=== PATIENT | male | born 1960 | race Caucasian/White ===

== ENCOUNTER 2017-01-11 12:05 | Inpatient (IN) | payer MEDICARE, OTHER ==
[2017-01-11] MEDS ORDERED: SODIUM CHLORIDE 0.9% 1,000 ML IV STA ×2 (12:10)
--- NOTE | 2017-01-11 12:16 | ED ---
Weakness HPI - General Chief complaint: Weakness Stated complaint: waekness Time Seen by Provider: 01/11/17 12:05 Source: patient, EMS, RN notes reviewed Mode of arrival: EMS - History of Present Illness Initial comments: This is a 56-year-old male with a history of peripheral vascular disease and a [id number] amputation from peripheral vascular disease also admits to drinking alcohol smoking cigarettes who called EMS was brought in for evaluation of inability to use his right arm very well also dizziness. He doesn 't was to drinking last night he states he woke up about an hour ago complaining of not being able to use his right arm wall and was shaking. This is since resolved he still somewhat dizzy however. Denies no focal weakness denies any fevers chills nausea, sweats he denies any trauma. MD Complaint: focal weakness - Related Data Home Medications Medication Instructions Recorded Confirmed Metoprolol Tartrate [Lopressor] 25 mg PO DAILY 01/11/17 01/11/17 Sertraline [Zoloft] 100 mg PO DAILY 01/11/17 01/11/17 Previous Rx's Medication Instructions Recorded Aspirin 325 mg PO DAILY #30 tab 09/27/14 Atorvastatin [Lipitor] 80 mg PO HS #30 tab 09/27/14 Allergies Allergy/AdvReac Type Severity Reaction Status Date / Time No Known Allergies Allergy Verified 01/11/17 13:30 Review of Systems ROS Statement: Those systems with pertinent positive or pertinent negative responses have been documented in the HPI. ROS Other: All systems not noted in ROS Statement are negative. Past Medical History Past Medical History: Coronary Artery Disease (CAD), Hypertension, Myocardial Infarction ([place]), Seizure Disorder, Vascular Disorder Additional Past Medical History / Comment(s): 09/25/14 Transfer from [facility] with STEMI. Other HX: Seizures x 5 with last one 10 weeks ago, Depression, patient's recently - December 2013, stomach pain that caused him to be off work 7 months- hewas told it had something to do with his spleen and that it might have ruptured- his hgb went down to 3. Hx of L ankle fx. Last Myocardial Infarction Date:: 09/25/14 History of Any Multi-Drug Resistant Organisms: None Reported Past Surgical History: Appendectomy, Heart Catheterization With Stent Additional Past Surgical History / Comment(s): 09/25/14 PTCA with stenting, BYPASS ON BOTH LEGS, RIGHT BELOW KNEE AMPUTATION, 2 EGD's, colonoscopy x 2, hemorrhoidectomy, . Past Anesthesia/Blood Transfusion Reactions: No Reported Reaction Additional Past Anesthesia/Blood Transfusion Reaction / Comment(s): Pt had blood transfusions with no reaction. Date of Last Stent Placement:: 09/25/14 Past Psychological History: Anxiety, Depression Smoking Status: Current every day smoker Past Alcohol Use History: Abuse, Daily Past Drug Use History: None Reported - Past Family History Father Family Medical History: Cancer Additional Family Medical History / Comment(s): Father of lung cancer. Mother Family Medical History: Hypertension General Exam - General Exam Comments Initial Comments: This is a well-developed well-nourished awake alert oriented 3 male General appearance: alert, in no apparent distress Head exam: Present: atraumatic, normocephalic, normal inspection Eye exam: Present: normal appearance, PERRL, EOMI. Absent: scleral icterus, conjunctival injection, periorbital swelling ENT exam: Present: normal exam, mucous membranes moist Neck exam: Present: normal inspection. Absent: tenderness, meningismus, lymphadenopathy Respiratory exam: Present: normal lung sounds bilaterally. Absent: respiratory distress, wheezes, rales, rhonchi, stridor Cardiovascular Exam: Present: regular rate, normal rhythm, normal heart sounds. Absent: systolic murmur, diastolic murmur, rubs, gallop, clicks GI/Abdominal exam: Present: soft, normal bowel sounds. Absent: distended, tenderness, guarding, rebound, rigid Extremities exam: Present: full ROM, normal capillary refill, other (Prosthesis on the right lower extremity). Absent: tenderness, pedal edema, joint swelling , calf tenderness Back exam: Present: normal inspection Neurological exam: Present: alert, oriented X3, CN II-XII intact Psychiatric exam: Present: normal affect, normal mood Skin exam: Present: warm, dry, intact, normal color. Absent: rash Course Vital Signs 01/11/17 01/11/17 01/11/17 12:07 13:05 13:23 Temperature 97.7 F Pulse Rate 80 69 73 Respiratory 20 18 18 Rate Blood Pressure 113/63 131/59 118/64 O2 Sat by Pulse 98 98 99 Oximetry 01/11/17 14:00 Temperature Pulse Rate 70 Respiratory 18 Rate Blood Pressure 103/59 O2 Sat by Pulse 98 Oximetry EKG Findings - EKG Results: EKG: interpreted by ERMJens, sinus rhythm (Sinus rhythm rate of 68 CT interval 132 QRS of 80 daily since QTC of 414/440) Medical Decision Making - Medical Decision Making I did reevaluate patient several occasions no further symptoms at this time the presentation is suspicious for TIA though radiculopathy is not excluded. Patient will be admitted with neurological consultation patient was initially demonstrate alcohol intoxication. - Lab Data Result diagrams: 01/11/17 12:14 01/11/17 12:14 Lab Results 01/11/17 01/11/17 01/11/17 Range/Units 12:14 12:14 12:14 WBC 10.6 (3.8-10.6) k/uL RBC 4.50 (4.30-5.90) m/uL Hgb 15.3 (13.0-17.5) gm/dL Hct 43.0 (39.0-53.0) % MCV 95.5 (80.0-100.0) fL MCH 34.0 (25.0-35.0) pg MCHC 35.6 (31.0-37.0) g/dL RDW 12.5 (11.5-15.5) % Plt Count 287 (150-450) k/uL Neutrophils % 64 % Lymphocytes % 27 % Monocytes % 4 % Eosinophils % 2 % Basophils % 1 % Neutrophils # 6.8 (1.3-7.7) k/uL Lymphocytes # 2.9 (1.0-4.8) k/uL Monocytes # 0.4 (0-1.0) k/uL Eosinophils # 0.2 (0-0.7) k/uL Basophils # 0.1 (0-0.2) k/uL PT (9.0-12.0) sec INR (<1.1) APTT (22.0-30.0) sec Sodium 145 (137-145) mmol/L Potassium 5.1 (3.5-5.1) mmol/L Chloride 109 H (98-107) mmol/L Carbon Dioxide 24 (22-30) mmol/L Anion Gap 12 mmol/L BUN 20 (9-20) mg/dL Creatinine 0.83 (0.66-1.25) mg/dL Est GFR (MDRD) Af Amer >60 (>60 ml/min/1.73 sqM) Est GFR (MDRD) Non-Af >60 (>60 ml/min/1.73 sqM) Glucose 88 (74-99) mg/dL POC Glucose (mg/dL) (75-99) mg/dL POC Glu [employer] ID Calcium 8.9 (8.4-10.2) mg/dL Magnesium 2.0 (1.6-2.3) mg/dL Total Bilirubin 0.7 (0.2-1.3) mg/dL AST 19 (17-59) U/L ALT 31 (21-72) U/L Alkaline Phosphatase 91 (38-126) U/L Total Creatine Kinase 78 (55-170) U/L CK-MB (CK-2) 0.9 (0.0-2.4) ng/mL CK-MB (CK-2) Rel Index 1.2 Troponin I <0.012 (0.000-0.034) ng/mL Total Protein 7.4 (6.3-8.2) g/dL Albumin 4.4 (3.5-5.0) g/dL Urine Color Urine Appearance (Clear) Urine pH (5.0-8.0) Ur Specific [place] (1.001-1.035) Urine Protein (Negative) Urine Glucose (UA) (Negative) Urine Ketones (Negative) Urine Blood (Negative) Urine Nitrite (Negative) Urine Bilirubin (Negative) Urine Urobilinogen (<2.0) mg/dL Ur Leukocyte Esterase (Negative) Urine RBC (0-5) /hpf Urine WBC (0-5) /hpf Ur Squamous Epith Cells (0-4) /hpf Urine Bacteria (None) /hpf Hyaline Casts (0-2) /lpf Urine Mucus (None) /hpf Urine Opiates Screen (NotDetected) Ur Oxycodone Screen (NotDetected) Urine Methadone Screen (NotDetected) Ur Propoxyphene Screen (NotDetected) Ur Barbiturates Screen (NotDetected) U Tricyclic Antidepress (NotDetected) Ur Phencyclidine Scrn (NotDetected) Ur Amphetamines Screen (NotDetected) U Methamphetamines Scrn (NotDetected) U Benzodiazepines Scrn (NotDetected) Urine Cocaine Screen (NotDetected) U Marijuana (THC) Screen (NotDetected) Serum Alcohol 236 mg/dL 01/11/17 01/11/17 01/11/17 Range/Units 12:14 12:14 12:20 WBC (3.8-10.6) k/uL RBC (4.30-5.90) m/uL Hgb (13.0-17.5) gm/dL Hct (39.0-53.0) % MCV (80.0-100.0) fL MCH (25.0-35.0) pg MCHC (31.0-37.0) g/dL RDW (11.5-15.5) % Plt Count (150-450) k/uL Neutrophils % % Lymphocytes % % Monocytes % % Eosinophils % % Basophils % % Neutrophils # (1.3-7.7) k/uL Lymphocytes # (1.0-4.8) k/uL Monocytes # (0-1.0) k/uL Eosinophils # (0-0.7) k/uL Basophils # (0-0.2) k/uL PT 10.0 (9.0-12.0) sec INR 1.0 (<1.1) APTT 22.7 (22.0-30.0) sec Sodium (137-145) mmol/L Potassium (3.5-5.1) mmol/L Chloride (98-107) mmol/L Carbon Dioxide (22-30) mmol/L Anion Gap mmol/L BUN (9-20) mg/dL Creatinine (0.66-1.25) mg/dL Est GFR (MDRD) Af Amer (>60 ml/min/1.73 sqM) Est GFR (MDRD) Non-Af (>60 ml/min/1.73 sqM) Glucose (74-99) mg/dL POC Glucose (mg/dL) 85 (75-99) mg/dL POC Glu [employer]ic ID McDaid, Ginny Calcium (8.4-10.2) mg/dL Magnesium (1.6-2.3) mg/dL Total Bilirubin (0.2-1.3) mg/dL AST (17-59) U/L ALT (21-72) U/L Alkaline Phosphatase (38-126) U/L Total Creatine Kinase (55-170) U/L CK-MB (CK-2) (0.0-2.4) ng/mL CK-MB (CK-2) Rel Index Troponin I (0.000-0.034) ng/mL Total Protein (6.3-8.2) g/dL Albumin (3.5-5.0) g/dL Urine Color Yellow Urine Appearance Clear (Clear) Urine pH 5.5 (5.0-8.0) Ur Specific [place] 1.014 (1.001-1.035) Urine Protein Trace H (Negative) Urine Glucose (UA) Negative (Negative) Urine Ketones Negative (Negative) Urine Blood Small H (Negative) Urine Nitrite Negative (Negative) Urine Bilirubin Negative (Negative) Urine Urobilinogen <2.0 (<2.0) mg/dL Ur Leukocyte Esterase Negative (Negative) Urine RBC 1 (0-5) /hpf Urine WBC 2 (0-5) /hpf Ur Squamous Epith Cells 1 (0-4) /hpf Urine Bacteria Rare H (None) /hpf Hyaline Casts 4 H (0-2) /lpf Urine Mucus Rare H (None) /hpf Urine Opiates Screen Detected H (NotDetected) Ur Oxycodone Screen Not Detected (NotDetected) Urine Methadone Screen Not Detected (NotDetected) Ur Propoxyphene Screen Not Detected (NotDetected) Ur Barbiturates Screen Not Detected (NotDetected) U Tricyclic Antidepress Not Detected (NotDetected) Ur Phencyclidine Scrn Not Detected (NotDetected) Ur Amphetamines Screen Not Detected (NotDetected) U Methamphetamines Scrn Not Detected (NotDetected) U Benzodiazepines Scrn Not Detected (NotDetected) Urine Cocaine Screen Not Detected (NotDetected) U Marijuana (THC) Screen Not Detected (NotDetected) Serum Alcohol mg/dL - Radiology Data Radiology results: report reviewed (I did review the imaging and reports no acute findings.), image reviewed Disposition Clinical Impression: TIA (transient ischemic attack), Alcohol intoxication Disposition: ADMITTED IP TO THIS [facility] Condition: Stable Referrals: Ozzy Pereira MD [Primary Care Provider] - 1-2 days
[2017-01-11 12:22] LABS: Glucose,Whole Blood 85 mg/dL (75-99)
--- NOTE | 2017-01-11 12:39 | CT ---
EXAMINATION TYPE: CT brain wo con for TPA DATE OF EXAM: 01/11/2017 COMPARISON: Previous study dated 09/27/2014. HISTORY: Patient complains of headache and difficulty breathing. CT DLP: 798.9 mGycm Automated exposure control for dose reduction was used. FINDINGS: There are mild, generalized changes of sulcal prominence and ventriculomegaly, compatible with atroph ic change. There is a catheter or malacia in the right frontal lobe consistent with a previous vascul ar insult. This is unchanged from previous. There is mild, diffuse periventricular white matter lucen cy, compatible with chronic white matter ischemic change. There is no acute focal lesion, mass effect or midline shift identified. I do not see evidence of intracranial blood. There is mild mucoperiosteal thickening involving the ethmoid sinuses. Note depressed skull fracture is seen. IMPRESSION: 1. NO ACUTE INTRACRANIAL ABNORMALITY. 2. EVIDENCE OF A PREVIOUS RIGHT FRONTAL INFARCT. 3. MILD ATROPHIC CHANGE. 4. CHRONIC WHITE MATTER ISCHEMIC CHANGE. 5. MILD MUCOPERIOSTEAL THICKENING, ETHMOID SINUSES.
--- NOTE | 2017-01-11 12:40 | XR ---
EXAMINATION TYPE: XR chest 2V DATE OF EXAM: 01/11/2017 HISTORY: altered mental status. REFERENCE: Previous study dated 04/15/2015. FINDINGS: The lungs are overinflated. The lungs are clear. Pleural spaces are clear. Heart size is no rmal. IMPRESSION: COPD.
[2017-01-11 13:05] LABS: Basophils # (A) 0.1 k/uL (0-0.2); Basophils % (A) 1 %; CH 31.7; CHCM 33.4; Eosinophils # (A) 0.2 k/uL (0-0.7); Eosinophils % (A) 2 %; HDW 2.13; HGB 15.3 gm/dL (13.0-17.5); Luc # (Auto) 0.24; Luc % (Auto) 2; Lymphocytes # (A) 2.9 k/uL (1.0-4.8); Lymphocytes % (A) 27 %; MCHC 35.6 g/dL (31.0-37.0); MCV 95.5 fL (80.0-100.0); Mean Platelet Volume 7.4; Monocytes # (A) 0.4 k/uL (0-1.0); Monocytes % (A) 4 %; Neutrophils # (A) 6.8 k/uL (1.3-7.7); Neutrophils % (A) 64 %; RDW 12.5 % (11.5-15.5); WBC 10.6 k/uL (3.8-10.6); WBC (Perox) 10.56
[2017-01-11 13:16] LABS: Anion Gap 12 mmol/L; Calcium 8.9 mg/dL (8.4-10.2); Carbon Dioxide 24 mmol/L (22-30); Chloride 109 mmol/L (98-107); Glucose 88 mg/dL (74-99); Non-African American GFR(MDRD) >60 (>60 ml/min/1.73 sqM); Sodium 145 mmol/L (137-145); Total Bilirubin 0.7 mg/dL (0.2-1.3)
[2017-01-11 13:18] LABS: Appearance,Urine Clear (Clear); Bacteria,Urine Rare /hpf; Bilirubin,Urine Negative (Negative); Glucose,Urine (UA) Negative (Negative); Ketones,Urine Negative (Negative); Leukocyte Esterase,Urine Negative (Negative); Mucus,Urine Rare /hpf; Nitrite,Urine Negative (Negative); PH, Urine 5.5 (5.0-8.0); Particle Count 3276; Protein,Urine Trace (Negative); RBC,Urine 1 /hpf (0-5); Specific Gravity,Urine 1.014 (1.001-1.035); Squamous Epithelial Cell,Urine 1 /hpf (0-4); UA Billing (MACRO vs. MICRO) MICRO; Urobilinogen,Urine <2.0 mg/dL (<2.0); WBC,Urine 2 /hpf (0-5)
[2017-01-11 13:21] LABS: Partial Thromboplastin Time 22.7 sec (22.0-30.0)
[2017-01-11 13:24] LABS: Alcohol 236 mg/dL
[2017-01-11 13:25] LABS: Potassium 5.1 mmol/L (3.5-5.1); Total Protein 7.4 g/dL (6.3-8.2)
[2017-01-11 13:26] LABS: ALT 31 U/L (21-72); AST 19 U/L (17-59); Alkaline Phosphatase 91 U/L (38-126); Blood Urea Nitrogen 20 mg/dL (9-20); Creatine Kinase 78 U/L (55-170)
[2017-01-11 13:40] LABS: Creatine Kinase MB 0.9 ng/mL (0.0-2.4); Troponin I <0.012 ng/mL (0.000-0.034)
[2017-01-11] MEDS ORDERED: LORazepam 2 MG/ML SYRINGE IV PRN ×2 (15:07)
[2017-01-11] MEDS ORDERED: THIAMINE 100 MG/ML 2 ML VIAL IM STA (15:07)
[2017-01-11] MEDS: SODIUM CHLORIDE 0.9% 1,000 ML IV SCH (15:26)
--- NOTE | 2017-01-11 15:49 | US ---
EXAMINATION TYPE: US carotid duplex BILAT DATE OF EXAM: 01/11/2017 COMPARISON: NONE CLINICAL HISTORY: Stenosis. Right facial numbness, dizziness EXAM MEASUREMENTS: RIGHT: Peak Systolic Velocity (PSV) cm/sec ----- Right CCA: 84.5 ----- Right ICA: 94.3 ----- Right ECA: 115.1 ICA/CCA ratio: 1.1 RIGHT: End Diastole cm/sec ----- Right CCA: 21.9 ----- Right ICA: 21.9 ----- Right ECA: 20.6 LEFT: Peak Systolic Velocity (PSV) cm/sec ----- Left CCA: 63.6 ----- Left ICA: 103.4 ----- Left ECA: 124.2 ICA/CCA ratio: 1.6 LEFT: End Diastole cm/sec ----- Left CCA: 20.0 ----- Left ICA: 37.4 ----- Left ECA: 20.8 VERTEBRALS (direction of flow): Right Vertebral: Antegrade Left Vertebral: Antegrade Mild plaque bilateral bifurcations. No evidence of increased velocities. No significant stenosis IMPRESSION: I DO NOT SEE EVIDENCE OF A HEMODYNAMICALLY SIGNIFICANT STENOSIS IN EITHER CAROTID SYSTEM. Criteria for Assigning % of Stenosis / Diameter reduction (Estimation based on the indirect measurements of the internal carotid artery velocities (ICA PSV). 1. Normal (no stenosis)=ICA PSV < 125 cm/s: ratio < 2.0: ICA EDV<40 cm/s. 2. Less than 50% stenosis=ICA PSV < 125 cm/s: ratio < 2.0: ICA EDV<40 cm/s. 3. 50 to 69% stenosis=ICA PSV of 125 to 230 cm/s: ration 2.0 ? 4.0: ICA EDV 40-100 cm/s. 4. Greater than 70% stenosis to near occlusion= ICA PSV > 230 cm/s: ratio > 4.0: ICA EDV > 100 cm/s. 5. Near occlusion= ICA PSV velocities may be low or undetectable: variable ratio and ICA EDV. 6. Total occlusion=unable to detect flow.
[2017-01-11 16:44] VITALS: RESP 16
[2017-01-11] MEDS: HEPARIN SODIUM,PORCINE 5,000 UNIT/ML 1 ML VIAL SQ SCH ×2 (17:18→23:52)
[2017-01-11] MEDS: THIAMINE 100 MG TAB PO SCH (17:18)
[2017-01-11] MEDS: HYDROcodone/APAP 5-325MG 1 EACH TAB PO PRN (18:13)
[2017-01-11] MEDS: LORazepam 2 MG/ML SYRINGE IV PRN (21:05)
[2017-01-11] MEDS: ATORVASTATIN 80 MG TAB PO SCH (21:05)
--- NOTE | 2017-01-11 21:12 | P.CNNES ---
History of Present Illness Consult date: 01/11/17 History of Present Illness: The patient is a 56-year-old right-handed white male who woke up this morning with dizziness and chest pain. He also had shortness of breath. He states the shortness of breath continues even now. EMS was called and he noticed of right facial numbness. That lasted for 3-4 minutes. Also he notices right hand was jerking sporadically for about 15 minutes. He has chronic numbness in the legs from prior severe peripheral arterial disease. He states that the chest pain has eased down but his shortness of breath continues. Also the facial numbness left. He has a history of previous stroke which affected his left side. He had a CT of the brain which showed right frontal infarct. He reports that he drinks about 1 pint of liquor every 10 days. Yesterday he took 2 pints. He has shaky today he admits due to the alcohol consumption yesterday. He has a history of alcohol withdrawal seizures the last one being several years of back. Review of Systems Constitutional: Denies chills, Denies fever Eyes: denies blurred vision, denies pain Cardiovascular: Denies chest pain, Denies shortness of breath Respiratory: Denies cough Gastrointestinal: Denies abdominal pain, Denies diarrhea, Denies nausea, Denies vomiting Musculoskeletal: Denies myalgias Neurological: Reports as per HPI, Denies numbness, Denies weakness Psychiatric: Denies anxiety, Denies depression Past Medical History Past Medical History: Coronary Artery Disease (CAD), Hypertension, Myocardial Infarction ([place]), Seizure Disorder, Vascular Disorder Additional Past Medical History / Comment(s): 09/25/14 STEMI with stent placement , Seizures, ETOH Abuse, Depression, patient's recently - December 2013, stomach pain that caused him to be off work 7 months- hewas told it had something to do with his spleen and that it might have ruptured- his hgb went down to 3. Hx of L ankle fx. Last Myocardial Infarction Date:: 09/25/14 History of Any Multi-Drug Resistant Organisms: None Reported Past Surgical History: Appendectomy, Heart Catheterization With Stent Additional Past Surgical History / Comment(s): 09/25/14 PTCA with stenting, BYPASS ON BOTH LEGS, RIGHT BELOW KNEE AMPUTATION, 2 EGD's, colonoscopy x 2, hemorrhoidectomy, . Past Anesthesia/Blood Transfusion Reactions: No Reported Reaction Additional Past Anesthesia/Blood Transfusion Reaction / Comment(s): Pt had blood transfusions with no reaction. Date of Last Stent Placement:: 09/25/14 Past Psychological History: Anxiety, Depression Additional Psychological History / Comment(s): Pt's last year December 2013. R leg prosthesis. He admits to drinking a pint every 7-10 days. pack a day smoker since 1976. Smoking Status: Current every day smoker Past Alcohol Use History: Abuse, Daily Past Drug Use History: None Reported - Past Family History Father Family Medical History: Cancer Additional Family Medical History / Comment(s): Father of lung cancer. Mother Family Medical History: Cancer, Hypertension, Liver Disease Additional Family Medical History / Comment(s): Psychological history, Medications and Allergies Home Medications Medication Instructions Recorded Confirmed Type Metoprolol Tartrate [Lopressor] 25 mg PO DAILY 01/11/17 01/11/17 History Sertraline [Zoloft] 100 mg PO DAILY 01/11/17 01/11/17 History Allergies Allergy/AdvReac Type Severity Reaction Status Date / Time No Known Allergies Allergy Verified 01/11/17 13:30 Physical Examination - Vital Signs Vital Signs: Vital Signs Temp Pulse Pulse Resp BP BP Pulse Ox 01/11/17 16:07 97.0 F L 73 16 124/70 99 01/11/17 16:00 97.0 F L 73 16 124/70 99 01/11/17 15:26 97.9 F 91 18 123/72 97 01/11/17 15:00 67 18 116/59 98 01/11/17 14:00 70 18 103/59 98 01/11/17 13:23 73 18 118/64 99 01/11/17 13:05 69 18 131/59 98 01/11/17 12:07 97.7 F 80 20 113/63 98 Intake and Output 01/11/17 01/11/17 01/11/17 06:59 14:59 22:59 Intake Total 200 Balance 200 Intake: Oral 200 Other: Weight 61.235 kg 61.5 kg Patient Weight 01/12/17 06:59 Weight 61.5 kg - Constitutional General appearance: cooperative - EENT EENT: PERRL, vision intact - Respiratory Respiratory: lungs clear - Cardiovascular Cardiovascular: regular rate - Neurologic Mental status he was awake alert and oriented there is no aphasia or dysarthria Cranial nerve examination: PERRL, EOMI, VFF, V1/V2/V3 grossly intact, face symmetric, tongue midline Speech examination: intact Sensorimotor examination: intact Detailed motor examination: grossly full strength in all extremities, other ( The patient has a right below-knee amputation) Detailed sensory examination: intact Results - Laboratory Findings CBC and BMP: 01/11/17 12:14 01/11/17 12:14 Abnormal Lab Findings: Abnormal Labs 01/11/17 01/11/17 12:14 12:14 Chloride 109 H Urine Protein Trace H Urine Blood Small H Urine Bacteria Rare H Hyaline Casts 4 H Urine Mucus Rare H Urine Opiates Screen Detected H Assessment and Plan (1) Alcohol intoxication Status: Acute Code(s): F10.929 - ALCOHOL USE, UNSPECIFIED WITH INTOXICATION, UNSPECIFIED (2) TIA (transient ischemic attack) Status: Acute Code(s): G45.9 - TRANSIENT CEREBRAL ISCHEMIC ATTACK, UNSPECIFIED (3) Acute chest wall pain Status: Acute Code(s): R07.89 - OTHER CHEST PAIN (4) Shortness of breath Status: Acute Code(s): R06.02 - SHORTNESS OF BREATH Plan: The patient is a 56-year-old man with severe peripheral vascular disease and history of previous stroke who presents with transient episode of right facial numbness chest pain shortness of breath. He was admitted with alcohol intoxication. The patient's facial numbness may be related to a TIA. He did have some testing done for possible TIA including carotid ultrasound which did not show any significant stenosis. At a CT of the brain which showed mild atrophy and previous right frontal infarct. Recommend patient be started on Plavix 75 mg a day along with a baby aspirin. He states he does not drive. He has not had any reported's alcohol withdrawal seizures for several years. Will check EEG..
[2017-01-12 04:56] LABS: Cholesterol 161 mg/dL (<200); HDL Cholesterol 62 mg/dL (40-60); Triglycerides 158 mg/dL (<150)
[2017-01-12] MEDS: LORazepam 2 MG/ML SYRINGE IV PRN ×2 (07:49→16:19)
[2017-01-12] MEDS: HEPARIN SODIUM,PORCINE 5,000 UNIT/ML 1 ML VIAL SQ SCH ×2 (07:53→16:18)
[2017-01-12] MEDS: HYDROcodone/APAP 5-325MG 1 EACH TAB PO PRN ×3 (07:53→16:18)
[2017-01-12] MEDS: SERTRALINE 100 MG TAB PO SCH (07:55)
[2017-01-12] MEDS: METOPROLOL TARTRATE 25 MG TAB PO SCH (07:55)
[2017-01-12] MEDS: CLOPIDOGREL 75 MG TAB PO SCH (07:55)
[2017-01-12] MEDS: LISINOPRIL 20 MG TAB PO SCH (07:56)
[2017-01-12] MEDS ORDERED: ASPIRIN 325 MG TAB PO SCH (09:00)
[2017-01-12] MEDS: SODIUM CHLORIDE 0.9% 1,000 ML IV SCH ×3 (10:02→20:21)
[2017-01-12 10:22] VITALS: BMI 18.8
[2017-01-12] MEDS: THIAMINE 100 MG TAB PO SCH ×2 (11:16→16:18)
--- NOTE | 2017-01-12 11:33 | P.HPIM ---
History of Present Illness 56-year-old male was admitted through the emergency room with complaints of right sided facial numbness. Was found to be alcohol intoxicated. Patient is have history of TIA with left-sided problems Review of Systems Respiratory: Reports dyspnea Neurological: Reports paresthesias Past Medical History Past Medical History: Coronary Artery Disease (CAD), Hypertension, Myocardial Infarction (VT), Seizure Disorder, Vascular Disorder Additional Past Medical History / Comment(s): 09/25/14 STEMI with stent placement , Seizures, ETOH Abuse, Depression, patient's recently - December 2013, stomach pain that caused him to be off work 7 months- hewas told it had something to do with his spleen and that it might have ruptured- his hgb went down to 3. Hx of L ankle fx. Last Myocardial Infarction Date:: 09/25/14 History of Any Multi-Drug Resistant Organisms: None Reported Past Surgical History: Appendectomy, Heart Catheterization With Stent Additional Past Surgical History / Comment(s): 09/25/14 PTCA with stenting, BYPASS ON BOTH LEGS, RIGHT BELOW KNEE AMPUTATION, 2 EGD's, colonoscopy x 2, hemorrhoidectomy, . Past Anesthesia/Blood Transfusion Reactions: No Reported Reaction Additional Past Anesthesia/Blood Transfusion Reaction / Comment(s): Pt had blood transfusions with no reaction. Date of Last Stent Placement:: 09/25/14 Past Psychological History: Anxiety, Depression Additional Psychological History / Comment(s): Pt's last year December 2013. R leg prosthesis. He admits to drinking a pint every 7-10 days. pack a day smoker since 1976. Smoking Status: Current every day smoker Past Alcohol Use History: Abuse, Daily Past Drug Use History: None Reported - Past Family History Father Family Medical History: Cancer Additional Family Medical History / Comment(s): Father of lung cancer. Mother Family Medical History: Cancer, Hypertension, Liver Disease Additional Family Medical History / Comment(s): Psychological history, Medications and Allergies Home Medications Medication Instructions Recorded Confirmed Type Metoprolol Tartrate [Lopressor] 25 mg PO DAILY 01/11/17 01/11/17 History Sertraline [Zoloft] 100 mg PO DAILY 01/11/17 01/11/17 History Allergies Allergy/AdvReac Type Severity Reaction Status Date / Time No Known Allergies Allergy Verified 01/11/17 13:30 Physical Exam Vitals: Vital Signs Temp Pulse Pulse Resp BP BP Pulse Ox 01/12/17 11:20 97.7 F 72 16 124/70 98 01/12/17 08:00 97.5 F L 86 16 151/83 97 01/12/17 04:00 97.1 F L 81 16 148/65 98 01/12/17 00:00 76 16 118/66 98 01/11/17 20:00 97.5 F L 90 16 124/70 98 01/11/17 16:07 97.0 F L 73 16 124/70 99 01/11/17 16:00 97.0 F L 73 16 124/70 99 01/11/17 15:26 97.9 F 91 18 123/72 97 01/11/17 15:00 67 18 116/59 98 01/11/17 14:00 70 18 103/59 98 01/11/17 13:23 73 18 118/64 99 01/11/17 13:05 69 18 131/59 98 01/11/17 12:07 97.7 F 80 20 113/63 98 Intake and Output 01/11/17 01/12/17 01/12/17 22:59 06:59 14:59 Intake Total 200 500 945 Output Total 400 650 Balance 200 100 295 Intake: Intake, IV Titration 500 825 Amount Sodium Chloride 0.9% 1, 500 825 000 ml @ 100 mls/hr IV . Q10H [facility] Rx#:[id number] Oral 200 120 Output: Urine 400 650 Other: Voiding Method Urinal # Voids 1 # Bowel Movements 0 Weight 61.5 kg 59.5 kg 59.5 kg Patient Weight 01/13/17 06:59 Weight 59.5 kg - Constitutional General appearance: thin - EENT Eyes: PERRLA Ears: bilateral: normal - Neck Neck: normal ROM - Cardiovascular Rhythm: regular - Gastrointestinal General gastrointestinal: soft - Integumentary Integumentary: normal - Neurologic Neurologic: CNII-XII intact - Musculoskeletal Musculoskeletal: gait normal - Psychiatric Psychiatric: A&O x's 3, appropriate affect, intact judgment & insight Results CBC & Chem 7: 01/11/17 12:14 01/11/17 12:14 Labs: Abnormal Lab Results - Last 24 Hours (Table) 01/11/17 01/11/17 01/11/17 Range/Units 12:14 12:14 12:14 Chloride 109 H (98-107) mmol/L Triglycerides 158 H (<150) mg/dL HDL Cholesterol 62 H (40-60) mg/dL Urine Protein Trace H (Negative) Urine Blood Small H (Negative) Urine Bacteria Rare H (None) /hpf Hyaline Casts 4 H (0-2) /lpf Urine Mucus Rare H (None) /hpf Urine Opiates Screen Detected H (NotDetected) Chest x-ray: report reviewed CT Scan - head: report reviewed Thrombosis Risk Factor Assmnt - Choose All That Apply Any of the Below Risk Factors Present?: Yes Each Factor Represents 1 point: Age 41-60 years Other Risk Factors: No Other congenital or acquired thrombophilia - If yes, enter type in comment: No Thrombosis Risk Factor Assessment Total Risk Factor Score: 1 Thrombosis Risk Factor Assessment Level: Low Risk Assessment and Plan Plan: Assessment Alcohol intoxication history of alcoholism TIA history of CVA and left-sided problems Chest wall pain Shortness of breath History of peripheral vascular disease with below the knee right leg amputation has prosthesis History of coronary disease VT with stents Hypertension Seizure disorder Plan Continue consultation with neurology Dr. Ledezma
--- NOTE | 2017-01-12 12:29 | CDI ---
In responding to this query, please exercise your independent professional judgment. The [facility] Coding Staff and Clinical Documentation Specialists appreciate your assistance in clarifying documentation, maintaining compliance with coding guidelines, accurately documenting patients condition and capturing severity of illness. The fact that a question is asked does not imply that any particular answer is desired or expected. Communication forms are a method of clarifying documentation and are not made part of the Legal Health Record. Thank you in advance for your clarification. Last Revision, May 2015 [address] [place] [address] Documentation Clarification Form Date: 01/12/2017 12:15:00 PM From: Sienna Mckay RN, CDS Admit Date: 01/11/2017 3:15:00 PM Patient Name: Taiwo Rojas Visit Number: [id number] Dr. Ozzy Pereira, 56 year old patient admitted for alcohol intoxication and TIA. Patient has a history of alcoholism, depression and anxiety, peripheral vascular disease with right below the knee amputation. Patient has had a 10KG unintended weight loss unspecified time reporting poor intake over past 2 months. He is at 79% of ideal body weight per Dietitian consult. History/Risk Factors: CVA, Alcoholism, Alcohol withdraw seizures, HTN, PVD, Right below knee amputation Clinical Indicators: " Appearance underweight, 10KG unintended weight loss unspecified time reporting poor intake over past 2 months. He is at 79% of ideal body weight" per Dietitian consult Current BMI: 18.8 Insufficient energy intake: meeting 75% of estimated nutritional needs Weight Loss: 10KG, unintended Treatment: Dietitian consult, Ensure Enlive supplement, Heart healthy diet, In your professional opinion, can you please clarify if these findings signify one of the following conditions? Mild Protein-Calorie Malnutrition Moderate Protein-Calorie Malnutrition Severe Protein-Calorie Malnutrition Other condition, please specify Unable to determine Please document in your progress notes and discharge summary in order to capture severity of illness and risk of mortality. Include clinical findings that support your diagnosis. FYI: Press F11 to launch patient chart. Place X here if this finding has no clinical significance, is not applicable or if you are not able to provide any additional documentation. MTDD
[2017-01-12] MEDS: ATORVASTATIN 80 MG TAB PO SCH (20:21)
[2017-01-13] MEDS: HEPARIN SODIUM,PORCINE 5,000 UNIT/ML 1 ML VIAL SQ SCH ×2 (00:48→07:53)
[2017-01-13] MEDS: HYDROcodone/APAP 5-325MG 1 EACH TAB PO PRN (07:53)
[2017-01-13] MEDS: METOPROLOL TARTRATE 25 MG TAB PO SCH (07:53)
[2017-01-13] MEDS: SERTRALINE 100 MG TAB PO SCH (07:53)
[2017-01-13] MEDS: LISINOPRIL 20 MG TAB PO SCH (07:54)
[2017-01-13] MEDS: CLOPIDOGREL 75 MG TAB PO SCH (07:54)
[2017-01-13] MEDS: SODIUM CHLORIDE 0.9% 1,000 ML IV SCH (07:55)
[2017-01-13 08:16] VITALS: BP 137/70; PULSE 84; TEMP 98.6
[2017-01-13] MEDS ORDERED: ASPIRIN 81 MG CHEW PO SCH (09:00)
[2017-01-13] MEDS ORDERED: NICOTINE 21MG/24HR PATCH TRANSDERM SCH (09:00)
--- NOTE | 2017-01-13 11:08 | P.DS ---
Providers Date of admission: 01/11/17 15:15 Expected date of discharge: 01/13/17 Attending physician: Ozzy Pereira Consults: 01/11/17 15:05 Consult Physician Routine Consulting Provider: Judy Duncan Consult Reason/Comments: Possible TIA Do you want consulting provider notified?: Yes Primary care physician: Ozzy Pereira Hospital Course: 56-year-old male was admitted through the emergency room with complaints of shortness of breath facial numbness had positive EtOH. Patient states he's been under a lot of stress and was taking alcohol for that reason. States he has had trouble with alcoholism in the past but does not use alcohol every day now patient was evaluated by neurology. Diagnosed with TIA per neurologist Assessment Alcohol intoxication history of alcoholism TIA history of CVA with left-sided problems resolved Acute chest wall pain resolved Chronic shortness of breath History of peripheral vascular disease with below the knee amputation right side has prosthesis History of coronary disease with [place] plus stents Hypertension Seizure disorder Moderate protein/calorie malnutrition Plan Follow-up with cardiology Dr. Ledezma Family physician Dr. Ozzy Pereira Prescription given for hydrocodone from family physician Patient Condition at Discharge: Stable Plan - Discharge Summary New Discharge Prescriptions: No Action Atorvastatin [Lipitor] 80 mg PO HS #30 tab Aspirin 325 mg PO DAILY #30 tab Metoprolol Tartrate [Lopressor] 25 mg PO DAILY Sertraline [Zoloft] 100 mg PO DAILY Discharge Medication List Aspirin 325 mg PO DAILY #30 tab 09/27/14 [Rx] Atorvastatin [Lipitor] 80 mg PO HS #30 tab 09/27/14 [Rx] Metoprolol Tartrate [Lopressor] 25 mg PO DAILY 01/11/17 [History] Sertraline [Zoloft] 100 mg PO DAILY 01/11/17 [History] Follow up Appointment(s)/Referral(s): Ozzy Pereira MD [Primary Care Provider] - 1-2 days Judy Duncan MD [STAFF PHYSICIAN] - 1 Week Patient Instructions/Handouts: Transient Ischemic Attack (DC), Abuse of Alcohol (DC) Discharge Disposition: HOME SELF-CARE
--- NOTE | 2017-01-15 13:12 | EEG ---
DATE OF EE01/12/2017 INDICATION FOR EXAMINATION: This patient is a 56-year-old male being evaluated for possible TIA. Patient presents with right-sided facial numbness and hand jerking. AGE: 56 EEG FINDINGS: A routine 21-channel awake digital EEG recording was accomplished utilizing the 10-20 international system with bipolar and referential montages. The background activity in the most alert resting state consists of a low to medium amplitude poorly developed and poorly sustained 6 Hz activity over the posterior head regions. This posterior rhythm attenuates minimally to eye opening. There is a small amount of low amplitude 18-20 Hz beta activity seen maximally over the anterior head regions. Muscle and movement artifact was observed on a few occasions during the tracing. Hyperventilation was not performed. Photic stimulation at flash frequencies of 2 -30 Hz produced a minimal occipital driving response. No epileptiform discharges were seen. IMPRESSION: This EEG is moderately abnormal in a diffuse fashion due to slowing of the EEG background. The EEG failed to reveal any focal, lateralized or epileptiform abnormalities. Clinical correlation is recommended. MTDD
== END 2017-01-13 12:10 | disposition home or self-care (01) | DRG 69 ==
LOC: EC 12:05 → 6SEL 15:15
PROVIDERS: ADMIT Family Medicine; ATTEND Family Medicine
DX: G45.9 Transient cerebral ischemic attack, unspecified (principal); E44.0 Moderate protein-calorie malnutrition; I10 Essential (primary) hypertension; F10.229 Alcohol dependence with intoxication, unspecified; R06.02 Shortness of breath; I73.9 Peripheral vascular disease, unspecified; I25.10 Atherosclerotic heart disease of native coronary artery without angina pectoris; I25.2 Old myocardial infarction; G40.909 Epilepsy, unspecified, not intractable, without status epilepticus; F17.210 Nicotine dependence, cigarettes, uncomplicated; F32.9 Major depressive disorder, single episode, unspecified; F41.9 Anxiety disorder, unspecified; Y90.7 Blood alcohol level of 200-239 mg/100 ml; Z95.5 Presence of coronary angioplasty implant and graft; Z89.511 Acquired absence of right leg below knee; Z86.73 Personal history of transient ischemic attack (TIA), and cerebral infarction without residual deficits; Z79.82 Long term (current) use of aspirin; Z79.899 Other long term (current) drug therapy; Z82.49 Family history of ischemic heart disease and other diseases of the circulatory system
CPT/HCPCS: 36415; 70450; 71020; 80053; 80061; 80306; 80320; 81001; 82550; 82553; 83735; 84484; 85025; 85610; 85730; 93005; 93880; 95819; 96360; 96361; 96372; 99285

== ENCOUNTER 2017-02-19 20:23 | Emergency (ER) | payer MEDICARE, OTHER ==
[2017-02-19 20:40] VITALS: RESP 20
[2017-02-19 21:36] LABS: Basophils # (A) 0.1 k/uL (0-0.2); Basophils % (A) 1 %; CH 33.6; CHCM 32.9; Eosinophils # (A) 0.1 k/uL (0-0.7); Eosinophils % (A) 1 %; HCT 42.4 % (39.0-53.0); HDW 2.07; HGB 13.9 gm/dL (13.0-17.5); Luc # (Auto) 0.23; Luc % (Auto) 3; Lymphocytes # (A) 3.1 k/uL (1.0-4.8); Lymphocytes % (A) 34 %; MCH 33.7 pg (25.0-35.0); MCHC 32.8 g/dL (31.0-37.0); Macrocytosis Slight; Monocytes # (A) 0.5 k/uL (0-1.0); Monocytes % (A) 5 %; Neutrophils # (A) 5.1 k/uL (1.3-7.7); Neutrophils % (A) 56 %; RBC 4.13 m/uL (4.30-5.90); RDW 14.6 % (11.5-15.5); WBC 9.1 k/uL (3.8-10.6); WBC (Perox) 8.79
[2017-02-19 21:46] LABS: ALT 31 U/L (21-72); AST 15 U/L (17-59); Alkaline Phosphatase 130 U/L (38-126); Amylase 73 U/L (30-110); Anion Gap 14 mmol/L; Blood Urea Nitrogen 24 mg/dL (9-20); Carbon Dioxide 25 mmol/L (22-30); Chloride 112 mmol/L (98-107); Glucose 80 mg/dL (74-99); MCV 102.7 fL (80.0-100.0); Magnesium 1.7 mg/dL (1.6-2.3); Non-African American GFR(MDRD) >60 (>60 ml/min/1.73 sqM); Sodium 151 mmol/L (137-145); Total Bilirubin 0.2 mg/dL (0.2-1.3); Total Protein 6.8 g/dL (6.3-8.2)
--- NOTE | 2017-02-19 21:54 | XR ---
EXAMINATION TYPE: XR chest 2V DATE OF EXAM: 02/19/2017 COMPARISON: Chest x-ray January 11, 2017. HISTORY: Left-sided chest pain today. TECHNIQUE: Frontal and lateral views of the chest are obtained. FINDINGS: There is some chronic parenchymal change bilaterally without suspicious focal air space op acity, pleural effusion, or pneumothorax seen. The cardiac silhouette size is within normal limits. Old right posterior lateral rib fractures are redemonstrated. IMPRESSION: Chronic changes without acute pulmonary process. No significant change from prior.
[2017-02-19 21:58] LABS: Creatine Kinase 128 U/L (55-170)
[2017-02-19 22:02] VITALS: BP 111/66; PULSE 93; TEMP 98.6
--- NOTE | 2017-02-19 22:02 | ED ---
General Adult HPI - General Chief complaint: Chest Pain Stated complaint: CHEST PAIN Time Seen by Provider: 02/19/17 20:54 Source: patient, RN notes reviewed, old records reviewed Mode of arrival: EMS Limitations: physical limitation - History of Present Illness Initial comments: Chief complaint and history of present illness is a 56-year-old male here with a complaint chest pain. Patient reports every day and he drinks he has chest pain left side lasted 45 minutes. Has happened every day this week. He states it only happens when he drinks alcohol. Denies any radiation anywhere. Denies any associated sweats with the pain. - Related Data Home Medications Medication Instructions Recorded Confirmed Metoprolol Tartrate [Lopressor] 25 mg PO DAILY 01/11/17 01/11/17 Sertraline [Zoloft] 100 mg PO DAILY 01/11/17 01/11/17 Previous Rx's Medication Instructions Recorded Aspirin 325 mg PO DAILY #30 tab 09/27/14 Atorvastatin [Lipitor] 80 mg PO HS #30 tab 09/27/14 Allergies Allergy/AdvReac Type Severity Reaction Status Date / Time No Known Allergies Allergy Verified 02/19/17 20:40 Review of Systems ROS Statement: Those systems with pertinent positive or pertinent negative responses have been documented in the HPI. Review of systems patient denies any headache visual acuity changes no chest pain, no upset stomach no neuro deficits. All systems are reviewed. Past medical problems significant for coronary artery disease having had an CA years ago with one stent. Patient has a history of seizure associated with his alcohol use. Also vascular disorder application of the right below-knee surgery. Patient reports been alcoholic for many years. Surgeries also include appendectomy. Family history noncontributory. ALLERGIES none. ROS Other: All systems not noted in ROS Statement are negative. Past Medical History Past Medical History: Coronary Artery Disease (CAD), Hypertension, Myocardial Infarction (CA), Seizure Disorder, Vascular Disorder Additional Past Medical History / Comment(s): 09/25/14 STEMI with stent placement , Seizures, ETOH Abuse, Depression, patient's recently - December 2013, stomach pain that caused him to be off work 7 months- hewas told it had something to do with his spleen and that it might have ruptured- his hgb went down to 3. Hx of L ankle fx. Last Myocardial Infarction Date:: 09/25/14 History of Any Multi-Drug Resistant Organisms: None Reported Past Surgical History: Appendectomy, Heart Catheterization With Stent Additional Past Surgical History / Comment(s): 09/25/14 PTCA with stenting, BYPASS ON BOTH LEGS, RIGHT BELOW KNEE AMPUTATION, 2 EGD's, colonoscopy x 2, hemorrhoidectomy, . Past Anesthesia/Blood Transfusion Reactions: No Reported Reaction Additional Past Anesthesia/Blood Transfusion Reaction / Comment(s): Pt had blood transfusions with no reaction. Date of Last Stent Placement:: 09/25/14 Past Psychological History: Anxiety, Depression Smoking Status: Current every day smoker Past Alcohol Use History: Abuse, Daily, Heavy Past Drug Use History: None Reported - Past Family History Father Family Medical History: Cancer Additional Family Medical History / Comment(s): Father of lung cancer. Mother Family Medical History: Cancer, Hypertension, Liver Disease Additional Family Medical History / Comment(s): Psychological history, General Exam - General Exam Comments Initial Comments: General: The patient is awake and alert, in no distress, and does not appear acutely ill. Since he had 45 minutes the chest pain proximal one hour ago. It is gone now. He states there was no radiation of pain, no sweats no nausea no vomiting. He states it occurs every time he drinks. Vital signs shows temperature 98.3 pulse 108 respiratory rate 20 pulse ox 99% room air and blood pressure 141/78 Eye: Pupils are equal, round and reactive to light, extra-ocular movements are intact ; there is normal conjunctiva bilaterally. No signs of icterus. Ears, nose, mouth and throat: There are moist mucous membranes and no oral lesions. Neck: The neck is supple, there is no tenderness.. Cardiovascular: There is a regular rate and rhythm. No murmur, rub or gallop is appreciated. No chest pain. Respiratory: Lungs are clear to auscultation, respirations are non-labored, breath sounds are equal. No wheezes, stridor, rales, or rhonchi. Gastrointestinal: Soft, non-distended, non-tender abdomen without masses or organomegaly noted. There is no rebound or guarding present. No CVA tenderness. Bowel sounds are unremarkable. Back: There is no tenderness to palpation in the midline. There is no obvious deformity. No rashes noted. Musculoskeletal: Right below-knee amputation. Neurological: CN II-XII intact, There are no obvious motor or sensory deficits. Coordination appears grossly intact. Speech is normal. No focal or lateralizing findings Skin: Skin is warm and dry and no rashes or lesions are noted. Psychiatric: Chronic alcohol use. Denies depression or suicidal thoughts. Limitations: physical limitation Course Vital Signs 02/19/17 02/19/17 20:30 22:01 Temperature 98.3 F 98.6 F Pulse Rate 108 H 93 Respiratory 20 20 Rate Blood Pressure 141/78 111/66 O2 Sat by Pulse 99 95 Oximetry EKG Findings - EKG Comments: EKG Findings:: EKG was done and reviewed at 2024 showing sinus tachycardia age undetermined septal infarct. Rate 103 AR interval is 150 QRS [address] Del Cid. This EKG was compared to one done on January 11 of last month and they're similar. Second EKG was done at 2307 showing normal sinus rhythm again septal infarct age undetermined. Rate 90 AR interval is 152 QRS 84 QT 348 QTc 425[address] No acute ST elevation no ectopy and this EKG was similar to the one done at [address] Del Cid Medical Decision Making - Medical Decision Making Medical decision making the patient's d-dimer significantly elevated at 4.3. Patient white count is 9 hemoglobin 13 hematocrit 42. Potassium is 4.0, BUN 24 creatinine 0.8 with a GFR greater than 60. Glucose 80. Amylase and lipase within normal limits. Troponin less than 0.012. The patient is having left- sided chest pain. Chest x-ray was done and reviewed by radiologist his impression is her some chronic parenchymal changes bilaterally without suspicious focal airspace opacity, pleural effusion or pneumothorax seen. Cardiac silhouette size is within normal limits. Old right posterior lateral rib fractures are redemonstrated. Impression; chronic changes without acute pulmonary process. No significant change from prior. As read by Dr. matos There also appears to be a more recent rib fracture to the sixth rib on the right side and the patient reports he may have done that week or so ago. The other fractures are older. He also reports that he has pain to the left lower lateral rib cage and there is one rib that does show some irregularity., Rib # 9. The patient will have a CT of the chest with IV contrast to rule out PE. At 2299 the patient started complaining of left-sided chest pain which was reproducible by pushing on the upper lateral chest wall. This pain also got worse with a deep breath. Repeat EKG is being done at this time. Repeat EKG done at 2308 similar to the one done approximately 2 1/2 hours earlier. The patient absconded from the emergency room. Police were called and brought him back. CT of the chest was done to rule out PE. Was reviewed by radiologist's his final impression is no evidence of pulmonary embolus. Mild basilar atelectasis and a central lobar emphysema. No focal consolidation. Other nonacute findings as above in the body of the report. Patient signing out AGAINST MEDICAL ADVICE. Told to follow-up with his family physician. Told to follow-up with Alcoholics Anonymous and outpatient rehab. - Lab Data Result diagrams: 02/19/17 20:30 02/19/17 20:30 Lab Results 02/19/17 02/19/17 02/19/17 Range/Units 20:30 20:30 20:30 WBC 9.1 (3.8-10.6) k/uL RBC 4.13 L (4.30-5.90) m/uL Hgb 13.9 (13.0-17.5) gm/dL Hct 42.4 (39.0-53.0) % MCV 102.7 H D (80.0-100.0) fL MCH 33.7 (25.0-35.0) pg MCHC 32.8 (31.0-37.0) g/dL RDW 14.6 (11.5-15.5) % Plt Count 279 (150-450) k/uL Neutrophils % 56 % Lymphocytes % 34 % Monocytes % 5 % Eosinophils % 1 % Basophils % 1 % Neutrophils # 5.1 (1.3-7.7) k/uL Lymphocytes # 3.1 (1.0-4.8) k/uL Monocytes # 0.5 (0-1.0) k/uL Eosinophils # 0.1 (0-0.7) k/uL Basophils # 0.1 (0-0.2) k/uL Macrocytosis Slight PT (9.0-12.0) sec INR (<1.2) APTT (22.0-30.0) sec D-Dimer (<0.60) mg/L FEU Sodium 151 H (137-145) mmol/L Potassium 4.0 (3.5-5.1) mmol/L Chloride 112 H (98-107) mmol/L Carbon Dioxide 25 (22-30) mmol/L Anion Gap 14 mmol/L BUN 24 H (9-20) mg/dL Creatinine 0.80 (0.66-1.25) mg/dL Est GFR (MDRD) Af Amer >60 (>60 ml/min/1.73 sqM) Est GFR (MDRD) Non-Af >60 (>60 ml/min/1.73 sqM) Glucose 80 (74-99) mg/dL Calcium 9.0 (8.4-10.2) mg/dL Magnesium 1.7 (1.6-2.3) mg/dL Total Bilirubin 0.2 (0.2-1.3) mg/dL AST 15 L (17-59) U/L ALT 31 (21-72) U/L Alkaline Phosphatase 130 H (38-126) U/L Total Creatine Kinase 128 (55-170) U/L CK-MB (CK-2) 0.9 (0.0-2.4) ng/mL CK-MB (CK-2) Rel Index 0.7 Troponin I <0.012 (0.000-0.034) ng/mL Total Protein 6.8 (6.3-8.2) g/dL Albumin 4.1 (3.5-5.0) g/dL Amylase 73 (30-110) U/L Lipase 180 (23-300) U/L // Range/Units 20:30 WBC (3.8-10.6) k/uL RBC (4.30-5.90) m/uL Hgb (13.0-17.5) gm/dL Hct (39.0-53.0) % MCV (80.0-100.0) fL MCH (25.0-35.0) pg MCHC (31.0-37.0) g/dL RDW (11.5-15.5) % Plt Count (150-450) k/uL Neutrophils % % Lymphocytes % % Monocytes % % Eosinophils % % Basophils % % Neutrophils # (1.3-7.7) k/uL Lymphocytes # (1.0-4.8) k/uL Monocytes # (0-1.0) k/uL Eosinophils # (0-0.7) k/uL Basophils # (0-0.2) k/uL Macrocytosis PT 9.7 (9.0-12.0) sec INR 0.9 (<1.2) APTT 22.7 (22.0-30.0) sec D-Dimer 4.33 H (<0.60) mg/L FEU Sodium (137-145) mmol/L Potassium (3.5-5.1) mmol/L Chloride (98-107) mmol/L Carbon Dioxide (22-30) mmol/L Anion Gap mmol/L BUN (9-20) mg/dL Creatinine (0.66-1.25) mg/dL Est GFR (MDRD) Af Amer (>60 ml/min/1.73 sqM) Est GFR (MDRD) Non-Af (>60 ml/min/1.73 sqM) Glucose (74-99) mg/dL Calcium (8.4-10.2) mg/dL Magnesium (1.6-2.3) mg/dL Total Bilirubin (0.2-1.3) mg/dL AST (17-59) U/L ALT (21-72) U/L Alkaline Phosphatase (38-126) U/L Total Creatine Kinase (55-170) U/L CK-MB (CK-2) (0.0-2.4) ng/mL CK-MB (CK-2) Rel Index Troponin I (0.000-0.034) ng/mL Total Protein (6.3-8.2) g/dL Albumin (3.5-5.0) g/dL Amylase (30-110) U/L Lipase (23-300) U/L Disposition Clinical Impression: Costochondritis, acute, Alcohol abuse Disposition: Left Against Medical Advice Condition: Undetermined Instructions: Costochondritis (ED), Abuse of Alcohol (ED) Additional Instructions: Follow-up family physician, return emergency room as needed, follow-up with Alcoholics Anonymous and alcohol rehab programs. Referrals: Ozzy Pereira MD [Primary Care Provider] - 1-2 days Time of Disposition: 00:07
[2017-02-19 22:06] LABS: INR 0.9 (<1.2)
[2017-02-19 22:07] LABS: Partial Thromboplastin Time 22.7 sec (22.0-30.0); Prothrombin Time 9.7 sec (9.0-12.0)
[2017-02-19 22:11] LABS: Creatine Kinase MB 0.9 ng/mL (0.0-2.4); Troponin I <0.012 ng/mL (0.000-0.034)
[2017-02-19] MEDS ORDERED: RX INFO: IV CONTRAST WAS GIVEN 1 EACH MISC MISCELLANE PRN (22:31)
--- NOTE | 2017-02-19 23:56 | CT ---
EXAM: CT Angiography Chest With Intravenous Contrast CLINICAL HISTORY: Reason: Elevated d-dimer, left-sided chest pain left sided chest pain today, history of HTN, COPD, NC with stents, CAD, PTCA with stenting bypass to both legs, elevated d-dimer, ETOH, R/O PE TECHNIQUE: Axial computed tomographic angiography images of the chest with intravenous contrast using pulmonary embolism protocol. CTDI is 65.30 mGy and DLP is 182.70 mGy-cm. This CT exam was performed using one or more of the following dose reduction techniques: automated exposure control, adjustment of the mA and/or kV according to patient size, and/or use of iterative reconstruction technique. MIP reconstructed images were created and reviewed. COMPARISON: 10/17/14 FINDINGS: Pulmonary arteries: Unremarkable. No pulmonary embolism. Aorta: No acute findings. No thoracic aortic aneurysm. 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 Lungs: Mild centrilobular emphysema as on prior. Mild linear bibasilar atelectasis. Small left lower lobe calcified granuloma . No mass. Pleural space: Unremarkable. No significant effusion. No pneumothorax. Heart: Atherosclerotic calcifications including the coronary arteries. No significant pericardial effusion. No evidence of RV dysfunction. Bones/joints: Multiple healing right lower lateral rib fractures with some callus formation. New since the prior although likely subacute or chronic. Degenerative changes of the spine. No dislocation. Soft tissues: Unremarkable. Lymph nodes: Unremarkable. No enlarged lymph nodes. Spleen: Lobular spleen in the left upper quadrant. Kidneys and ureters: Stable bilateral renal upper pole, somewhat ill- defined low-density lesions IMPRESSION: 1. No evidence of pulmonary embolism. 2. Mild basilar atelectasis and centrilobular emphysema. No focal consolidation. 3. Other nonacute findings as above.
== END 2017-02-20 00:11 | disposition left against medical advice (07) ==
LOC: EC 20:23
DX: M94.0 Chondrocostal junction syndrome [Tietze] (principal); F10.10 Alcohol abuse, uncomplicated; I10 Essential (primary) hypertension; F41.9 Anxiety disorder, unspecified; F32.9 Major depressive disorder, single episode, unspecified; F17.200 Nicotine dependence, unspecified, uncomplicated; Z95.5 Presence of coronary angioplasty implant and graft; Z53.29 Procedure and treatment not carried out because of patient's decision for other reasons; Z79.899 Other long term (current) drug therapy
CPT/HCPCS: 82075; 36415; 93005; 85379; 80053; 82150; 82550; 82553; 83690; 83735; 84484; 85025; 85610; 85730; 71020; 71275; 99285; Q9967

== ENCOUNTER 2017-02-20 14:45 | Observation (INO) | payer MEDICARE, OTHER ==
--- NOTE | 2017-02-20 15:33 | ED ---
General Adult HPI - General Chief complaint: Psychiatric Symptoms Stated complaint: suicidal Time Seen by Provider: 02/20/17 15:15 Source: patient, RN notes reviewed Mode of arrival: wheelchair Limitations: no limitations - History of Present Illness Initial comments: Patient is a 56-year-old male presenting to the emergency Department with depression and suicidal thoughts. Patient is depressed regarding the loss of his . Patient has thoughts of harming himself with overdose on medication or drinking himself to . Patient has been sober in the past however has been drinking heavily for several months. Patient does have daily chest pain for years that he attributes to his alcohol use. No hallucinations. No other physical complaints. No homicidal thoughts. No street drug use. - Related Data Home Medications Medication Instructions Recorded Confirmed Metoprolol Tartrate [Lopressor] 25 mg PO DAILY 01/11/17 02/20/17 Sertraline [Zoloft] 100 mg PO DAILY 01/11/17 02/20/17 Atorvastatin [Lipitor] 80 mg PO DAILY 02/20/17 02/20/17 Clopidogrel [Plavix] 75 mg PO DAILY 02/20/17 02/20/17 Gabapentin [Neurontin] 300 mg PO BID 02/20/17 02/20/17 HYDROcodone/APAP 10-325MG [[place] 1 tab PO QID PRN 02/20/17 02/20/17 10-325] Lisinopril 40 mg PO DAILY 02/20/17 02/20/17 Previous Rx's Medication Instructions Recorded Aspirin 325 mg PO DAILY #30 tab 09/27/14 Allergies Allergy/AdvReac Type Severity Reaction Status Date / Time No Known Allergies Allergy Verified 02/20/17 15:13 Review of Systems ROS Statement: Those systems with pertinent positive or pertinent negative responses have been documented in the HPI. ROS Other: All systems not noted in ROS Statement are negative. Constitutional: Denies: fever Eyes: Denies: eye pain ENT: Denies: ear pain Respiratory: Denies: cough Cardiovascular: Reports: chest pain Endocrine: Denies: fatigue Gastrointestinal: Denies: abdominal pain Genitourinary: Denies: dysuria Musculoskeletal: Denies: back pain Skin: Denies: rash Neurological: Denies: weakness Psychiatric: Reports: depression, suicidal thoughts Past Medical History Past Medical History: Coronary Artery Disease (CAD), Hypertension, Myocardial Infarction ([place]), Seizure Disorder, Vascular Disorder Additional Past Medical History / Comment(s): 09/25/14 STEMI with stent placement , Seizures, ETOH Abuse, Depression, patient's recently - December 2013, stomach pain that caused him to be off work 7 months- hewas told it had something to do with his spleen and that it might have ruptured- his hgb went down to 3. Hx of L ankle fx. Last Myocardial Infarction Date:: 09/25/14 History of Any Multi-Drug Resistant Organisms: None Reported Past Surgical History: Appendectomy, Heart Catheterization With Stent Additional Past Surgical History / Comment(s): 09/25/14 PTCA with stenting, BYPASS ON BOTH LEGS, RIGHT BELOW KNEE AMPUTATION, 2 EGD's, colonoscopy x 2, hemorrhoidectomy, . Past Anesthesia/Blood Transfusion Reactions: No Reported Reaction Additional Past Anesthesia/Blood Transfusion Reaction / Comment(s): Pt had blood transfusions with no reaction. Date of Last Stent Placement:: 09/25/14 Past Psychological History: Anxiety, Depression Smoking Status: Current every day smoker Past Alcohol Use History: Abuse, Daily, Heavy Past Drug Use History: None Reported - Past Family History Father Family Medical History: Cancer Additional Family Medical History / Comment(s): Father of lung cancer. Mother Family Medical History: Cancer, Hypertension, Liver Disease Additional Family Medical History / Comment(s): Psychological history, General Exam Limitations: no limitations General appearance: alert, in no apparent distress Head exam: Present: atraumatic Eye exam: Present: normal appearance, PERRL ENT exam: Present: normal oropharynx Respiratory exam: Present: normal lung sounds bilaterally, chest wall tenderness Cardiovascular Exam: Present: regular rate, normal rhythm Expanded Peripheral pulses: 2+: Radial (R), Radial (L), Posterior Tibialis (L) GI/Abdominal exam: Present: soft. Absent: tenderness Extremities exam: Present: other (Right BKA) Neurological exam: Present: alert Psychiatric exam: Present: depressed Skin exam: Present: normal color. Absent: rash Course Vital Signs 02/20/17 15:10 Temperature 98.7 F Pulse Rate 64 Respiratory 18 Rate Blood Pressure 104/59 O2 Sat by Pulse 96 Oximetry EKG Findings - EKG Comments: EKG Findings:: Normal sinus rhythm 75. [place] 152. QRS 90. QT 408. QTC 455. Normal axis. Septal Q waves. Nonspecific T waves. Medical Decision Making - Medical Decision Making Patient reexamined in updated. Dr. Salgado has been paged for admission for Dr. Pereira. Psychiatry will be consulted. - Lab Data Result diagrams: 02/20/17 15:55 02/20/17 15:55 Lab Results 02/20/17 02/20/17 02/20/17 Range/Units 15:55 15:55 15:55 WBC 9.6 (3.8-10.6) k/uL RBC 4.29 L (4.30-5.90) m/uL Hgb 14.4 (13.0-17.5) gm/dL Hct 44.0 (39.0-53.0) % MCV 102.6 H (80.0-100.0) fL MCH 33.5 (25.0-35.0) pg MCHC 32.6 (31.0-37.0) g/dL RDW 14.8 (11.5-15.5) % Plt Count 271 (150-450) k/uL Neutrophils % 61 % Lymphocytes % 29 % Monocytes % 6 % Eosinophils % 2 % Basophils % 1 % Neutrophils # 5.9 (1.3-7.7) k/uL Lymphocytes # 2.8 (1.0-4.8) k/uL Monocytes # 0.5 (0-1.0) k/uL Eosinophils # 0.2 (0-0.7) k/uL Basophils # 0.1 (0-0.2) k/uL Macrocytosis Slight PT (9.0-12.0) sec INR (<1.2) APTT (22.0-30.0) sec Sodium 150 H (137-145) mmol/L Potassium 4.1 (3.5-5.1) mmol/L Chloride 110 H (98-107) mmol/L Carbon Dioxide 25 (22-30) mmol/L Anion Gap 15 mmol/L BUN 24 H (9-20) mg/dL Creatinine 0.90 (0.66-1.25) mg/dL Est GFR (MDRD) Af Amer >60 (>60 ml/min/1.73 sqM) Est GFR (MDRD) Non-Af >60 (>60 ml/min/1.73 sqM) Glucose 86 (74-99) mg/dL Calcium 8.8 (8.4-10.2) mg/dL Magnesium 1.6 (1.6-2.3) mg/dL Total Bilirubin 0.4 (0.2-1.3) mg/dL AST 25 (17-59) U/L ALT 44 (21-72) U/L Alkaline Phosphatase 93 (38-126) U/L Total Creatine Kinase 126 (55-170) U/L CK-MB (CK-2) 1.0 (0.0-2.4) ng/mL CK-MB (CK-2) Rel Index 0.8 Troponin I <0.012 (0.000-0.034) ng/mL Total Protein 6.8 (6.3-8.2) g/dL Albumin 4.1 (3.5-5.0) g/dL Serum Alcohol 358 mg/dL 02/20/17 Range/Units 15:55 WBC (3.8-10.6) k/uL RBC (4.30-5.90) m/uL Hgb (13.0-17.5) gm/dL Hct (39.0-53.0) % MCV (80.0-100.0) fL MCH (25.0-35.0) pg MCHC (31.0-37.0) g/dL RDW (11.5-15.5) % Plt Count (150-450) k/uL Neutrophils % % Lymphocytes % % Monocytes % % Eosinophils % % Basophils % % Neutrophils # (1.3-7.7) k/uL Lymphocytes # (1.0-4.8) k/uL Monocytes # (0-1.0) k/uL Eosinophils # (0-0.7) k/uL Basophils # (0-0.2) k/uL Macrocytosis PT 10.1 (9.0-12.0) sec INR 1.0 (<1.2) APTT 23.2 (22.0-30.0) sec Sodium (137-145) mmol/L Potassium (3.5-5.1) mmol/L Chloride (98-107) mmol/L Carbon Dioxide (22-30) mmol/L Anion Gap mmol/L BUN (9-20) mg/dL Creatinine (0.66-1.25) mg/dL Est GFR (MDRD) Af Amer (>60 ml/min/1.73 sqM) Est GFR (MDRD) Non-Af (>60 ml/min/1.73 sqM) Glucose (74-99) mg/dL Calcium (8.4-10.2) mg/dL Magnesium (1.6-2.3) mg/dL Total Bilirubin (0.2-1.3) mg/dL AST (17-59) U/L ALT (21-72) U/L Alkaline Phosphatase (38-126) U/L Total Creatine Kinase (55-170) U/L CK-MB (CK-2) (0.0-2.4) ng/mL CK-MB (CK-2) Rel Index Troponin I (0.000-0.034) ng/mL Total Protein (6.3-8.2) g/dL Albumin (3.5-5.0) g/dL Serum Alcohol mg/dL - Radiology Data Radiology results: image reviewed (Chest x-ray shows no acute process) Disposition Clinical Impression: Chest pain, Alcohol intoxication, Suicidal ideation, Depression Disposition: ADMITTED IP TO THIS HOSP Referrals: Ozzy Pereira MD [Primary Care Provider] - 1-2 days Decision Time: 16:51
[2017-02-20 16:07] LABS: Basophils # (A) 0.1 k/uL (0-0.2); Basophils % (A) 1 %; CH 33.7; Eosinophils # (A) 0.2 k/uL (0-0.7); Eosinophils % (A) 2 %; HDW 2.11; HGB 14.4 gm/dL (13.0-17.5); Luc # (Auto) 0.15; Luc % (Auto) 2; Lymphocytes # (A) 2.8 k/uL (1.0-4.8); Lymphocytes % (A) 29 %; MCH 33.5 pg (25.0-35.0); MCHC 32.6 g/dL (31.0-37.0); MCV 102.6 fL (80.0-100.0); Macrocytosis Slight; Mean Platelet Volume 7.9; Monocytes # (A) 0.5 k/uL (0-1.0); Monocytes % (A) 6 %; Neutrophils # (A) 5.9 k/uL (1.3-7.7); Neutrophils % (A) 61 %; RBC 4.29 m/uL (4.30-5.90); RDW 14.8 % (11.5-15.5); WBC 9.6 k/uL (3.8-10.6); WBC (Perox) 9.51
[2017-02-20 16:16] LABS: Partial Thromboplastin Time 23.2 sec (22.0-30.0); Prothrombin Time 10.1 sec (9.0-12.0)
[2017-02-20 16:19] LABS: ALT 44 U/L (21-72); AST 25 U/L (17-59); Alkaline Phosphatase 93 U/L (38-126); Anion Gap 15 mmol/L; Blood Urea Nitrogen 24 mg/dL (9-20); Calcium 8.8 mg/dL (8.4-10.2); Carbon Dioxide 25 mmol/L (22-30); Chloride 110 mmol/L (98-107); Glucose 86 mg/dL (74-99); Magnesium 1.6 mg/dL (1.6-2.3); Non-African American GFR(MDRD) >60 (>60 ml/min/1.73 sqM); Potassium 4.1 mmol/L (3.5-5.1); Sodium 150 mmol/L (137-145); Total Bilirubin 0.4 mg/dL (0.2-1.3); Total Protein 6.8 g/dL (6.3-8.2)
--- NOTE | 2017-02-20 16:24 | XR ---
EXAMINATION TYPE: XR chest 2V DATE OF EXAM: 02/20/2017 COMPARISON: 02/19/2017 HISTORY: Chest pain TECHNIQUE: Frontal and lateral views of the chest are obtained. FINDINGS: Heart is normal. Lungs are clear of consolidation. There are no hilar masses. There are ch est leads. Diaphragm is normal. Bony thorax is intact. Old right rib fractures are noted. IMPRESSION: No active cardiopulmonary disease. No change.
[2017-02-20 16:28] LABS: Creatine Kinase 126 U/L (55-170)
[2017-02-20 16:32] LABS: Alcohol 358 mg/dL
[2017-02-20 16:40] LABS: Troponin I <0.012 ng/mL (0.000-0.034)
[2017-02-20] MEDS ORDERED: ASPIRIN 81 MG CHEW PO STA (16:51)
[2017-02-20] MEDS ORDERED: NITROGLYCERIN SL TABS 0.4 MG TAB SUBLINGUAL PRN (16:51)
[2017-02-20] MEDS ORDERED: THIAMINE 100 MG/ML 2 ML VIAL IM STA (16:54)
[2017-02-20] MEDS ORDERED: LORazepam 2 MG/ML SYRINGE IV PRN ×3 (16:54)
[2017-02-20 18:30] VITALS: BMI 21.4
[2017-02-20] MEDS: GABAPENTIN 300 MG CAP PO SCH (21:21)
[2017-02-20] MEDS: LORazepam 2 MG/ML SYRINGE IV PRN (21:25)
[2017-02-20] MEDS: NITROGLYCERIN OINT 1 INCH/GM PACKET TOPICAL SCH ×2 (21:25→23:47)
[2017-02-20] MEDS: HYDROcodone/APAP 10-325MG 1 EACH TAB PO PRN (21:31)
[2017-02-20 22:23] LABS: Creatine Kinase 166 U/L (55-170)
[2017-02-20 22:35] LABS: Creatine Kinase MB 0.9 ng/mL (0.0-2.4); Troponin I <0.012 ng/mL (0.000-0.034)
[2017-02-20] MEDS: NICOTINE 21MG/24HR PATCH TRANSDERM SCH (23:49)
[2017-02-21] MEDS: HYDROcodone/APAP 10-325MG 1 EACH TAB PO PRN ×2 (04:08→13:34)
[2017-02-21 04:24] LABS: Basophils # (A) 0.1 k/uL (0-0.2); Basophils % (A) 1 %; CH 33.6; Eosinophils # (A) 0.1 k/uL (0-0.7); Eosinophils % (A) 2 %; HDW 2.06; HGB 13.1 gm/dL (13.0-17.5); Luc # (Auto) 0.13; Luc % (Auto) 2; Lymphocytes # (A) 2.3 k/uL (1.0-4.8); Lymphocytes % (A) 30 %; MCH 32.7 pg (25.0-35.0); MCHC 31.9 g/dL (31.0-37.0); MCV 102.4 fL (80.0-100.0); Macrocytosis Slight; Mean Platelet Volume 8.2; Monocytes # (A) 0.4 k/uL (0-1.0); Monocytes % (A) 6 %; Neutrophils # (A) 4.8 k/uL (1.3-7.7); Neutrophils % (A) 61 %; RDW 14.5 % (11.5-15.5); WBC 7.9 k/uL (3.8-10.6); WBC (Perox) 7.88
[2017-02-21 04:32] LABS: Anion Gap 13 mmol/L; Blood Urea Nitrogen 31 mg/dL (9-20); Calcium 8.5 mg/dL (8.4-10.2); Carbon Dioxide 23 mmol/L (22-30); Chloride 107 mmol/L (98-107); Cholesterol 140 mg/dL (<200); Glucose 79 mg/dL (74-99); HDL Cholesterol 91 mg/dL (40-60); Magnesium 1.5 mg/dL (1.6-2.3); Non-African American GFR(MDRD) >60 (>60 ml/min/1.73 sqM); Sodium 143 mmol/L (137-145)
[2017-02-21 04:44] LABS: Creatine Kinase 132 U/L (55-170)
[2017-02-21 04:57] LABS: Creatine Kinase MB 0.7 ng/mL (0.0-2.4); Troponin I <0.012 ng/mL (0.000-0.034)
[2017-02-21] MEDS: NITROGLYCERIN OINT 1 INCH/GM PACKET TOPICAL SCH (06:02)
[2017-02-21] MEDS ORDERED: Magnesium Replacement Protocol 1 EACH MISC MISCELLANE PRN (07:02)
[2017-02-21] MEDS: LORazepam 2 MG/ML SYRINGE IV PRN ×4 (08:47→23:47)
[2017-02-21] MEDS: MAGNESIUM SULFATE-D5W PMX 1 GM in DEXTROSE/WATER 1 100ML.BAG IVPB SCH ×2 (08:53→13:27)
[2017-02-21] MEDS ORDERED: METOPROLOL TARTRATE 25 MG TAB PO SCH (09:00)
[2017-02-21] MEDS ORDERED: ASPIRIN 325 MG TAB PO SCH (09:00)
[2017-02-21] MEDS ORDERED: SERTRALINE 100 MG TAB PO SCH (09:00)
[2017-02-21] MEDS ORDERED: CLOPIDOGREL 75 MG TAB PO SCH (09:00)
[2017-02-21] MEDS ORDERED: ATORVASTATIN 80 MG TAB PO SCH (09:00)
[2017-02-21] MEDS ORDERED: LISINOPRIL 20 MG TAB PO SCH (09:00)
--- NOTE | 2017-02-21 10:21 | P.CRDCN ---
History of Present Illness Consult date: 02/21/17 Requesting physician: Nisa Salgado Consult reason: chest pain Chief complaint: Chest pressure History of present illness: This is a 56-year-old gentleman with known history of coronary artery disease, patient underwent stenting of the right coronary artery in September 2014, history of PAD with a right below the knee amputation, hyperlipidemia, nicotine dependence, EtOH abuse. Patient states that he had stopped drinking for approximately 2 years, his approximately 3 years ago. He states that he started drinking again heavily. He presents to the hospital with symptoms of midsternal chest heaviness, he does state that he had some associated diaphoresis. Pain reminded him of what he had with his prior stent placement. He does also state however that with an extremely deep breath the pain worsened. EKG on admission showed a normal sinus rhythm with no acute changes. Repeat EKG showed a normal sinus rhythm with nonspecific ST-T wave changes. CTA of the chest was performed which did not reveal any evidence of a pulmonary embolism. Mild bibasilar atelectasis as well as emphysema with no focal consolidation. Chest x-ray does not reveal any active cardiopulmonary disease. Lab data, hemoglobin 13.1, platelet count 224, potassium 4.0, BUN 31, creatinine 0.9. Troponins negative 3. Magnesium 1.5. Drug screen positive for opiates and methadone. Blood pressure 138/60 with a heart rate in the 70s. 94% on room air. At the time of my examination this morning patient is currently chest pain-free. EtOH level 358. Past Medical History Past Medical History: Coronary Artery Disease (CAD), Hypertension, Myocardial Infarction ([place]), Seizure Disorder, Vascular Disorder Additional Past Medical History / Comment(s): 09/25/14 STEMI with stent placement , Seizures, ETOH Abuse, Depression, patient's recently - December 2013, stomach pain that caused him to be off work 7 months- hewas told it had something to do with his spleen and that it might have ruptured- his hgb went down to 3. Hx of L ankle fx. Last Myocardial Infarction Date:: 09/25/14 History of Any Multi-Drug Resistant Organisms: None Reported Past Surgical History: Appendectomy, Heart Catheterization With Stent Additional Past Surgical History / Comment(s): 09/25/14 PTCA with stenting, BYPASS ON BOTH LEGS, RIGHT BELOW KNEE AMPUTATION, 2 EGD's, colonoscopy x 2, hemorrhoidectomy, . Past Anesthesia/Blood Transfusion Reactions: No Reported Reaction Additional Past Anesthesia/Blood Transfusion Reaction / Comment(s): Pt had blood transfusions with no reaction. Date of Last Stent Placement:: 09/25/14 Past Psychological History: Anxiety, Depression Additional Psychological History / Comment(s): Pt's last year December 2013. R leg prosthesis. He admits to drinking a pint every 7-10 days. pack a day smoker since 1976. Smoking Status: Current every day smoker Past Alcohol Use History: Abuse, Daily, Heavy Additional Past Alcohol Use History / Comment(s): pt recently reduced his alcohol intack to approx one pint daily. Before this he had sometimes drank a fifth a day. He likes [employer]. Past Drug Use History: None Reported - Past Family History Father Family Medical History: Cancer Additional Family Medical History / Comment(s): Father of lung cancer. Mother Family Medical History: Cancer, Hypertension, Liver Disease Additional Family Medical History / Comment(s): Psychological history, Medications and Allergies Home Medications Medication Instructions Recorded Confirmed Type Metoprolol Tartrate [Lopressor] 25 mg PO DAILY 01/11/17 02/20/17 History Sertraline [Zoloft] 100 mg PO DAILY 01/11/17 02/20/17 History Atorvastatin [Lipitor] 80 mg PO DAILY 02/20/17 02/20/17 History Clopidogrel [Plavix] 75 mg PO DAILY 02/20/17 02/20/17 History Gabapentin [Neurontin] 300 mg PO BID 02/20/17 02/20/17 History HYDROcodone/APAP 10-325MG [[place] 1 tab PO QID PRN 02/20/17 02/20/17 History 10-325] Lisinopril 40 mg PO DAILY 02/20/17 02/20/17 History Allergies Allergy/AdvReac Type Severity Reaction Status Date / Time No Known Allergies Allergy Verified 02/20/17 15:13 Physical Exam Vitals: Vital Signs Temp Pulse Pulse Resp BP BP BP 02/21/17 09:41 97.9 F 79 18 139/68 02/21/17 09:00 97.4 F L 80 18 133/69 02/21/17 04:00 97.3 F L 85 18 108/64 02/21/17 00:00 97.2 F L 71 18 116/64 02/20/17 20:00 97.1 F L 80 18 118/71 02/20/17 18:47 97 F L 79 18 136/68 02/20/17 17:47 98.3 F 88 20 123/73 02/20/17 17:30 98.2 F 73 18 110/65 02/20/17 16:12 98 20 113/62 02/20/17 15:10 98.7 F 64 18 104/59 Pulse Ox 02/21/17 09:41 94 L 02/21/17 09:00 92 L 02/21/17 04:00 93 L 02/21/17 00:00 94 L 02/20/17 20:00 95 02/20/17 18:47 95 02/20/17 17:47 99 02/20/17 17:30 98 02/20/17 16:12 98 02/20/17 15:10 96 Intake and Output 02/20/17 02/21/17 02/21/17 22:59 06:59 14:59 Intake Total 50 120 Output Total 100 Balance -100 50 120 Intake: Oral 50 120 Output: Urine 100 Other: # Voids 0 1 Weight 65.7 kg 62.5 kg PHYSICAL EXAMINATION: HEENT: [Head is atraumatic, normocephalic. Pupils equal, round. Neck is supple. There is no elevated jugular venous pressure.] HEART EXAMINATION: [Heart S1, S2 normal. No murmur or gallop heard.] CHEST EXAMINATION:[ Lungs are clear to auscultation and precussion. No chest wall tenderness is noted on palpation or with deep breathing.] ABDOMEN: [ Soft, nontender. Bowel sounds are heard. No organomegaly noted]. EXTREMITIES:[ 1+ pulse to the left lower extremity, patient has a right below the knee amputation. NEUROLOGIC [patient is awake, alert and oriented -3.] . Results 02/21/17 03:42 02/21/17 03:42 Cardiac Enzymes 02/20/17 02/20/17 02/20/17 Range/Units 15:55 15:55 21:53 AST 25 (17-59) U/L CK-MB (CK-2) 1.0 0.9 (0.0-2.4) ng/mL Troponin I <0.012 <0.012 (0.000-0.034) ng/mL 02/21/17 Range/Units 03:42 AST (17-59) U/L CK-MB (CK-2) 0.7 (0.0-2.4) ng/mL Troponin I <0.012 (0.000-0.034) ng/mL Coagulation 02/20/17 Range/Units 15:55 PT 10.1 (9.0-12.0) sec APTT 23.2 (22.0-30.0) sec Lipids 02/21/17 Range/Units 03:42 Triglycerides 71 (<150) mg/dL Cholesterol 140 (<200) mg/dL HDL Cholesterol 91 H (40-60) mg/dL CBC 02/20/17 02/21/17 Range/Units 15:55 03:42 WBC 9.6 7.9 (3.8-10.6) k/uL RBC 4.29 L 4.00 L (4.30-5.90) m/uL Hgb 14.4 13.1 (13.0-17.5) gm/dL Hct 44.0 41.0 (39.0-53.0) % Plt Count 271 224 (150-450) k/uL Comprehensive Metabolic Panel 02/20/17 02/21/17 Range/Units 15:55 03:42 Sodium 150 H 143 (137-145) mmol/L Potassium 4.1 4.0 (3.5-5.1) mmol/L Chloride 110 H 107 (98-107) mmol/L Carbon Dioxide 25 23 (22-30) mmol/L BUN 24 H 31 H (9-20) mg/dL Creatinine 0.90 0.90 (0.66-1.25) mg/dL Glucose 86 79 (74-99) mg/dL Calcium 8.8 8.5 (8.4-10.2) mg/dL AST 25 (17-59) U/L ALT 44 (21-72) U/L Alkaline Phosphatase 93 (38-126) U/L Total Protein 6.8 (6.3-8.2) g/dL Albumin 4.1 (3.5-5.0) g/dL Current Medications Generic Name Dose Route Start Last Admin Trade Name Freq PRN Reason Stop Dose Admin Hydrocodone Bitart/Acetaminophen 1 each 02/20/17 18:09 02/21/17 04:08 [place] 10 PO 1 each QID PRN Administration Pain Aspirin 325 mg 02/21/17 09:00 Aspirin PO DAILY [facility] Atorvastatin Calcium 80 mg 02/21/17 09:00 Lipitor PO DAILY [facility] Clopidogrel Bisulfate 75 mg 02/21/17 09:00 Plavix PO DAILY [facility] Gabapentin 300 mg 02/20/17 21:00 02/20/17 21:21 Neurontin PO 300 mg BID [facility] Administration Lisinopril 40 mg 02/21/17 09:00 Zestril PO DAILY [facility] Lorazepam 1 mg 02/20/17 16:54 02/21/17 08:47 Ativan IV 1 mg Q2HR PRN Administration CIWA 8 or 9 Lorazepam 1 mg 02/20/17 16:54 02/20/17 21:30 Ativan IV 1 mg Q1HR PRN Administration CIWA 10 to 15 Lorazepam 2 mg 02/20/17 16:54 Ativan IV 02/22/17 16:55 Q10M PRN CIWA 16 or higher Lorazepam 2 mg 02/20/17 16:54 Ativan IV Q6HR PRN Seizures Metoprolol Tartrate 25 mg 02/21/17 09:00 Lopressor PO DAILY [facility] Miscellaneous Information 1 each 02/21/17 07:02 Magnesium Per Protocol MISCELLANE DAILY PRN Per Protocol Protocol Multivitamins 1 each 02/21/17 12:00 Theragran PO DAILY@1200 [facility] Nicotine 1 patch 02/20/17 21:45 02/20/17 23:49 Habitrol 21mg/24hr Patch TRANSDERM 1 patch DAILY [facility] Administration Nitroglycerin 1 inch 02/20/17 18:00 02/21/17 06:02 Nitro-Bid Oint TOPICAL 1 inch Q6HR [facility] Administration Nitroglycerin 0.4 mg 02/20/17 16:51 Nitrostat SUBLINGUAL Q5M PRN Chest Pain Sertraline HCl 100 mg 02/21/17 09:00 Zoloft PO DAILY [facility] Thiamine HCl 100 mg 02/21/17 12:00 Vitamin B-1 PO BID@1200,1700 [facility] Intake and Output 02/20/17 02/21/17 02/21/17 22:59 06:59 14:59 Intake Total 50 120 Output Total 100 Balance -100 50 120 Intake: Oral 50 120 Output: Urine 100 Other: # Voids 0 1 Weight 65.7 kg 62.5 kg 02/21/17 03:42 02/21/17 03:42 EKG Interpretations (text) EKG shows normal sinus rhythm with nonspecific ST-T wave changes Assessment and Plan Plan: Assessment and plan #1 chest pain with atypical features for acute coronary syndrome. Troponins 3 negative. EKG shows normal sinus rhythm with nonspecific ST-T wave changes #2 known history of coronary artery disease with prior RCA stent in 2014 #3 PAD with chronic right SFA occlusion, status post right below the knee amputation #4 nicotine dependence # 5 EtOH abuse #6 depression #7 hypertension #8 hyperlipidemia Plan We will discontinue the patient's IV heparin, echocardiogram with Doppler study will be requested. Patient has also been recommended undergo a Lexiscan stress test today. Further recommendations to be based on the findings of testing. DNP note has been reviewed, I agree with a documented findings and plan of care. Patient was seen and examined.
[2017-02-21] MEDS ORDERED: AMINOPHYLLINE 500 MG/20 ML VIAL IV PRN (10:22)
[2017-02-21] MEDS ORDERED: REGADENOSON 0.4 MG/5 ML SYRINGE IV ONE (10:22)
[2017-02-21] MEDS ORDERED: MULTIVITAMINS, THERA 1 EACH TAB PO SCH (12:00)
--- NOTE | 2017-02-21 13:27 | NM ---
EXAMINATION TYPE: NM stress lexiscan cardiolite DATE OF EXAM: 02/21/2017 COMPARISON: NONE HISTORY: Chest pain TECHNIQUE: After the intravenous administration of 10.91 mCi Tc 99m Sestamibi - Cardiolite resting S PECT images acquired 50 minutes post injection. The patient received 0.4mg Lexiscan, 26.7 mCi Tc 99m Sestamibi - Stress images obtained [address] injection FINDINGS: Review of stress and rest SPECT images demonstrates some decreased radiopharmaceutical uptake on stre ss and rest images along the inferior wall however gut activity is noted. Uptake at stress images roopa ears somewhat better than on rest images. Gated analysis shows normal wall motion with an estimated left ventricular ejection fraction of 60 %. IMPRESSION: Findings along the inferior wall may be technical, there is gut activity. Difficult to exclude infarc t in this distribution. No evident pharmacologically induced left ventricular myocardial ischemia.
[2017-02-21] MEDS: NICOTINE 21MG/24HR PATCH TRANSDERM SCH (13:28)
[2017-02-21] MEDS: THIAMINE 100 MG TAB PO SCH ×2 (13:28→17:43)
[2017-02-21] MEDS: GABAPENTIN 300 MG CAP PO SCH ×2 (15:38→20:20)
--- NOTE | 2017-02-21 15:51 | P.HPIM ---
History of Present Illness This is a 56-year-old gentleman with known history of coronary artery disease, patient underwent stenting of the right coronary artery in September 2014, history of PAD with a right below the knee amputation, hyperlipidemia, nicotine dependence, EtOH abuse. Patient states that he had stopped drinking for approximately 2 years, his approximately 3 years ago. He states that he started drinking again heavily. He presents to the hospital with symptoms of midsternal chest heaviness, he does state that he had some associated diaphoresis. Pain reminded him of what he had with his prior stent placement. He does also state however that with an extremely deep breath the pain worsened. EKG on admission showed a normal sinus rhythm with no acute changes. Repeat EKG showed a normal sinus rhythm with nonspecific ST-T wave changes. CTA of the chest was performed which did not reveal any evidence of a pulmonary embolism. Mild bibasilar atelectasis as well as emphysema with no focal consolidation. Chest x-ray does not reveal any active cardiopulmonary disease. She is found to have elevated alcohol level and patient had suicidal ideations and was severely depressed. Patient has one-on-one sitter psychiatric was consulted. Patient quit drinking 3 years ago and started drinking again for 6 weeks ago patient is expected to have severe withdrawals because of which I cannot transfer him to psychiatric floor yet. Patient underwent stress test which was actually negative but there is some uptake on the nuclear stress test probably gastric uptake. Review of Systems REVIEW OF SYSTEMS: CONSTITUTIONAL: No fever, no malaise, no fatigue. HEENT: No recent visual problems or hearing problems. Denied any sore throat. CARDIOVASCULAR: No orthopnea, PND, no palpitations, no syncope. PULMONARY: No shortness of breath, no cough, no hemoptysis. GASTROINTESTINAL: No diarrhea, no nausea, no vomiting, no abdominal pain. Normoactive bowel sounds. NEUROLOGICAL: No headaches, no weakness, no numbness. HEMATOLOGICAL: Denies any bleeding or petechiae. GENITOURINARY: Denies any burning micturition, frequency, or urgency. MUSCULOSKELETAL/RHEUMATOLOGICAL: Denies any joint pain, swelling, or any muscle pain. ENDOCRINE: Denies any polyuria or polydipsia. The rest of the 14-point review of systems is negative. Past Medical History Past Medical History: Coronary Artery Disease (CAD), Hypertension, Myocardial Infarction (MA), Seizure Disorder, Vascular Disorder Additional Past Medical History / Comment(s): 09/25/14 STEMI with stent placement , Seizures, ETOH Abuse, Depression, patient's recently - December 2013, stomach pain that caused him to be off work 7 months- hewas told it had something to do with his spleen and that it might have ruptured- his hgb went down to 3. Hx of L ankle fx. Last Myocardial Infarction Date:: 09/25/14 History of Any Multi-Drug Resistant Organisms: None Reported Past Surgical History: Appendectomy, Heart Catheterization With Stent Additional Past Surgical History / Comment(s): 09/25/14 PTCA with stenting, BYPASS ON BOTH LEGS, RIGHT BELOW KNEE AMPUTATION, 2 EGD's, colonoscopy x 2, hemorrhoidectomy, . Past Anesthesia/Blood Transfusion Reactions: No Reported Reaction Additional Past Anesthesia/Blood Transfusion Reaction / Comment(s): Pt had blood transfusions with no reaction. Date of Last Stent Placement:: 09/25/14 Past Psychological History: Anxiety, Depression Additional Psychological History / Comment(s): Pt's last year December 2013. R leg prosthesis. He admits to drinking a pint every 7-10 days. pack a day smoker since 1976. Smoking Status: Current every day smoker Past Alcohol Use History: Abuse, Daily, Heavy Additional Past Alcohol Use History / Comment(s): pt recently reduced his alcohol intack to approx one pint daily. Before this he had sometimes drank a fifth a day. He likes [employer]. Past Drug Use History: None Reported - Past Family History Father Family Medical History: Cancer Additional Family Medical History / Comment(s): Father of lung cancer. Mother Family Medical History: Cancer, Hypertension, Liver Disease Additional Family Medical History / Comment(s): Psychological history, Medications and Allergies Home Medications Medication Instructions Recorded Confirmed Type Metoprolol Tartrate [Lopressor] 25 mg PO DAILY 01/11/17 02/20/17 History Sertraline [Zoloft] 100 mg PO DAILY 01/11/17 02/20/17 History Atorvastatin [Lipitor] 80 mg PO DAILY 02/20/17 02/20/17 History Clopidogrel [Plavix] 75 mg PO DAILY 02/20/17 02/20/17 History Gabapentin [Neurontin] 300 mg PO BID 02/20/17 02/20/17 History HYDROcodone/APAP 10-325MG [[place] 1 tab PO QID PRN 02/20/17 02/20/17 History 10-325] Lisinopril 40 mg PO DAILY 02/20/17 02/20/17 History Allergies Allergy/AdvReac Type Severity Reaction Status Date / Time No Known Allergies Allergy Verified 02/20/17 15:13 Physical Exam Vitals: Vital Signs Temp Pulse Pulse Resp BP BP BP 02/21/17 12:00 18 02/21/17 09:41 97.9 F 79 18 139/68 02/21/17 09:30 18 02/21/17 09:00 97.4 F L 80 18 133/69 02/21/17 04:00 97.3 F L 85 18 108/64 02/21/17 01:00 98.0 F 86 18 167/87 02/21/17 00:00 97.2 F L 71 18 116/64 02/20/17 20:00 97.1 F L 80 18 118/71 02/20/17 18:47 97 F L 79 18 136/68 02/20/17 17:47 98.3 F 88 20 123/73 02/20/17 17:30 98.2 F 73 18 110/65 02/20/17 16:12 98 20 113/62 Pulse Ox 02/21/17 12:00 02/21/17 09:41 94 L 02/21/17 09:30 02/21/17 09:00 92 L 02/21/17 04:00 93 L 02/21/17 01:00 98 02/21/17 00:00 94 L 02/20/17 20:00 95 02/20/17 18:47 95 02/20/17 17:47 99 02/20/17 17:30 98 02/20/17 16:12 98 Intake and Output 02/21/17 02/21/17 02/21/17 06:59 14:59 22:59 Intake Total 50 360 Balance 50 360 Intake: Oral 50 360 Other: # Voids 0 1 Weight 62.5 kg PHYSICAL EXAMINATION: GENERAL: The patient is alert and oriented x3, not in any acute distress. Well developed, well nourished. tremors on exam. HEENT: Pupils are round and equally reacting to light. EOMI. No scleral icterus. No conjunctival pallor. Normocephalic, atraumatic. No pharyngeal erythema. No thyromegaly. CARDIOVASCULAR: S1 and S2 present. No murmurs, rubs, or gallops. PULMONARY: Chest is clear to auscultation, no wheezing or crackles. ABDOMEN: Soft, nontender, nondistended, normoactive bowel sounds. No palpable organomegaly. MUSCULOSKELETAL: No joint swelling or deformity. EXTREMITIES: No cyanosis, clubbing, or pedal edema. NEUROLOGICAL: Gross neurological examination did not reveal any focal deficits. SKIN: No rashes. Results CBC & Chem 7: 02/21/17 03:42 02/21/17 03:42 Labs: Abnormal Lab Results - Last 24 Hours (Table) 02/20/17 02/20/17 02/20/17 Range/Units 15:55 15:55 16:49 RBC 4.29 L (4.30-5.90) m/uL MCV 102.6 H (80.0-100.0) fL Sodium 150 H (137-145) mmol/L Chloride 110 H (98-107) mmol/L BUN 24 H (9-20) mg/dL Magnesium (1.6-2.3) mg/dL HDL Cholesterol (40-60) mg/dL Urine Opiates Screen Detected H (NotDetected) Urine Methadone Screen Detected H (NotDetected) 02/21/17 02/21/17 Range/Units 03:42 03:42 RBC 4.00 L (4.30-5.90) m/uL MCV 102.4 H (80.0-100.0) fL Sodium (137-145) mmol/L Chloride (98-107) mmol/L BUN 31 H (9-20) mg/dL Magnesium 1.5 L (1.6-2.3) mg/dL HDL Cholesterol 91 H (40-60) mg/dL Urine Opiates Screen (NotDetected) Urine Methadone Screen (NotDetected) Assessment and Plan Plan: #1 chest pain rule out acute coronary syndromes and unstable angina, stress test as mentioned above. Most probably patient has alcohol a gastritis. #2 known history of coronary artery disease with prior RCA stent in 2014 #3 PAD with chronic right SFA occlusion, status post right below the knee amputation #4 nicotine dependence # 5 EtOH abuse and alcohol withdrawal: Patient will need to be watched for withdrawal #6 depression with suicidal ideation: Has one-on-one sitter and psychiatry will evaluate the patient. #7 hypertension #8 hyperlipidemia
--- NOTE | 2017-02-21 16:23 | ECHOF ---
Referral Reason:chest pain MEASUREMENTS -------- HEIGHT: 175.3 cm WEIGHT: 62.1 kg BP: 139/68 IVSd: 0.9 cm (0.6 - 1.1) LVIDd: 3.1 cm (3.9 - 5.3) LVPWd: 1.2 cm (0.6 - 1.1) IVSs: 1.6 cm LVIDs: 1.5 cm LVPWs: 1.3 cm Ao Diam: 3.5 cm (2.0 - 3.7) AV Cusp: 1.6 cm (1.5 - 2.6) LA Diam: 1.7 cm (2.7 - 3.8) MV EXCURSION: 14.924 mm (> 18.000) MV EF SLOPE: 63 mm/s (70 - 150) EPSS: 0.9 cm MV E Brett: 0.64 m/s MV DecT: 109 ms MV A Brett: 0.73 m/s MV E/A Ratio: 0.88 RAP: 5.00 mmHg RVSP: 13.09 mmHg FINDINGS -------- Sinus rhythm. This was a technically difficult study with suboptimal views. There is borderline concentric left ventricular hypertrophy. Overall left ventricular systolic function is normal with, an EF between 55 - 60 %. The right ventricle is normal in size and function. The left atrium is normal in size. The right atrium is normal in size. 1.5mg of Definity was utilized for enhancement of images The aortic valve is trileaflet, and appears structurally normal. No aortic stenosis or regurgitation. The mitral valve leaflets are mildly thickened. Mild mitral regurgitation is present. Mild tricuspid regurgitation present. The right ventricular systolic pressure, as measured by Doppler, is 13.09mmHg. Pulmonic valve appears structurally normal. The aortic root size is normal. The pericardium is normal. CONCLUSIONS -------- 1. Sinus rhythm. 2. The mitral valve leaflets are mildly thickened. 3. Mild mitral regurgitation is present. 4. Mild tricuspid regurgitation present. 5. The right ventricular systolic pressure, as measured by Doppler, is 13.09mmHg. 6. Pulmonic valve appears structurally normal. 7. The aortic root size is normal. 8. The pericardium is normal. 9. This was a technically difficult study with suboptimal views. 10. There is borderline concentric left ventricular hypertrophy. 11. Overall left ventricular systolic function is normal with, an EF between 55 - 60 %. 12. The right ventricle is normal in size and function. 13. The left atrium is normal in size. 14. The right atrium is normal in size. 15. 1.5mg of Definity was utilized for enhancement of images 16. The aortic valve is trileaflet, and appears structurally normal. No aortic stenosis or regurgitation. PREPARATION DEPARTMENT SUPERVISOR: Angelita Torres RDCS
--- NOTE | 2017-02-21 17:10 | P.STRESS ---
- Stress Test Note Stress Test Results/Findings: Exam Performed: NM stress lexiscan cardiolite Exam Date: 02/21/17 Reason for Exam: Chest pain Height: 5 ft 9 in Weight: 62.5 kg Protocol: [place] Stage: N/A Duration of Exercise: N/A Resting Heart Rate: 71 Resting Blood Pressure: 144/58 Maximum Achieved Heart Rate: 112 Maximum Achieved Blood Pressure: 155/58 85% PMHR: 140 100% PMHR: 165 METS: N/A Technologist Comment: Stress Test Results/Findings: Patient was given Lexiscan injection over a period of 15 seconds resting EKG shows normal sinus rhythm with normal [place] interval and QRS duration and nonspecific T-wave changes no ST segment depression suggestive ischemia was noted. The results of the nuclear study will follow.
[2017-02-21] MEDS ORDERED: PANTOPRAZOLE 40 MG TABLET PO STA (18:46)
[2017-02-22 00:27] VITALS: RESP 16
[2017-02-22] MEDS: LORazepam 2 MG/ML SYRINGE IV PRN (02:13)
[2017-02-22] MEDS: HYDROcodone/APAP 10-325MG 1 EACH TAB PO PRN (03:23)
[2017-02-22 05:57] VITALS: BP 129/78; PULSE 86; TEMP 98.5
[2017-02-22] MEDS ORDERED: PANTOPRAZOLE 40 MG TABLET PO SCH (07:30)
--- NOTE | 2017-02-22 07:50 | EST ---
Stress Test Results/Findings: Exam Performed: NM stress lexiscan cardiolite Exam Date: 02/21/17 Reason for Exam: Chest pain Height: 5 ft 9 in Weight: 62.5 kg Protocol: [place] Stage: N/A Duration of Exercise: N/A Resting Heart Rate: 71 Resting Blood Pressure: 144/58 Maximum Achieved Heart Rate: 112 Maximum Achieved Blood Pressure: 155/58 85% PMHR: 140 100% PMHR: 165 METS: N/A Technologist Comment: Stress Test Results/Findings: Patient was given Lexiscan injection over a period of 15 seconds resting EKG shows normal sinus rhythm with normal [place] interval and QRS duration and nonspecific T-wave changes no ST segment depression suggestive ischemia was noted. The results of the nuclear study will follow. DONALD
[2017-02-22 07:54] LABS: Anion Gap 9 mmol/L; Blood Urea Nitrogen 33 mg/dL (9-20); Calcium 8.9 mg/dL (8.4-10.2); Carbon Dioxide 27 mmol/L (22-30); Chloride 106 mmol/L (98-107); Glucose 96 mg/dL (74-99); Non-African American GFR(MDRD) >60 (>60 ml/min/1.73 sqM); Potassium 4.1 mmol/L (3.5-5.1); Sodium 142 mmol/L (137-145)
--- NOTE | 2017-02-22 14:50 | P.DS ---
Providers Date of admission: 02/20/17 16:54 Attending physician: Nisa Salgado Consults: 02/20/17 16:51 Consult Physician Urgent Consulting Provider: Sue Ocampo Consult Reason/Comments: depression, suicidal ideation Do you want consulting provider notified?: Yes 02/20/17 21:37 Consult Physician Urgent Consulting Provider: Lorenzo Diaz Consult Reason/Comments: chest pain Do you want consulting provider notified?: Yes, Notify in am Primary care physician: Ozzy Pereira [facility] Course: Patient had one-on-one sitter yesterday which was discontinued as per psychiatric yesterday evening. Patient left AMA today morning. Patient Condition at Discharge: Stable Plan - Discharge Summary New Discharge Prescriptions: No Action Aspirin 325 mg PO DAILY #30 tab Metoprolol Tartrate [Lopressor] 25 mg PO DAILY Sertraline [Zoloft] 100 mg PO DAILY HYDROcodone/APAP 10-325MG [[place] 10-325] 1 tab PO QID PRN PRN Reason: Pain Lisinopril 40 mg PO DAILY Clopidogrel [Plavix] 75 mg PO DAILY Atorvastatin [Lipitor] 80 mg PO DAILY Gabapentin [Neurontin] 300 mg PO BID Discharge Medication List Aspirin 325 mg PO DAILY #30 tab 09/27/14 [Rx] Metoprolol Tartrate [Lopressor] 25 mg PO DAILY 01/11/17 [History] Sertraline [Zoloft] 100 mg PO DAILY 01/11/17 [History] Atorvastatin [Lipitor] 80 mg PO DAILY 02/20/17 [History] Clopidogrel [Plavix] 75 mg PO DAILY 02/20/17 [History] Gabapentin [Neurontin] 300 mg PO BID 02/20/17 [History] HYDROcodone/APAP 10-325MG [[place] 10-325] 1 tab PO QID PRN 02/20/17 [History] Lisinopril 40 mg PO DAILY 02/20/17 [History] Follow up Appointment(s)/Referral(s): Ozzy Pereira MD [Primary Care Provider] - 1-2 days Discharge Disposition: Left Against Medical Advice
== END 2017-02-22 06:45 | disposition left against medical advice (07) ==
LOC: EC 14:45 → 6SEL 16:54 → 3OBS 02-21 09:29
PROVIDERS: ADMIT Internal Medicine; ATTEND Internal Medicine
DX: R07.89 Other chest pain (principal); R45.851 Suicidal ideations; F32.9 Major depressive disorder, single episode, unspecified; F41.9 Anxiety disorder, unspecified; F10.239 Alcohol dependence with withdrawal, unspecified; Y90.8 Blood alcohol level of 240 mg/100 ml or more; I25.10 Atherosclerotic heart disease of native coronary artery without angina pectoris; I73.9 Peripheral vascular disease, unspecified; G40.909 Epilepsy, unspecified, not intractable, without status epilepticus; E78.5 Hyperlipidemia, unspecified; Z95.5 Presence of coronary angioplasty implant and graft; I10 Essential (primary) hypertension; I25.2 Old myocardial infarction; Z79.899 Other long term (current) drug therapy; Z79.02 Long term (current) use of antithrombotics/antiplatelets; Z89.511 Acquired absence of right leg below knee
CPT/HCPCS: 96372 ×2; 99285 ×2; 93005 ×2; 96365; 96366; 96375; 96376 ×2; 82075; 99284; 36415; 93017; 80061; 80053; 80048 ×2; 82550 ×2; 82553 ×2; 83735 ×2; 84484 ×2; 85025 ×2; 85610; 85730; 81001; 80306 ×2; 80320; 71020; 78452; G0378 ×4; C8929; A9500; S4990 ×2; J2060 ×3; J3411; J3475; J2785; 93306

== ENCOUNTER 2017-02-22 17:20 | Emergency (ER) | payer MEDICARE, OTHER ==
--- NOTE | 2017-02-22 18:13 | ED ---
Alcohol HPI - General Chief Complaint: Alcohol Stated Complaint: Alcohol Time Seen by Provider: 02/22/17 17:40 Source: patient, RN notes reviewed, old records reviewed Mode of arrival: wheelchair Limitations: no limitations - History of Present Illness Initial Comments: This is a 56-year-old male presenting to the emergency Department chief complaint of alcohol intoxication and he reports that he was recently discharged today from evaluation for chest pain. Patient ports that he drank a pint of alcohol today. Patient reports that he did not receive a prescription of his [place] on discharge. He reports that he was given a prescription for 120 on 02/15/2017.. Patient states that he has right leg amputation. He reports that he cannot sleep or tolerate the pain without having his [place]. He states that he has been to the emergency department and admitted multiple times over the past few days due to alcohol intoxication. He reports that prior to the past 2 weeks he is not certain and drinking. He states that he wants to stop drinking and plans to go to a rehab facility but does not state exactly when or where. Patient reports that he is unable to see his primary care physician. He reports that he looked everywhere in his house for his prescription. - Related Data Home Medications Medication Instructions Recorded Confirmed Metoprolol Tartrate [Lopressor] 25 mg PO DAILY 01/11/17 02/22/17 Sertraline [Zoloft] 100 mg PO DAILY 01/11/17 02/22/17 Atorvastatin [Lipitor] 80 mg PO DAILY 02/20/17 02/22/17 Clopidogrel [Plavix] 75 mg PO DAILY 02/20/17 02/22/17 Gabapentin [Neurontin] 300 mg PO BID 02/20/17 02/22/17 HYDROcodone/APAP 10-325MG [[place] 1 tab PO QID PRN 02/20/17 02/22/17 10-325] Lisinopril 40 mg PO DAILY 02/20/17 02/22/17 Previous Rx's Medication Instructions Recorded Aspirin 325 mg PO DAILY #30 tab 09/27/14 chlordiazePOXIDE HCl [Librium] 25 mg PO QID #16 capsule 02/22/17 Allergies Allergy/AdvReac Type Severity Reaction Status Date / Time No Known Allergies Allergy Verified 02/22/17 18:27 Review of Systems ROS Statement: Those systems with pertinent positive or pertinent negative responses have been documented in the HPI. ROS Other: All systems not noted in ROS Statement are negative. Past Medical History Past Medical History: Coronary Artery Disease (CAD), Hypertension, Myocardial Infarction (CT), Seizure Disorder, Vascular Disorder Additional Past Medical History / Comment(s): 09/25/14 STEMI with stent placement , Seizures, ETOH Abuse, Depression, patient's recently - December 2013, stomach pain that caused him to be off work 7 months- hewas told it had something to do with his spleen and that it might have ruptured- his hgb went down to 3. Hx of L ankle fx. Last Myocardial Infarction Date:: 09/25/14 History of Any Multi-Drug Resistant Organisms: None Reported Past Surgical History: Appendectomy, Heart Catheterization With Stent Additional Past Surgical History / Comment(s): 09/25/14 PTCA with stenting, BYPASS ON BOTH LEGS, RIGHT BELOW KNEE AMPUTATION, 2 EGD's, colonoscopy x 2, hemorrhoidectomy, . Past Anesthesia/Blood Transfusion Reactions: No Reported Reaction Additional Past Anesthesia/Blood Transfusion Reaction / Comment(s): Pt had blood transfusions with no reaction. Date of Last Stent Placement:: 09/25/14 Past Psychological History: Anxiety, Depression Smoking Status: Current every day smoker Past Alcohol Use History: Abuse, Daily, Heavy Past Drug Use History: None Reported - Past Family History Father Family Medical History: Cancer Additional Family Medical History / Comment(s): Father of lung cancer. Mother Family Medical History: Cancer, Hypertension, Liver Disease Additional Family Medical History / Comment(s): Psychological history, General Exam - General Exam Comments Initial Comments: 56-year-old male. Patient is on appear to be in any acute distress. He does appear intoxicated. Limitations: no limitations General appearance: alert, in no apparent distress Head exam: Present: atraumatic, normocephalic, normal inspection Eye exam: Present: normal appearance, PERRL, EOMI. Absent: scleral icterus, conjunctival injection, periorbital swelling ENT exam: Present: normal exam, mucous membranes moist Neck exam: Present: normal inspection. Absent: tenderness, meningismus, lymphadenopathy Respiratory exam: Present: normal lung sounds bilaterally. Absent: respiratory distress, wheezes, rales, rhonchi, stridor Cardiovascular Exam: Present: regular rate, normal rhythm, normal heart sounds. Absent: systolic murmur, diastolic murmur, rubs, gallop, clicks GI/Abdominal exam: Present: soft, normal bowel sounds. Absent: distended, tenderness, guarding, rebound, rigid Extremities exam: Present: normal inspection, full ROM, normal capillary refill , other (Patient has a right leg amputee.). Absent: tenderness, pedal edema, joint swelling, calf tenderness Back exam: Present: normal inspection Neurological exam: Present: alert, oriented X3, CN II-XII intact Psychiatric exam: Present: normal affect, normal mood Skin exam: Present: warm, dry, intact, normal color. Absent: rash Course Vital Signs 02/22/17 02/22/17 17:31 18:29 Temperature 98.1 F 97.8 F Pulse Rate 117 H 97 Respiratory 22 16 Rate Blood Pressure 134/82 130/80 O2 Sat by Pulse 96 97 Oximetry Medical Decision Making - Medical Decision Making This is a 56-year-old male presenting to the emergency Department chief complaint of alcohol intoxication and he reports that he was recently discharged today from evaluation for chest pain. Patient ports that he drank a pint of alcohol today. Patient reports that he did not receive a prescription of his [place] on discharge. He reports that he was given a prescription for 120 on 02/15/2017.. Patient states that he has right leg amputation. He reports that he cannot sleep or tolerate the pain without having his [place]. He states that he has been to the emergency department and admitted multiple times over the past few days due to alcohol intoxication. Discussed this case with Dr. Del Cid. I did call the security office and inpatient pharmacy searching for his prescription. They are unable to locate anything. Discussed with the patient that I will not violate his pain contract and that he needs to follow-up with his primary care physician. Discussed that I can fill prescription for librium with alcohol withdrawals. Disposition Clinical Impression: Alcohol intoxication Disposition: HOME SELF-CARE Condition: Good Instructions: Alcohol Intoxication (ED) Additional Instructions: Patient has a follow-up with primary care physician. Take the medication prescribed. Recommend following up with AA and NA. Prescriptions: chlordiazePOXIDE HCl [Librium] 25 mg PO QID #16 capsule Referrals: Ozzy Pereira MD [Primary Care Provider] - 1-2 days Time of Disposition: 18:45
[2017-02-22 18:36] VITALS: BP 130/80; PULSE 97; RESP 16; TEMP 97.8
[2017-02-22] MEDS ORDERED: chlordiazePOXIDE 25 MG CAP PO STA (18:54)
[2017-02-22 19:10] LABS: Appearance,Urine Clear (Clear); Bilirubin,Urine Negative (Negative); Glucose,Urine (UA) Negative (Negative); Ketones,Urine Negative (Negative); Leukocyte Esterase,Urine Negative (Negative); Nitrite,Urine Negative (Negative); PH, Urine 6.5 (5.0-8.0); Particle Count 395; Protein,Urine Negative (Negative); RBC,Urine 2 /hpf (0-5); Specific Gravity,Urine 1.004 (1.001-1.035); UA Billing (MACRO vs. MICRO) MICRO; Urobilinogen,Urine <2.0 mg/dL (<2.0); WBC,Urine <1 /hpf (0-5)
== END 2017-02-22 19:13 | disposition home or self-care (01) ==
LOC: EC 17:20
DX: F10.129 Alcohol abuse with intoxication, unspecified (principal); I10 Essential (primary) hypertension; I25.10 Atherosclerotic heart disease of native coronary artery without angina pectoris; G40.909 Epilepsy, unspecified, not intractable, without status epilepticus; I99.9 Unspecified disorder of circulatory system; F32.9 Major depressive disorder, single episode, unspecified; F41.9 Anxiety disorder, unspecified; I25.2 Old myocardial infarction; F17.200 Nicotine dependence, unspecified, uncomplicated; Z79.02 Long term (current) use of antithrombotics/antiplatelets; Z89.511 Acquired absence of right leg below knee; Z79.899 Other long term (current) drug therapy
CPT/HCPCS: 80306; 81001; 82075; 99284

== ENCOUNTER 2017-03-01 12:32 | Emergency (ER) | payer MEDICARE, OTHER ==
[2017-03-01 12:37] VITALS: RESP 18; TEMP 97.7
--- NOTE | 2017-03-01 12:46 | ED ---
General Adult HPI - General Chief complaint: Alcohol Stated complaint: ETOH withdrawls Time Seen by Provider: 03/01/17 12:35 Source: patient, EMS, RN notes reviewed Mode of arrival: EMS Limitations: no limitations - History of Present Illness Initial comments: 56-year-old male presents to the emergency department seeking alcohol abuse treatment. Patient states that like to go to rehab. Patient states he has been to rehab twice the day he left he started to drink again. Patient denies any suicidal or homicidal thoughts. Patient states she just wants to be sent to [place]. He called take her heart and there is a 2-week-old less than these were negative maybe we can get him in sooner. Patient states he did not have any pain at this time he is other complaints he is simply seeking alcohol treatment.Patient denies any recent fever, chills, shortness of breath, chest pain, back pain, abdominal pain, nausea vomiting, numbness or tingling, dysuria or hematuria, constipation or diarrhea, headaches or visual changes, or any other current symptoms. - Related Data Home Medications Medication Instructions Recorded Confirmed Metoprolol Tartrate [Lopressor] 25 mg PO DAILY 01/11/17 02/22/17 Sertraline [Zoloft] 100 mg PO DAILY 01/11/17 02/22/17 Atorvastatin [Lipitor] 80 mg PO DAILY 02/20/17 02/22/17 Clopidogrel [Plavix] 75 mg PO DAILY 02/20/17 02/22/17 Gabapentin [Neurontin] 300 mg PO BID 02/20/17 02/22/17 HYDROcodone/APAP 10-325MG [[place] 1 tab PO QID PRN 02/20/17 02/22/17 10-325] Lisinopril 40 mg PO DAILY 02/20/17 02/22/17 Previous Rx's Medication Instructions Recorded Aspirin 325 mg PO DAILY #30 tab 09/27/14 chlordiazePOXIDE HCl [Librium] 25 mg PO QID #16 capsule 02/22/17 chlordiazePOXIDE HCl [Librium] 25 mg PO DIRECTED 6 Days 03/01/17 Allergies Allergy/AdvReac Type Severity Reaction Status Date / Time No Known Allergies Allergy Verified 02/22/17 18:27 Review of Systems ROS Statement: Those systems with pertinent positive or pertinent negative responses have been documented in the HPI. ROS Other: All systems not noted in ROS Statement are negative. Past Medical History Past Medical History: Coronary Artery Disease (CAD), Hypertension, Myocardial Infarction ([place]), Seizure Disorder, Vascular Disorder Additional Past Medical History / Comment(s): 09/25/14 STEMI with stent placement , Seizures, ETOH Abuse, Depression, patient's recently - December 2013, stomach pain that caused him to be off work 7 months- hewas told it had something to do with his spleen and that it might have ruptured- his hgb went down to 3. Hx of L ankle fx. Last Myocardial Infarction Date:: 09/25/14 History of Any Multi-Drug Resistant Organisms: None Reported Past Surgical History: Appendectomy, Heart Catheterization With Stent Additional Past Surgical History / Comment(s): 09/25/14 PTCA with stenting, BYPASS ON BOTH LEGS, RIGHT BELOW KNEE AMPUTATION, 2 EGD's, colonoscopy x 2, hemorrhoidectomy, . Past Anesthesia/Blood Transfusion Reactions: No Reported Reaction Additional Past Anesthesia/Blood Transfusion Reaction / Comment(s): Pt had blood transfusions with no reaction. Date of Last Stent Placement:: 09/25/14 Past Psychological History: Anxiety, Depression Smoking Status: Current every day smoker Past Alcohol Use History: Abuse, Daily, Heavy Past Drug Use History: None Reported - Past Family History Father Family Medical History: Cancer Additional Family Medical History / Comment(s): Father of lung cancer. Mother Family Medical History: Cancer, Hypertension, Liver Disease Additional Family Medical History / Comment(s): Psychological history, General Exam Limitations: no limitations General appearance: alert, in no apparent distress Head exam: Present: atraumatic, normocephalic, normal inspection Eye exam: Present: normal appearance, PERRL, EOMI. Absent: scleral icterus, conjunctival injection, periorbital swelling ENT exam: Present: normal exam, mucous membranes moist Neck exam: Present: normal inspection. Absent: tenderness, meningismus, lymphadenopathy Respiratory exam: Present: normal lung sounds bilaterally. Absent: respiratory distress, wheezes, rales, rhonchi, stridor Cardiovascular Exam: Present: regular rate, normal rhythm, normal heart sounds. Absent: systolic murmur, diastolic murmur, rubs, gallop, clicks Neurological exam: Present: alert, oriented X3 Psychiatric exam: Present: normal affect, normal mood Skin exam: Present: warm, dry, intact, normal color. Absent: rash Course Vital Signs 03/01/17 12:33 Temperature 97.7 F Pulse Rate 88 Respiratory 18 Rate Blood Pressure 113/60 O2 Sat by Pulse 98 Oximetry Medical Decision Making - Medical Decision Making 56-year-old male presents to the emergency department seeking substance abuse treatment. This time he was given information regarding substance abuse centers within the area. We discussed contacting them and trying to get in. This time he denies any suicidal or homicidal ideation. At this time the patient is acting clinically sober in the room he is able to get up and walk around he is at me appropriately and all questions were answered. At this time the patient will be discharged home. All his questions are answered. Disposition Clinical Impression: Alcohol abuse Disposition: HOME SELF-CARE Condition: Stable Instructions: Alcohol Withdrawal (ED) Additional Instructions: Please use medication as discussed. Please follow up with family doctor if symptoms have not improved over the next two days. Please return to the emergency room if your symptoms increase or worsen or for any other concerns. Prescriptions: chlordiazePOXIDE HCl [Librium] 25 mg PO DIRECTED 6 Days Referrals: Ozzy Pereira MD [Primary Care Provider] - 1-2 days Time of Disposition: 12:46
[2017-03-01 13:22] VITALS: BP 96/71; PULSE 80
== END 2017-03-01 13:22 | disposition home or self-care (01) ==
LOC: EC 12:32
DX: F10.10 Alcohol abuse, uncomplicated (principal); I25.10 Atherosclerotic heart disease of native coronary artery without angina pectoris; I10 Essential (primary) hypertension; I25.2 Old myocardial infarction; F32.9 Major depressive disorder, single episode, unspecified; F41.9 Anxiety disorder, unspecified; F17.200 Nicotine dependence, unspecified, uncomplicated; Z79.02 Long term (current) use of antithrombotics/antiplatelets; Z79.899 Other long term (current) drug therapy
CPT/HCPCS: 99285

== ENCOUNTER 2017-03-09 18:00 | Observation (INO) | payer MEDICARE, OTHER ==
[2017-03-09] MEDS ORDERED: ASPIRIN 81 MG PO STA (18:09)
[2017-03-09] MEDS ORDERED: NITROGLYCERIN OINT 1 INCH/GM PACKET TOPICAL STA (18:09)
--- NOTE | 2017-03-09 18:14 | ED ---
General Adult HPI - General Chief complaint: Chest Pain Stated complaint: Chest Pain Time Seen by Provider: 03/09/17 18:02 Source: patient, EMS, RN notes reviewed Mode of arrival: EMS Limitations: no limitations - History of Present Illness Initial comments: Patient is a pleasantly intoxicated 57-year-old male presenting to the emergency department complaining of chest discomfort. Onset was prior to arrival while drinking alcohol. Patient has pressure in his left upper chest. Symptoms are somewhat similar to his previous heart attack however not as severe. Discomfort is mild at this time. Patient does have some associated dyspnea. No vomiting or diaphoresis. - Related Data Home Medications Medication Instructions Recorded Confirmed Metoprolol Tartrate [Lopressor] 25 mg PO DAILY 01/11/17 03/09/17 Sertraline [Zoloft] 100 mg PO DAILY 01/11/17 03/09/17 Atorvastatin [Lipitor] 80 mg PO DAILY 02/20/17 03/09/17 Clopidogrel [Plavix] 75 mg PO DAILY 02/20/17 03/09/17 Gabapentin [Neurontin] 300 mg PO BID 02/20/17 03/09/17 HYDROcodone/APAP 10-325MG [[place] 1 tab PO QID PRN 02/20/17 03/09/17 10-325] Lisinopril 40 mg PO DAILY 02/20/17 03/09/17 Previous Rx's Medication Instructions Recorded Aspirin 325 mg PO DAILY #30 tab 09/27/14 chlordiazePOXIDE HCl [Librium] 25 mg PO QID #16 capsule 02/22/17 chlordiazePOXIDE HCl [Librium] 25 mg PO DIRECTED 6 Days 03/01/17 Allergies Allergy/AdvReac Type Severity Reaction Status Date / Time No Known Allergies Allergy Verified 03/09/17 18:11 Review of Systems ROS Statement: Those systems with pertinent positive or pertinent negative responses have been documented in the HPI. ROS Other: All systems not noted in ROS Statement are negative. Constitutional: Denies: fever Eyes: Denies: eye pain ENT: Denies: ear pain Respiratory: Reports: dyspnea. Denies: cough Cardiovascular: Reports: chest pain Endocrine: Denies: fatigue Gastrointestinal: Denies: abdominal pain Genitourinary: Denies: dysuria Musculoskeletal: Denies: back pain Skin: Denies: rash Neurological: Denies: weakness Past Medical History Past Medical History: Coronary Artery Disease (CAD), Hypertension, Myocardial Infarction ([place]), Seizure Disorder, Vascular Disorder Additional Past Medical History / Comment(s): 09/25/14 STEMI with stent placement , Seizures, ETOH Abuse, Depression, patient's recently - December 2013, stomach pain that caused him to be off work 7 months- hewas told it had something to do with his spleen and that it might have ruptured- his hgb went down to 3. Hx of L ankle fx. Last Myocardial Infarction Date:: 09/25/14 History of Any Multi-Drug Resistant Organisms: None Reported Past Surgical History: Appendectomy, Heart Catheterization With Stent Additional Past Surgical History / Comment(s): 09/25/14 PTCA with stenting, BYPASS ON BOTH LEGS, RIGHT BELOW KNEE AMPUTATION, 2 EGD's, colonoscopy x 2, hemorrhoidectomy, . Past Anesthesia/Blood Transfusion Reactions: No Reported Reaction Additional Past Anesthesia/Blood Transfusion Reaction / Comment(s): Pt had blood transfusions with no reaction. Date of Last Stent Placement:: 09/25/14 Past Psychological History: Anxiety, Depression Smoking Status: Current every day smoker Past Alcohol Use History: Abuse, Daily, Heavy Past Drug Use History: None Reported - Past Family History Father Family Medical History: Cancer Additional Family Medical History / Comment(s): Father of lung cancer. Mother Family Medical History: Cancer, Hypertension, Liver Disease Additional Family Medical History / Comment(s): Psychological history, General Exam Limitations: no limitations General appearance: alert, in no apparent distress Head exam: Present: atraumatic, normocephalic Eye exam: Present: normal appearance, PERRL ENT exam: Present: normal oropharynx Neck exam: Present: normal inspection Respiratory exam: Present: normal lung sounds bilaterally. Absent: chest wall tenderness Cardiovascular Exam: Present: regular rate, normal rhythm Expanded Peripheral pulses: 2+: Radial (R), Radial (L), Dorsalis Pedis (L) GI/Abdominal exam: Present: soft. Absent: tenderness Extremities exam: Present: other (Right leg prosthesis) Neurological exam: Present: alert Psychiatric exam: Present: normal affect, normal mood Skin exam: Present: normal color Course Vital Signs 03/09/17 03/09/17 03/09/17 18:05 18:09 18:45 Temperature 98.1 F Pulse Rate 103 H 96 92 Respiratory 18 18 18 Rate Blood Pressure 149/75 149/75 120/77 O2 Sat by Pulse 96 99 98 Oximetry 03/09/17 03/09/17 19:15 20:00 Temperature Pulse Rate 88 84 Respiratory 20 18 Rate Blood Pressure 104/60 122/69 O2 Sat by Pulse 98 96 Oximetry EKG Findings - EKG Comments: EKG Findings:: Normal sinus rhythm 98. RI 150. QRS 82. QT 360. QTC 469. Left axis. Septal Q waves. No acute ST change. Medical Decision Making - Medical Decision Making Patient reevaluated and resting comfortably in bed. Patient updated on results and plan. Case was discussed with Dr. Pereira, who will admit his patient. - Lab Data Result diagrams: 03/09/17 18:05 03/09/17 18:05 Lab Results 03/09/17 03/09/17 03/09/17 Range/Units 18:05 18:05 18:05 WBC 7.4 (3.8-10.6) k/uL RBC 4.22 L (4.30-5.90) m/uL Hgb 14.4 (13.0-17.5) gm/dL Hct 43.0 (39.0-53.0) % MCV 101.9 H (80.0-100.0) fL MCH 34.0 (25.0-35.0) pg MCHC 33.4 (31.0-37.0) g/dL RDW 13.9 (11.5-15.5) % Plt Count 203 (150-450) k/uL Neutrophils % 55 % Lymphocytes % 30 % Monocytes % 8 % Eosinophils % 2 % Basophils % 1 % Neutrophils # 4.0 (1.3-7.7) k/uL Lymphocytes # 2.2 (1.0-4.8) k/uL Monocytes # 0.6 (0-1.0) k/uL Eosinophils # 0.2 (0-0.7) k/uL Basophils # 0.1 (0-0.2) k/uL Macrocytosis Slight PT (9.0-12.0) sec INR (<1.2) APTT (22.0-30.0) sec D-Dimer (<0.60) mg/L FEU Sodium 144 (137-145) mmol/L Potassium 3.7 (3.5-5.1) mmol/L Chloride 108 H (98-107) mmol/L Carbon Dioxide 23 (22-30) mmol/L Anion Gap 13 mmol/L BUN 16 (9-20) mg/dL Creatinine 0.80 (0.66-1.25) mg/dL Est GFR (MDRD) Af Amer >60 (>60 ml/min/1.73 sqM) Est GFR (MDRD) Non-Af >60 (>60 ml/min/1.73 sqM) Glucose 94 (74-99) mg/dL Calcium 8.9 (8.4-10.2) mg/dL Magnesium 1.6 (1.6-2.3) mg/dL Total Bilirubin 0.6 (0.2-1.3) mg/dL AST 43 (17-59) U/L ALT 67 (21-72) U/L Alkaline Phosphatase 102 (38-126) U/L Total Creatine Kinase 523 H (55-170) U/L CK-MB (CK-2) 2.5 H* (0.0-2.4) ng/mL CK-MB (CK-2) Rel Index 0.5 Troponin I 0.015 (0.000-0.034) ng/mL Total Protein 6.8 (6.3-8.2) g/dL Albumin 4.3 (3.5-5.0) g/dL Amylase 64 (30-110) U/L Lipase 113 (23-300) U/L 03/09/17 Range/Units 18:05 WBC (3.8-10.6) k/uL RBC (4.30-5.90) m/uL Hgb (13.0-17.5) gm/dL Hct (39.0-53.0) % MCV (80.0-100.0) fL MCH (25.0-35.0) pg MCHC (31.0-37.0) g/dL RDW (11.5-15.5) % Plt Count (150-450) k/uL Neutrophils % % Lymphocytes % % Monocytes % % Eosinophils % % Basophils % % Neutrophils # (1.3-7.7) k/uL Lymphocytes # (1.0-4.8) k/uL Monocytes # (0-1.0) k/uL Eosinophils # (0-0.7) k/uL Basophils # (0-0.2) k/uL Macrocytosis PT 9.9 (9.0-12.0) sec INR 1.0 (<1.2) APTT 24.6 (22.0-30.0) sec D-Dimer 5.07 H (<0.60) mg/L FEU Sodium (137-145) mmol/L Potassium (3.5-5.1) mmol/L Chloride (98-107) mmol/L Carbon Dioxide (22-30) mmol/L Anion Gap mmol/L BUN (9-20) mg/dL Creatinine (0.66-1.25) mg/dL Est GFR (MDRD) Af Amer (>60 ml/min/1.73 sqM) Est GFR (MDRD) Non-Af (>60 ml/min/1.73 sqM) Glucose (74-99) mg/dL Calcium (8.4-10.2) mg/dL Magnesium (1.6-2.3) mg/dL Total Bilirubin (0.2-1.3) mg/dL AST (17-59) U/L ALT (21-72) U/L Alkaline Phosphatase (38-126) U/L Total Creatine Kinase (55-170) U/L CK-MB (CK-2) (0.0-2.4) ng/mL CK-MB (CK-2) Rel Index Troponin I (0.000-0.034) ng/mL Total Protein (6.3-8.2) g/dL Albumin (3.5-5.0) g/dL Amylase (30-110) U/L Lipase (23-300) U/L - Radiology Data Radiology results: report reviewed (Computed tomography scan the chest shows near complete occlusion of the celiac axis and SMA. No pulmonary embolism.), image reviewed (Chest x-ray shows no acute process. Old rib fractures.) Disposition Clinical Impression: Chest pain Disposition: ADMITTED IP TO THIS [facility] Referrals: Ozzy Pereira MD [Primary Care Provider] - 1-2 days Decision Time: 20:41
[2017-03-09 18:24] LABS: Basophils # (A) 0.1 k/uL (0-0.2); Basophils % (A) 1 %; CH 33.6; CHCM 33.1; Eosinophils # (A) 0.2 k/uL (0-0.7); Eosinophils % (A) 2 %; HDW 2.11; HGB 14.4 gm/dL (13.0-17.5); Luc # (Auto) 0.31; Luc % (Auto) 4; Lymphocytes # (A) 2.2 k/uL (1.0-4.8); Lymphocytes % (A) 30 %; MCHC 33.4 g/dL (31.0-37.0); MCV 101.9 fL (80.0-100.0); Macrocytosis Slight; Mean Platelet Volume 7.5; Monocytes # (A) 0.6 k/uL (0-1.0); Monocytes % (A) 8 %; Neutrophils % (A) 55 %; RBC 4.22 m/uL (4.30-5.90); RDW 13.9 % (11.5-15.5); WBC 7.4 k/uL (3.8-10.6); WBC (Perox) 7.48
[2017-03-09 18:41] LABS: Partial Thromboplastin Time 24.6 sec (22.0-30.0); Prothrombin Time 9.9 sec (9.0-12.0)
--- NOTE | 2017-03-09 18:42 | XR ---
EXAMINATION TYPE: XR chest 2V DATE OF EXAM: 03/09/2017 COMPARISON: 02/20/2017 HISTORY: Shortness of breath and chest pain beginning this morning it became progressively worse TECHNIQUE: Frontal and lateral views of the chest are obtained. FINDINGS: There is no focal air space opacity, pleural effusion, or pneumothorax seen. The cardiac silhouette size is within normal limits. The osseous structures are intact. Multiple old right-side d rib fractures are seen. There is pulmonary hyperinflation and flattening of the diaphragms on the l ateral image compatible with pulmonary emphysema. IMPRESSION: 1. No acute cardiopulmonary process. 2. Sequela of pulmonary emphysema.
[2017-03-09 18:53] LABS: ALT 67 U/L (21-72); AST 43 U/L (17-59); Alkaline Phosphatase 102 U/L (38-126); Amylase 64 U/L (30-110); Anion Gap 13 mmol/L; Blood Urea Nitrogen 16 mg/dL (9-20); Calcium 8.9 mg/dL (8.4-10.2); Carbon Dioxide 23 mmol/L (22-30); Chloride 108 mmol/L (98-107); Glucose 94 mg/dL (74-99); Magnesium 1.6 mg/dL (1.6-2.3); Non-African American GFR(MDRD) >60 (>60 ml/min/1.73 sqM); Potassium 3.7 mmol/L (3.5-5.1); Sodium 144 mmol/L (137-145); Total Bilirubin 0.6 mg/dL (0.2-1.3); Total Protein 6.8 g/dL (6.3-8.2)
[2017-03-09 19:05] LABS: Troponin I 0.015 ng/mL (0.000-0.034)
[2017-03-09 19:11] LABS: Creatine Kinase MB 2.5 ng/mL (0.0-2.4)
[2017-03-09] MEDS ORDERED: RX INFO: IV CONTRAST WAS GIVEN 1 EACH MISC MISCELLANE PRN (19:22)
[2017-03-09] MEDS ORDERED: MAG HYDROX/AL HYDROX/SIMETH 30 ML, HYOSCYAMINE ELIXIR 10 ML, CIMETIDINE HCL 300 MG, LID... PO STA ×4 (20:10)
--- NOTE | 2017-03-09 20:17 | CT ---
EXAMINATION TYPE: CT angio chest DATE OF EXAM: 03/09/2017 COMPARISON: 02/19/2017 HISTORY: Difficulty breathing and left sided chest pain. Elevated d-dimer. CT DLP: 163.90 mGycm. Automated Exposure Control for Dose Reduction was Utilized. CONTRAST: CTA scan of the thorax is performed with IV Contrast, patient injected with 84 mL of Omnipaque 350, p ulmonary embolism protocol. MIP Images are created on CT scanner and reviewed. FINDINGS: LUNGS: Mild centrilobular and emphysematous changes are seen, most pronounced in the lung apices. Per ipheral right lower lobe calcified granuloma is noted. Similar calcified granulomas are seen on the l eft. The lungs are clear without evidence of focal consolidation. There is no pleural effusion or pne umothorax seen. The tracheobronchial tree is patent. MEDIASTINUM: There is satisfactory enhancement of the pulmonary artery and its branches, there is no CT evidence for pulmonary embolism. There are no greater than 1 cm hilar or mediastinal lymph nodes. No cardiomegaly or pericardial effusion is seen. No enlargement of the main pulmonary artery or as cending aorta is seen. Two-vessel coronary artery calcifications are noted. OTHER: Multilobulated splenic contour is likely related to prior trauma and splenic injury. 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 Few gallbladder ahmet liths are incidentally noted. IMPRESSION: 1. 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 Patency of the renal vasculature. 2. No evidence of pulmonary embolus. 3. Mild paraseptal and centrilobular emphysematous changes. 4. Cholelithiasis.
[2017-03-09] MEDS ORDERED: HEPARIN SODIUM,PORCINE 5,000 UNIT/ML 1 ML VIAL IV ONE (20:42)
[2017-03-09] MEDS ORDERED: NITROGLYCERIN SL TABS 0.4 MG TAB SUBLINGUAL PRN (20:42)
[2017-03-09] MEDS ORDERED: HEPARIN SODIUM,PORCINE 5,000 UNIT/ML 1 ML VIAL IV PRN (20:42)
[2017-03-09] MEDS ORDERED: HEPARIN SODIUM,PORCINE/D5W PMX 25,000 UNIT in DEXTROSE/WATER 1 500ML.BAG IV SCH (20:45)
[2017-03-09] MEDS ORDERED: SODIUM CHLORIDE 0.9% 1,000 ML IV SCH (21:15)
[2017-03-09 21:54] VITALS: BMI 21.4
[2017-03-09] MEDS: HYDROcodone/APAP 10-325MG 1 EACH TAB PO PRN (22:49)
[2017-03-10] MEDS: GABAPENTIN 300 MG CAP PO SCH ×3 (00:10→20:36)
[2017-03-10] MEDS: PANTOPRAZOLE 40 MG/10 ML VIAL IVP SCH ×2 (00:13→10:47)
[2017-03-10] MEDS: chlordiazePOXIDE 25 MG CAP PO SCH ×5 (00:13→22:27)
[2017-03-10] MEDS: LISINOPRIL 20 MG TAB PO SCH ×2 (00:13→10:48)
[2017-03-10 00:56] LABS: Creatine Kinase MB 1.9 ng/mL (0.0-2.4); Troponin I 0.012 ng/mL (0.000-0.034)
[2017-03-10] MEDS: NITROGLYCERIN OINT 1 INCH/GM PACKET TOPICAL SCH ×2 (03:04→06:50)
[2017-03-10] MEDS ORDERED: LORazepam 1 MG TAB PO PRN ×3 (05:41)
[2017-03-10 06:54] LABS: Mean Platelet Volume 8.2
[2017-03-10 07:10] LABS: Cholesterol 152 mg/dL (<200); HDL Cholesterol 88 mg/dL (40-60)
[2017-03-10 07:11] LABS: Creatine Kinase 263 U/L (55-170)
[2017-03-10 07:23] LABS: Creatine Kinase MB 1.3 ng/mL (0.0-2.4); Troponin I <0.012 ng/mL (0.000-0.034)
[2017-03-10] MEDS: ASPIRIN 325 MG TAB PO SCH (10:48)
[2017-03-10] MEDS: ATORVASTATIN 80 MG TAB PO SCH (10:48)
[2017-03-10] MEDS: SERTRALINE 100 MG TAB PO SCH (10:48)
[2017-03-10] MEDS: CLOPIDOGREL 75 MG TAB PO SCH (10:48)
[2017-03-10] MEDS: METOPROLOL TARTRATE 25 MG TAB PO SCH (10:49)
--- NOTE | 2017-03-10 11:17 | P.CRDCN ---
History of Present Illness Consult date: 03/10/17 History of present illness: This is a 57-year-old male. Past medical history significant for CAD with stenting in [address] Diaz, hypertension, hyperlipidemia and peripheral vascular disease. Patient presents with complaints of chest pain. He states he was sitting down drinking beer playing hockey game when he got heaviness to the left side of his chest. It was not associated with any shortness of breath, nausea, vomiting, dizziness, palpitations or diaphoresis. He states he has had this pain intermittently and was recently in the hospital with similar complaints. At that time he underwent an echocardiogram and a Lexiscan which were both deemed normal and he was discharged home to follow-up. He states he drinks daily as well as smokes up to one pack per day. He feels he is in impending DTs. EKG done shows a normal sinus mechanism, rate of 98 beats per minute with nonspecific T-wave abnormality insistent with old infarct. When compared with old EKG this appears consistent. CBC was within normal limits, coagulation profile at baseline. BMP is normal. First set of CPK and troponin are normal x []. Chest x-ray showed no acute cardiopulmonary process sequelae of pulmonary emphysema. Most recent echo dated 02/21/2017 indicates left ventricular function with an ejection fraction of 55-60%, mild mitral regurgitation, mild tricuspid regurgitation, no pulmonary hypertension with an RVSP of 13.09 mmHg Concentric left ventricular hypertrophy.. Review of Systems REVIEW OF SYSTEMS: Patient denies any chest discomfort. No shortness of breath. I'll diaphoresis. Denies headache, dizziness, blurred vision, double vision. No dyspnea on exertion. Patient denies any stomach discomfort. No nausea, vomiting. No hematochezia. No hematemesis. Denies any black stools or blood in his stools. No syncope. No palpitations. No cough. No recent fever or chills. No muscle weakness or numbness. Complains of feeling jittery. Past Medical History Past Medical History: Coronary Artery Disease (CAD), Hypertension, Myocardial Infarction ([place]), Seizure Disorder, Vascular Disorder Additional Past Medical History / Comment(s): 09/25/14 STEMI with stent placement , Seizures, ETOH Abuse, Depression, patient's recently - December 2013, stomach pain that caused him to be off work 7 months- hewas told it had something to do with his spleen and that it might have ruptured- his hgb went down to 3. Hx of L ankle fx. Last Myocardial Infarction Date:: 09/25/14 History of Any Multi-Drug Resistant Organisms: None Reported Past Surgical History: Appendectomy, Heart Catheterization With Stent Additional Past Surgical History / Comment(s): 09/25/14 PTCA with stenting, BYPASS ON BOTH LEGS, RIGHT BELOW KNEE AMPUTATION, 2 EGD's, colonoscopy x 2, hemorrhoidectomy, . Past Anesthesia/Blood Transfusion Reactions: No Reported Reaction Additional Past Anesthesia/Blood Transfusion Reaction / Comment(s): Pt had blood transfusions with no reaction. Date of Last Stent Placement:: 09/25/14 Past Psychological History: Anxiety, Depression Additional Psychological History / Comment(s): Pt's last year December 2013. R leg prosthesis. He admits to drinking a pint every 7-10 days. pack a day smoker since 1976. Smoking Status: Current every day smoker Past Alcohol Use History: Abuse, Daily, Heavy Additional Past Alcohol Use History / Comment(s): pt recently reduced his alcohol intack to approx one pint daily. Before this he had sometimes drank a fifth a day. He likes [employer]. Past Drug Use History: None Reported - Past Family History Father Family Medical History: Cancer Additional Family Medical History / Comment(s): Father of lung cancer. Mother Family Medical History: Cancer, Hypertension, Liver Disease Additional Family Medical History / Comment(s): Psychological history, Medications and Allergies Home Medications Medication Instructions Recorded Confirmed Type Metoprolol Tartrate [Lopressor] 25 mg PO DAILY 01/11/17 03/09/17 History Sertraline [Zoloft] 100 mg PO DAILY 01/11/17 03/09/17 History Atorvastatin [Lipitor] 80 mg PO DAILY 02/20/17 03/09/17 History Clopidogrel [Plavix] 75 mg PO DAILY 02/20/17 03/09/17 History Gabapentin [Neurontin] 300 mg PO BID 02/20/17 03/09/17 History HYDROcodone/APAP 10-325MG [[place] 1 tab PO QID PRN 02/20/17 03/09/17 History 10-325] Lisinopril 40 mg PO DAILY 02/20/17 03/09/17 History Allergies Allergy/AdvReac Type Severity Reaction Status Date / Time No Known Allergies Allergy Verified 03/09/17 18:11 Physical Exam Vitals: Vital Signs Temp Pulse Pulse Resp BP BP Pulse Ox 03/10/17 07:53 98.8 F 60 18 122/67 100 03/10/17 04:00 98.1 F 84 18 115/62 97 03/10/17 00:00 93 18 03/09/17 22:41 98.2 F 82 18 149/85 99 03/09/17 21:12 98.0 F 88 20 133/78 98 03/09/17 20:00 84 18 122/69 96 03/09/17 19:15 88 20 104/60 98 03/09/17 18:45 92 18 120/77 98 03/09/17 18:09 96 18 149/75 99 03/09/17 18:05 98.1 F 103 H 18 149/75 96 Intake and Output 03/09/17 03/10/17 03/10/17 22:59 06:59 14:59 Intake Total 122.295 Balance 122.295 Intake: Intake, IV Titration 122.295 Amount Heparin Sodium,Porcine/ 122.295 D5w Pmx 25,000 unit In Dextrose/Water 1 500ml. bag @ 12 UNITS/KG/HR 15. 78 mls/hr IV .Q24H [facility] Rx #:[id number] Other: # Voids 1 1 Weight 59 kg 59 kg GENERAL: This is a 57-year-old male in no apparent distress at the time of my examination. HEENT: Head is atraumatic, normocephalic. Pupils are equal, round. Sclerae anicteric. Conjunctivae are clear. Mucous membranes of the mouth are moist. Neck is supple. There is no jugular venous distention. No carotid bruit is heard. LUNGS: Expiratory wheezes, rales or rhonchi. No chest wall tenderness is noted on palpation or with deep breathing. Diminished air entry. HEART: Regular rate and rhythm without murmurs, rubs or gallops. S1 and S2 heard. ABDOMEN: Soft, nontender. Bowel sounds are heard. No organomegaly noted. EXTREMITIES: 2+ peripheral pulses with no evidence of peripheral edema and no calf tenderness noted. NEUROLOGIC: Patient is awake, alert and oriented x3. Results 03/10/17 06:16 03/09/17 18:05 Cardiac Enzymes 03/09/17 03/09/17 03/10/17 Range/Units 18:05 18:05 00:03 AST 43 (17-59) U/L CK-MB (CK-2) 2.5 H* 1.9 (0.0-2.4) ng/mL Troponin I 0.015 0.012 (0.000-0.034) ng/mL 03/10/17 Range/Units 06:16 AST (17-59) U/L CK-MB (CK-2) 1.3 (0.0-2.4) ng/mL Troponin I <0.012 (0.000-0.034) ng/mL Coagulation 03/09/17 03/10/17 Range/Units 18:05 03:14 PT 9.9 (9.0-12.0) sec APTT 24.6 34.3 H (22.0-30.0) sec Lipids 03/10/17 Range/Units 06:16 Triglycerides 54 (<150) mg/dL Cholesterol 152 (<200) mg/dL HDL Cholesterol 88 H (40-60) mg/dL CBC 03/09/17 03/10/17 Range/Units 18:05 06:16 WBC 7.4 (3.8-10.6) k/uL RBC 4.22 L (4.30-5.90) m/uL Hgb 14.4 (13.0-17.5) gm/dL Hct 43.0 (39.0-53.0) % Plt Count 203 172 (150-450) k/uL Comprehensive Metabolic Panel 03/09/17 Range/Units 18:05 Sodium 144 (137-145) mmol/L Potassium 3.7 (3.5-5.1) mmol/L Chloride 108 H (98-107) mmol/L Carbon Dioxide 23 (22-30) mmol/L BUN 16 (9-20) mg/dL Creatinine 0.80 (0.66-1.25) mg/dL Glucose 94 (74-99) mg/dL Calcium 8.9 (8.4-10.2) mg/dL AST 43 (17-59) U/L ALT 67 (21-72) U/L Alkaline Phosphatase 102 (38-126) U/L Total Protein 6.8 (6.3-8.2) g/dL Albumin 4.3 (3.5-5.0) g/dL Current Medications Generic Name Dose Route Start Last Admin Trade Name Freq PRN Reason Stop Dose Admin Hydrocodone Bitart/Acetaminophen 1 each 03/09/17 22:15 03/09/17 22:49 [place] 10 PO 1 each QID PRN Administration Pain Aspirin 325 mg 03/10/17 09:00 Aspirin PO DAILY [facility] Atorvastatin Calcium 80 mg 03/10/17 09:00 Lipitor PO DAILY [facility] Chlordiazepoxide HCl 25 mg 03/09/17 22:15 03/10/17 00:13 Librium PO 25 mg QID SHONDA Administration Clopidogrel Bisulfate 75 mg 03/10/17 09:00 Plavix PO DAILY [facility] Gabapentin 300 mg 03/09/17 22:15 03/10/17 00:10 Neurontin PO 300 mg BID SHONDA Administration Heparin Sodium (Porcine) 0 unit 03/09/17 20:42 Heparin IV Q6HR PRN Low PTT Protocol Heparin Sodium/Dextrose 25,000 500 mls @ 15.78 mls/hr 03/09/17 20:45 04:53 unit/ IV Solution IV 17.94 units/kg/hr .Q24H [facility]ON[facility] 23.6 mls/hr Protocol Titration 12 UNITS/KG/HR Sodium Chloride 1,000 mls @ 20 mls/hr 03/09/17 21:15 03/10/17 03:05 Saline 0.9% IV Not Given .Q24H [facility] Lisinopril 40 mg 03/09/17 22:15 03/10/17 00:13 Zestril PO 40 mg DAILY SHONDA Administration Lorazepam 1 mg 03/10/17 05:41 Ativan PO Q1H PRN for CIWA scale 10-15 Lorazepam 1 mg 03/10/17 05:41 Ativan PO Q2H PRN for CIWA scale 8-9 Lorazepam 2 mg 03/10/17 05:41 Ativan PO Q10M PRN for CIWA scale 16 or greater Metoprolol Tartrate 25 mg 03/10/17 09:00 Lopressor PO DAILY [facility] Miscellaneous Information 1 each 03/09/17 19:22 03/09/17 20:28 Rx Info: Iv Contrast Was Given MISCELLANE 03/11/17 19:22 1 each DAILY PRN Administration Per Protocol Nitroglycerin 1 inch 03/10/17 00:00 03/10/17 06:50 Nitro-Bid Oint TOPICAL Not Given Q6HR [facility] Nitroglycerin 0.4 mg 03/09/17 20:42 Nitrostat SUBLINGUAL Q5M PRN Chest Pain Pantoprazole Sodium 40 mg 03/09/17 20:45 03/10/17 00:13 Protonix IVP 40 mg DAILY SHONDA Administration Sertraline HCl 100 mg 03/10/17 09:00 Zoloft PO DAILY [facility] Sodium Chloride 10 ml 03/09/17 21:00 03/10/17 03:04 Saline Flush IV Not Given BID SHONDA Intake and Output 03/09/17 03/10/17 03/10/17 22:59 06:59 14:59 Intake Total 122.295 Balance 122.295 Intake: Intake, IV Titration 122.295 Amount Heparin Sodium,Porcine/ 122.295 D5w Pmx 25,000 unit In Dextrose/Water 1 500ml. bag @ 12 UNITS/KG/HR 15. 78 mls/hr IV .Q24H [facility] Rx #:[id number] Other: # Voids 1 1 Weight 59 kg 59 kg 03/10/17 06:16 03/09/17 18:05 Assessment and Plan Plan: ASSESSMENT 1. Chest pain, atypical 2. History of coronary artery disease with stent to the RCA in 2014 3. Peripheral artery disease with chronic right SFA occlusion, status post right [id number] amputation 4. Chronic EtOH abuse 5. Chronic tobacco abuse 6. Hypertension 7. Hyperlipidemia PLAN The patient's atypical presentation we would do no further cardiac workup at this time. The patient had a full cardiac workup performed in February of this year. Which was all negative he had a Lexiscan and an echocardiogram. He can be discharged home to follow-up as an outpatient. Thank you kindly for this consultation. Nurse Practitioner note has been reviewed, I agree with a documented findings and plan of care. Patient was seen and examined.
[2017-03-10] MEDS: HYDROcodone/APAP 10-325MG 1 EACH TAB PO PRN ×2 (12:02→18:29)
--- NOTE | 2017-03-10 19:12 | P.HPIM ---
History of Present Illness Patient presented to the emergency room with complaints of chest pain. D-dimer was elevated CT of the chest was done negative for PE patient to be evaluated by cardiology Review of Systems Cardiovascular: Reports chest pain, Reports shortness of breath Past Medical History Past Medical History: Coronary Artery Disease (CAD), Hypertension, Myocardial Infarction ([place]), Seizure Disorder, Vascular Disorder Additional Past Medical History / Comment(s): 09/25/14 STEMI with stent placement , Seizures, ETOH Abuse, Depression, patient's recently - December 2013, stomach pain that caused him to be off work 7 months- hewas told it had something to do with his spleen and that it might have ruptured- his hgb went down to 3. Hx of L ankle fx. Last Myocardial Infarction Date:: 09/25/14 History of Any Multi-Drug Resistant Organisms: None Reported Past Surgical History: Appendectomy, Heart Catheterization With Stent Additional Past Surgical History / Comment(s): 09/25/14 PTCA with stenting, BYPASS ON BOTH LEGS, RIGHT BELOW KNEE AMPUTATION, 2 EGD's, colonoscopy x 2, hemorrhoidectomy, . Past Anesthesia/Blood Transfusion Reactions: No Reported Reaction Additional Past Anesthesia/Blood Transfusion Reaction / Comment(s): Pt had blood transfusions with no reaction. Date of Last Stent Placement:: 09/25/14 Past Psychological History: Anxiety, Depression Additional Psychological History / Comment(s): Pt's last year December 2013. R leg prosthesis. He admits to drinking a pint every 7-10 days. pack a day smoker since 1976. Smoking Status: Current every day smoker Past Alcohol Use History: Abuse, Daily, Heavy Additional Past Alcohol Use History / Comment(s): pt recently reduced his alcohol intack to approx one pint daily. Before this he had sometimes drank a fifth a day. He likes [employer]. Past Drug Use History: None Reported - Past Family History Father Family Medical History: Cancer Additional Family Medical History / Comment(s): Father of lung cancer. Mother Family Medical History: Cancer, Hypertension, Liver Disease Additional Family Medical History / Comment(s): Psychological history, Medications and Allergies Home Medications Medication Instructions Recorded Confirmed Type Metoprolol Tartrate [Lopressor] 25 mg PO DAILY 01/11/17 03/09/17 History Sertraline [Zoloft] 100 mg PO DAILY 01/11/17 03/09/17 History Atorvastatin [Lipitor] 80 mg PO DAILY 02/20/17 03/09/17 History Clopidogrel [Plavix] 75 mg PO DAILY 02/20/17 03/09/17 History Gabapentin [Neurontin] 300 mg PO BID 02/20/17 03/09/17 History HYDROcodone/APAP 10-325MG [[place] 1 tab PO QID PRN 02/20/17 03/09/17 History 10-325] Lisinopril 40 mg PO DAILY 02/20/17 03/09/17 History Allergies Allergy/AdvReac Type Severity Reaction Status Date / Time No Known Allergies Allergy Verified 03/09/17 18:11 Physical Exam Vitals: Vital Signs Temp Pulse Pulse Resp BP BP Pulse Ox 03/10/17 16:00 98.1 F 63 16 87/50 98 03/10/17 12:00 71 16 03/10/17 11:39 98.3 F 71 16 119/66 99 03/10/17 08:00 60 18 03/10/17 07:53 98.8 F 60 18 122/67 100 03/10/17 04:00 98.1 F 84 18 115/62 97 03/10/17 00:00 93 18 03/09/17 22:41 98.2 F 82 18 149/85 99 03/09/17 21:12 98.0 F 88 20 133/78 98 03/09/17 20:00 84 18 122/69 96 03/09/17 19:15 88 20 104/60 98 Intake and Output 03/10/17 03/10/17 03/10/17 06:59 14:59 22:59 Intake Total 122.295 476 350 Output Total 300 0 Balance 122.295 176 350 Intake: Intake, IV Titration 122.295 Amount Heparin Sodium,Porcine/ 122.295 D5w Pmx 25,000 unit In Dextrose/Water 1 500ml. bag @ 12 UNITS/KG/HR 15. 78 mls/hr IV .Q24H [facility] Rx #:[id number] Oral 476 350 Output: Urine 300 0 Other: Voiding Method Urinal Urinal # Voids 1 0 Weight 59 kg 59 kg Patient Weight 03/11/17 06:59 Weight 59 kg - Constitutional General appearance: mild distress - EENT Eyes: PERRLA Ears: bilateral: normal - Neck Neck: normal ROM - Respiratory Respiratory: bilateral: CTA - Cardiovascular Rhythm: regular - Gastrointestinal General gastrointestinal: soft - Integumentary Integumentary: normal - Neurologic Neurologic: CNII-XII intact - Musculoskeletal Amputation of right below the knee Musculoskeletal: generalized weakness - Psychiatric Psychiatric: A&O x's 3, appropriate affect, intact judgment & insight Results CBC & Chem 7: 03/10/17 06:16 03/09/17 18:05 Labs: Abnormal Lab Results - Last 24 Hours (Table) 03/09/17 03/10/17 03/10/17 Range/Units 18:05 00:03 03:14 APTT 34.3 H (22.0-30.0) sec Total Creatine Kinase 523 H 383 H (55-170) U/L CK-MB (CK-2) 2.5 H* (0.0-2.4) ng/mL HDL Cholesterol (40-60) mg/dL 03/10/17 03/10/17 Range/Units 06:16 06:16 APTT (22.0-30.0) sec Total Creatine Kinase 263 H (55-170) U/L CK-MB (CK-2) (0.0-2.4) ng/mL HDL Cholesterol 88 H (40-60) mg/dL Abdominal x-ray: report reviewed CT scan - chest: report reviewed Thrombosis Risk Factor Assmnt - Choose All That Apply Each Factor Represents 1 point: Age 41-60 years Thrombosis Risk Factor Assessment Total Risk Factor Score: 1 Thrombosis Risk Factor Assessment Level: Low Risk Assessment and Plan Plan: Assessment Chest pain History of coronary disease with stents Hypertension Seizure disorder Vascular disease Below the knee amputation right leg Cholelithiasis Plan Cardiology consultation Hopeful discharge home in the morning
[2017-03-10] MEDS ORDERED: LORazepam 2 MG/ML SYRINGE IV PRN ×3 (20:41)
[2017-03-11] MEDS: HYDROcodone/APAP 10-325MG 1 EACH TAB PO PRN ×2 (02:45→08:55)
[2017-03-11] MEDS ORDERED: PANTOPRAZOLE 40 MG TABLET PO SCH (07:30)
[2017-03-11 07:32] VITALS: RESP 16
[2017-03-11 07:45] LABS: Mean Platelet Volume 8.4
[2017-03-11] MEDS: LISINOPRIL 20 MG TAB PO SCH (08:53)
[2017-03-11] MEDS: SERTRALINE 100 MG TAB PO SCH (08:54)
[2017-03-11] MEDS: METOPROLOL TARTRATE 25 MG TAB PO SCH (08:54)
[2017-03-11] MEDS: ASPIRIN 325 MG TAB PO SCH (08:54)
[2017-03-11] MEDS: CLOPIDOGREL 75 MG TAB PO SCH (08:54)
[2017-03-11] MEDS: ATORVASTATIN 80 MG TAB PO SCH (08:55)
[2017-03-11] MEDS: chlordiazePOXIDE 25 MG CAP PO SCH ×2 (08:55→13:18)
[2017-03-11] MEDS: GABAPENTIN 300 MG CAP PO SCH (08:55)
[2017-03-11 12:01] VITALS: BP 114/62; PULSE 60; TEMP 98
== END 2017-03-11 13:10 | disposition home or self-care (01) ==
LOC: EC 18:00 → 3OBS 20:42
PROVIDERS: ADMIT Family Medicine; ATTEND Family Medicine
DX: R07.89 Other chest pain (principal); I25.2 Old myocardial infarction; F10.129 Alcohol abuse with intoxication, unspecified; I25.10 Atherosclerotic heart disease of native coronary artery without angina pectoris; I10 Essential (primary) hypertension; G40.909 Epilepsy, unspecified, not intractable, without status epilepticus; F32.9 Major depressive disorder, single episode, unspecified; F41.9 Anxiety disorder, unspecified; F17.200 Nicotine dependence, unspecified, uncomplicated; I73.9 Peripheral vascular disease, unspecified; E78.5 Hyperlipidemia, unspecified; K80.20 Calculus of gallbladder without cholecystitis without obstruction; Z79.899 Other long term (current) drug therapy; Z79.02 Long term (current) use of antithrombotics/antiplatelets; Z79.82 Long term (current) use of aspirin; Z95.5 Presence of coronary angioplasty implant and graft; Z89.511 Acquired absence of right leg below knee; Z82.49 Family history of ischemic heart disease and other diseases of the circulatory system; Z80.1 Family history of malignant neoplasm of trachea, bronchus and lung
CPT/HCPCS: 96365; 96366 ×2; 96375; 96376 ×2; 99285; 36415; 93005; 85379; 80061; 80053; 82150; 82550 ×2; 82553 ×2; 83690; 83735; 84484 ×2; 85025; 85049 ×2; 85610; 85730 ×2; 71020; 71275; G0378 ×3; J1644 ×2; Q9967; C9113

== ENCOUNTER 2017-10-05 16:16 | Emergency (ER) | payer MEDICARE ==
[2017-10-05 16:22] VITALS: BP 134/69; PULSE 88; TEMP 97.8
[2017-10-05 16:45] VITALS: RESP 21
--- NOTE | 2017-10-05 16:58 | XR ---
EXAMINATION TYPE: XR ribs LT w pa chest xray DATE OF EXAM: 10/05/2017 CLINICAL HISTORY: Fall injury with chest and left-sided rib pain. TECHNIQUE: Single frontal view of the chest is obtained. A frontal and oblique images the left-sided ribs are acquired. COMPARISON: Chest x-ray and CTA chest March 09, 2017. FINDINGS: There is underlying emphysematous change with patchy opacity right lung base noted. Left l yessica is clear without pleural effusion or pneumothorax. The cardiac silhouette size is stable and uppe r limits of normal. There are old right lateral sixth and seventh rib fractures redemonstrated. Dedicated images of the left-sided ribs demonstrate old fractures involving posterior lateral ninth a nd 10th ribs. No acute displaced left-sided rib fractures are clearly seen. Overlying soft tissue is unremarkable. IMPRESSION: 1. Chronic emphysematous change with perhaps developing right basilar atelectasis and/or infiltrate. 2. Old bilateral rib fractures. No acute displaced left-sided rib fracture clearly seen.
--- NOTE | 2017-10-05 17:02 | ED ---
General Adult HPI - General Chief complaint: Fall Stated complaint: Fall-Rib Pain Time Seen by Provider: 10/05/17 16:28 Source: patient, RN notes reviewed, old records reviewed Mode of arrival: ambulatory Limitations: no limitations - History of Present Illness Initial comments: This is a 57-year-old male the ER for evaluation of fall. Patient was visiting a visibly intoxicated [facility] emergency room today after falling down when he says a few stairs. He states that he was taking his laundry down the basement missed a step his left-sided body on the railing. Patient with continued left- sided rib pain this time. Patient states is much worse with a deep breath much worse when he presses on it. No other injuries - Related Data Home Medications Medication Instructions Recorded Confirmed Metoprolol Tartrate [Lopressor] 25 mg PO DAILY 01/11/17 03/09/17 Sertraline [Zoloft] 100 mg PO DAILY 01/11/17 03/09/17 Atorvastatin [Lipitor] 80 mg PO DAILY 02/20/17 03/09/17 Clopidogrel [Plavix] 75 mg PO DAILY 02/20/17 03/09/17 Gabapentin [Neurontin] 300 mg PO BID 02/20/17 03/09/17 HYDROcodone/APAP 10-325MG [[place] 1 tab PO QID PRN 02/20/17 03/09/17 10-325] Lisinopril 40 mg PO DAILY 02/20/17 03/09/17 Previous Rx's Medication Instructions Recorded Aspirin 325 mg PO DAILY #30 tab 09/27/14 LORazepam [Ativan] 1 mg PO TID PRN #20 tab 03/11/17 Allergies Allergy/AdvReac Type Severity Reaction Status Date / Time No Known Allergies Allergy Verified 10/05/17 16:20 Review of Systems ROS Statement: Those systems with pertinent positive or pertinent negative responses have been documented in the HPI. ROS Other: All systems not noted in ROS Statement are negative. Past Medical History Past Medical History: Coronary Artery Disease (CAD), Hypertension, Myocardial Infarction ([place]), Seizure Disorder, Vascular Disorder Additional Past Medical History / Comment(s): 09/25/14 STEMI with stent placement , Seizures, ETOH Abuse, Depression, patient's recently - December 2013, stomach pain that caused him to be off work 7 months- hewas told it had something to do with his spleen and that it might have ruptured- his hgb went down to 3. Hx of L ankle fx. Last Myocardial Infarction Date:: 09/25/14 History of Any Multi-Drug Resistant Organisms: None Reported Past Surgical History: Appendectomy, Heart Catheterization With Stent Additional Past Surgical History / Comment(s): 09/25/14 PTCA with stenting, BYPASS ON BOTH LEGS, RIGHT BELOW KNEE AMPUTATION, 2 EGD's, colonoscopy x 2, hemorrhoidectomy, . Past Anesthesia/Blood Transfusion Reactions: No Reported Reaction Additional Past Anesthesia/Blood Transfusion Reaction / Comment(s): Pt had blood transfusions with no reaction. Date of Last Stent Placement:: 09/25/14 Past Psychological History: Anxiety, Depression Smoking Status: Current every day smoker Past Alcohol Use History: Abuse, Daily, Heavy Past Drug Use History: None Reported - Past Family History Father Family Medical History: Cancer Additional Family Medical History / Comment(s): Father of lung cancer. Mother Family Medical History: Cancer, Hypertension, Liver Disease Additional Family Medical History / Comment(s): Psychological history, General Exam Limitations: no limitations General appearance: alert, in no apparent distress, appears intoxicated Head exam: Present: atraumatic, normocephalic, normal inspection Eye exam: Present: normal appearance, PERRL, EOMI. Absent: scleral icterus, conjunctival injection, periorbital swelling ENT exam: Present: normal exam, mucous membranes moist Neck exam: Present: normal inspection. Absent: tenderness, meningismus, lymphadenopathy Respiratory exam: Present: normal lung sounds bilaterally. Absent: respiratory distress, wheezes, rales, rhonchi, stridor Cardiovascular Exam: Present: regular rate, normal rhythm, normal heart sounds, other (Patient does have left-sided chest wall pain, mild bruising to the anterior chest around ribs 6). Absent: systolic murmur, diastolic murmur, rubs , gallop, clicks GI/Abdominal exam: Present: soft, normal bowel sounds. Absent: distended, tenderness, guarding, rebound, rigid Extremities exam: Present: normal inspection, full ROM, normal capillary refill. Absent: tenderness, pedal edema, joint swelling, calf tenderness Back exam: Present: normal inspection Neurological exam: Present: alert, oriented X3, CN II-XII intact Psychiatric exam: Present: normal affect, normal mood Skin exam: Present: warm, dry, intact, normal color. Absent: rash Course Vital Signs 10/05/17 10/05/17 16:17 16:40 Temperature 97.8 F Pulse Rate 88 Respiratory 18 21 Rate Blood Pressure 134/69 O2 Sat by Pulse 96 Oximetry - Reevaluation(s) Reevaluation #1: 10/05/17 17:00 Patient's in no acute distress EKG Findings - EKG Comments: EKG Findings:: EKG shows normal sinus rhythm rate of 91, W[place] 162, QRS 84, QTc 467 Medical Decision Making - Medical Decision Making 57 male the ER for evaluation of left-sided chest wall pain. Secondary to fall. Rib contusion. History of multiple old fractures. Patient can be discharged home - Radiology Data Radiology results: report reviewed (Chest x-ray without left-sided rib series negative for traumatic acute traumatic injury, no pneumothorax), image reviewed Disposition Clinical Impression: Fall, Alcohol intoxication, Contusion of rib on left side Disposition: HOME SELF-CARE Condition: Good Instructions: Rib Contusion (ED) Referrals: Ozzy Pereira MD [Primary Care Provider] - 1-2 days
== END 2017-10-05 17:10 | disposition home or self-care (01) ==
LOC: EC 16:16
DX: S20.212A Contusion of left front wall of thorax, initial encounter (principal); F10.120 Alcohol abuse with intoxication, uncomplicated; I25.10 Atherosclerotic heart disease of native coronary artery without angina pectoris; I10 Essential (primary) hypertension; I25.2 Old myocardial infarction; G40.909 Epilepsy, unspecified, not intractable, without status epilepticus; F41.9 Anxiety disorder, unspecified; F32.9 Major depressive disorder, single episode, unspecified; F17.200 Nicotine dependence, unspecified, uncomplicated; Z95.5 Presence of coronary angioplasty implant and graft; Z79.02 Long term (current) use of antithrombotics/antiplatelets; Z79.899 Other long term (current) drug therapy; Z87.81 Personal history of (healed) traumatic fracture; W10.9XXA Fall (on) (from) unspecified stairs and steps, initial encounter; Y92.009 Unspecified place in unspecified non-institutional (private) residence as the place of occurrence of the external cause; Y93.89 Activity, other specified
CPT/HCPCS: 99284

== ENCOUNTER 2017-10-27 18:28 | Inpatient (IN) | payer MEDICARE ==
--- NOTE | 2017-10-27 19:20 | ED ---
Chest Pain HPI - General Chief Complaint: Chest Pain Stated Complaint: Chest pain Time Seen by Provider: 10/27/17 18:55 Source: patient Mode of arrival: wheelchair Limitations: no limitations - History of Present Illness Initial Comments: Is a 57-year-old male with a history of a call dependence, CAD, PVD who presents emergency department for multiple complaints. The patient states that he mostly came in for worsening shortness of breath and chest discomfort. He states that the shortness of breath seems to be worse with exertion and also when laying down at night. He states that he wakes up multiple times at night feeling like he is drowning. He states that he also has been having a little bit of left-sided chest discomfort. He states that he does have some rib fractures on the left side however states that this pain feels different than that and feels similar to her previous SC. He states that he also would like to quit drinking however does not feel that he has the means of doing this on his own. He states he needs something to help him quit drinking that he can take at home. He denies any lower extremity swelling. Appears or chills. No cough. No abdominal pain. No other acute complaints. - Related Data Home Medications Medication Instructions Recorded Confirmed Metoprolol Tartrate [Lopressor] 25 mg PO DAILY 01/11/17 10/27/17 Sertraline [Zoloft] 100 mg PO DAILY 01/11/17 10/27/17 Atorvastatin [Lipitor] 80 mg PO DAILY 02/20/17 10/27/17 Clopidogrel [Plavix] 75 mg PO DAILY 02/20/17 10/27/17 Gabapentin [Neurontin] 300 mg PO BID 02/20/17 10/27/17 HYDROcodone/APAP 10-325MG [[place] 1 tab PO QID PRN 02/20/17 10/27/17 10-325] Lisinopril 40 mg PO DAILY 02/20/17 10/27/17 Allergies Allergy/AdvReac Type Severity Reaction Status Date / Time No Known Allergies Allergy Verified 10/27/17 18:56 Review of Systems ROS Statement: Those systems with pertinent positive or pertinent negative responses have been documented in the HPI. ROS Other: All systems not noted in ROS Statement are negative. EKG Findings - EKG Comments: EKG Findings:: EKG showing sinus tachycardia with a rate of 103. There is no abnormal ST segment changes. There is a T-wave inversion in lead 3. QTC is 476. Other intervals normal. No ectopy. Past Medical History Past Medical History: Coronary Artery Disease (CAD), CVA/TIA, Hypertension, Myocardial Infarction (SC), Seizure Disorder, Vascular Disorder Additional Past Medical History / Comment(s): 09/25/14 STEMI with stent placement , Seizures, ETOH Abuse, Depression, patient's recently - December 2013, stomach pain that caused him to be off work 7 months- hewas told it had something to do with his spleen and that it might have ruptured- his hgb went down to 3. Hx of L ankle fx. Last Myocardial Infarction Date:: 09/25/14 History of Any Multi-Drug Resistant Organisms: None Reported Past Surgical History: Appendectomy, Heart Catheterization With Stent Additional Past Surgical History / Comment(s): 09/25/14 PTCA with stenting, BYPASS ON BOTH LEGS, RIGHT BELOW KNEE AMPUTATION, 2 EGD's, colonoscopy x 2, hemorrhoidectomy, . Past Anesthesia/Blood Transfusion Reactions: No Reported Reaction Additional Past Anesthesia/Blood Transfusion Reaction / Comment(s): Pt had blood transfusions with no reaction. Date of Last Stent Placement:: 09/25/14 Past Psychological History: Anxiety, Depression Smoking Status: Current every day smoker Past Alcohol Use History: Abuse, Daily, Heavy Past Drug Use History: None Reported - Past Family History Father Family Medical History: Cancer Additional Family Medical History / Comment(s): Father of lung cancer. Mother Family Medical History: Cancer, Hypertension, Liver Disease Additional Family Medical History / Comment(s): Psychological history, General Exam - General Exam Comments Initial Comments: Constitutional: Awake alert Appears comfortable Head: Normocephalic atraumatic Eyes: no conjunctival injection No scleral icterus EOMI Neck: No JVD Supple Heart: Regular rate rhythm normal S1-S2 no murmurs Lungs: Clear to auscultation bilaterally No wheezing No rales, there is tenderness to palpation along the left lateral lower ribs Abdomen: Soft nondistended nontender Extremities: Non edematous DP pulses intact Radial pulses intact right BKA Neuro: A&Ox3 No focal neurologic deficits, appears intoxicated Psych: Appropriate mood and affect, tearful Limitations: no limitations Course Vital Signs 10/27/17 10/27/17 10/27/17 18:34 19:10 20:10 Temperature 98.0 F Pulse Rate 111 H 102 H 88 Respiratory 20 16 18 Rate Blood Pressure 126/72 145/88 124/90 O2 Sat by Pulse 96 99 95 Oximetry Chest Pain MDM - MDM This is a 57-year-old male presents emergency department for shortness of breath and chest pain. Patient was evaluated EKG that showed sinus tachycardia but no ischemic changes. Troponin was negative. X-ray was negative as well. Patient was given aspirin. He will be brought in for further evaluation of his chest pain evaluation by cardiology. Dr. Torres accepts the admission. Patient was updated and agrees with this plan. Disposition Clinical Impression: Chest pain Disposition: ADMITTED IP TO THIS HOSP Condition: Stable
[2017-10-27] MEDS ORDERED: SODIUM CHLORIDE 0.9% 1,000 ML IV ONE (19:21)
[2017-10-27] MEDS ORDERED: ASPIRIN 81 MG PO STA (19:29)
[2017-10-27] MEDS ORDERED: HYDROcodone/APAP 5-325MG 1 EACH TAB PO STA (19:29)
[2017-10-27 19:35] LABS: Basophils % (A) 1 %; Eosinophils # (A) 0.2 k/uL (0-0.7); Eosinophils % (A) 3 %; HCT 44.9 % (39.0-53.0); HGB 14.9 gm/dL (13.0-17.5); Lymphocytes # (A) 2.8 k/uL (1.0-4.8); Lymphocytes % (A) 43 %; MCHC 33.2 g/dL (31.0-37.0); MCV 96.4 fL (80.0-100.0); Mean Platelet Volume 8.5; Monocytes # (A) 0.5 k/uL (0-1.0); Monocytes % (A) 7 %; Neutrophils # (A) 2.9 k/uL (1.3-7.7); Neutrophils % (A) 45 %; Platelet Count 143 k/uL (150-450); RBC 4.66 m/uL (4.30-5.90); RDW 12.5 % (11.5-15.5); WBC 6.5 k/uL (3.8-10.6)
[2017-10-27 19:52] LABS: ALT 77 U/L (21-72); AST 50 U/L (17-59); Alkaline Phosphatase 152 U/L (38-126); Anion Gap 18 mmol/L; Blood Urea Nitrogen 18 mg/dL (9-20); Calcium 8.7 mg/dL (8.4-10.2); Carbon Dioxide 25 mmol/L (22-30); Chloride 103 mmol/L (98-107); Glucose 134 mg/dL (74-99); Magnesium 1.8 mg/dL (1.6-2.3); Potassium 3.4 mmol/L (3.5-5.1); Sodium 146 mmol/L (137-145); Total Bilirubin 0.5 mg/dL (0.2-1.3); Total Protein 6.7 g/dL (6.3-8.2)
[2017-10-27 20:03] LABS: Amorphous Sediment,Urine Rare /hpf; Appearance,Urine Clear (Clear); Bilirubin,Urine Negative (Negative); Blood,Urine Small (Negative); Color,Urine Yellow; Glucose,Urine (UA) Negative (Negative); Ketones,Urine Trace (Negative); Leukocyte Esterase,Urine Negative (Negative); Mucus,Urine Rare /hpf; Nitrite,Urine Negative (Negative); PH, Urine 6.5 (5.0-8.0); Protein,Urine 2+ (Negative); RBC,Urine 8 /hpf (0-5); Specific Gravity,Urine 1.026 (1.001-1.035); Squamous Epithelial Cell,Urine 2 /hpf (0-4); WBC,Urine 2 /hpf (0-5)
[2017-10-27 20:03] LABS: Partial Thromboplastin Time 23.7 sec (22.0-30.0); Prothrombin Time 9.7 sec (9.0-12.0)
[2017-10-27 20:07] LABS: Amphetamine Screen,Urine Not Detected (NotDetected); Barbiturate Screen,Urine Not Detected (NotDetected); Benzodiazepines Screen,Urine Not Detected (NotDetected); Cocaine Screen,Urine Not Detected (NotDetected); Methadone Screen, Urine Not Detected (NotDetected); Opiate Screen,Urine Detected (NotDetected); Oxycodone Screen, Urine Not Detected (NotDetected); Phencyclidine Screen,Urine Not Detected (NotDetected); Tricyclic Antidepressant,Urine Not Detected (NotDetected); Urn Cannabinoid Scrn Detected (NotDetected)
--- NOTE | 2017-10-27 20:15 | XR ---
EXAMINATION TYPE: XR chest 2V DATE OF EXAM: 10/27/2017 COMPARISON: 03/09/2017 left-sided rib pain HISTORY: Left-sided rib pain TECHNIQUE: Frontal and lateral views of the chest are obtained. FINDINGS: There is no heart failure nor confluent pneumonic infiltrate. There are old right-sided he aled rib fractures. Heart size is normal. There is possible fracture of the left posterior lateral le ft ninth rib. This could be acute fracture. IMPRESSION: Possible acute fracture left ninth rib. No pneumothorax. No pulmonary consolidation. No pneumothorax. No pneumothorax.
[2017-10-27 20:16] LABS: Creatine Kinase MB 0.8 ng/mL (0.0-2.4); Troponin I <0.012 ng/mL (0.000-0.034)
[2017-10-27] MEDS ORDERED: NITROGLYCERIN SL TABS 0.4 MG TAB SUBLINGUAL PRN (20:48)
[2017-10-27] MEDS ORDERED: LORazepam 2 MG/ML INJ IV PRN (20:54)
[2017-10-27] MEDS ORDERED: THIAMINE 100 MG/ML 2 ML VIAL IM STA (20:54)
[2017-10-27] MEDS ORDERED: POTASSIUM CHLORIDE ER 20 MEQ TAB.ER PO STA (21:00)
[2017-10-27] MEDS: HYDROcodone/APAP 10-325MG 1 EACH TAB PO PRN (21:37)
[2017-10-27] MEDS: GABAPENTIN 300 MG CAP PO SCH (21:37)
[2017-10-28 02:35] LABS: Creatine Kinase MB 1.1 ng/mL (0.0-2.4); Troponin I 0.012 ng/mL (0.000-0.034)
[2017-10-28] MEDS: HYDROcodone/APAP 10-325MG 1 EACH TAB PO PRN ×3 (02:50→20:03)
[2017-10-28 07:19] LABS: Cholesterol 152 mg/dL (<200); HDL Cholesterol 93 mg/dL (40-60); LDL Cholesterol,Calculated 51 mg/dL (0-99); Triglycerides 42 mg/dL (<150)
[2017-10-28 07:44] LABS: Creatine Kinase MB 0.9 ng/mL (0.0-2.4); Troponin I 0.014 ng/mL (0.000-0.034)
[2017-10-28] MEDS: LORazepam 2 MG/ML INJ IV PRN ×4 (07:57→23:32)
[2017-10-28] MEDS ORDERED: ASPIRIN 325 MG TAB PO SCH (09:00)
[2017-10-28] MEDS: ATORVASTATIN 80 MG TAB PO SCH (09:12)
[2017-10-28] MEDS: ASPIRIN 81 MG PO SCH (09:12)
[2017-10-28] MEDS: SERTRALINE 100 MG TAB PO SCH (09:12)
[2017-10-28] MEDS: CLOPIDOGREL 75 MG TAB PO SCH (09:12)
[2017-10-28] MEDS: GABAPENTIN 300 MG CAP PO SCH ×2 (09:12→20:01)
[2017-10-28] MEDS: LISINOPRIL 20 MG TAB PO SCH (09:13)
[2017-10-28] MEDS: METOPROLOL TARTRATE 25 MG TAB PO SCH (09:13)
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
--- NOTE | 2017-10-28 11:28 | ECHOF ---
Referral Reason:cp, sob, trauma MEASUREMENTS -------- HEIGHT: 0.0 cm WEIGHT: 0.0 kg BP: RVIDd: 2.7 cm (< 3.3) IVSd: 1.0 cm (0.6 - 1.1) LVIDd: 4.5 cm (3.9 - 5.3) LVPWd: 1.2 cm (0.6 - 1.1) IVSs: 1.5 cm LVIDs: 2.7 cm LVPWs: 1.6 cm LAESV Index (A-L): 22.51 ml/m Ao Diam: 3.7 cm (2.0 - 3.7) AV Cusp: 2.2 cm (1.5 - 2.6) LA Diam: 3.7 cm (2.7 - 3.8) MV EXCURSION: 18.395 mm (> 18.000) MV EF SLOPE: 145 mm/s (70 - 150) EPSS: 0.6 cm MV E Brett: 0.52 m/s MV DecT: 281 ms MV A Brett: 0.74 m/s MV E/A Ratio: 0.70 RAP: 5.00 mmHg RVSP: 10.49 mmHg FINDINGS -------- Sinus rhythm. This was a technically good study. The left ventricular size is normal. There is borderline concentric left ventricular hypertrophy. Overall left ventricular systolic function is normal with, an EF between 55 - 60 %. The right ventricle is normal in size and function. The left atrium is normal in size. The right atrium is normal in size. The aortic valve is trileaflet, and appears structurally normal. No aortic stenosis or regurgitation. The mitral valve leaflets are mildly thickened. There is trace mitral regurgitation. Trace tricuspid regurgitation present. The right ventricular systolic pressure, as measured by Dopp ler, is 10.49mmHg. Pulmonic valve appears structurally normal. The aortic root size is normal. Normal inferior vena cava with normal inspiratory collapse consistent with estimated right atrial pre ssure of 5 mmHg. The pericardium is normal. CONCLUSIONS -------- 1. Sinus rhythm. 2. This was a technically good study. 3. The left ventricular size is normal. 4. There is borderline concentric left ventricular hypertrophy. 5. Overall left ventricular systolic function is normal with, an EF between 55 - 60 %. 6. The right ventricle is normal in size and function. 7. The left atrium is normal in size. 8. The right atrium is normal in size. 9. The aortic valve is trileaflet, and appears structurally normal. No aortic stenosis or regurgitati on. 10. The mitral valve leaflets are mildly thickened. 11. There is trace mitral regurgitation. 12. Trace tricuspid regurgitation present. 13. The right ventricular systolic pressure, as measured by Doppler, is 10.49mmHg. 14. Pulmonic valve appears structurally normal. 15. The aortic root size is normal. 16. Normal inferior vena cava with normal inspiratory collapse consistent with estimated right atrial pressure of 5 mmHg. 17. The pericardium is normal. RELIGION INSTRUCTOR: Krissy Bueno RDCS
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
[2017-10-28] MEDS: SODIUM CHLORIDE 0.9% 1,000 ML IV SCH (15:36)
[2017-10-28] MEDS: THIAMINE 100 MG TAB PO SCH ×2 (15:37→18:52)
[2017-10-28] MEDS: PANTOPRAZOLE 40 MG/10 ML VIAL IVP SCH (15:37)
[2017-10-28] MEDS: NICOTINE 21MG/24HR PATCH TRANSDERM SCH (16:27)
[2017-10-28] MEDS: HEPARIN SODIUM,PORCINE 5,000 UNIT/ML 1 ML VIAL SQ SCH (20:01)
[2017-10-28] MEDS: BENZOCAINE/MENTHOL LOZENG 1 EACH LOZENGE MUCOUS MEM PRN ×2 (20:38→23:33)
[2017-10-29] MEDS: SODIUM CHLORIDE 0.9% 1,000 ML IV SCH ×2 (00:55→12:11)
[2017-10-29] MEDS: HYDROcodone/APAP 10-325MG 1 EACH TAB PO PRN ×4 (01:12→21:33)
[2017-10-29] MEDS: LORazepam 2 MG/ML INJ IV PRN ×7 (04:30→22:42)
[2017-10-29 07:57] LABS: Anion Gap 10 mmol/L; Blood Urea Nitrogen 21 mg/dL (9-20); Calcium 8.5 mg/dL (8.4-10.2); Carbon Dioxide 24 mmol/L (22-30); Chloride 105 mmol/L (98-107); Glucose 92 mg/dL (74-99); Potassium 3.8 mmol/L (3.5-5.1); Sodium 139 mmol/L (137-145)
[2017-10-29 08:03] LABS: Basophils % (A) 0 %; Eosinophils # (A) 0.2 k/uL (0-0.7); Eosinophils % (A) 3 %; HCT 41.9 % (39.0-53.0); HGB 14.3 gm/dL (13.0-17.5); Lymphocytes # (A) 1.4 k/uL (1.0-4.8); Lymphocytes % (A) 21 %; MCH 33.3 pg (25.0-35.0); MCV 97.8 fL (80.0-100.0); Mean Platelet Volume 9.2; Monocytes # (A) 0.4 k/uL (0-1.0); Monocytes % (A) 7 %; Neutrophils # (A) 4.5 k/uL (1.3-7.7); Neutrophils % (A) 68 %; RBC 4.29 m/uL (4.30-5.90); RDW 12.4 % (11.5-15.5); WBC 6.7 k/uL (3.8-10.6)
[2017-10-29 08:36] LABS: Platelet Count 94 k/uL (150-450)
[2017-10-29] MEDS: NICOTINE 21MG/24HR PATCH TRANSDERM SCH (08:42)
[2017-10-29] MEDS: ASPIRIN 81 MG PO SCH (08:43)
[2017-10-29] MEDS: GABAPENTIN 300 MG CAP PO SCH ×2 (08:43→20:44)
[2017-10-29] MEDS: METOPROLOL TARTRATE 25 MG TAB PO SCH (08:43)
[2017-10-29] MEDS: SERTRALINE 100 MG TAB PO SCH (08:43)
[2017-10-29] MEDS: HEPARIN SODIUM,PORCINE 5,000 UNIT/ML 1 ML VIAL SQ SCH ×2 (08:43→20:44)
[2017-10-29] MEDS: LISINOPRIL 20 MG TAB PO SCH (08:43)
[2017-10-29] MEDS: CLOPIDOGREL 75 MG TAB PO SCH (08:43)
[2017-10-29] MEDS: ATORVASTATIN 80 MG TAB PO SCH (08:43)
[2017-10-29] MEDS ORDERED: POTASSIUM CHLORIDE ER 20 MEQ TAB.ER PO STA (09:53)
[2017-10-29] MEDS: NICOTINE POLACRILEX 2 MG GUM BUCCAL PRN (10:00)
--- NOTE | 2017-10-29 10:01 | PN ---
PROGRESS NOTE Mr. Rojas 57-year-old male with a known history of coronary artery disease, history of peripheral vascular disease, who presented with left sided chest discomfort. His discomfort was more musculoskeletal. He continues to have rib discomfort. He has underwent an echocardiogram revealed preserved left ventricular size and systolic function. His breathing has been stable. He continues to be at this time on aspirin once a day, Lipitor 80 mg daily, Plavix 75 mg daily, gabapentin, lisinopril 40 mg daily, metoprolol tartrate 25 mg daily. Nicotine patch. PHYSICAL EXAMINATION: Blood pressure is running in the 140s to 160 with a heart rate in the 70s. HEAD: Normocephalic. Eyes sclerae anicteric. Neck good upstroke. No bruit. No jugular venous distention. LUNGS: With decreased air exchange. HEART: Regular rate and rhythm, S1, S2. No S3. No rub. ABDOMEN: Soft, nontender. Chest wall with chest wall tenderness reproducing the pain. EXTREMITIES: No edema. LAB DATA: Lab data revealed BUN and creatinine 21 and 0.6, potassium 3.8, troponin of less than 0.012, 0.012, 0.014. Cholesterol 152 with an LDL of 51. IMPRESSION: 1. Chest discomfort, atypical for ischemic heart disease, appears to be musculoskeletal in etiology. 2. History of coronary artery disease. 3. History of peripheral vascular disease. 4. Hypertension. 5. Chronic tobacco use. 6. History of alcohol intake. RECOMMENDATION: From the cardiac standpoint, no further cardiac workup is needed at this time. He will follow up as an outpatient with Dr. Diaz. MMSAMANTHA / BEENA: [id number] /
--- NOTE | 2017-10-29 10:03 | P.PN ---
Subjective Patient is seen and examined by me at bedside No new complaints Patient looks drowsy today is taking 85, he was still in the history of subclavian or smoking and possible drink into His shakiness is regular, History is looks better today at 710 in severity, I still have some epigastric discomfort Objective - Vital Signs Vital signs: Vital Signs Temp 97.9 F 10/29/17 04:00 Pulse 78 10/29/17 04:00 Resp 18 10/29/17 04:00 BP 165/85 10/29/17 04:00 Pulse Ox 94 L 10/29/17 07:51 Intake & Output 10/28/17 10/29/17 10/29/17 18:59 06:59 18:59 Intake Total 840 1900 Balance 840 1900 Intake: Intake, IV Titration 1200 Amount Sodium Chloride 0.9% 1, 1200 000 ml @ 100 mls/hr IV . Q10H SHONDA Rx#:[id number] Oral 840 700 Other: Voiding Method Toilet Toilet Toilet # Voids 3 - Exam Constitutional: No acute distress, conversant, pleasant Eyes: Anicteric sclerae, moist conjunctiva, no lid-lag PERRLA ENMT: NC/AT Oropharynx clear, no erythema, exudates Neck: Supple, FROM, no masses, or JVD No carotid bruits No thyromegaly Lungs: Clear to auscultation Clear to percussion Normal respiratory effort, no accessory muscle use Cardiovascular: Heart regular in rate and rhythm, No murmurs, gallops, or rubs No peripheral edema Abdominal: Soft - epigastric tenderness, no rebound tenderness, no guarding, rebound or rigidity Abdomen moving with respiration Normoactive bowel sounds No hepatomegaly, No splenomegaly No palpable mass No abdominal wall hernia noted Skin: Normal temperature, tone, texture, turgor No induration No subcutaneous nodules No rash, lesions No ulcers Extremities: No digital cyanosis No clubbing Pedal pulses intact and symmetrical Radial pulses intact and symmetrical Normal gait and station No calf tenderness , left BKA Psychiatric: Alert and oriented to person, place and time Appropriate affect Intact judgement Neuro: Muscles Strength 5/5 in all 4 extremities Sensation to light touch grossly present throughout Cranial nerves II-XII grossly intact No focal sensory deficits - Labs CBC & Chem 7: 10/29/17 06:53 10/29/17 06:53 Labs: Abnormal Lab Results - Last 24 Hours (Table) 10/29/17 10/29/17 Range/Units 06:53 06:53 RBC 4.29 L (4.30-5.90) m/uL Plt Count 94 L (150-450) k/uL BUN 21 H (9-20) mg/dL Creatinine 0.60 L (0.66-1.25) mg/dL Assessment and Plan Assessment: -left-sided chest pain, most likely related to his fracture ninth rib on the left side Cardiologic evaluation is appreciated they cleared him for discharge Continue with pain management, is something that looks controlled -Alcohol withdrawal Continue with see what protocol He has history of local withdrawal seizure, not on seizure medication, continue with Neurontin while in hospital Continue with thiamine folic acid and multivitamin He continued to need treatment as inpatient -Gastritis, mostly alcohol-related Continue with Protonix Symptomatic treatment Follow-up as an outpatient -Patient looks dehydrated continue with IV fluids -Patient is heavy smoker 1 PDD Consult he agrees to quit continue with nicotine patch and gum as needed DVT prophylaxis heparin
[2017-10-29] MEDS: MULTIVITAMINS, THERA 1 EACH TAB PO SCH (12:10)
[2017-10-29] MEDS: THIAMINE 100 MG TAB PO SCH ×2 (12:10→17:53)
[2017-10-29] MEDS: FOLIC ACID 1 MG TAB PO SCH (12:10)
[2017-10-29] MEDS: PANTOPRAZOLE 40 MG/10 ML VIAL IVP SCH (12:11)
[2017-10-30] MEDS: LORazepam 2 MG/ML INJ IV PRN ×9 (00:40→22:56)
[2017-10-30] MEDS: HYDROcodone/APAP 10-325MG 1 EACH TAB PO PRN (04:19)
[2017-10-30] MEDS: SODIUM CHLORIDE 0.9% 1,000 ML IV SCH ×3 (05:16→18:01)
[2017-10-30] MEDS: PANTOPRAZOLE 40 MG TABLET PO SCH (07:49)
[2017-10-30] MEDS: NICOTINE 21MG/24HR PATCH TRANSDERM SCH (07:49)
[2017-10-30] MEDS: CLOPIDOGREL 75 MG TAB PO SCH (07:50)
[2017-10-30] MEDS: GABAPENTIN 300 MG CAP PO SCH ×2 (07:50→23:04)
[2017-10-30] MEDS: ASPIRIN 81 MG PO SCH (07:50)
[2017-10-30] MEDS: HEPARIN SODIUM,PORCINE 5,000 UNIT/ML 1 ML VIAL SQ SCH ×2 (07:50→23:07)
[2017-10-30] MEDS: ATORVASTATIN 80 MG TAB PO SCH (07:50)
[2017-10-30] MEDS: SERTRALINE 100 MG TAB PO SCH (07:51)
[2017-10-30] MEDS: LISINOPRIL 20 MG TAB PO SCH (07:51)
[2017-10-30] MEDS: METOPROLOL TARTRATE 25 MG TAB PO SCH (07:51)
[2017-10-30 08:16] LABS: Basophils % (A) 0 %; Eosinophils # (A) 0.1 k/uL (0-0.7); Eosinophils % (A) 2 %; HCT 40.9 % (39.0-53.0); HGB 13.8 gm/dL (13.0-17.5); Lymphocytes # (A) 1.1 k/uL (1.0-4.8); Lymphocytes % (A) 21 %; MCH 32.8 pg (25.0-35.0); MCHC 33.8 g/dL (31.0-37.0); MCV 96.9 fL (80.0-100.0); Mean Platelet Volume 8.9; Monocytes # (A) 0.3 k/uL (0-1.0); Monocytes % (A) 5 %; Neutrophils # (A) 3.8 k/uL (1.3-7.7); Neutrophils % (A) 70 %; RBC 4.22 m/uL (4.30-5.90); RDW 12.4 % (11.5-15.5); WBC 5.4 k/uL (3.8-10.6)
[2017-10-30 08:25] LABS: Platelet Count 91 k/uL (150-450)
[2017-10-30 08:26] LABS: Anion Gap 14 mmol/L; Blood Urea Nitrogen 10 mg/dL (9-20); Calcium 9.1 mg/dL (8.4-10.2); Carbon Dioxide 22 mmol/L (22-30); Chloride 104 mmol/L (98-107); Glucose 89 mg/dL (74-99); Potassium 3.8 mmol/L (3.5-5.1); Sodium 140 mmol/L (137-145)
[2017-10-30] MEDS ORDERED: POTASSIUM CHLORIDE ER 20 MEQ TAB.ER PO STA (10:28)
--- NOTE | 2017-10-30 11:07 | P.PN ---
Subjective Patient is seen and examined by me at bedside Patient looks more confused today most likely is from his alcohol withdrawal No focal neurological asymmetry was found on exam, meningeal signs are options We will check chest x-ray Objective - Vital Signs Vital signs: Vital Signs Temp 98.0 F 10/30/17 06:22 Pulse 91 10/30/17 06:22 Resp 16 10/30/17 06:22 BP 154/89 10/30/17 06:22 Pulse Ox 97 10/30/17 06:22 Intake & Output 10/29/17 10/30/17 10/30/17 18:59 06:59 18:59 Other: Voiding Method Toilet Urinal # Voids 2 2 -Constitutional: No acute distress, conversant, pleasant, confused Eyes: Anicteric sclerae, moist conjunctiva, no lid-lag PERRLA ENMT: NC/AT Oropharynx clear, no erythema, exudates Neck: Supple, FROM, no masses, or JVD No carotid bruits No thyromegaly Lungs: Clear to auscultation Clear to percussion Normal respiratory effort, no accessory muscle use Cardiovascular: Heart regular in rate and rhythm, No murmurs, gallops, or rubs No peripheral edema Abdominal: Soft Nontender, no guarding, rebound or rigidity Abdomen moving with respiration Normoactive bowel sounds No hepatomegaly, No splenomegaly No palpable mass No abdominal wall hernia noted Skin: Normal temperature, tone, texture, turgor No induration No subcutaneous nodules No rash, lesions No ulcers Extremities: No digital cyanosis No clubbing Pedal pulses intact and symmetrical Radial pulses intact and symmetrical Normal gait and station No calf tenderness Psychiatric: Alert and oriented to person, place and time Appropriate affect Intact judgement -Neuro: Confused, Muscles Strength 5/5 in all 4 extremities Sensation to light touch grossly present throughout Cranial nerves II-XII grossly intact No focal sensory deficits Meningeal signs are absent - Labs CBC & Chem 7: 10/30/17 07:52 10/30/17 07:52 Labs: Abnormal Lab Results - Last 24 Hours (Table) 10/30/17 10/30/17 Range/Units 07:52 07:52 RBC 4.22 L (4.30-5.90) m/uL Plt Count 91 L (150-450) k/uL Creatinine 0.60 L (0.66-1.25) mg/dL Assessment and Plan Plan: -left-sided chest pain, most likely related to his fracture ninth rib on the left side Cardiologic evaluation is appreciated they cleared him for discharge Continue with pain management, it looks controlled -Alcohol withdrawal, mostly delerium tremens Continue with ciwa what protocol He has history of local withdrawal seizure, not on seizure medication, continue with Neurontin while in hospital Continue with thiamine folic acid and multivitamin He continued to need treatment as inpatient check CXR -Gastritis, mostly alcohol-related Continue with Protonix Symptomatic treatment Follow-up as an outpatient -Patient looks dehydrated continue with IV fluids -Patient is heavy smoker 1 PDD Consult he agrees to quit continue with nicotine patch and gum as needed DVT prophylaxis heparin
[2017-10-30] MEDS: FOLIC ACID 1 MG TAB PO SCH (11:14)
[2017-10-30] MEDS: MULTIVITAMINS, THERA 1 EACH TAB PO SCH (11:14)
[2017-10-30] MEDS: THIAMINE 100 MG TAB PO SCH ×2 (11:14→18:00)
[2017-10-30] MEDS: MAGNESIUM SULFATE-D5W PMX 1 GM in DEXTROSE/WATER 1 100ML.BAG IVPB SCH ×2 (11:14→13:20)
--- NOTE | 2017-10-30 13:15 | XR ---
EXAMINATION TYPE: XR chest 1V portable DATE OF EXAM: 10/30/2017 HISTORY: possible aspiration. REFERENCE: Previous study dated 10/27/2017. FINDINGS: The lungs are overinflated. Heart size is upper limits of normal. The lungs are clear. The patient's left ninth rib fracture is not clearly identified on this study. IMPRESSION: COPD.
[2017-10-31] MEDS: LORazepam 2 MG/ML INJ IV PRN ×3 (00:43→11:06)
[2017-10-31] MEDS: SODIUM CHLORIDE 0.9% 1,000 ML IV SCH ×2 (05:58→13:15)
[2017-10-31] MEDS: LISINOPRIL 20 MG TAB PO SCH (08:52)
[2017-10-31] MEDS: GABAPENTIN 300 MG CAP PO SCH ×2 (08:52→21:58)
[2017-10-31] MEDS: NICOTINE 21MG/24HR PATCH TRANSDERM SCH (08:52)
[2017-10-31] MEDS: ASPIRIN 81 MG PO SCH (08:52)
[2017-10-31] MEDS: SERTRALINE 100 MG TAB PO SCH (08:52)
[2017-10-31] MEDS: HEPARIN SODIUM,PORCINE 5,000 UNIT/ML 1 ML VIAL SQ SCH ×2 (08:52→21:58)
[2017-10-31] MEDS: ATORVASTATIN 80 MG TAB PO SCH (08:52)
[2017-10-31] MEDS: METOPROLOL TARTRATE 50 MG TAB PO SCH (08:52)
[2017-10-31] MEDS: PANTOPRAZOLE 40 MG TABLET PO SCH (08:53)
[2017-10-31] MEDS: CLOPIDOGREL 75 MG TAB PO SCH (08:53)
[2017-10-31 09:00] LABS: Basophils % (A) 0 %; Eosinophils # (A) 0.2 k/uL (0-0.7); Eosinophils % (A) 3 %; HCT 39.6 % (39.0-53.0); Lymphocytes # (A) 1.4 k/uL (1.0-4.8); Lymphocytes % (A) 26 %; MCH 34.1 pg (25.0-35.0); MCHC 35.3 g/dL (31.0-37.0); MCV 96.4 fL (80.0-100.0); Mean Platelet Volume 9.1; Monocytes # (A) 0.4 k/uL (0-1.0); Monocytes % (A) 8 %; Neutrophils # (A) 3.4 k/uL (1.3-7.7); Neutrophils % (A) 61 %; RDW 12.3 % (11.5-15.5); WBC 5.6 k/uL (3.8-10.6)
[2017-10-31 09:04] LABS: Anion Gap 13 mmol/L; Blood Urea Nitrogen 12 mg/dL (9-20); Calcium 8.6 mg/dL (8.4-10.2); Carbon Dioxide 20 mmol/L (22-30); Chloride 107 mmol/L (98-107); Glucose 74 mg/dL (74-99); Magnesium 1.9 mg/dL (1.6-2.3); Platelet Count 90 k/uL (150-450); Potassium 4.1 mmol/L (3.5-5.1); Sodium 140 mmol/L (137-145)
--- NOTE | 2017-10-31 09:42 | CT ---
EXAMINATION TYPE: CT brain wo con DATE OF EXAM: 10/31/2017 HISTORY: Confusion CT DLP: 1090.4 mGycm. Automated Exposure Control for Dose Reduction was Utilized. TECHNIQUE: CT scan of the head is performed without contrast. COMPARISON: CT brain January 11, 2017 FINDINGS: There is no acute intracranial hemorrhage or midline shift identified. There is diffuse v entricular and sulcal prominence consistent with diffuse age-related cerebral atrophy. There is low- attenuation in the periventricular white matter consistent with chronic small vessel ischemic change. The area of old infarct right frontal lobe is redemonstrated. Mild mucosal thickening involving infe rior aspect of both maxillary sinuses is redemonstrated. Mild mucosal thickening involving ethmoid si nuses bilaterally is seen. IMPRESSION: No acute intracranial hemorrhage or midline shift. There is mild to moderate diffuse ag e-related cerebral atrophy and chronic small vessel ischemic change with old right-sided infarct all redemonstrated. No significant change from prior CT.
[2017-10-31] MEDS ORDERED: MAGNESIUM SULFATE-D5W PMX 1 GM in DEXTROSE/WATER 1 100ML.BAG IVPB ONE (09:45)
--- NOTE | 2017-10-31 09:59 | P.PN ---
Subjective Patient is seen and examined by me at bedside Patient still confused today, but more calm No focal neurological asymmetry was found on exam, meningeal signs are options chest x-ray and CT head are negative Objective - Vital Signs Vital signs: Vital Signs Temp 97.3 F L 10/31/17 08:00 Pulse 93 10/31/17 08:00 Resp 18 10/31/17 08:00 BP 151/92 10/31/17 08:00 Pulse Ox 96 10/31/17 08:00 Intake & Output 10/30/17 10/31/17 10/31/17 18:59 06:59 18:59 Intake Total 400 Output Total 1 Balance 399 Intake: Oral 400 Output: Urine 1 Other: Voiding Method Diaper # Voids 6 2 # Bowel Movements 0 - Exam Constitutional: No acute distress, conversant, pleasant Eyes: Anicteric sclerae, moist conjunctiva, no lid-lag PERRLA ENMT: NC/AT Oropharynx clear, no erythema, exudates Neck: Supple, FROM, no masses, or JVD No carotid bruits No thyromegaly Lungs: Clear to auscultation Clear to percussion Normal respiratory effort, no accessory muscle use Cardiovascular: Heart regular in rate and rhythm, No murmurs, gallops, or rubs No peripheral edema Abdominal: Soft - epigastric tenderness, no rebound tenderness, no guarding, rebound or rigidity Abdomen moving with respiration Normoactive bowel sounds No hepatomegaly, No splenomegaly No palpable mass No abdominal wall hernia noted Skin: Normal temperature, tone, texture, turgor No induration No subcutaneous nodules No rash, lesions No ulcers Extremities: No digital cyanosis No clubbing Pedal pulses intact and symmetrical Radial pulses intact and symmetrical Normal gait and station No calf tenderness , left BKA Psychiatric: Alert and oriented to person, place and time Appropriate affect Intact judgement Neuro: Muscles Strength 5/5 in all 4 extremities Sensation to light touch grossly present throughout Cranial nerves II-XII grossly intact No focal sensory deficits - Labs CBC & Chem 7: 10/31/17 08:26 10/31/17 08:26 Labs: Abnormal Lab Results - Last 24 Hours (Table) 10/31/17 10/31/17 Range/Units 08:26 08:26 RBC 4.10 L (4.30-5.90) m/uL Plt Count 90 L (150-450) k/uL Carbon Dioxide 20 L (22-30) mmol/L Creatinine 0.60 L (0.66-1.25) mg/dL Assessment and Plan Plan: -left-sided chest pain, most likely related to his fracture ninth rib on the left side Cardiologic evaluation is appreciated they cleared him for discharge Continue with pain management, it looks controlled -Alcohol withdrawal, mostly delerium tremens Continue with ciwa what protocol He has history of local withdrawal seizure, not on seizure medication, continue with Neurontin while in hospital Continue with thiamine folic acid and multivitamin He continued to need treatment as inpatient CXR: no pna, CT head negative -Gastritis, mostly alcohol-related Continue with Protonix Symptomatic treatment Follow-up as an outpatient -Patient looks dehydrated continue with IV fluids -Patient is heavy smoker 1 PDD Consult he agrees to quit continue with nicotine patch and gum as needed DVT prophylaxis heparin
[2017-10-31] MEDS: THIAMINE 100 MG TAB PO SCH ×2 (13:14→17:20)
[2017-10-31] MEDS: MULTIVITAMINS, THERA 1 EACH TAB PO SCH (13:14)
[2017-10-31] MEDS: FOLIC ACID 1 MG TAB PO SCH (13:14)
--- NOTE | 2017-10-31 20:21 | P.PN ---
Subjective Patient resting in bed confused with slurred speech. Concerned with alcohol withdrawal patient has been evaluated and cleared for discharge by cardiology Objective - Vital Signs Vital signs: Vital Signs Temp 98.0 F 10/31/17 13:37 Pulse 79 10/31/17 13:37 Resp 18 10/31/17 13:37 BP 143/88 10/31/17 13:37 Pulse Ox 98 10/31/17 13:37 Intake & Output 10/31/17 10/31/17 11/01/17 06:59 18:59 06:59 Intake Total 400 480 Output Total 1 250 Balance 399 230 Intake: Oral 400 480 Output: Urine 1 250 Other: Voiding Method Diaper # Voids 2 1 # Bowel Movements 0 1 - Constitutional General appearance: Present: mild distress - EENT Eyes: Present: PERRLA Ears: bilateral: normal - Neck Neck: Present: normal ROM - Respiratory Respiratory: bilateral: CTA - Cardiovascular Rhythm: regular - Integumentary Integumentary: Present: normal - Psychiatric Psychiatric Comment(s): Slurred and mumbling speech is disorientation to time and place - Allied health notes Allied health notes reviewed: social work - Labs CBC & Chem 7: 10/31/17 08:26 10/31/17 08:26 Labs: Abnormal Lab Results - Last 24 Hours (Table) 10/31/17 10/31/17 Range/Units 08:26 08:26 RBC 4.10 L (4.30-5.90) m/uL Plt Count 90 L (150-450) k/uL Carbon Dioxide 20 L (22-30) mmol/L Creatinine 0.60 L (0.66-1.25) mg/dL - Imaging and Cardiology CT Scan - head: report reviewed Assessment and Plan Plan: Assessment Left-sided chest pain related to fracture of ninth rib cleared by cardiology Alcohol withdrawal with delirium tremors History of seizure disorder Gastritis alcohol related Alcohol and not tobacco abuse Plan Treat for him alcohol related withdrawal We'll continue monitor patient
[2017-11-01] MEDS: LORazepam 2 MG/ML INJ IV PRN (01:21)
[2017-11-01] MEDS: SODIUM CHLORIDE 0.9% 1,000 ML IV SCH ×3 (06:39→20:37)
[2017-11-01] MEDS: NICOTINE POLACRILEX 2 MG GUM BUCCAL PRN (07:53)
[2017-11-01] MEDS: ATORVASTATIN 80 MG TAB PO SCH (07:53)
[2017-11-01] MEDS: CLOPIDOGREL 75 MG TAB PO SCH (07:53)
[2017-11-01] MEDS: METOPROLOL TARTRATE 50 MG TAB PO SCH (07:53)
[2017-11-01] MEDS: LISINOPRIL 20 MG TAB PO SCH (07:53)
[2017-11-01] MEDS: GABAPENTIN 300 MG CAP PO SCH ×2 (07:53→20:37)
[2017-11-01] MEDS: SERTRALINE 100 MG TAB PO SCH (07:53)
[2017-11-01] MEDS: NICOTINE 21MG/24HR PATCH TRANSDERM SCH (07:54)
[2017-11-01] MEDS: HEPARIN SODIUM,PORCINE 5,000 UNIT/ML 1 ML VIAL SQ SCH ×2 (07:54→20:37)
[2017-11-01] MEDS: PANTOPRAZOLE 40 MG TABLET PO SCH (07:54)
[2017-11-01] MEDS: ASPIRIN 81 MG PO SCH (07:54)
[2017-11-01] MEDS: HYDROcodone/APAP 10-325MG 1 EACH TAB PO PRN ×3 (07:58→20:40)
--- NOTE | 2017-11-01 12:19 | P.PN ---
Subjective Patient awake and alert of this morning greatly improved from yesterday. Discussed that he had been in [facility]. We'll discuss with telephonic case manager options for treatment for alcohol abuse Objective - Vital Signs Vital signs: Vital Signs Temp 96.2 F L 11/01/17 05:50 Pulse 91 11/01/17 05:50 Resp 18 11/01/17 05:50 BP 163/89 11/01/17 05:50 Pulse Ox 96 11/01/17 05:50 Intake & Output 10/31/17 11/01/17 11/01/17 18:59 06:59 18:59 Intake Total 480 1000 240 Output Total 250 Balance 230 1000 240 Intake: Oral 480 1000 240 Output: Urine 250 Other: Voiding Method Diaper Urinal Incontinent # Voids 1 3 # Bowel Movements 1 1 - Constitutional General appearance: Present: average body habitus - EENT Eyes: Present: PERRLA Ears: bilateral: normal - Neck Neck: Present: normal ROM - Respiratory Respiratory: bilateral: CTA - Cardiovascular Rhythm: regular - Gastrointestinal General gastrointestinal: Present: soft - Integumentary Integumentary: Present: normal - Neurologic Neurologic: Present: CNII-XII intact - Musculoskeletal Musculoskeletal: Present: generalized weakness - Psychiatric Psychiatric: Present: A&O x's 3, appropriate affect, intact judgment & insight - Labs CBC & Chem 7: 10/31/17 08:26 10/31/17 08:26 Assessment and Plan Plan: Assessment Left-sided chest pain related to ninth rib fracture cleared by cardiology for discharge Alcohol withdrawal delirium tremors History of seizure disorder Gastritis alcohol related EtOH abuse and nicotine abuse Plan Confer with telephonic case manager regarding alcohol abuse treatment outpatient
[2017-11-01] MEDS: MULTIVITAMINS, THERA 1 EACH TAB PO SCH (12:51)
[2017-11-01] MEDS: FOLIC ACID 1 MG TAB PO SCH (12:51)
[2017-11-01] MEDS: THIAMINE 100 MG TAB PO SCH ×2 (12:51→17:32)
[2017-11-02] MEDS: SODIUM CHLORIDE 0.9% 1,000 ML IV SCH (05:52)
[2017-11-02 06:23] VITALS: BP 172/88; PULSE 74; RESP 20; TEMP 98.5
[2017-11-02] MEDS: THIAMINE 100 MG TAB PO SCH (09:37)
[2017-11-02] MEDS: METOPROLOL TARTRATE 50 MG TAB PO SCH (09:37)
[2017-11-02] MEDS: NICOTINE 21MG/24HR PATCH TRANSDERM SCH (09:37)
[2017-11-02] MEDS: HEPARIN SODIUM,PORCINE 5,000 UNIT/ML 1 ML VIAL SQ SCH (09:37)
[2017-11-02] MEDS: ATORVASTATIN 80 MG TAB PO SCH (09:37)
[2017-11-02] MEDS: CLOPIDOGREL 75 MG TAB PO SCH (09:38)
[2017-11-02] MEDS: GABAPENTIN 300 MG CAP PO SCH (09:38)
[2017-11-02] MEDS: MULTIVITAMINS, THERA 1 EACH TAB PO SCH (09:38)
[2017-11-02] MEDS: FOLIC ACID 1 MG TAB PO SCH (09:38)
[2017-11-02] MEDS: SERTRALINE 100 MG TAB PO SCH (09:38)
[2017-11-02] MEDS: ASPIRIN 81 MG PO SCH (09:38)
[2017-11-02] MEDS: LISINOPRIL 20 MG TAB PO SCH (09:38)
[2017-11-02] MEDS: PANTOPRAZOLE 40 MG TABLET PO SCH (09:38)
[2017-11-02] MEDS: HYDROcodone/APAP 10-325MG 1 EACH TAB PO PRN (09:41)
--- NOTE | 2017-11-02 11:51 | P.DS ---
Providers Date of admission: 10/29/17 10:17 Expected date of discharge: 11/02/17 Attending physician: Ozzy Pereira Consults: 10/27/17 20:48 Consult Physician Urgent Consulting Provider: [facility] Consult Reason/Comments: Chest Pain Do you want consulting provider notified?: Yes, Notify in am Primary care physician: Ozzy Pereira [facility] Course: 67-year-old male of presented emergency room with complaints of left-sided chest pain. Was evaluated by cardiology and cleared for discharge. Patient then developed of all withdrawal with autoimmune tremors. Patient is now stabilized. 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 Ozzy Pereira Patient Condition at Discharge: Stable Plan - Discharge Summary Discharge Rx Participant: No New Discharge Prescriptions: New Benzocaine/Menthol Lozeng [Cepacol lozenge] 1 each MUCOUS MEM Q4HR PRN lozenge PRN Reason: Sore Throat Folic Acid 1 mg PO DAILY@1200 #30 tab Multivitamins, Thera [Multivitamin (formulary)] 1 each PO DAILY@1200 #30 tab Nicotine Polacrilex [Nicorette] 2 mg BUCCAL Q2HR PRN #40 gum PRN Reason: Nicotine Cravings Thiamine [Vitamin B-1] 100 mg PO BID@1200,1700 #60 tab Continue Metoprolol Tartrate [Lopressor] 25 mg PO DAILY Sertraline [Zoloft] 100 mg PO DAILY HYDROcodone/APAP 10-325MG [[place] 10-325] 1 tab PO QID PRN PRN Reason: Pain Lisinopril 40 mg PO DAILY Clopidogrel [Plavix] 75 mg PO DAILY Atorvastatin [Lipitor] 80 mg PO DAILY Gabapentin [Neurontin] 300 mg PO BID Discharge Medication List Metoprolol Tartrate [Lopressor] 25 mg PO DAILY 01/11/17 [History] Sertraline [Zoloft] 100 mg PO DAILY 01/11/17 [History] Atorvastatin [Lipitor] 80 mg PO DAILY 02/20/17 [History] Clopidogrel [Plavix] 75 mg PO DAILY 02/20/17 [History] Gabapentin [Neurontin] 300 mg PO BID 02/20/17 [History] HYDROcodone/APAP 10-325MG [[place] 10-325] 1 tab PO QID PRN 02/20/17 [History] Lisinopril 40 mg PO DAILY 02/20/17 [History] Benzocaine/Menthol Lozeng [Cepacol lozenge] 1 each MUCOUS MEM Q4HR PRN lozenge 11/02/17 [Rx] Folic Acid 1 mg PO DAILY@1200 #30 tab 11/02/17 [Rx] Multivitamins, Thera [Multivitamin (formulary)] 1 each PO DAILY@1200 #30 tab [Rx] Nicotine Polacrilex [Nicorette] 2 mg BUCCAL Q2HR PRN #40 gum 11/02/17 [Rx] Thiamine [Vitamin B-1] 100 mg PO BID@1200,1700 #60 tab 11/02/17 [Rx] Follow up Appointment(s)/Referral(s): [facility], [NON-STAFF] -
== END 2017-11-02 12:29 | disposition home health service (06) | DRG 206 ==
LOC: EC 18:28 → 3OBS 20:48 → OBSVTOIN 10-29 10:17 → 4MS4W 10-29 12:50
PROVIDERS: ADMIT Family Medicine; ATTEND Family Medicine
DX: S22.32XA Fracture of one rib, left side, initial encounter for closed fracture (principal); F10.231 Alcohol dependence with withdrawal delirium; E78.5 Hyperlipidemia, unspecified; E86.0 Dehydration; F12.90 Cannabis use, unspecified, uncomplicated; F17.210 Nicotine dependence, cigarettes, uncomplicated; F32.9 Major depressive disorder, single episode, unspecified; F41.9 Anxiety disorder, unspecified; I10 Essential (primary) hypertension; I25.10 Atherosclerotic heart disease of native coronary artery without angina pectoris; I70.203 Unspecified atherosclerosis of native arteries of extremities, bilateral legs; K29.20 Alcoholic gastritis without bleeding; G40.909 Epilepsy, unspecified, not intractable, without status epilepticus; Z79.02 Long term (current) use of antithrombotics/antiplatelets; I25.2 Old myocardial infarction; Z79.899 Other long term (current) drug therapy; Z80.1 Family history of malignant neoplasm of trachea, bronchus and lung; Z82.49 Family history of ischemic heart disease and other diseases of the circulatory system; Z86.73 Personal history of transient ischemic attack (TIA), and cerebral infarction without residual deficits; Z89.511 Acquired absence of right leg below knee; Z95.5 Presence of coronary angioplasty implant and graft; Z97.13 Presence of artificial right leg (complete) (partial); Z79.891 Long term (current) use of opiate analgesic; Z71.41 Alcohol abuse counseling and surveillance of alcoholic
CPT/HCPCS: 36415; 70450; 71045; 71046; 80048; 80053; 80061; 80306; 81001; 82550; 82553; 83735; 83880; 84484; 85025; 85610; 85730; 93306; 94760; 96372; 96374; 96376; 99285

== ENCOUNTER 2018-01-06 14:39 | Inpatient (IN) | payer MEDICARE ==
[2018-01-06] MEDS ORDERED: NITROGLYCERIN OINT 1 INCH/GM PACKET TOPICAL STA (15:01)
[2018-01-06] MEDS ORDERED: ONDANSETRON 4 MG/2 ML VIAL IVP STA (15:01)
[2018-01-06] MEDS ORDERED: ASPIRIN 81 MG PO STA (15:01)
[2018-01-06] MEDS ORDERED: SODIUM CHLORIDE 0.9% 1,000 ML IV STA (15:01)
[2018-01-06] MEDS ORDERED: MORPHINE SULFATE 2 MG/ML SYRINGE IV STA (15:04)
[2018-01-06 15:27] LABS: Basophils % (A) 0 %; Eosinophils # (A) 0.1 k/uL (0-0.7); Eosinophils % (A) 2 %; HCT 39.6 % (39.0-53.0); HGB 12.9 gm/dL (13.0-17.5); Lymphocytes % (A) 28 %; MCHC 32.5 g/dL (31.0-37.0); MCV 101.5 fL (80.0-100.0); Macrocytosis Slight; Mean Platelet Volume 9.8; Monocytes # (A) 0.5 k/uL (0-1.0); Monocytes % (A) 7 %; Neutrophils # (A) 4.3 k/uL (1.3-7.7); Neutrophils % (A) 59 %; Platelet Count 102 k/uL (150-450); RDW 13.8 % (11.5-15.5); WBC 7.2 k/uL (3.8-10.6)
[2018-01-06 15:35] LABS: Albumin 3.6 g/dL (3.5-5.0); Calcium 8.6 mg/dL (8.4-10.2); Magnesium 1.3 mg/dL (1.6-2.3); Partial Thromboplastin Time 23.4 sec (22.0-30.0); Potassium 3.6 mmol/L (3.5-5.1); Prothrombin Time 9.8 sec (9.0-12.0); Total Bilirubin 0.8 mg/dL (0.2-1.3); Total Protein 5.9 g/dL (6.3-8.2)
[2018-01-06 15:46] LABS: Creatine Kinase 88 U/L (55-170)
--- NOTE | 2018-01-06 15:50 | XR ---
EXAMINATION TYPE: XR chest 2V DATE OF EXAM: 01/06/2018 COMPARISON: 10/30/2017 TECHNIQUE: PA and lateral views submitted. HISTORY: Syncope FINDINGS: The lungs are clear and there is no pneumothorax, pleural effusion, or focal pneumonia. Hyperinflat ion suggests COPD. Hypertrophic and degenerative change of the spine. Chronic rib deformities are not ed. No overt failure. No pneumothorax. Atherosclerotic change aorta. IMPRESSION: 1. No acute process.
[2018-01-06 15:59] LABS: Creatine Kinase MB 1.1 ng/mL (0.0-2.4); Troponin I <0.012 ng/mL (0.000-0.034)
--- NOTE | 2018-01-06 16:02 | CT ---
EXAMINATION TYPE: CT brain wo con DATE OF EXAM: 01/06/2018 HISTORY: Right posterior head injury. Syncope and fall. CT DLP: 1121 mGycm. Automated Exposure Control for Dose Reduction was Utilized. TECHNIQUE: CT scan of the head is performed without contrast. COMPARISON: CT brain October 31, 2017. FINDINGS: There is no acute intracranial hemorrhage or midline shift identified. There is diffuse v entricular and sulcal prominence consistent with diffuse age-related cerebral atrophy. There is low- attenuation in the periventricular white matter consistent with chronic small vessel ischemic change. Area of encephalomalacia right frontal lobe anterior watershed region there are axial image 33 is re demonstrated. The globes are intact and the visualized sinuses are clear. Vascular calcification of distal internal carotid arteries bilaterally is present. IMPRESSION: No acute intracranial hemorrhage or midline shift. There is mild to moderate diffuse ag e-related cerebral atrophy and chronic small vessel ischemic change as well as old right-sided fronta l lobe infarct all redemonstrated without significant interval change.
[2018-01-06 17:17] LABS: Appearance,Urine Cloudy (Clear); Bacteria,Urine Rare /hpf; Bilirubin,Urine Negative (Negative); Blood,Urine Negative (Negative); Color,Urine Yellow; Glucose,Urine (UA) Negative (Negative); Hyaline Casts,Urine 44 /lpf (0-2); Ketones,Urine Negative (Negative); Leukocyte Esterase,Urine Trace (Negative); Mucus,Urine Occasional /hpf; Nitrite,Urine Negative (Negative); PH, Urine 6.5 (5.0-8.0); Protein,Urine 1+ (Negative); RBC,Urine 3 /hpf (0-5); Specific Gravity,Urine 1.017 (1.001-1.035); Squamous Epithelial Cell,Urine 3 /hpf (0-4); WBC,Urine 2 /hpf (0-5)
--- NOTE | 2018-01-06 17:23 | ED ---
Syncope HPI - General Chief Complaint: Syncope Stated Complaint: Syncope Time Seen by Provider: 01/06/18 14:53 Source: patient Mode of arrival: EMS Limitations: no limitations - History of Present Illness Initial Comments: 57 years old gentleman with a history of for coronary artery disease andstates in place last stent T he has that was in 2014 he also has a history of alcohol use he was used to drink quite heavily now he said he has cut down significantly no alcohol for the last 4 days he had a 2 drinks today. Complaining about the chest pain started about towards ago and he said he passed out multiple times today every time he moved around he passed out he denies any head injury no neck injury from the falls. Review of system is unremarkable otherwise - Related Data Home Medications Medication Instructions Recorded Confirmed Metoprolol Tartrate [Lopressor] 25 mg PO DAILY 01/11/17 01/06/18 Sertraline [Zoloft] 100 mg PO DAILY 01/11/17 01/06/18 Atorvastatin [Lipitor] 80 mg PO HS 02/20/17 01/06/18 Clopidogrel [Plavix] 75 mg PO DAILY 02/20/17 01/06/18 Gabapentin [Neurontin] 300 mg PO BID 02/20/17 01/06/18 HYDROcodone/APAP 10-325MG [[place] 1 tab PO QID 02/20/17 01/06/18 10-325] Lisinopril 40 mg PO DAILY 02/20/17 01/06/18 Cyanocobalamin (Vitamin B-12) 1,000 mcg PO DAILY 01/06/18 01/06/18 [Vitamin B-12] Multivitamins, Thera [Multivitamin 1 tab PO DAILY 01/06/18 01/06/18 (formulary)] Thiamine [Vitamin B-1] 100 mg PO DAILY 01/06/18 01/06/18 Previous Rx's Medication Instructions Recorded Folic Acid 1 mg PO DAILY@1200 #30 tab 11/02/17 Allergies Allergy/AdvReac Type Severity Reaction Status Date / Time No Known Allergies Allergy Verified 01/06/18 15:14 Review of Systems ROS Statement: Those systems with pertinent positive or pertinent negative responses have been documented in the HPI. ROS Other: All systems not noted in ROS Statement are negative. Past Medical History Past Medical History: Coronary Artery Disease (CAD), CVA/TIA, Hypertension, Myocardial Infarction ([place]), Seizure Disorder, Vascular Disorder Additional Past Medical History / Comment(s): 09/25/14 STEMI with stent placement , Seizures, ETOH Abuse, Depression, Hx of L ankle fx. PVD with right prosthesis Last Myocardial Infarction Date:: 09/25/14 History of Any Multi-Drug Resistant Organisms: None Reported Past Surgical History: Appendectomy, Heart Catheterization With Stent Additional Past Surgical History / Comment(s): 09/25/14 PTCA with stenting, BYPASS ON BOTH LEGS, RIGHT BELOW KNEE AMPUTATION, 2 EGD's, colonoscopy x 2, hemorrhoidectomy, . Past Anesthesia/Blood Transfusion Reactions: No Reported Reaction Additional Past Anesthesia/Blood Transfusion Reaction / Comment(s): Pt had blood transfusions with no reaction Date of Last Stent Placement:: 09/25/14 Past Psychological History: Anxiety, Depression Smoking Status: Current every day smoker Past Alcohol Use History: Abuse, Daily, Heavy Past Drug Use History: Marijuana - Past Family History Father Family Medical History: Cancer Additional Family Medical History / Comment(s): Father of lung cancer. Mother Family Medical History: Cancer, Hypertension, Liver Disease Additional Family Medical History / Comment(s): Psychological history, General Exam - General Exam Comments Initial Comments: General: The patient is awake and alert, in no distress, and does not appear acutely ill. Looks tired and pale Skin: Skin is warm and dry and no rashes or lesions are noted. Eye: Pupils are equal, round and reactive to light, extra-ocular movements are intact; there is normal conjunctiva bilaterally. Ears, nose, mouth and throat: There are moist mucous membranes and no oral lesions. Neck: The neck is supple, there is no tenderness or JVD. Cardiovascular: There is a regular rate and rhythm. No murmur, rub or gallop is appreciated. Respiratory: To auscultation bilateral, decreased breath sounds bilateral exam is consistent with a COPD Gastrointestinal: Soft, non-distended, non-tender abdomen without masses or organomegaly noted. There is no rebound or guarding present. Bowel sounds are unremarkable. Back: There is no tenderness to palpation in the midline. There is no obvious deformity. Musculoskeletal: Normal ROM, no tenderness, There is no pedal edema. There is no calf tenderness or swelling. No cords were appreciated. Neurological: CN II-XII intact, Cranial nerves III through XII are intact. There are no obvious motor or sensory deficits. Coordination appears grossly intact. Speech is normal. Psychiatric: Cooperative, appropriate mood & affect, normal judgment. Limitations: no limitations Course Vital Signs 01/06/18 01/06/18 14:41 16:54 Pulse Rate 97 79 Respiratory 18 18 Rate Blood Pressure 90/58 113/63 O2 Sat by Pulse 98 98 Oximetry On reassessment noticed CBC, INR, troponin, comp his metabolic panel, chest x- ray, head CT are normal considering his a chest pain and his history of heart disease and stents in place he will be admitted to Dr. Torres service, spoke with Dr kwon EKG Findings - EKG Comments: EKG Findings:: EKG is normal sinus rhythm ventricular rate is 83 LA interval is 126 QRS duration is 94 QT/QTc is 428/50 to review of this EKG does not reveal any ST elevation or ST depression Medical Decision Making - Lab Data Result diagrams: 01/06/18 15:10 01/06/18 15:10 Lab Results 01/06/18 01/06/18 01/06/18 Range/Units 15:10 15:10 15:10 WBC 7.2 (3.8-10.6) k/uL RBC 3.90 L (4.30-5.90) m/uL Hgb 12.9 L (13.0-17.5) gm/dL Hct 39.6 (39.0-53.0) % MCV 101.5 H (80.0-100.0) fL MCH 33.0 (25.0-35.0) pg MCHC 32.5 (31.0-37.0) g/dL RDW 13.8 (11.5-15.5) % Plt Count 102 L (150-450) k/uL Neutrophils % 59 % Lymphocytes % 28 % Monocytes % 7 % Eosinophils % 2 % Basophils % 0 % Neutrophils # 4.3 (1.3-7.7) k/uL Lymphocytes # 2.0 (1.0-4.8) k/uL Monocytes # 0.5 (0-1.0) k/uL Eosinophils # 0.1 (0-0.7) k/uL Basophils # 0.0 (0-0.2) k/uL Macrocytosis Slight PT (9.0-12.0) sec INR (<1.2) APTT (22.0-30.0) sec Sodium 138 (137-145) mmol/L Potassium 3.6 (3.5-5.1) mmol/L Chloride 102 (98-107) mmol/L Carbon Dioxide 23 (22-30) mmol/L Anion Gap 13 mmol/L BUN 19 (9-20) mg/dL Creatinine 1.15 (0.66-1.25) mg/dL Est GFR (CKD-EPI)AfAm 82 (>60 ml/min/1.73 sqM) Est GFR (CKD-EPI)NonAf 71 (>60 ml/min/1.73 sqM) Glucose 85 (74-99) mg/dL Calcium 8.6 (8.4-10.2) mg/dL Magnesium 1.3 L (1.6-2.3) mg/dL Total Bilirubin 0.8 (0.2-1.3) mg/dL AST 40 (17-59) U/L ALT 82 H (21-72) U/L Alkaline Phosphatase 86 (38-126) U/L Total Creatine Kinase 88 (55-170) U/L CK-MB (CK-2) 1.1 (0.0-2.4) ng/mL CK-MB (CK-2) Rel Index 1.3 Troponin I <0.012 (0.000-0.034) ng/mL Total Protein 5.9 L (6.3-8.2) g/dL Albumin 3.6 (3.5-5.0) g/dL 01/06/18 Range/Units 15:10 WBC (3.8-10.6) k/uL RBC (4.30-5.90) m/uL Hgb (13.0-17.5) gm/dL Hct (39.0-53.0) % MCV (80.0-100.0) fL MCH (25.0-35.0) pg MCHC (31.0-37.0) g/dL RDW (11.5-15.5) % Plt Count (150-450) k/uL Neutrophils % % Lymphocytes % % Monocytes % % Eosinophils % % Basophils % % Neutrophils # (1.3-7.7) k/uL Lymphocytes # (1.0-4.8) k/uL Monocytes # (0-1.0) k/uL Eosinophils # (0-0.7) k/uL Basophils # (0-0.2) k/uL Macrocytosis PT 9.8 (9.0-12.0) sec INR 1.0 (<1.2) APTT 23.4 (22.0-30.0) sec Sodium (137-145) mmol/L Potassium (3.5-5.1) mmol/L Chloride (98-107) mmol/L Carbon Dioxide (22-30) mmol/L Anion Gap mmol/L BUN (9-20) mg/dL Creatinine (0.66-1.25) mg/dL Est GFR (CKD-EPI)AfAm (>60 ml/min/1.73 sqM) Est GFR (CKD-EPI)NonAf (>60 ml/min/1.73 sqM) Glucose (74-99) mg/dL Calcium (8.4-10.2) mg/dL Magnesium (1.6-2.3) mg/dL Total Bilirubin (0.2-1.3) mg/dL AST (17-59) U/L ALT (21-72) U/L Alkaline Phosphatase (38-126) U/L Total Creatine Kinase (55-170) U/L CK-MB (CK-2) (0.0-2.4) ng/mL CK-MB (CK-2) Rel Index Troponin I (0.000-0.034) ng/mL Total Protein (6.3-8.2) g/dL Albumin (3.5-5.0) g/dL Disposition Clinical Impression: Recurrent syncope, Chest pain Disposition[facility] Condition: Good Referrals: Ozzy Pereira MD [Primary Care Provider] - 1-2 days
[2018-01-06] MEDS ORDERED: NITROGLYCERIN SL TABS 0.4 MG TAB SUBLINGUAL PRN (17:25)
[2018-01-06] MEDS ORDERED: MORPHINE SULFATE 2 MG/ML SYRINGE IV PRN (17:25)
[2018-01-06] MEDS ORDERED: THIAMINE 100 MG/ML 2 ML VIAL IM STA (17:30)
[2018-01-06] MEDS ORDERED: LORazepam 2 MG/ML INJ IV PRN ×3 (17:30)
[2018-01-06] MEDS ORDERED: Magnesium Replacement Protocol 1 EACH MISC MISCELLANE PRN (18:22)
[2018-01-06] MEDS: MAGNESIUM SULFATE-D5W PMX 1 GM in DEXTROSE/WATER 1 100ML.BAG IVPB SCH ×3 (18:45→21:01)
[2018-01-06] MEDS: ATORVASTATIN 80 MG TAB PO SCH (19:36)
[2018-01-06] MEDS: GABAPENTIN 300 MG CAP PO SCH (19:37)
[2018-01-06] MEDS: HYDROcodone/APAP 10-325MG 1 EACH TAB PO SCH (19:40)
[2018-01-06] MEDS ORDERED: PNEUMOCOCCAL VACC-PNEUMOVAX 23 25 MCG/0.5 ML VIAL IM ONE (20:45)
[2018-01-06] MEDS ORDERED: SODIUM CHLORIDE 0.9% 1,000 ML with POTASSIUM CHLORIDE 20 MEQ, MVI, ADULT NO.4 WITH VIT ... IV SCH ×5 (21:15)
[2018-01-06 21:46] LABS: Creatine Kinase 152 U/L (55-170)
[2018-01-06 21:58] LABS: Creatine Kinase MB 1.6 ng/mL (0.0-2.4); Troponin I <0.012 ng/mL (0.000-0.034)
--- NOTE | 2018-01-06 22:11 | HP ---
HISTORY AND PHYSICAL CHIEF COMPLAINTS: Syncope and weakness. HISTORY OF PRESENT ILLNESS: This 57-year-old gentleman with a past medical history of multiple medical problems, including CAD, history of COPD, CVA, hypertension, hyperlipidemia, history of seizure disorder, history of vascular disorder, history of significant EtOH abuse and withdrawal, rib fracture, depression, being followed by Dr. Braswell in the outpatient setting, was complaining of significant weakness. Patient had multiple episodes of syncope and feeling dizzy and falling. The patient apparently was drinking heavily, but now has cut down to 2 drinks per day, according to him. There is no history of any fever, rigor or chill. No history of headache, loss of consciousness. The patient is also complaining of vague chest pain. PAST MEDICAL HISTORY: 1. History of CAD. 2. COPD. 3. CVA. 4. Hypertension. 5. Hyperlipidemia. 6. Myocardial infarction. 7. History of pneumonia. 8. Seizure disorder. HOME MEDICATIONS: 1. Thiamine 100 mg p.o. daily. 2. Zoloft 100 mg p.o. daily. 3. Multivitamins 1 p.o. daily. 4. Lopressor 25 mg p.o. daily. 5. Lisinopril 40 mg p.o. daily. 6. [place] 10 mg q.i.d. 7. Neurontin 300 mg b.i.d. 8. Folic acid 1 mg daily. 9. Vitamin B12 1000 mcg p.o. daily. 10.Plavix 75 mg p.o. daily. 11.Lipitor 80 mg daily and 80 mg at bedtime. ALLERGIES: NONE. FAMILY HISTORY: History of cancer, hypertension, liver disease. SOCIAL HISTORY: History of smoking half a pack a day. Alcohol significantly, as mentioned earlier. REVIEW OF SYSTEMS: ENT: No diminished hearing. No diminished vision. CARDIOVASCULAR SYSTEM: No angina, palpitations. RESPIRATORY SYSTEM: No cough, hemoptysis. GI: No nausea, vomiting. : No dysuria or retention. NERVOUS SYSTEM: As mentioned earlier. ALLERGY/IMMUNOLOGY: No asthma, hayfever. MUSCULOSKELETAL: As mentioned earlier. HEMATOLOGY/ONCOLOGY: No history of anemia. ENDOCRINE: No history of diabetes, hypothyroidism. CONSTITUTIONAL: As mentioned earlier. DERMATOLOGY: Negative. RHEUMATOLOGY: Negative. PSYCHIATRY: As mentioned earlier. PHYSICAL EXAMINATION: Patient alert and oriented x3. Pulse 78, blood pressure 114/50, respiration 16, temperature 98.8. Minimal orthostatic changes present. Pulse ox 94% on room air. HEENT: Conjunctivae normal. Oral mucosa dry. NECK: No jugular venous distention. No carotid bruit. No lymph node enlargement. CARDIOVASCULAR SYSTEM: S1, S2 muffled. No S3. No S4. RESPIRATORY SYSTEM: Breath sounds diminished at the bases. A few scattered rhonchi. No crackles. ABDOMEN: Soft, non-tender. No mass palpable. LEGS: Status post amputation of the right leg. NERVOUS SYSTEM: Moves all 4 limbs. Diffusely weak. Gross tremors also present. No signs of cerebellar incoordination. No focal weakness noted. SKIN: No ulcer, rash, bleeding. LYMPHATICS: No lymph node palpable in neck, axillae or groin. JOINTS: No active deforming arthropathy. LABS: WBC 7.2, hemoglobin 12.9. Otherwise, magnesium 1.3. UA noted. ASSESSMENT: 1. Multiple episodes of syncope; possibly orthostatic hypotension and dehydration. 2. History of ethanol and ethanol withdrawal and acute delirium tremens. 3. Chest pain for evaluation. 4. Hypomagnesemia. 5. Anemia, possibly secondary to alcohol. 6. Coronary artery disease. 7. Chronic obstructive pulmonary disease. 8. History of cerebrovascular accident, transient ischemic attack. 9. Hypertension. 10.Hyperlipidemia. 11.History of myocardial infarction. 12.History of pneumonia. 13.Seizure disorder. 14.History of peripheral vascular disease. 15.History of ethanol abuse. 16.History of coronary artery disease, stents. 17.History of anxiety, depression. 18.History of right leg prosthesis. 19.History of nicotine dependence. RECOMMENDATIONS AND DISCUSSION: In this 57-year-old gentleman who presented with multiple complex medical issues, we will monitor the patient closely, continue the current medications, continue symptomatic treatment. At this time I recommend IV fluids. Monitor orthostatic vitals. Resume the home medications. CIWA protocol. Ativan p.r.n. I would also recommend a neurology consultation, neurovascular workup, 2D echo, carotid Doppler if it was not done recently. Cardiology has also been consulted. Otherwise, we will continue to monitor. Prognosis is guarded. A copy of dictation is being forwarded to Dr. Braswell, who is the primary physician. Patient understands and agrees. MMODL / IJN: [id number] /
--- NOTE | 2018-01-06 23:08 | US ---
EXAMINATION TYPE: US carotid duplex BILAT DATE OF EXAM: 01/06/2018 COMPARISON: US CLINICAL HISTORY: dizziness. EXAM MEASUREMENTS: RIGHT: Peak Systolic Velocity (PSV) cm/sec ----- Right CCA: 99.5 ----- Right ICA: 85.3 ----- Right ECA: 175.2 ICA/CCA ratio: 0.9 RIGHT: End Diastole cm/sec ----- Right CCA: 16.7 ----- Right ICA: 20.6 ----- Right ECA: 17.5 LEFT: Peak Systolic Velocity (PSV) cm/sec ----- Left CCA: 75.8 ----- Left ICA: 57.5 ----- Left ECA: 146.1 ICA/CCA ratio: 0.8 LEFT: End Diastole cm/sec ----- Left CCA: 16.4 ----- Left ICA: 19.1 ----- Left ECA: 23.0 VERTEBRALS (direction of flow): Right Vertebral: Antegrade Left Vertebral: Antegrade Rhythm: Normal Extensive intimal thickening and soft plaque noted. No significant stenosis identified. Elevated ECA velocities bilaterally. IMPRESSION: There is antegrade flow in the vertebral arteries. There is diffuse plaque formation. Th e images and measurements suggest close to 50% stenosis in both internal carotid arteries. Criteria for Assigning % of Stenosis / Diameter reduction (Estimation based on the indirect measurements of the internal carotid artery velocities (ICA PSV). 1. Normal (no stenosis)=ICA PSV < 125 cm/s: ratio < 2.0: ICA EDV<40 cm/s. 2. Less than 50% stenosis=ICA PSV < 125 cm/s: ratio < 2.0: ICA EDV<40 cm/s. 3. 50 to 69% stenosis=ICA PSV of 125 to 230 cm/s: ration 2.0 ? 4.0: ICA EDV 40-100 cm/s. 4. Greater than 70% stenosis to near occlusion= ICA PSV > 230 cm/s: ratio > 4.0: ICA EDV > 100 cm/s. 5. Near occlusion= ICA PSV velocities may be low or undetectable: variable ratio and ICA EDV. 6. Total occlusion=unable to detect flow.
[2018-01-07] MEDS: HYDROcodone/APAP 10-325MG 1 EACH TAB PO SCH ×5 (01:35→20:26)
[2018-01-07 03:24] LABS: Basophils % (A) 1 %; Eosinophils # (A) 0.3 k/uL (0-0.7); Eosinophils % (A) 5 %; HCT 35.8 % (39.0-53.0); HGB 11.7 gm/dL (13.0-17.5); Lymphocytes # (A) 2.4 k/uL (1.0-4.8); Lymphocytes % (A) 43 %; MCH 33.4 pg (25.0-35.0); MCHC 32.8 g/dL (31.0-37.0); MCV 102.1 fL (80.0-100.0); Macrocytosis Slight; Mean Platelet Volume 8.6; Monocytes # (A) 0.3 k/uL (0-1.0); Monocytes % (A) 5 %; Neutrophils # (A) 2.5 k/uL (1.3-7.7); Neutrophils % (A) 44 %; RBC 3.51 m/uL (4.30-5.90); RDW 13.8 % (11.5-15.5); WBC 5.7 k/uL (3.8-10.6)
[2018-01-07 03:46] LABS: Creatine Kinase 127 U/L (55-170); Platelet Count 83 k/uL (150-450)
[2018-01-07 03:47] LABS: ALT 74 U/L (21-72); AST 36 U/L (17-59); Albumin 2.8 g/dL (3.5-5.0); Alkaline Phosphatase 121 U/L (38-126); Anion Gap 6 mmol/L; Blood Urea Nitrogen 22 mg/dL (9-20); Carbon Dioxide 25 mmol/L (22-30); Chloride 104 mmol/L (98-107); Cholesterol 92 mg/dL (<200); Glucose 95 mg/dL (74-99); HDL Cholesterol 59 mg/dL (40-60); LDL Cholesterol,Calculated 22 mg/dL (0-99); Magnesium 2.3 mg/dL (1.6-2.3); Potassium 3.5 mmol/L (3.5-5.1); Sodium 135 mmol/L (137-145); Total Bilirubin 0.5 mg/dL (0.2-1.3); Total Protein 4.8 g/dL (6.3-8.2); Triglycerides 57 mg/dL (<150)
[2018-01-07 03:58] LABS: Creatine Kinase MB 1.3 ng/mL (0.0-2.4); Troponin I <0.012 ng/mL (0.000-0.034)
[2018-01-07] MEDS: GABAPENTIN 300 MG CAP PO SCH ×2 (08:17→20:26)
[2018-01-07] MEDS: CLOPIDOGREL 75 MG TAB PO SCH (08:17)
[2018-01-07] MEDS: SERTRALINE 100 MG TAB PO SCH (08:17)
[2018-01-07] MEDS: CYANOCOBALAMIN 500 MCG TAB PO SCH (08:17)
[2018-01-07] MEDS ORDERED: METOPROLOL TARTRATE 25 MG TAB PO SCH (09:00)
[2018-01-07] MEDS ORDERED: ASPIRIN 325 MG TAB PO SCH (09:00)
[2018-01-07] MEDS ORDERED: THIAMINE 100 MG TAB PO SCH ×2 (09:00→12:00)
[2018-01-07] MEDS ORDERED: LISINOPRIL 20 MG TAB PO SCH (09:00)
[2018-01-07] MEDS: ASPIRIN 81 MG PO SCH (09:23)
--- NOTE | 2018-01-07 10:35 | P.CRDCN ---
History of Present Illness History of present illness: Mr. Rojas is a pleasant 57-year-old male past medical history significant for coronary artery disease, COPD, CVA, dyslipidemia, hypertension and peripheral vascular disease, status post right BKA with prosthesis, chronic nicotine dependence and a long history of alcohol abuse. We have been asked to see the patient in consultation for syncopal episode. He underwent angioplasty of the distal RCA in 2014. He also had a right from bypass in 2011. He follows with Dr. Diaz in the office. His last visit in the office was November 2015. He states yesterday he was doing routine errands at the grocery store when he felt mildly lightheaded. He denies associated chest pain, shortness of breath, nausea, vomiting or diaphoresis. He went home with his [employer] and starting to put things away when he again started to feel dizzy. He sat down and the symptoms subsided so he continued back to the kitchen to make himself a sandwich. At that time he again got acutely dizzy and this time he passed out. He dropped to the floor momentarily. He says this is very brief and he stood back up immediately walked himself over to the couch. He denies associated chest pain, shortness of breath, nausea, vomiting or palpitations with this episode. He states this happened a couple of more times before coming to the hospital. He also states over the previous couple of months since this happened approximately 8-10 times a similar fashion with no associated symptoms. EKG on arrival reveals sinus mechanism with prolonged QT. Chest x-ray is negative for an acute cardiopulmonary process. CT brain negative for acute intracranial process with mild to moderate diffuse age-related cerebral atrophy and chronic small vessel ischemic change as well as old right sided frontal lobe infarct. Bilateral carotid duplex were obtained and showed less than 50% stenosis bilaterally. Laboratory data reviewed, hemoglobin 11.7, platelets 83, sodium 135, potassium 3.5, creatinine 0.9, magnesium on admission 1. 3 repeat today 2.3, cardiac enzymes negative 3, LDL 22 and HDL 59. Current cardiac medications include Lopressor 25 mg daily, lisinopril 40 mg daily, Plavix 75 mg daily, atorvastatin 80 mg daily. Most recent echocardiogram performed October 2017 reveals preserved left ventricular systolic function with ejection fraction 55-60%, there are no wall motion abnormalities noted. Most recent Lexiscan stress test performed February 2017 reveals no evidence of pharmacologically induced left ventricular myocardial ischemia. At the time of my exam: CONSTITUTIONAL: Denies fever. Denies chills. EYES: Denies blurred vision. Denies vision changes. Denies eye pain. EARS, NOSE, MOUTH & THROAT: Denies headache. Denies sore throat. Denies ear pain. CARDIOVASCULAR: Denies chest pain. Denies shortness of breath. Denies orthopnea. Denies PND. Denies palpitations. RESPIRATORY: Denies cough. GASTROINTESTINAL: Denies abdominal pain. Denies diarrhea. Denies constipation. Denies nausea. Denies vomiting. MUSCULOSKELETAL: Denies myalgias. INTEGUMENTARY: Denies pruitis. Denies rash. NEUROLOGIC: Denies numbness. Denies tingling. Denies weakness. PSYCHIATRIC: Denies anxiety. Denies depression. ENDOCRINE: Denies fatigue. Denies weight change. Denies polydipsia. Denies polyurina. GENITOURINARY: Denies burning, hematuria or urgency with micturation. HEMATOLOGIC: Denies history of anemia. Denies bleeding. Blood pressure 124/75 heart rate 105 afebrile maintaining oxygen saturation on room air GENERAL: This is a 57-year-old male in no apparent distress at the time of my examination. HEENT: Head is atraumatic, normocephalic. Pupils are equal, round. Sclerae anicteric. Conjunctivae are clear. Mucous membranes of the mouth are moist. Neck is supple. There is no jugular venous distention. No carotid bruit is heard. LUNGS: Clear to auscultation no wheezes, rales or rhonchi. No chest wall tenderness is noted on palpation or with deep breathing. HEART: Regular rate and rhythm without murmurs, rubs or gallops. S1 and S2 heard. ABDOMEN: Soft, nontender. Bowel sounds are heard. No organomegaly noted. EXTREMITIES: No evidence of peripheral edema and no calf tenderness noted. VASCULAR: Radial and dorsalis pedis pulses palpated, no evidence of clubbing. NEUROLOGIC: Patient is awake, alert and oriented x3. ASSESSMENT 1. Syncope 2. History of coronary artery disease angioplasty of the RCA 2014 3. Significant peripheral vascular disease bilateral femoral artery bypass 4. Right BKA with prosthesis 5. History of CVA 6. Hypertension 7. Dyslipidemia 8. Chronic tobacco abuse 9. Regular alcohol use PLAN Obtain 2-D echocardiogram and Doppler study to assess cardiac structure and function. Check d-dimer if elevated we'll do a CT angios of chest rule out pulmonary embolism. Decrease metoprolol to 12.5 mg daily and lisinopril to 20 mg daily. Transfer to select care unit for ongoing monitoring of telemetry. Check random cortisol level. Check for orhostatic changes qshift. Further recommendations to follow based upon clinical course. Thank you kindly for this consultation. Nurse Practitioner note has been reviewed, I agree with a documented findings and plan of care. Patient was seen and examined. Past Medical History Past Medical History: Coronary Artery Disease (CAD), Chest Pain / Angina, COPD, CVA/TIA, Hyperlipidemia, Hypertension, Myocardial Infarction ([place]), Pneumonia, Seizure Disorder, Vascular Disorder Additional Past Medical History / Comment(s): 09/25/14 STEMI with stent placement , Seizures- last one 2013, ETOH Abuse/withdrawl. lt rib fx, Depression, Hx of L ankle fx. PVD -rt bka has prosthesis Last Myocardial Infarction Date:: 09/25/14 History of Any Multi-Drug Resistant Organisms: None Reported Past Surgical History: Appendectomy, Heart Catheterization With Stent Additional Past Surgical History / Comment(s): 09/25/14 PTCA with stenting, BYPASS ON BOTH LEGS, RIGHT BELOW KNEE AMPUTATION, 2 EGD's, colonoscopy x 2, hemorrhoidectomy, . Past Anesthesia/Blood Transfusion Reactions: No Reported Reaction Additional Past Anesthesia/Blood Transfusion Reaction / Comment(s): Pt had blood transfusions with no reaction Date of Last Stent Placement:: 09/25/14 Smoking Status: Current every day smoker - Past Family History Father Family Medical History: Cancer Additional Family Medical History / Comment(s): Father of lung cancer. Mother Family Medical History: Cancer, Hypertension, Liver Disease Additional Family Medical History / Comment(s): Psychological history, Medications and Allergies Home Medications Medication Instructions Recorded Confirmed Type Metoprolol Tartrate [Lopressor] 25 mg PO DAILY 01/11/17 01/06/18 History Sertraline [Zoloft] 100 mg PO DAILY 01/11/17 01/06/18 History Atorvastatin [Lipitor] 80 mg PO HS 02/20/17 01/06/18 History Clopidogrel [Plavix] 75 mg PO DAILY 02/20/17 01/06/18 History Gabapentin [Neurontin] 300 mg PO BID 02/20/17 01/06/18 History HYDROcodone/APAP 10-325MG [[place] 1 tab PO QID 02/20/17 01/06/18 History 10-325] Lisinopril 40 mg PO DAILY 02/20/17 01/06/18 History Folic Acid 1 mg PO DAILY@1200 #30 tab 11/02/17 01/06/18 Rx Atorvastatin [Lipitor] 80 mg PO DAILY 01/06/18 01/06/18 History Cyanocobalamin (Vitamin B-12) 1,000 mcg PO DAILY 01/06/18 01/06/18 History [Vitamin B-12] Multivitamins, Thera [Multivitamin 1 tab PO DAILY 01/06/18 01/06/18 History (formulary)] Thiamine [Vitamin B-1] 100 mg PO DAILY 01/06/18 01/06/18 History Allergies Allergy/AdvReac Type Severity Reaction Status Date / Time No Known Allergies Allergy Verified 01/06/18 20:54 Physical Exam Vitals: Vital Signs Temp Pulse Pulse Pulse Pulse Pulse Resp 01/07/18 08:00 98.6 F 105 H 16 01/07/18 04:00 98.1 F 74 16 01/07/18 00:00 98 F 78 18 01/06/18 21:00 98 F 94 112 H 78 18 01/06/18 20:54 98.3 F 78 16 01/06/18 20:00 94 112 H 78 18 01/06/18 18:22 98.8 F 01/06/18 18:10 97.8 F 74 18 01/06/18 17:40 97 109 H 89 01/06/18 16:54 79 18 01/06/18 14:41 97 18 BP BP BP BP BP Pulse Ox 01/07/18 08:00 124/75 95 01/07/18 04:00 103/55 95 01/07/18 00:00 124/64 97 01/06/18 21:00 124/60 124/68 124/54 97 01/06/18 20:54 114/58 95 01/06/18 20:00 01/06/18 18:22 01/06/18 18:10 107/59 95 01/06/18 17:40 124/66 113/62 110/68 01/06/18 16:54 113/63 98 01/06/18 14:41 90/58 98 Intake and Output 01/06/18 01/07/18 01/07/18 22:59 06:59 14:59 Intake Total 300 1600 Balance 300 1600 Intake: Intake, IV Titration 1200 Amount 0.9% NaCl with KCl 20 Meq 100 /l 1,000 ml @ 100 mls/hr IV .BY DURATION [facility] Rx#: [id number] Magnesium Sulfate-D5w Pmx 300 1 gm In Dextrose/Water 1 100ml.bag @ 100 mls/hr IVPB Q1H [facility] Rx#: [id number] Mvi, Adult No.4 with Vit 800 K 10 ml Thiamine 100 mg Folic Acid 1 mg In 0.9% NaCl with KCl 20 Meq/l 1, 000 ml @ 100 mls/hr IV . BY DURATION [facility] Rx#: [id number] Oral 300 400 Other: Voiding Method Urinal Urinal # Voids 0 Weight 62.5 kg Results 01/07/18 03:14 01/07/18 03:14 Cardiac Enzymes 01/06/18 01/06/18 01/06/18 Range/Units 15:10 15:10 21:08 AST 40 (17-59) U/L CK-MB (CK-2) 1.1 1.6 (0.0-2.4) ng/mL Troponin I <0.012 <0.012 (0.000-0.034) ng/mL 01/07/18 01/07/18 Range/Units 03:14 03:14 AST 36 (17-59) U/L CK-MB (CK-2) 1.3 (0.0-2.4) ng/mL Troponin I <0.012 (0.000-0.034) ng/mL Coagulation 01/06/18 Range/Units 15:10 PT 9.8 (9.0-12.0) sec APTT 23.4 (22.0-30.0) sec Lipids 01/07/18 Range/Units 03:14 Triglycerides 57 (<150) mg/dL Cholesterol 92 (<200) mg/dL HDL Cholesterol 59 (40-60) mg/dL CBC 01/06/18 01/07/18 Range/Units 15:10 03:14 WBC 7.2 5.7 (3.8-10.6) k/uL RBC 3.90 L 3.51 L (4.30-5.90) m/uL Hgb 12.9 L 11.7 L (13.0-17.5) gm/dL Hct 39.6 35.8 L (39.0-53.0) % Plt Count 102 L 83 L (150-450) k/uL Comprehensive Metabolic Panel 01/06/18 01/07/18 Range/Units 15:10 03:14 Sodium 138 135 L (137-145) mmol/L Potassium 3.6 3.5 (3.5-5.1) mmol/L Chloride 102 104 (98-107) mmol/L Carbon Dioxide 23 25 (22-30) mmol/L BUN 19 22 H (9-20) mg/dL Creatinine 1.15 0.90 (0.66-1.25) mg/dL Glucose 85 95 (74-99) mg/dL Calcium 8.6 8.0 L (8.4-10.2) mg/dL AST 40 36 (17-59) U/L ALT 82 H 74 H (21-72) U/L Alkaline Phosphatase 86 121 (38-126) U/L Total Protein 5.9 L 4.8 L (6.3-8.2) g/dL Albumin 3.6 2.8 L (3.5-5.0) g/dL Current Medications Generic Name Dose Route Start Last Admin Trade Name Freq PRN Reason Stop Dose Admin Hydrocodone Bitart/Acetaminophen 1 each 01/06/18 18:00 01/07/18 08:15 [place] 10 PO 1 each QID [facility] Administration Aspirin 81 mg 01/07/18 09:00 01/07/18 09:23 Aspirin PO Not Given DAILY [facility] Atorvastatin Calcium 80 mg 01/06/18 21:00 01/06/18 19:36 Lipitor PO Not Given HS [facility] Clopidogrel Bisulfate 75 mg 01/07/18 09:00 01/07/18 08:17 Plavix PO 75 mg DAILY [facility] Administration Cyanocobalamin 1,000 mcg 01/07/18 09:00 01/07/18 08:17 Vitamin B-12 PO 1,000 mcg DAILY [facility] Administration Gabapentin 300 mg 01/06/18 21:00 01/07/18 08:17 Neurontin PO 300 mg BID [facility] Administration Parenteral Vitamin Supplement 1,011.2 mls @ 100 mls/hr 01/06/18 22:00 23:09 10 ml/ Thiamine HCl 100 mg/ IV 100 mls/hr Folic Acid 1 mg/ Potassium .BY DURATION [facility] Administration Chloride/Sodium Chloride Potassium Chloride/Sodium Chloride 1,000 mls @ 100 mls/hr 01/06/18 22:00 Ns-Kcl 20 Meq/L Iv Solution IV .BY DURATION [facility] Lisinopril 40 mg 01/07/18 09:00 01/07/18 08:17 Zestril PO 40 mg DAILY [facility] Administration Lorazepam 1 mg 01/06/18 17:30 Ativan IV Q2HR PRN CIWA 8 or 9 Lorazepam 1 mg 01/06/18 17:30 01/06/18 20:50 Ativan IV 1 mg Q1HR PRN Administration CIWA 10 to 15 Lorazepam 2 mg 01/06/18 17:30 Ativan IV 01/08/18 17:30 Q10M PRN CIWA 16 or higher Metoprolol Tartrate 25 mg 01/07/18 09:00 01/07/18 08:17 Lopressor PO 25 mg DAILY [facility] Administration Miscellaneous Information 1 each 01/06/18 18:22 Magnesium Per Protocol MISCELLANE DAILY PRN Per Protocol Protocol Morphine Sulfate 4 mg 01/06/18 17:25 Morphine Sulfate (Inj) IV Q5M PRN Chest Pain Nitroglycerin 0.4 mg 01/06/18 17:25 Nitrostat SUBLINGUAL Q5M PRN Chest Pain Sertraline HCl 100 mg 01/07/18 09:00 01/07/18 08:17 Zoloft PO 100 mg DAILY [facility] Administration Intake and Output 01/06/18 01/07/18 01/07/18 22:59 06:59 14:59 Intake Total 300 1600 Balance 300 1600 Intake: Intake, IV Titration 1200 Amount 0.9% NaCl with KCl 20 Meq 100 /l 1,000 ml @ 100 mls/hr IV .BY D[facility]ATION [facility] Rx#: [id number] Magnesium Sulfate-D5w Pmx 300 1 gm In Dextrose/Water 1 100ml.bag @ 100 mls/hr IVPB Q1H [facility] Rx#: [id number] Mvi, Adult No.4 with Vit 800 K 10 ml Thiamine 100 mg Folic Acid 1 mg In 0.9% NaCl with KCl 20 Meq/l 1, 000 ml @ 100 mls/hr IV . BY DURATION [facility] Rx#: [id number] Oral 300 400 Other: Voiding Method Urinal Urinal # Voids 0 Weight 62.5 kg 01/07/18 03:14 01/07/18 03:14
--- NOTE | 2018-01-07 11:14 | P.CRDCN ---
History of Present Illness History of present illness: 57 from a patient with known coronary artery disease and peripheral vascular disease who presented with recurrent dizzy spells and presyncope he states he passed out 3 times. He is mildly orthostatic but it is unclear to me why this gentleman has a low blood pressure. We are not seeing any bradycardia arrhythmias. He states he has not been drinking enough fluids. Cardiac enzymes are normal Suggest reducing the dose of metoprolol and losartan, admitting as an inpatient , monitoring on telemetry for bradycardia arrhythmias increasing hydration and a cortisol level Past Medical History Past Medical History: Coronary Artery Disease (CAD), Chest Pain / Angina, COPD, CVA/TIA, Hyperlipidemia, Hypertension, Myocardial Infarction ([place]), Pneumonia, Seizure Disorder, Vascular Disorder Additional Past Medical History / Comment(s): 09/25/14 STEMI with stent placement , Seizures- last one 2013, ETOH Abuse/withdrawl. lt rib fx, Depression, Hx of L ankle fx. PVD -rt bka has prosthesis Last Myocardial Infarction Date:: 09/25/14 History of Any Multi-Drug Resistant Organisms: None Reported Past Surgical History: Appendectomy, Heart Catheterization With Stent Additional Past Surgical History / Comment(s): 09/25/14 PTCA with stenting, BYPASS ON BOTH LEGS, RIGHT BELOW KNEE AMPUTATION, 2 EGD's, colonoscopy x 2, hemorrhoidectomy, . Past Anesthesia/Blood Transfusion Reactions: No Reported Reaction Additional Past Anesthesia/Blood Transfusion Reaction / Comment(s): Pt had blood transfusions with no reaction Date of Last Stent Placement:: 09/25/14 Smoking Status: Current every day smoker - Past Family History Father Family Medical History: Cancer Additional Family Medical History / Comment(s): Father of lung cancer. Mother Family Medical History: Cancer, Hypertension, Liver Disease Additional Family Medical History / Comment(s): Psychological history, Medications and Allergies Home Medications Medication Instructions Recorded Confirmed Type Metoprolol Tartrate [Lopressor] 25 mg PO DAILY 01/11/17 01/06/18 History Sertraline [Zoloft] 100 mg PO DAILY 01/11/17 01/06/18 History Atorvastatin [Lipitor] 80 mg PO HS 02/20/17 01/06/18 History Clopidogrel [Plavix] 75 mg PO DAILY 02/20/17 01/06/18 History Gabapentin [Neurontin] 300 mg PO BID 02/20/17 01/06/18 History HYDROcodone/APAP 10-325MG [[place] 1 tab PO QID 02/20/17 01/06/18 History 10-325] Lisinopril 40 mg PO DAILY 02/20/17 01/06/18 History Folic Acid 1 mg PO DAILY@1200 #30 tab 11/02/17 01/06/18 Rx Atorvastatin [Lipitor] 80 mg PO DAILY 01/06/18 01/06/18 History Cyanocobalamin (Vitamin B-12) 1,000 mcg PO DAILY 01/06/18 01/06/18 History [Vitamin B-12] Multivitamins, Thera [Multivitamin 1 tab PO DAILY 01/06/18 01/06/18 History (formulary)] Thiamine [Vitamin B-1] 100 mg PO DAILY 01/06/18 01/06/18 History Allergies Allergy/AdvReac Type Severity Reaction Status Date / Time No Known Allergies Allergy Verified 01/06/18 20:54 Physical Exam Vitals: Vital Signs Temp Pulse Pulse Pulse Pulse Pulse Resp 01/07/18 08:00 98.6 F 105 H 16 01/07/18 04:00 98.1 F 74 16 01/07/18 00:00 98 F 78 18 01/06/18 21:00 98 F 94 112 H 78 18 01/06/18 20:54 98.3 F 78 16 01/06/18 20:00 94 112 H 78 18 01/06/18 18:22 98.8 F 01/06/18 18:10 97.8 F 74 18 01/06/18 17:40 97 109 H 89 01/06/18 16:54 79 18 01/06/18 14:41 97 18 BP BP BP BP BP Pulse Ox 01/07/18 08:00 124/75 95 01/07/18 04:00 103/55 95 01/07/18 00:00 124/64 97 01/06/18 21:00 124/60 124/68 124/54 97 01/06/18 20:54 114/58 95 01/06/18 20:00 01/06/18 18:22 01/06/18 18:10 107/59 95 01/06/18 17:40 124/66 113/62 110/68 01/06/18 16:54 113/63 98 01/06/18 14:41 90/58 98 Intake and Output 01/06/18 01/07/18 01/07/18 22:59 06:59 14:59 Intake Total 300 1600 Balance 300 1600 Intake: Intake, IV Titration 1200 Amount 0.9% NaCl with KCl 20 Meq 100 /l 1,000 ml @ 100 mls/hr IV .BY DURATION [facility] Rx#: [id number] Magnesium Sulfate-D5w Pmx 300 1 gm In Dextrose/Water 1 100ml.bag @ 100 mls/hr IVPB Q1H [facility] Rx#: [id number] Mvi, Adult No.4 with Vit 800 K 10 ml Thiamine 100 mg Folic Acid 1 mg In 0.9% NaCl with KCl 20 Meq/l 1, 000 ml @ 100 mls/hr IV . BY DURATION [facility] Rx#: [id number] Oral 300 400 Other: Voiding Method Urinal Urinal Urinal # Voids 0 Weight 62.5 kg Results 01/07/18 03:14 01/07/18 03:14 Cardiac Enzymes 01/06/18 01/06/18 01/06/18 Range/Units 15:10 15:10 21:08 AST 40 (17-59) U/L CK-MB (CK-2) 1.1 1.6 (0.0-2.4) ng/mL Troponin I <0.012 <0.012 (0.000-0.034) ng/mL 01/07/18 01/07/18 Range/Units 03:14 03:14 AST 36 (17-59) U/L CK-MB (CK-2) 1.3 (0.0-2.4) ng/mL Troponin I <0.012 (0.000-0.034) ng/mL Coagulation 01/06/18 Range/Units 15:10 PT 9.8 (9.0-12.0) sec APTT 23.4 (22.0-30.0) sec Lipids 01/07/18 Range/Units 03:14 Triglycerides 57 (<150) mg/dL Cholesterol 92 (<200) mg/dL HDL Cholesterol 59 (40-60) mg/dL CBC 01/06/18 01/07/18 Range/Units 15:10 03:14 WBC 7.2 5.7 (3.8-10.6) k/uL RBC 3.90 L 3.51 L (4.30-5.90) m/uL Hgb 12.9 L 11.7 L (13.0-17.5) gm/dL Hct 39.6 35.8 L (39.0-53.0) % Plt Count 102 L 83 L (150-450) k/uL Comprehensive Metabolic Panel 01/06/18 01/07/18 Range/Units 15:10 03:14 Sodium 138 135 L (137-145) mmol/L Potassium 3.6 3.5 (3.5-5.1) mmol/L Chloride 102 104 (98-107) mmol/L Carbon Dioxide 23 25 (22-30) mmol/L BUN 19 22 H (9-20) mg/dL Creatinine 1.15 0.90 (0.66-1.25) mg/dL Glucose 85 95 (74-99) mg/dL Calcium 8.6 8.0 L (8.4-10.2) mg/dL AST 40 36 (17-59) U/L ALT 82 H 74 H (21-72) U/L Alkaline Phosphatase 86 121 (38-126) U/L Total Protein 5.9 L 4.8 L (6.3-8.2) g/dL Albumin 3.6 2.8 L (3.5-5.0) g/dL Current Medications Generic Name Dose Route Start Last Admin Trade Name Freq PRN Reason Stop Dose Admin Hydrocodone Bitart/Acetaminophen 1 each 01/06/18 18:00 01/07/18 08:15 [place] 10 PO 1 each QID [facility] Administration Aspirin 81 mg 01/07/18 09:00 01/07/18 09:23 Aspirin PO Not Given DAILY [facility] Atorvastatin Calcium 80 mg 01/06/18 21:00 01/06/18 19:36 Lipitor PO Not Given HS [facility] Clopidogrel Bisulfate 75 mg 01/07/18 09:00 01/07/18 08:17 Plavix PO 75 mg DAILY [facility] Administration Cyanocobalamin 1,000 mcg 01/07/18 09:00 01/07/18 08:17 Vitamin B-12 PO 1,000 mcg DAILY [facility] Administration Gabapentin 300 mg 01/06/18 21:00 01/07/18 08:17 Neurontin PO 300 mg BID [facility] Administration Parenteral Vitamin Supplement 1,011.2 mls @ 100 mls/hr 01/06/18 22:00 23:09 10 ml/ Thiamine HCl 100 mg/ IV 100 mls/hr Folic Acid 1 mg/ Potassium .BY DURATION [facility] Administration Chloride/Sodium Chloride Potassium Chloride/Sodium Chloride 1,000 mls @ 100 mls/hr 01/06/18 22:00 Ns-Kcl 20 Meq/L Iv Solution IV .BY DURATION [facility] Lisinopril 20 mg 01/08/18 09:00 Zestril PO DAILY [facility] Lorazepam 1 mg 01/06/18 17:30 Ativan IV Q2HR PRN CIWA 8 or 9 Lorazepam 1 mg 01/06/18 17:30 01/06/18 20:50 Ativan IV 1 mg Q1HR PRN Administration CIWA 10 to 15 Lorazepam 2 mg 01/06/18 17:30 Ativan IV 01/08/18 17:30 Q10M PRN CIWA 16 or higher Metoprolol Tartrate 12.5 mg 01/08/18 09:00 Lopressor PO DAILY [facility] Miscellaneous Information 1 each 01/06/18 18:22 Magnesium Per Protocol MISCELLANE DAILY PRN Per Protocol Protocol Morphine Sulfate 4 mg 01/06/18 17:25 Morphine Sulfate (Inj) IV Q5M PRN Chest Pain Nitroglycerin 0.4 mg 01/06/18 17:25 Nitrostat SUBLINGUAL Q5M PRN Chest Pain Sertraline HCl 100 mg 01/07/18 09:00 01/07/18 08:17 Zoloft PO 100 mg DAILY [facility] Administration Intake and Output 01/06/18 01/07/18 01/07/18 22:59 06:59 14:59 Intake Total 300 1600 Balance 300 1600 Intake: Intake, IV Titration 1200 Amount 0.9% NaCl with KCl 20 Meq 100 /l 1,000 ml @ 100 mls/hr IV .BY DURATION [facility] Rx#: [id number] Magnesium Sulfate-D5w Pmx 300 1 gm In Dextrose/Water 1 100ml.bag @ 100 mls/hr IVPB Q1H [facility] Rx#: [id number] Mvi, Adult No.4 with Vit 800 K 10 ml Thiamine 100 mg Folic Acid 1 mg In 0.9% NaCl with KCl 20 Meq/l 1, 000 ml @ 100 mls/hr IV . BY DURATION [facility] Rx#: [id number] Oral 300 400 Other: Voiding Method Urinal Urinal Urinal # Voids 0 Weight 62.5 kg 01/07/18 03:14 01/07/18 03:14
[2018-01-07] MEDS ORDERED: MULTIVITAMINS, THERA 1 EACH TAB PO SCH (12:00)
[2018-01-07] MEDS ORDERED: FOLIC ACID 1 MG TAB PO SCH (12:00)
--- NOTE | 2018-01-07 12:51 | CT ---
EXAMINATION TYPE: CT angio chest DATE OF EXAM: 01/07/2018 COMPARISON: 03/09/2017 HISTORY: 57-year-old male complains of difficulty breathing and dizziness and near syncope when stand ing up. TECHNIQUE: Contiguous axial scanning of the chest performed with IV Contrast, patient injected with 1 00 mL of Isovue 370. Coronal/sagittal MIP reconstructions performed. CT DLP: 161.4 mGycm Automated exposure control for dose reduction was used. FINDINGS: Heart normal size without pericardial effusion. Coronary vessel calcifications are present. Marker fo r coronary artery disease. Borderline ectasia ascending aorta at 3.6 cm and borderline aneurysm of the descending thoracic aorta at 3.1 cm. Mild atherosclerotic calcifications and bovine configuration to the aortic arch. No thoracic lymphadenopathy. A 1.2 cm subcarinal lymph node remains not enlarged by CT size criteria. Satisfactory opacification of the pulmonary arterial system without evidence for pulmonary embolus. Mild scattered centrilobular and paraseptal emphysema is again demonstrated with mild diffuse bronchi al wall thickening slightly increased in the interval. Prominent dependent areas of atelectasis. No c onsolidation or pleural effusion. Low-attenuation hepatic parenchyma suggesting underlying fatty infiltration. Bones: Scattered endplate Schmorl's nodes in the thoracic spine. No osseous destructive process. IMPRESSION: 1. NO EVIDENCE FOR PULMONARY EMBOLUS. 2. COPD WITH MILD EMPHYSEMA. 3. THE DEGREE OF DIFFUSE BRONCHIAL WALL THICKENING SHOWS INTERVAL INCREASE AND COULD REFLECT SUPERIMP OSED ACUTE BRONCHITIS.
--- NOTE | 2018-01-07 16:30 | PN ---
PROGRESS NOTE DATE OF SERVICE: 01/07/2018 This 57-year-old gentleman who was admitted with multiple episodes of syncope had orthostatic hypotension and dehydration. Cardiology is following the patient closely. Hemoglobin 11.7. D-dimer is 1.38. A chest CT was done, showed no evidence of pulmonary embolism; COPD, possible acute bronchitis. PHYSICAL EXAM: Alert and oriented x3. Pulse is 75, blood pressure 123/76, respirations 16, temperature 98 degrees. Mild orthostatic changes present. HEENT: Conjunctivae normal. Oral mucosa moist. NECK: No jugular venous distention. No carotid bruits. No lymph node enlargement. CARDIOVASCULAR: S1, S2 muffled. RESPIRATORY: Breath sounds diminished in the bases. No rhonchi. No crackles. ABDOMEN: Soft, nontender. LEGS: No edema. NERVOUS SYSTEM: Nonfocal. LAB STUDIES: WBC 5.6, hemoglobin is 11.9. The D-dimer is 1.38. ASSESSMENT: 1. Multiple episodes of syncope, possibly orthostatic hypotension and dehydration. 2. History of EtOH, EtOH withdrawal and acute delirium tremens. 3. Chest pain for evaluation. 4. Hypomagnesemia. 5. 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 6. Coronary artery disease. 7. Chronic obstructive pulmonary disease. 8. History of cerebrovascular accident, transient ischemic attack. 9. Hypertension. 10.Hyperlipidemia. 11.History of myocardial infarction. 12.History of pneumonia. 13.History of seizure disorder. 14.History of peripheral vascular disease.. 15.History of EtOH. 16.History of coronary artery disease, stent. 17.History of anxiety, depression. 18.History of right leg prosthesis. 19.History of nicotine dependence. RECOMMENDATIONS AND DISCUSSION: Recommend to continue current medical management and symptomatic treatment. At this time, I recommend with closely follow the patient, adjust medications, CIWA protocol. Closely follow with Cardiology. Guarded prognosis. Further recommendations to follow. Will monitor the orthostatic vitals as well. MMODL / IJN: [id number] /
--- NOTE | 2018-01-07 18:27 | P.CNNES ---
History of Present Illness Consult date: 01/07/18 Reason for Consult: Patient with recurrent syncopal episodes. History of Present Illness: This patient is a 57-year-old right-handed white male who was admitted to [facility] yesterday for evaluation of syncopal episode. Patient was seen in the emergency room yesterday by Dr. Hurtado. He was complaining of symptoms of generalized weakness and multiple episodes of dizziness and falling. He was being evaluated for possibility of orthostatic hypotension. Patient does have a history of having undergone a right BKA with prosthesis in 2012. He has history also of chronic nicotine dependence and alcohol abuse. There was concern he may have had some degree of alcohol withdrawal symptoms causing his admission to hospital yesterday. Patient states he was running errands yesterday and was at the grocery store when he felt dizzy and lightheaded. He went home and started putting things away and still felt quite dizzy and apparently passed out. He dropped to the floor only momentarily and was able to get himself up and onto the couch. He had several more episodes before coming into the hospital due to these recurrent syncope spells. Apparently a few months ago he had similar episodes of syncope. He did not seek medical attention at the time. He does have history of coronary artery disease and underwent angioplasty of the right coronary artery in 2014. He is followed with cardiology as well. He also has significant peripheral vascular disease and has undergone bilateral femoral artery bypass. He denies any recent history of seizures. He does drink one or 2 beers in a month but denies any excessive alcohol use at this time. Apparently due to the recurrent syncopal episodes he was seen in the emergency room by Dr. Hurtado. He was sent for a computed tomography scan of the brain which revealed no acute intracranial hemorrhage or midline shift. There is mild to moderate diffuse age-related cerebral atrophy and chronic small vessel ischemic changes noted. Evidence of an old right-sided frontal lobe infarct was noted. No evidence of acute stroke. Patient also underwent carotid Doppler ultrasound yesterday which revealed only 50% stenosis in both internal carotid arteries. Patient is resting comfortably at this time. He denies any recent history of head trauma or head injury. He has remote history of seizures but has not had any anticonvulsant medication since 2014. Patient is now admitted and neurology has been consulted for further evaluation and recommendations. Review of Systems Constitutional: Denies chills, Denies fever Eyes: denies blurred vision, denies pain Ears, nose, mouth and throat: Denies headache, Denies sore throat Cardiovascular: Denies chest pain, Denies shortness of breath Respiratory: Denies cough Gastrointestinal: Denies abdominal pain, Denies diarrhea, Denies nausea, Denies vomiting Musculoskeletal: Denies myalgias Integumentary: Denies pruritus, Denies rash Neurological: Denies numbness, Denies weakness Psychiatric: Denies anxiety, Denies depression Endocrine: Denies fatigue, Denies weight change Past Medical History Past Medical History: Coronary Artery Disease (CAD), Chest Pain / Angina, COPD, CVA/TIA, Hyperlipidemia, Hypertension, Myocardial Infarction (PR), Pneumonia, Seizure Disorder, Vascular Disorder Additional Past Medical History / Comment(s): 09/25/14 STEMI with stent placement , Seizures- last one 2013, ETOH Abuse/withdrawl. lt rib fx, Depression, Hx of L ankle fx. PVD -rt bka has prosthesis Last Myocardial Infarction Date:: 09/25/14 History of Any Multi-Drug Resistant Organisms: None Reported Past Surgical History: Appendectomy, Heart Catheterization With Stent Additional Past Surgical History / Comment(s): 09/25/14 PTCA with stenting, BYPASS ON BOTH LEGS, RIGHT BELOW KNEE AMPUTATION, 2 EGD's, colonoscopy x 2, hemorrhoidectomy, . Past Anesthesia/Blood Transfusion Reactions: No Reported Reaction Additional Past Anesthesia/Blood Transfusion Reaction / Comment(s): Pt had blood transfusions with no reaction Date of Last Stent Placement:: 09/25/14 Smoking Status: Current every day smoker - Past Family History Father Family Medical History: Cancer Additional Family Medical History / Comment(s): Father of lung cancer. Mother Family Medical History: Cancer, Hypertension, Liver Disease Additional Family Medical History / Comment(s): Psychological history, Medications and Allergies Home Medications Medication Instructions Recorded Confirmed Type Metoprolol Tartrate [Lopressor] 25 mg PO DAILY 01/11/17 01/06/18 History Sertraline [Zoloft] 100 mg PO DAILY 01/11/17 01/06/18 History Atorvastatin [Lipitor] 80 mg PO HS 02/20/17 01/06/18 History Clopidogrel [Plavix] 75 mg PO DAILY 02/20/17 01/06/18 History Gabapentin [Neurontin] 300 mg PO BID 02/20/17 01/06/18 History HYDROcodone/APAP 10-325MG [[place] 1 tab PO QID 02/20/17 01/06/18 History 10-325] Lisinopril 40 mg PO DAILY 02/20/17 01/06/18 History Folic Acid 1 mg PO DAILY@1200 #30 tab 11/02/17 01/06/18 Rx Atorvastatin [Lipitor] 80 mg PO DAILY 01/06/18 01/06/18 History Cyanocobalamin (Vitamin B-12) 1,000 mcg PO DAILY 01/06/18 01/06/18 History [Vitamin B-12] Multivitamins, Thera [Multivitamin 1 tab PO DAILY 01/06/18 01/06/18 History (formulary)] Thiamine [Vitamin B-1] 100 mg PO DAILY 01/06/18 01/06/18 History Allergies Allergy/AdvReac Type Severity Reaction Status Date / Time No Known Allergies Allergy Verified 01/06/18 20:54 Physical Examination - Vital Signs Vital Signs: Vital Signs Temp Pulse Pulse Pulse Pulse Pulse Resp 01/07/18 08:00 98.6 F 105 H 16 01/07/18 04:00 98.1 F 74 16 01/07/18 00:00 98 F 78 18 01/06/18 21:00 98 F 94 112 H 78 18 01/06/18 20:54 98.3 F 78 16 01/06/18 20:00 94 112 H 78 18 01/06/18 18:22 98.8 F 01/06/18 18:10 97.8 F 74 18 01/06/18 17:40 97 109 H 89 01/06/18 16:54 79 18 01/06/18 14:41 97 18 BP BP BP BP BP Pulse Ox 01/07/18 08:00 124/75 95 01/07/18 04:00 103/55 95 01/07/18 00:00 124/64 97 01/06/18 21:00 124/60 124/68 124/54 97 01/06/18 20:54 114/58 95 01/06/18 20:00 01/06/18 18:22 01/06/18 18:10 107/59 95 01/06/18 17:40 124/66 113/62 110/68 01/06/18 16:54 113/63 98 06/22/18 14:41 90/58 98 Intake and Output 01/06/18 01/07/18 01/07/18 22:59 06:59 14:59 Intake Total 300 1600 Balance 300 1600 Intake: Intake, IV Titration 1200 Amount 0.9% NaCl with KCl 20 Meq 100 /l 1,000 ml @ 100 mls/hr IV .BY DURATION [facility] Rx#: [id number] Magnesium Sulfate-D5w Pmx 300 1 gm In Dextrose/Water 1 100ml.bag @ 100 mls/hr IVPB Q1H [facility] Rx#: [id number] Mvi, Adult No.4 with Vit 800 K 10 ml Thiamine 100 mg Folic Acid 1 mg In 0.9% NaCl with KCl 20 Meq/l 1, 000 ml @ 100 mls/hr IV . BY DURATION [facility] Rx#: [id number] Oral 300 400 Other: Voiding Method Urinal Urinal Urinal # Voids 0 Weight 62.5 kg - Constitutional General appearance: average body habitus, cooperative - EENT EENT: PERRL, mucous membranes moist - Respiratory Respiratory: lungs clear, normal breath sounds - Cardiovascular Cardiovascular: regular rate, normal S1, normal S2 Extremities: no peripheral edema bilaterally - Gastrointestinal Gastrointestinal: normoactive bowel sounds - Integumentary Integumentary: normal - Neurologic Cranial nerve examination: PERRL, EOMI, VFF, V1/V2/V3 grossly intact, face symmetric, tongue midline, intact gag reflex, intact corneal reflex, normal palatal elevation Speech examination: intact Sensorimotor examination: intact Motor examination - right side: 4/5: biceps, triceps, wrist flexion, wrist extension, amr physician, hip flexors Motor examination - left side: 4/5: biceps, triceps, wrist flexion, wrist extension, amr physician, hip flexors, knee extensors, dorsiflexion, toe extension (EHL) , plantarflexion Detailed sensory examination: intact Reflex and gait examination: intact Reflexes: 1+: ankle, bicep, knee, tricep - Musculoskeletal Musculoskeletal: no pain - Psychiatric Psychiatric: mood/affect appropriate, cooperative Results - Laboratory Findings CBC and BMP: 01/07/18 03:14 01/07/18 03:14 Abnormal Lab Findings: Abnormal Labs 01/06/18 01/06/18 01/06/18 15:10 15:10 16:50 RBC 3.90 L Hgb 12.9 L Hct MCV 101.5 H Plt Count 102 L D-Dimer Sodium BUN Calcium Magnesium 1.3 L ALT 82 H Total Protein 5.9 L Albumin Urine Protein 1+ H Ur Leukocyte Esterase Trace H Urine Bacteria Rare H Hyaline Casts 44 H Urine Mucus Occasional H 01/07/18 01/07/18 01/07/18 03:14 03:14 09:30 RBC 3.51 L Hgb 11.7 L Hct 35.8 L MCV 102.1 H Plt Count 83 L D-Dimer 1.38 H Sodium 135 L BUN 22 H Calcium 8.0 L Magnesium ALT 74 H Total Protein 4.8 L Albumin 2.8 L Urine Protein Ur Leukocyte Esterase Urine Bacteria Hyaline Casts Urine Mucus Assessment and Plan (1) Recurrent syncope Current Visit: Yes Status: Acute Code(s): R55 - SYNCOPE AND COLLAPSE SNOMED Code(s): 875704185 (2) TIA (transient ischemic attack) Current Visit: No Status: Acute Code(s): G45.9 - TRANSIENT CEREBRAL ISCHEMIC ATTACK, UNSPECIFIED SNOMED Code(s): 576016313 (3) Alcohol withdrawal syndrome Current Visit: No Status: Acute Code(s): F10.239 - ALCOHOL DEPENDENCE WITH WITHDRAWAL, UNSPECIFIED SNOMED Code(s): 475530854 (4) Peripheral vascular disease Current Visit: No Status: Acute Code(s): I73.9 - PERIPHERAL VASCULAR DISEASE , UNSPECIFIED SNOMED Code(s): 461542060 Plan: This patient is a 57-year-old male being evaluated for episodes of recurrent syncope. He was brought into the emergency room yesterday at [facility] for evaluation. He was seen in the ER by Dr. Hurtado. He was sent for a computed tomography scan of the brain the results of which are noted above. CAT scan failed to reveal any evidence of acute stroke. Patient has remote history of seizures but has not been on any anticonvulsant medication since 2014. He has a history of a right below-knee amputation with prosthesis fitting. He states he was at home and having recurrent episodes of lightheadedness and dizziness with passing out spells. Cardiology has been consulted and further evaluation is ongoing. He is to undergo 2-D echocardiogram and carotid Doppler study for further assessment of cardiac function. Patient denies any recent seizure activity. We will obtain routine EEG for further evaluation. We'll continue to follow this patient's progress closely with other specialists. Case was discussed at length today with the patient in detail. All of his questions were answered. His overall prognosis at this time remains guarded. Time with Patient: Greater than 30
[2018-01-07] MEDS: ATORVASTATIN 80 MG TAB PO SCH (20:26)
[2018-01-07] MEDS: SULFAMETHOX-TMP 800-160MG 1 EACH TAB PO SCH (20:26)
[2018-01-08 06:52] LABS: Basophils % (A) 1 %; Eosinophils # (A) 0.3 k/uL (0-0.7); Eosinophils % (A) 4 %; HCT 34.5 % (39.0-53.0); HGB 11.1 gm/dL (13.0-17.5); Lymphocytes # (A) 1.9 k/uL (1.0-4.8); Lymphocytes % (A) 26 %; MCH 33.6 pg (25.0-35.0); MCHC 32.2 g/dL (31.0-37.0); MCV 104.4 fL (80.0-100.0); Macrocytosis Slight; Mean Platelet Volume 9.4; Monocytes # (A) 0.4 k/uL (0-1.0); Monocytes % (A) 6 %; Neutrophils # (A) 4.4 k/uL (1.3-7.7); Neutrophils % (A) 61 %; RDW 13.9 % (11.5-15.5); WBC 7.2 k/uL (3.8-10.6)
[2018-01-08 06:55] LABS: Platelet Count 81 k/uL (150-450)
[2018-01-08 07:03] LABS: ALT 69 U/L (21-72); AST 27 U/L (17-59); Alkaline Phosphatase 79 U/L (38-126); Anion Gap 6 mmol/L; Blood Urea Nitrogen 18 mg/dL (9-20); Calcium 8.3 mg/dL (8.4-10.2); Carbon Dioxide 24 mmol/L (22-30); Chloride 109 mmol/L (98-107); Glucose 87 mg/dL (74-99); Potassium 4.5 mmol/L (3.5-5.1); Sodium 139 mmol/L (137-145); Total Bilirubin 0.5 mg/dL (0.2-1.3); Total Protein 5.1 g/dL (6.3-8.2)
[2018-01-08] MEDS: CYANOCOBALAMIN 500 MCG TAB PO SCH (07:46)
[2018-01-08] MEDS: METOPROLOL TARTRATE 12.5 MG TAB PO SCH (07:46)
[2018-01-08] MEDS: GABAPENTIN 300 MG CAP PO SCH ×2 (07:46→20:50)
[2018-01-08] MEDS: SERTRALINE 100 MG TAB PO SCH (07:47)
[2018-01-08] MEDS: ASPIRIN 81 MG PO SCH (07:47)
[2018-01-08] MEDS: SULFAMETHOX-TMP 800-160MG 1 EACH TAB PO SCH ×2 (07:47→20:50)
[2018-01-08] MEDS: HYDROcodone/APAP 10-325MG 1 EACH TAB PO SCH ×4 (07:47→20:50)
[2018-01-08] MEDS: LISINOPRIL 20 MG TAB PO SCH (07:47)
--- NOTE | 2018-01-08 10:18 | ECHOF ---
Referral Reason:dizziness MEASUREMENTS -------- HEIGHT: 175.3 cm WEIGHT: 62.1 kg BP: 103/55 IVSd: 1.1 cm (0.6 - 1.1) LVIDd: 5.0 cm (3.9 - 5.3) LVPWd: 1.1 cm (0.6 - 1.1) IVSs: 1.7 cm LVIDs: 3.3 cm LVPWs: 1.7 cm LA Diam: 3.5 cm (2.7 - 3.8) RVIDd: 3.1 cm (< 3.3) LAESV Index (A-L): 29.62 ml/m Ao Diam: 3.6 cm (2.0 - 3.7) AV Cusp: 2.3 cm (1.5 - 2.6) EPSS: 0.5 cm MV E Brett: 0.69 m/s MV DecT: 232 ms MV A Brett: 0.86 m/s MV E/A Ratio: 0.80 MV EF SLOPE: 141.05 mm/s (70 - 150) MV EXCURSION: 20.82 mm (> 18.000) FINDINGS -------- Sinus rhythm. This was a technically good study. The left ventricular size is normal. There is borderline concentric left ventricular hypertrophy. Overall left ventricular systolic function is low-normal with, an EF between 50 - 55 %. Basal infe rior LV wall motion is hypokinetic. Basal inferoseptal LV wall motion is hypokinetic. The right ventricle is normal in size. LA is midly dilated 29-33ml/m2. The right atrium is normal in size. The aortic valve is trileaflet and appears structurally normal. The mitral valve is normal. The tricuspid valve appears structurally normal. There is no pulmonic regurgitation present. The aortic root size is normal. Normal inferior vena cava with normal inspiratory collapse consistent with estimated right atrial pre ssure of 5 mmHg. There is no pericardial effusion. CONCLUSIONS -------- 1. Sinus rhythm. 2. This was a technically good study. 3. The left ventricular size is normal. 4. There is borderline concentric left ventricular hypertrophy. 5. Overall left ventricular systolic function is low-normal with, an EF between 50 - 55 %. 6. Basal inferior LV wall motion is hypokinetic. 7. Basal inferoseptal LV wall motion is hypokinetic. 8. The right ventricle is normal in size. 9. LA is midly dilated 29-33ml/m2. 10. The right atrium is normal in size. 11. The aortic valve is trileaflet and appears structurally normal. 12. The mitral valve is normal. 13. The tricuspid valve appears structurally normal. 14. There is no pulmonic regurgitation present. 15. The aortic root size is normal. 16. Normal inferior vena cava with normal inspiratory collapse consistent with estimated right atrial pressure of 5 mmHg. 17. There is no pericardial effusion. BOILER SERVICE TECHNICIAN: Angelita Torres RDCS
--- NOTE | 2018-01-08 10:48 | P.PN ---
Subjective Progress Note Date: 01/08/18 Mr. Rojas is a pleasant 57-year-old male past medical history significant for coronary artery disease, COPD, CVA, dyslipidemia, hypertension and peripheral vascular disease, status post right BKA with prosthesis, chronic nicotine dependence and a long history of alcohol abuse. We have been asked to see the patient in consultation for syncopal episode. He underwent angioplasty of the distal RCA in 2014. He also had a right from bypass in 2011. He follows with Dr. Diaz in the office. His last visit in the office was November 2015. He states yesterday he was doing routine errands at the grocery store when he felt mildly lightheaded. He denies associated chest pain, shortness of breath, nausea, vomiting or diaphoresis. He went home with his [employer] and starting to put things away when he again started to feel dizzy. He sat down and the symptoms subsided so he continued back to the kitchen to make himself a sandwich. At that time he again got acutely dizzy and this time he passed out. He dropped to the floor momentarily. He says this is very brief and he stood back up immediately walked himself over to the couch. He denies associated chest pain, shortness of breath, nausea, vomiting or palpitations with this episode. He states this happened a couple of more times before coming to the hospital. He also states over the previous couple of months since this happened approximately 8-10 times a similar fashion with no associated symptoms. EKG on arrival reveals sinus mechanism with prolonged QT. Chest x-ray is negative for an acute cardiopulmonary process. CT brain negative for acute intracranial process with mild to moderate diffuse age-related cerebral atrophy and chronic small vessel ischemic change as well as old right sided frontal lobe infarct. Bilateral carotid duplex were obtained and showed less than 50% stenosis bilaterally. Laboratory data reviewed, hemoglobin 11.7, platelets 83, sodium 135, potassium 3.5, creatinine 0.9, magnesium on admission 1. 3 repeat today 2.3, cardiac enzymes negative 3, LDL 22 and HDL 59. Current cardiac medications include Lopressor 25 mg daily, lisinopril 40 mg daily, Plavix 75 mg daily, atorvastatin 80 mg daily. Most recent echocardiogram performed October 2017 reveals preserved left ventricular systolic function with ejection fraction 55-60%, there are no wall motion abnormalities noted. Most recent Lexiscan stress test performed February 2017 reveals no evidence of pharmacologically induced left ventricular myocardial ischemia. 01/08/2018 Patient was seen and examined this morning, still has some mild dizziness but in general feeling better. He did have significant orthostatics on the shift foreman, today no significant change noted. No evidence of bradycardia. Cortisol level was 7. D-dimer was elevated, no evidence of PE by CAT scan. Echocardiogram with Doppler study revealed a normal left ventricular systolic function. Objective - Vital Signs Vital signs: Vital Signs Temp 97.7 F 01/08/18 07:42 Pulse 83 01/08/18 07:55 Resp 17 01/08/18 07:42 BP 130/75 01/08/18 07:42 Pulse Ox 98 01/08/18 07:42 Intake & Output 01/07/18 01/08/18 01/08/18 18:59 06:59 18:59 Intake Total 420 1811.2 180 Output Total 1225 400 Balance 420 586.2 -220 Weight 65.2 kg Intake: Intake, IV Titration 1811.2 Amount 0.9% NaCl with KCl 20 Meq 800 /l 1,000 ml @ 100 mls/hr IV .BY DURATION [facility] Rx#: [id number] Mvi, Adult No.4 with Vit 1011.2 K 10 ml Thiamine 100 mg Folic Acid 1 mg In 0.9% NaCl with KCl 20 Meq/l 1, 000 ml @ 100 mls/hr IV . BY DURATION [facility] Rx#: [id number] Oral 420 180 Output: Urine 1225 400 Other: Voiding Method Urinal Urinal Urinal # Voids 0 1 - Exam Blood pressure 124/75 heart rate 105 afebrile maintaining oxygen saturation on room air GENERAL: This is a 57-year-old male in no apparent distress at the time of my examination. HEENT: Head is atraumatic, normocephalic. Pupils are equal, round. Sclerae anicteric. Conjunctivae are clear. Mucous membranes of the mouth are moist. Neck is supple. There is no jugular venous distention. No carotid bruit is heard. LUNGS: Clear to auscultation no wheezes, rales or rhonchi. No chest wall tenderness is noted on palpation or with deep breathing. HEART: Regular rate and rhythm without murmurs, rubs or gallops. S1 and S2 heard. ABDOMEN: Soft, nontender. Bowel sounds are heard. No organomegaly noted. EXTREMITIES: No evidence of peripheral edema and no calf tenderness noted. Patient is status post amputation of the right foot VASCULAR: Radial and dorsalis pedis pulses palpated, no evidence of clubbing. NEUROLOGIC: Patient is awake, alert and oriented x3. - Labs CBC & Chem 7: 01/08/18 06:26 01/08/18 06:26 Labs: Abnormal Lab Results - Last 24 Hours (Table) 01/08/18 01/08/18 Range/Units 06:26 06:26 RBC 3.30 L (4.30-5.90) m/uL Hgb 11.1 L (13.0-17.5) gm/dL Hct 34.5 L (39.0-53.0) % MCV 104.4 H (80.0-100.0) fL Plt Count 81 L (150-450) k/uL Chloride 109 H (98-107) mmol/L Calcium 8.3 L (8.4-10.2) mg/dL Total Protein 5.1 L (6.3-8.2) g/dL Albumin 3.0 L (3.5-5.0) g/dL Assessment and Plan Plan: ASSESSMENT 1. Syncope 2. History of coronary artery disease angioplasty of the RCA 2014 3. Significant peripheral vascular disease bilateral femoral artery bypass 4. Right BKA with prosthesis 5. History of CVA 6. Hypertension 7. Dyslipidemia 8. Chronic tobacco abuse 9. Regular alcohol use Plan We will check another set of orthostatics after the patient has been up ambulating today. Recommend a monitor as an outpatient. DNP note has been reviewed, I agree with a documented findings and plan of care. Patient was seen and examined.
[2018-01-08] MEDS: CLOPIDOGREL 75 MG TAB PO SCH (11:59)
[2018-01-08] MEDS: ATORVASTATIN 80 MG TAB PO SCH (20:50)
--- NOTE | 2018-01-08 21:28 | PN ---
PROGRESS NOTE I am covering for Dr. Pereira. DATE OF SERVICE: 01/08/2018 This 57-year-old gentleman who was admitted with multiple episodes of syncope also had orthostatic hypotension and dehydration. No chest pain. No palpitations. No fever. EXAM: Alert and oriented times three. Pulse 80, blood pressure 140/7, respirations 16, temperature 98.1, pulse ox 97% on room air. HEENT: Conjunctivae normal. Neck: No jugular venous distention. Cardiovascular systems: S1, S2. Respirations: Breath sounds diminished in the bases. No rhonchi and no crackles. Abdomen is soft, nontender. Legs are no edema, no swelling. Central nervous system: No focal deficits. LABS: WBC 11.9, hemoglobin 11.1. D-dimer is 1.38. ASSESSMENT: 1. Multiple episodes of syncope, possible orthostatic hypotension and dehydration. 2. History of ETOH withdrawal and acute delirium tremens. 3. Chest pain for evaluation. 4. Hypomagnesemia. 5. 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 6. Coronary artery disease history. 7. History of chronic obstructive pulmonary disease. 8. History of cerebrovascular accident, transient ischemic attack. 9. Hypertension. 10.History of hyperlipidemia. 11.History of myocardial infarction. 12.History pneumonia. 13.History of seizure disorder. 14.History of peripheral vascular disease. 15.History of EtOH. 16.Coronary artery disease/stent. 17.Anxiety, depression. 18.History of right leg . 19.History of nicotine dependence. RECOMMENDATIONS AND DISCUSSION: Recommend to continue current medications, management and symptomatic treatment. Otherwise, at this time, we will monitor the patient closely. Closely follow with Cardiology. Adjust medications. Guarded prognosis. Further recommendations to follow. MMODL / IJN: [id number] /
--- NOTE | 2018-01-08 22:47 | P.PN ---
Subjective Progress Note Date: 01/08/18 This patient is a 57-year-old male being evaluated for recurrent falls and syncope. Patient was seen in neurology consultation yesterday. He seems to be doing somewhat better today with no further episodes of syncope or collapse. He was evaluated by cardiology today and no new changes have been noted by the patient. Patient has been having symptoms of mild dizziness but has been able to sit up and get to the bathroom without much difficulty. He is being evaluated for orthostatic hypotension. He did have significant orthostasis overnight and he is being given IV fluids. Cortisol level was noted to be 7.0. His d-dimer was slightly elevated. He has no evidence of PE by CAT scan report. His echocardiogram with Doppler study revealed a normal left ventricular systolic function. Patient to be checked for orthostatics later tonight as well after he has been up and ambulating. He does have some degree of dehydration. He has a remote history of alcohol abuse and withdrawal in the past. We will continue close neurological follow-up for the patient during this admission. We will continue close neurological follow-up with the patient. Objective - Vital Signs Vital signs: Vital Signs Temp 97.7 F 01/08/18 07:42 Pulse 88 01/08/18 12:00 Resp 17 01/08/18 15:24 BP 134/75 01/08/18 12:00 Pulse Ox 97 01/08/18 12:00 Intake & Output 01/07/18 01/08/18 01/08/18 18:59 06:59 18:59 Intake Total 420 2811.2 1180 Output Total 1225 900 Balance 420 1586.2 280 Weight 65.2 kg Intake: IV 800 Mvi, Adult No.4 with Vit 800 K 10 ml Thiamine 100 mg Folic Acid 1 mg In 0.9% NaCl with KCl 20 Meq/l 1, 000 ml @ 100 mls/hr IV . BY DURATION SHONDA Rx#: [id number] Intake, IV Titration 2811.2 Amount 0.9% NaCl with KCl 20 Meq 1800 /l 1,000 ml @ 100 mls/hr IV .BY DURATION SHONDA Rx#: [id number] Mvi, Adult No.4 with Vit 1011.2 K 10 ml Thiamine 100 mg Folic Acid 1 mg In 0.9% NaCl with KCl 20 Meq/l 1, 000 ml @ 100 mls/hr IV . BY DURATION SHONDA Rx#: [id number] Oral 420 380 Output: Urine 1225 900 Other: Voiding Method Urinal Urinal Urinal # Voids 0 1 - Exam Physical examination: PHYSICAL EXAMINATION: Patient is resting comfortably in bed. VITAL SIGNS: Blood pressure is [134/75]. Heart rate is [88]. Respiration is [17] . Temperature is [97.7]. HEENT: Head is atraumatic, neck is supple, there were no carotid bruits. CHEST: Lungs are clear to auscultation and percussion. CARDIAC: S1, S2 normal rate and rhythm. There is no murmur. ABDOMEN: Soft and nontender. Bowel sounds are present. EXTREMITIES: There is no pedal edema. Peripheral pulses are present. Neurological examination: Patient's neurological examination is unchanged from yesterday. - Labs CBC & Chem 7: 18 06:26 18 06:26 Labs: Abnormal Lab Results - Last 24 Hours (Table) 01/08/18 01/08/18 Range/Units 06:26 06:26 RBC 3.30 L (4.30-5.90) m/uL Hgb 11.1 L (13.0-17.5) gm/dL Hct 34.5 L (39.0-53.0) % MCV 104.4 H (80.0-100.0) fL Plt Count 81 L (150-450) k/uL Chloride 109 H (98-107) mmol/L Calcium 8.3 L (8.4-10.2) mg/dL Total Protein 5.1 L (6.3-8.2) g/dL Albumin 3.0 L (3.5-5.0) g/dL Assessment and Plan (1) Recurrent syncope Current Visit: Yes Status: Acute Code(s): R55 - SYNCOPE AND COLLAPSE SNOMED Code(s): 488115856 (2) TIA (transient ischemic attack) Current Visit: No Status: Acute Code(s): G45.9 - TRANSIENT CEREBRAL ISCHEMIC ATTACK, UNSPECIFIED SNOMED Code(s): 113112404 (3) Alcohol withdrawal syndrome Current Visit: No Status: Acute Code(s): F10.239 - ALCOHOL DEPENDENCE WITH WITHDRAWAL, UNSPECIFIED SNOMED Code(s): 593008395 (4) Peripheral vascular disease Current Visit: No Status: Acute Code(s): I73.9 - PERIPHERAL VASCULAR DISEASE , UNSPECIFIED SNOMED Code(s): 438929007 Plan: This patient is a 57-year-old male being evaluated for recent syncopal episodes and collapse. He was found to have evidence of orthostatic hypotension yesterday evening. Cardiology is following the patient very closely. He is to have his orthostatics checked once again today for close monitoring. Doubt that he has been having seizures but we will further evaluate with a routine EEG to be done tomorrow. He was evaluated for possibility of pulmonary embolus as his d-dimer was slightly elevated. This study came back negative. Patient states he is feeling better today and has had no further syncopal episodes but as mentioned episodes of orthostasis. Would continue IV hydration for this patient with close monitoring. We'll await for his EEG to be done tomorrow and this will be reviewed. We'll continue close neurological follow-up for the patient during this admission.
[2018-01-09 07:28] LABS: Basophils % (A) 1 %; Eosinophils # (A) 0.2 k/uL (0-0.7); Eosinophils % (A) 3 %; HCT 36.2 % (39.0-53.0); HGB 11.6 gm/dL (13.0-17.5); Lymphocytes # (A) 1.8 k/uL (1.0-4.8); Lymphocytes % (A) 27 %; MCH 34.2 pg (25.0-35.0); MCHC 32.2 g/dL (31.0-37.0); MCV 106.2 fL (80.0-100.0); Macrocytosis Moderate; Mean Platelet Volume 9.3; Monocytes # (A) 0.5 k/uL (0-1.0); Monocytes % (A) 7 %; Neutrophils # (A) 3.8 k/uL (1.3-7.7); Neutrophils % (A) 59 %; Platelet Count 115 k/uL (150-450); RBC 3.41 m/uL (4.30-5.90); RDW 14.5 % (11.5-15.5); WBC 6.5 k/uL (3.8-10.6)
[2018-01-09 07:40] LABS: ALT 57 U/L (21-72); AST 23 U/L (17-59); Albumin 3.4 g/dL (3.5-5.0); Alkaline Phosphatase 81 U/L (38-126); Anion Gap 10 mmol/L; Blood Urea Nitrogen 15 mg/dL (9-20); Calcium 8.8 mg/dL (8.4-10.2); Carbon Dioxide 25 mmol/L (22-30); Chloride 105 mmol/L (98-107); Glucose 79 mg/dL (74-99); Potassium 4.4 mmol/L (3.5-5.1); Sodium 140 mmol/L (137-145); Total Bilirubin 0.6 mg/dL (0.2-1.3); Total Protein 5.6 g/dL (6.3-8.2)
[2018-01-09 08:36] VITALS: RESP 18
[2018-01-09] MEDS: CLOPIDOGREL 75 MG TAB PO SCH (08:36)
[2018-01-09] MEDS: GABAPENTIN 300 MG CAP PO SCH (08:36)
[2018-01-09] MEDS: LISINOPRIL 20 MG TAB PO SCH (08:37)
[2018-01-09] MEDS: CYANOCOBALAMIN 500 MCG TAB PO SCH (08:37)
[2018-01-09] MEDS: ASPIRIN 81 MG PO SCH (08:37)
[2018-01-09] MEDS: METOPROLOL TARTRATE 12.5 MG TAB PO SCH (08:37)
[2018-01-09] MEDS: SULFAMETHOX-TMP 800-160MG 1 EACH TAB PO SCH (08:37)
[2018-01-09] MEDS: SERTRALINE 100 MG TAB PO SCH (08:37)
[2018-01-09] MEDS: HYDROcodone/APAP 10-325MG 1 EACH TAB PO SCH ×3 (08:38→17:33)
--- NOTE | 2018-01-09 11:32 | P.PN ---
Subjective Patient resting in bed states he feels stable to go home. Awaiting EEG from the neurology. Clear per cardiology they requesting Holter monitor Objective - Vital Signs Vital signs: Vital Signs Temp 97.6 F 01/09/18 08:00 Pulse 88 01/09/18 08:34 Resp 18 01/09/18 08:00 BP 152/74 01/09/18 08:34 Pulse Ox 96 01/09/18 08:00 Intake & Output 01/08/18 01/09/18 01/09/18 18:59 06:59 18:59 Intake Total 1380 800 250 Output Total 900 1600 Balance 480 -800 250 Weight 65 kg Intake: IV 800 10 Invasive Line 2 10 Mvi, Adult No.4 with Vit 800 K 10 ml Thiamine 100 mg Folic Acid 1 mg In 0.9% NaCl with KCl 20 Meq/l 1, 000 ml @ 100 mls/hr IV . BY DURATION SHONDA Rx#: [id number] Intake, IV Titration 800 Amount 0.9% NaCl with KCl 20 Meq 800 /l 1,000 ml @ 100 mls/hr IV .BY DURATION SHONDA Rx#: [id number] Oral 580 240 Output: Urine 900 1600 Other: Voiding Method Urinal Urinal # Voids 1 - Constitutional General appearance: Present: average body habitus - EENT Eyes: Present: PERRLA Ears: bilateral: normal - Neck Neck: Present: normal ROM - Respiratory Respiratory: bilateral: CTA - Cardiovascular Rhythm: regular - Gastrointestinal General gastrointestinal: Present: soft - Integumentary Integumentary: Present: normal - Neurologic Neurologic: Present: CNII-XII intact - Psychiatric Psychiatric: Present: A&O x's 3, appropriate affect, intact judgment & insight - Labs CBC & Chem 7: 01/09/18 07:00 01/09/18 07:00 Labs: Abnormal Lab Results - Last 24 Hours (Table) 01/09/18 01/09/18 Range/Units 07:00 07:00 RBC 3.41 L (4.30-5.90) m/uL Hgb 11.6 L (13.0-17.5) gm/dL Hct 36.2 L (39.0-53.0) % MCV 106.2 H (80.0-100.0) fL Plt Count 115 L (150-450) k/uL Total Protein 5.6 L (6.3-8.2) g/dL Albumin 3.4 L (3.5-5.0) g/dL - Imaging and Cardiology Chest x-ray: report reviewed CT scan - chest: report reviewed CT Scan - head: report reviewed Assessment and Plan Plan: Assessment Multiple syncopal episodes with metastatic hypertension with dehydration History of EtOH withdrawal and delirium Chest pain for evaluation Hypo-magnesium History of coronary disease history of AR with stent COPD history of CVA/TIA Hypertension Malnutrition mild protein calorie deficiency Hyperlipidemia Seizure disorder History of of peripheral vascular disease Anxiety/depression 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
--- NOTE | 2018-01-09 14:37 | P.PN ---
Subjective Progress Note Date: 01/09/18 Mr. Rojas is a pleasant 57-year-old male past medical history significant for coronary artery disease, COPD, CVA, dyslipidemia, hypertension and peripheral vascular disease, status post right BKA with prosthesis, chronic nicotine dependence and a long history of alcohol abuse. We have been asked to see the patient in consultation for syncopal episode. He underwent angioplasty of the distal RCA in 2014. He also had a right from bypass in 2011. He follows with Dr. Diaz in the office. His last visit in the office was November 2015. He states yesterday he was doing routine errands at the grocery store when he felt mildly lightheaded. He denies associated chest pain, shortness of breath, nausea, vomiting or diaphoresis. He went home with his [employer] and starting to put things away when he again started to feel dizzy. He sat down and the symptoms subsided so he continued back to the kitchen to make himself a sandwich. At that time he again got acutely dizzy and this time he passed out. He dropped to the floor momentarily. He says this is very brief and he stood back up immediately walked himself over to the couch. He denies associated chest pain, shortness of breath, nausea, vomiting or palpitations with this episode. He states this happened a couple of more times before coming to the hospital. He also states over the previous couple of months since this happened approximately 8-10 times a similar fashion with no associated symptoms. EKG on arrival reveals sinus mechanism with prolonged QT. Chest x-ray is negative for an acute cardiopulmonary process. CT brain negative for acute intracranial process with mild to moderate diffuse age-related cerebral atrophy and chronic small vessel ischemic change as well as old right sided frontal lobe infarct. Bilateral carotid duplex were obtained and showed less than 50% stenosis bilaterally. Laboratory data reviewed, hemoglobin 11.7, platelets 83, sodium 135, potassium 3.5, creatinine 0.9, magnesium on admission 1. 3 repeat today 2.3, cardiac enzymes negative 3, LDL 22 and HDL 59. Current cardiac medications include Lopressor 25 mg daily, lisinopril 40 mg daily, Plavix 75 mg daily, atorvastatin 80 mg daily. Most recent echocardiogram performed October 2017 reveals preserved left ventricular systolic function with ejection fraction 55-60%, there are no wall motion abnormalities noted. Most recent Lexiscan stress test performed February 2017 reveals no evidence of pharmacologically induced left ventricular myocardial ischemia. 01/08/2018 Patient was seen and examined this morning, still has some mild dizziness but in general feeling better. 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 No evidence of bradycardia. Cortisol level was 7. D-dimer was elevated, no evidence of PE by CAT scan. Echocardiogram with Doppler study revealed a normal left ventricular systolic function. 01/09/2018 Patient seen and examined this morning, denies any dizziness, hemodynamically stable. Objective - Vital Signs Vital signs: Vital Signs Temp 98.5 F 01/09/18 11:42 Pulse 71 01/09/18 11:42 Resp 18 01/09/18 11:42 BP 151/81 01/09/18 11:42 Pulse Ox 96 01/09/18 11:42 Intake & Output 01/08/18 01/09/18 01/09/18 18:59 06:59 18:59 Intake Total 1380 800 490 Output Total 900 1600 Balance 480 -800 490 Weight 65 kg Intake: IV 800 10 Invasive Line 2 10 Mvi, Adult No.4 with Vit 800 K 10 ml Thiamine 100 mg Folic Acid 1 mg In 0.9% NaCl with KCl 20 Meq/l 1, 000 ml @ 100 mls/hr IV . BY DURATION SHONDA Rx#: [id number] Intake, IV Titration 800 Amount 0.9% NaCl with KCl 20 Meq 800 /l 1,000 ml @ 100 mls/hr IV .BY DURATION SHONDA Rx#: [id number] Oral 580 480 Output: Urine 900 1600 Other: Voiding Method Urinal Urinal # Voids 1 - Exam Blood pressure 124/75 heart rate 105 afebrile maintaining oxygen saturation on room air GENERAL: This is a 57-year-old male in no apparent distress at the time of my examination. HEENT: Head is atraumatic, normocephalic. Pupils are equal, round. Sclerae anicteric. Conjunctivae are clear. Mucous membranes of the mouth are moist. Neck is supple. There is no jugular venous distention. No carotid bruit is heard. LUNGS: Clear to auscultation no wheezes, rales or rhonchi. No chest wall tenderness is noted on palpation or with deep breathing. HEART: Regular rate and rhythm without murmurs, rubs or gallops. S1 and S2 heard. ABDOMEN: Soft, nontender. Bowel sounds are heard. No organomegaly noted. EXTREMITIES: No evidence of peripheral edema and no calf tenderness noted. Patient is status post amputation of the right foot VASCULAR: Radial and dorsalis pedis pulses palpated, no evidence of clubbing. NEUROLOGIC: Patient is awake, alert and oriented x3. - Labs CBC & Chem 7: 01/09/18 07:00 01/09/18 07:00 Labs: Abnormal Lab Results - Last 24 Hours (Table) 01/09/18 01/09/18 Range/Units 07:00 07:00 RBC 3.41 L (4.30-5.90) m/uL Hgb 11.6 L (13.0-17.5) gm/dL Hct 36.2 L (39.0-53.0) % MCV 106.2 H (80.0-100.0) fL Plt Count 115 L (150-450) k/uL Total Protein 5.6 L (6.3-8.2) g/dL Albumin 3.4 L (3.5-5.0) g/dL Assessment and Plan Plan: ASSESSMENT 1. Syncope 2. History of coronary artery disease angioplasty of the RCA 2014 3. Significant peripheral vascular disease bilateral femoral artery bypass 4. Right BKA with prosthesis 5. History of CVA 6. Hypertension 7. Dyslipidemia 8. Chronic tobacco abuse 9. Regular alcohol use Plan From cardiology's perspective, patient may be able to be discharged home today. We would recommend a 30 day event monitor on discharge. Follow-up in the office post discharge. DNP note has been reviewed, I agree with a documented findings and plan of care. Patient was seen and examined.
[2018-01-09 16:24] VITALS: BP 147/74; PULSE 68; TEMP 98
--- NOTE | 2018-01-09 18:50 | EEG ---
ELECTROENCEPHALOGRAM REPORT DATE OF EE01/09/2018 ELECTROENCEPHALOGRAPHIC EXAMINATION REPORT: INDICATION FOR EXAMINATION: This patient is a 57-year-old male being evaluated for recurrent syncope and falls. AGE: [age]. EEG FINDINGS: A routine 21-channel awake digital EEG recording was accomplished utilizing the 10-20 international system with bipolar and referential montages. The background activity in the most alert resting state consists of a low to medium amplitude, fairly well developed well sustained 8 Hz activity over the posterior head regions. This posterior rhythm attenuates to eye opening. There is a small amount of low amplitude 18-20 Hz beta activity seen maximally over the anterior head regions. Muscle and movement artifact was observed on a few occasions during the tracing. Hyperventilation was not performed. Photic stimulation at flash frequencies of 2-30 Hz produced a good symmetrical occipital driving response. No epileptiform discharges were seen. IMPRESSION: This EEG is within normal limits for the patient's age. The EEG failed to reveal any focal, lateralized, or epileptiform abnormalities. Clinical correlation is recommended. MMSAMANTHA / MARYN: [id number] /
--- NOTE | 2018-01-09 20:01 | P.PN ---
Subjective Progress Note Date: 01/09/18 This patient is a 57-year-old male being evaluated for recurrent falls and syncope. Patient was seen in neurology consultation yesterday. He seems to be doing somewhat better today with no further episodes of syncope or collapse. He was evaluated by cardiology today and no new changes have been noted by the patient. Patient has been having symptoms of mild dizziness but has been able to sit up and get to the bathroom without much difficulty. He is being evaluated for orthostatic hypotension. He did have significant orthostasis overnight and he is being given IV fluids. Cortisol level was noted to be 7.0. His d-dimer was slightly elevated. He has no evidence of PE by CAT scan report. His echocardiogram with Doppler study revealed a normal left ventricular systolic function. Patient to be checked for orthostatics later tonight as well after he has been up and ambulating. He does have some degree of dehydration. He has a remote history of alcohol abuse and withdrawal in the past. We will continue close neurological follow-up for the patient during this admission. Patient was able to complete routine EEG today. This EEG was reviewed and is normal for his age. No evidence of any epileptiform discharges. Patient is being considered for possible discharge home later this afternoon. He may follow-up in the outpatient neurology clinic in 2-3 weeks. We will continue close neurological follow-up with the patient. Objective - Vital Signs Vital signs: Vital Signs Temp 98.0 F 01/09/18 16:00 Pulse 68 01/09/18 16:00 Resp 18 01/09/18 16:00 BP 147/74 01/09/18 16:00 Pulse Ox 97 01/09/18 16:00 Intake & Output 01/09/18 01/09/18 01/10/18 06:59 18:59 06:59 Intake Total 800 740 Output Total 1600 1000 Balance -800 -260 Weight 65 kg Intake: IV 20 Invasive Line 2 20 Intake, IV Titration 800 Amount 0.9% NaCl with KCl 20 Meq 800 /l 1,000 ml @ 100 mls/hr IV .BY DURATION SHONDA Rx#: [id number] Oral 720 Output: Urine 1600 1000 Other: Voiding Method Urinal # Voids 1 - Exam Physical examination: PHYSICAL EXAMINATION: Patient is resting comfortably in bed. VITAL SIGNS: Blood pressure is [147/74]. Heart rate is [68]. Respiration is [18] . Temperature is [98.0]. HEENT: Head is atraumatic, neck is supple, there were no carotid bruits. CHEST: Lungs are clear to auscultation and percussion. CARDIAC: S1, S2 normal rate and rhythm. There is no murmur. ABDOMEN: Soft and nontender. Bowel sounds are present. EXTREMITIES: There is no pedal edema. Peripheral pulses are present. Neurological examination: Patient's neurological examination is unchanged from yesterday. - Labs CBC & Chem 7: 01/09/18 07:00 01/09/18 07:00 Labs: Abnormal Lab Results - Last 24 Hours (Table) 01/09/18 01/09/18 Range/Units 07:00 07:00 RBC 3.41 L (4.30-5.90) m/uL Hgb 11.6 L (13.0-17.5) gm/dL Hct 36.2 L (39.0-53.0) % MCV 106.2 H (80.0-100.0) fL Plt Count 115 L (150-450) k/uL Total Protein 5.6 L (6.3-8.2) g/dL Albumin 3.4 L (3.5-5.0) g/dL Assessment and Plan (1) Recurrent syncope Status: Acute Code(s): R55 - SYNCOPE AND COLLAPSE SNOMED Code(s): 601083867 (2) TIA (transient ischemic attack) Status: Acute Code(s): G45.9 - TRANSIENT CEREBRAL ISCHEMIC ATTACK, UNSPECIFIED SNOMED Code(s): 905801207 (3) Alcohol withdrawal syndrome Status: Acute Code(s): F10.239 - ALCOHOL DEPENDENCE WITH WITHDRAWAL, UNSPECIFIED SNOMED Code(s): 099846115 (4) Peripheral vascular disease Status: Acute Code(s): I73.9 - PERIPHERAL VASCULAR DISEASE, UNSPECIFIED SNOMED Code(s): 513123411 Plan: This patient is a 57-year-old male being evaluated for recent syncopal episodes and collapse. He was found to have evidence of orthostatic hypotension yesterday evening. Cardiology is following the patient very closely. He is to have his orthostatics checked once again today for close monitoring. Doubt that he has been having seizures but we will further evaluate with a routine EEG to be done tomorrow. He was evaluated for possibility of pulmonary embolus as his d-dimer was slightly elevated. This study came back negative. Patient states he is feeling better today and has had no further syncopal episodes but as mentioned episodes of orthostasis. Would continue IV hydration for this patient with close monitoring. Patient underwent routine EEG today which was reviewed. His EEG is within normal limits with no evidence of any epileptiform discharges. He is being considered for discharge home this afternoon. He may follow-up in the outpatient neurology clinic in 3-4 weeks. We will continue close neurological follow-up for the patient during this admission.
--- NOTE | 2018-01-10 12:04 | P.DS ---
Providers Date of admission: 01/07/18 09:12 Expected date of discharge: 01/09/18 Attending physician: Ozzy Pereira Consults: 01/06/18 17:25 Consult Physician Stat Consulting Provider: Roney Duncan Consult Reason/Comments: Recurrent syncopal episodes Do you want consulting provider notified?: Yes Consult Physician Urgent Consulting Provider: Lorenzo Diaz Consult Reason/Comments: Chest pain with a history of coronary artery disease Do you want consulting provider notified?: Yes Primary care physician: Ozzy Pereira Hospital Course: 57-year-old male was admitted to the emergency room with with complaints of intermittent syncope episodes. Was found to have orthostatic hypotension with dehydration. Patient is a history of alcohol and tobacco abuse. Patient has history of coronary disease with SC with stents. Patient also has a history of seizure disorder. Patient was evaluated by neurology and cleared for discharge patient was also evaluated with cardiology and was cleared for discharge Assessment Multiple syncopal episodes with metastatic hypertension with dehydration History of EtOH abuse nicotine abuse Chest pain atypical Hypo-magnesium Anemia secondary to alcoholism Coronary disease with history of SC with stents Malnutrition protein/calorie deficiency mild History of CVA TIA Hypertension Hyperlipidemia Seizure disorder Peripheral vascular disease with below the knee amputation of the right leg with prosthesis Anxiety/depression Plan Discharge home with follow-up with family physician Dr. Ozzy Pereira Patient Condition at Discharge: Good Plan - Discharge Summary Discharge Rx Participant: Yes New Discharge Prescriptions: New Metoprolol Tartrate [Lopressor] 12.5 mg PO BID #60 dose Lisinopril [Zestril] 20 mg PO DAILY #30 tab Discontinued Metoprolol Tartrate [Lopressor] 25 mg PO DAILY Lisinopril 40 mg PO DAILY No Action Sertraline [Zoloft] 100 mg PO DAILY HYDROcodone/APAP 10-325MG [[place] 10-325] 1 tab PO QID Clopidogrel [Plavix] 75 mg PO DAILY Atorvastatin [Lipitor] 80 mg PO HS Gabapentin [Neurontin] 300 mg PO BID Folic Acid 1 mg PO DAILY@1200 #30 tab Multivitamins, Thera [Multivitamin (formulary)] 1 tab PO DAILY Thiamine [Vitamin B-1] 100 mg PO DAILY Cyanocobalamin (Vitamin B-12) [Vitamin B-12] 1,000 mcg PO DAILY Atorvastatin [Lipitor] 80 mg PO DAILY Discharge Medication List Sertraline [Zoloft] 100 mg PO DAILY 01/11/17 [History] Atorvastatin [Lipitor] 80 mg PO HS 02/20/17 [History] Clopidogrel [Plavix] 75 mg PO DAILY 02/20/17 [History] Gabapentin [Neurontin] 300 mg PO BID 02/20/17 [History] HYDROcodone/APAP 10-325MG [[place] 10-325] 1 tab PO QID 02/20/17 [History] Folic Acid 1 mg PO DAILY@1200 #30 tab 11/02/17 [Rx] Atorvastatin [Lipitor] 80 mg PO DAILY 01/06/18 [History] Cyanocobalamin (Vitamin B-12) [Vitamin B-12] 1,000 mcg PO DAILY 01/06/18 [ History] Multivitamins, Thera [Multivitamin (formulary)] 1 tab PO DAILY 01/06/18 [History ] Thiamine [Vitamin B-1] 100 mg PO DAILY 01/06/18 [History] Lisinopril [Zestril] 20 mg PO DAILY #30 tab 01/09/18 [Rx] Metoprolol Tartrate [Lopressor] 12.5 mg PO BID #60 dose 01/09/18 [Rx] Follow up Appointment(s)/Referral(s): Ozzy Pereira MD [Primary Care Provider] - 01/13/18 1:00 pm (With Gloria Barlow NP.) Roney Duncan MD [STAFF PHYSICIAN] - 1 Week (Office to call with follow up appointment.) Lorenzo Diaz MD [STAFF PHYSICIAN] - 01/24/18 3:00 pm (Office to mail out 30 day quality assurance monitor chassis- will arrive by the end of the week.) Patient Instructions/Handouts: Chest Pain (DC), Dehydration (DC), Syncope (DC) Activity/Diet/Wound Care/Special Instructions: Needs 30 day event monitor on D/C Discharge Disposition: HOME SELF-CARE
== END 2018-01-09 19:26 | disposition home or self-care (01) | DRG 312 ==
LOC: EC 14:39 → 3OBS 17:25 → OBSVTOIN 01-07 09:12 → 6SEL 01-07 13:05
PROVIDERS: ADMIT Family Medicine; ATTEND Family Medicine
DX: I95.1 Orthostatic hypotension (principal); S22.39XA Fracture of one rib, unspecified side, initial encounter for closed fracture; E44.1 Mild protein-calorie malnutrition; F10.239 Alcohol dependence with withdrawal, unspecified; D63.8 Anemia in other chronic diseases classified elsewhere; E78.5 Hyperlipidemia, unspecified; E83.42 Hypomagnesemia; E86.0 Dehydration; F17.200 Nicotine dependence, unspecified, uncomplicated; F32.9 Major depressive disorder, single episode, unspecified; F41.9 Anxiety disorder, unspecified; G40.909 Epilepsy, unspecified, not intractable, without status epilepticus; I10 Essential (primary) hypertension; I25.10 Atherosclerotic heart disease of native coronary artery without angina pectoris; I25.2 Old myocardial infarction; I65.23 Occlusion and stenosis of bilateral carotid arteries; I73.9 Peripheral vascular disease, unspecified; J44.9 Chronic obstructive pulmonary disease, unspecified; Z79.02 Long term (current) use of antithrombotics/antiplatelets; Z79.899 Other long term (current) drug therapy; Z80.1 Family history of malignant neoplasm of trachea, bronchus and lung; Z82.49 Family history of ischemic heart disease and other diseases of the circulatory system; Z86.73 Personal history of transient ischemic attack (TIA), and cerebral infarction without residual deficits; Z87.01 Personal history of pneumonia (recurrent); Z89.511 Acquired absence of right leg below knee; Z95.5 Presence of coronary angioplasty implant and graft; Z97.13 Presence of artificial right leg (complete) (partial)
CPT/HCPCS: 36415; 70450; 71046; 71275; 80053; 80061; 81001; 82533; 82550; 82553; 83735; 84484; 85025; 85379; 85610; 85730; 90732; 93005; 93270; 93271; 93306; 93880; 95816; 96361; 96374; 96375; 99285

== ENCOUNTER 2018-03-18 07:38 | Observation (INO) | payer MEDICARE ==
[2018-03-18] MEDS ORDERED: NITROGLYCERIN OINT 1 INCH/GM PACKET TOPICAL STA (07:48)
--- NOTE | 2018-03-18 07:54 | ED ---
General Adult HPI - General Stated complaint: Chest Pain Time Seen by Provider: 03/18/18 07:38 Source: RN notes reviewed - History of Present Illness Initial comments: This is a 58-year-old male who presents emergency Department complaining of chest pain. Patient states he has had a heart attack in the past and has one stent placed. Patient also has high blood pressure and is currently a smoker. Patient has had his right leg indicated secondary to peripheral vascular disease. Patient states he is a daily drinker he drank early this morning. Patient states the pain stays in his chest is also short of breath with the pain. Patient states she's nauseated and has some epigastric abdominal pain as well. Patient denies any diaphoresis. Patient denies any injury trauma. Patient received aspirin on the way in. No nitroglycerin was given because he was close to the hospital pressure was relatively low. Patient denies any headache patient denies numbness weakness. Patient denies any lightheadedness dizziness or near syncopal episode. Patient denies any recent fever chills or cough. - Related Data Home Medications Medication Instructions Recorded Confirmed Sertraline [Zoloft] 100 mg PO DAILY 01/11/17 01/06/18 Atorvastatin [Lipitor] 80 mg PO HS 02/20/17 01/06/18 Clopidogrel [Plavix] 75 mg PO DAILY 02/20/17 01/06/18 Gabapentin [Neurontin] 300 mg PO BID 02/20/17 01/06/18 HYDROcodone/APAP 10-325MG [[place] 1 tab PO QID 02/20/17 01/06/18 10-325] Atorvastatin [Lipitor] 80 mg PO DAILY 01/06/18 01/06/18 Cyanocobalamin (Vitamin B-12) 1,000 mcg PO DAILY 01/06/18 01/06/18 [Vitamin B-12] Multivitamins, Thera [Multivitamin 1 tab PO DAILY 01/06/18 01/06/18 (formulary)] Thiamine [Vitamin B-1] 100 mg PO DAILY 01/06/18 01/06/18 Previous Rx's Medication Instructions Recorded Folic Acid 1 mg PO DAILY@1200 #30 tab 11/02/17 Lisinopril [Zestril] 20 mg PO DAILY #30 tab 01/09/18 Metoprolol Tartrate [Lopressor] 12.5 mg PO BID #60 dose 01/09/18 Allergies Allergy/AdvReac Type Severity Reaction Status Date / Time No Known Allergies Allergy Verified 01/06/18 20:54 Review of Systems ROS Statement: Those systems with pertinent positive or pertinent negative responses have been documented in the HPI. ROS Other: All systems not noted in ROS Statement are negative. Past Medical History Past Medical History: Coronary Artery Disease (CAD), Chest Pain / Angina, COPD, CVA/TIA, Hyperlipidemia, Hypertension, Myocardial Infarction ([place]), Pneumonia, Seizure Disorder, Vascular Disorder Additional Past Medical History / Comment(s): 09/25/14 STEMI with stent placement , Seizures- last one 2013, ETOH Abuse/withdrawl. lt rib fx, Depression, Hx of L ankle fx. PVD -rt bka has prosthesis Last Myocardial Infarction Date:: 09/25/14 History of Any Multi-Drug Resistant Organisms: None Reported Past Surgical History: Appendectomy, Heart Catheterization With Stent Additional Past Surgical History / Comment(s): 09/25/14 PTCA with stenting, BYPASS ON BOTH LEGS, RIGHT BELOW KNEE AMPUTATION, 2 EGD's, colonoscopy x 2, hemorrhoidectomy, . Past Anesthesia/Blood Transfusion Reactions: No Reported Reaction Additional Past Anesthesia/Blood Transfusion Reaction / Comment(s): Pt had blood transfusions with no reaction Date of Last Stent Placement:: 09/25/14 Smoking Status: Current every day smoker - Past Family History Father Family Medical History: Cancer Additional Family Medical History / Comment(s): Father of lung cancer. Mother Family Medical History: Cancer, Hypertension, Liver Disease Additional Family Medical History / Comment(s): Psychological history, General Exam - General Exam Comments Initial Comments: GENERAL: Patient is well-developed and well-nourished. Patient is nontoxic and well- hydrated and is in no acute distress. ENT: Neck is soft and supple. No significant lymphadenopathy is noted. Oropharynx is clear. Moist mucous membranes. Neck has full range of motion without eliciting any pain. EYES: The sclera were anicteric and conjunctiva were pink and moist. Extraocular movements were intact and pupils were equal round and reactive to light. Eyelids were unremarkable. PULMONARY: Unlabored respirations. Good breath sounds bilaterally. No audible rales rhonchi or wheezing was noted. CARDIOVASCULAR: There is a regular rate and rhythm without any murmurs gallops or rubs. ABDOMEN: Soft and nontender with normal bowel sounds. No palpable organomegaly was noted. There is no palpable pulsatile mass. SKIN: Skin is clear with no lesions or rashes and otherwise unremarkable. NEUROLOGIC: Patient is alert and oriented x3. Cranial nerves II through XII are grossly intact. Motor and sensory are also intact. Normal speech, volume and content. Symmetrical smile. MUSCULOSKELETAL: Normal extremities with adequate strength and full range of motion. No lower extremity swelling or edema. No calf tenderness. LYMPHATICS: No significant lymphadenopathy is noted PSYCHIATRIC: Normal psychiatric evaluation. Normal interpersonal interactions appears functionally intact in deals appropriately with others. No signs of depression. No signs of anxiety. Course Vital Signs 03/18/18 08:01 Temperature 97.6 F Pulse Rate 89 Respiratory 18 Rate Blood Pressure 145/77 O2 Sat by Pulse 99 Oximetry Medical Decision Making - Medical Decision Making EKG shows normal sinus rhythm at 89 bpm ME interval is 162 QRS is 98 QT interval 390 QTC is 474. Patient's EKG shows no ST segment elevation or depression or T wave abnormalities are noted. Chest x-ray shows no acute abnormality. - Lab Data Result diagrams: 03/18/18 07:51 03/18/18 07:51 Lab Results 03/18/18 03/18/18 03/18/18 Range/Units 07:51 07:51 07:51 WBC 10.9 H (3.8-10.6) k/uL RBC 4.21 L (4.30-5.90) m/uL Hgb 13.8 (13.0-17.5) gm/dL Hct 43.6 (39.0-53.0) % MCV 103.5 H (80.0-100.0) fL MCH 32.8 (25.0-35.0) pg MCHC 31.7 (31.0-37.0) g/dL RDW 13.4 (11.5-15.5) % Plt Count 225 (150-450) k/uL Neutrophils % 81 % Lymphocytes % 12 % Monocytes % 4 % Eosinophils % 1 % Basophils % 0 % Neutrophils # 8.8 H (1.3-7.7) k/uL Lymphocytes # 1.3 (1.0-4.8) k/uL Monocytes # 0.4 (0-1.0) k/uL Eosinophils # 0.1 (0-0.7) k/uL Basophils # 0.0 (0-0.2) k/uL Macrocytosis Slight PT (9.0-12.0) sec INR (<1.2) APTT (22.0-30.0) sec Sodium 142 (137-145) mmol/L Potassium 3.4 L (3.5-5.1) mmol/L Chloride 107 (98-107) mmol/L Carbon Dioxide 25 (22-30) mmol/L Anion Gap 10 mmol/L BUN 14 (9-20) mg/dL Creatinine 0.79 (0.66-1.25) mg/dL Est GFR (CKD-EPI)AfAm >90 (>60 ml/min/1.73 sqM) Est GFR (CKD-EPI)NonAf >90 (>60 ml/min/1.73 sqM) Glucose 135 H (74-99) mg/dL Calcium 8.3 L (8.4-10.2) mg/dL Magnesium 1.5 L (1.6-2.3) mg/dL Total Bilirubin 0.9 (0.2-1.3) mg/dL AST 358 H (17-59) U/L ALT 185 H (21-72) U/L Alkaline Phosphatase 286 H (38-126) U/L Total Creatine Kinase 83 (55-170) U/L CK-MB (CK-2) 0.9 (0.0-2.4) ng/mL CK-MB (CK-2) Rel Index 1.1 Troponin I <0.012 (0.000-0.034) ng/mL Total Protein 6.4 (6.3-8.2) g/dL Albumin 3.7 (3.5-5.0) g/dL Serum Alcohol 257 mg/dL 03/18/18 Range/Units 07:51 WBC (3.8-10.6) k/uL RBC (4.30-5.90) m/uL Hgb (13.0-17.5) gm/dL Hct (39.0-53.0) % MCV (80.0-100.0) fL MCH (25.0-35.0) pg MCHC (31.0-37.0) g/dL RDW (11.5-15.5) % Plt Count (150-450) k/uL Neutrophils % % Lymphocytes % % Monocytes % % Eosinophils % % Basophils % % Neutrophils # (1.3-7.7) k/uL Lymphocytes # (1.0-4.8) k/uL Monocytes # (0-1.0) k/uL Eosinophils # (0-0.7) k/uL Basophils # (0-0.2) k/uL Macrocytosis PT 9.6 (9.0-12.0) sec INR 1.0 (<1.2) APTT 21.1 L (22.0-30.0) sec Sodium (137-145) mmol/L Potassium (3.5-5.1) mmol/L Chloride (98-107) mmol/L Carbon Dioxide (22-30) mmol/L Anion Gap mmol/L BUN (9-20) mg/dL Creatinine (0.66-1.25) mg/dL Est GFR (CKD-EPI)AfAm (>60 ml/min/1.73 sqM) Est GFR (CKD-EPI)NonAf (>60 ml/min/1.73 sqM) Glucose (74-99) mg/dL Calcium (8.4-10.2) mg/dL Magnesium (1.6-2.3) mg/dL Total Bilirubin (0.2-1.3) mg/dL AST (17-59) U/L ALT (21-72) U/L Alkaline Phosphatase (38-126) U/L Total Creatine Kinase (55-170) U/L CK-MB (CK-2) (0.0-2.4) ng/mL CK-MB (CK-2) Rel Index Troponin I (0.000-0.034) ng/mL Total Protein (6.3-8.2) g/dL Albumin (3.5-5.0) g/dL Serum Alcohol mg/dL Disposition Clinical Impression: Chest pain, Alcohol intoxication Disposition: ADMITTED IP TO THIS [facility] Time of Disposition: 08:54
[2018-03-18 08:11] LABS: Basophils % (A) 0 %; Eosinophils # (A) 0.1 k/uL (0-0.7); Eosinophils % (A) 1 %; HCT 43.6 % (39.0-53.0); HGB 13.8 gm/dL (13.0-17.5); Lymphocytes # (A) 1.3 k/uL (1.0-4.8); Lymphocytes % (A) 12 %; MCH 32.8 pg (25.0-35.0); MCHC 31.7 g/dL (31.0-37.0); MCV 103.5 fL (80.0-100.0); Macrocytosis Slight; Mean Platelet Volume 7.6; Monocytes # (A) 0.4 k/uL (0-1.0); Monocytes % (A) 4 %; Neutrophils # (A) 8.8 k/uL (1.3-7.7); Neutrophils % (A) 81 %; Platelet Count 225 k/uL (150-450); RBC 4.21 m/uL (4.30-5.90); RDW 13.4 % (11.5-15.5); WBC 10.9 k/uL (3.8-10.6)
[2018-03-18 08:26] LABS: Prothrombin Time 9.6 sec (9.0-12.0)
[2018-03-18 08:29] LABS: Partial Thromboplastin Time 21.1 sec (22.0-30.0)
--- NOTE | 2018-03-18 08:31 | XR ---
EXAMINATION TYPE: XR chest 2V DATE OF EXAM: 03/18/2018 COMPARISON: 01/06/2018 HISTORY: 58-year-old male with chest pain TECHNIQUE: AP and lateral views FINDINGS: Heart normal size. Mild elongation thoracic aorta. Pulmonary vasculature within normal limits. No con solidation or pleural effusion seen. Mild hyperinflation may reflect underlying emphysema. IMPRESSION: Possible underlying COPD. No acute cardiopulmonary process.
[2018-03-18 08:35] LABS: ALT 185 U/L (21-72); AST 358 U/L (17-59); Albumin 3.7 g/dL (3.5-5.0); Alkaline Phosphatase 286 U/L (38-126); Anion Gap 10 mmol/L; Blood Urea Nitrogen 14 mg/dL (9-20); Calcium 8.3 mg/dL (8.4-10.2); Carbon Dioxide 25 mmol/L (22-30); Chloride 107 mmol/L (98-107); Glucose 135 mg/dL (74-99); Magnesium 1.5 mg/dL (1.6-2.3); Potassium 3.4 mmol/L (3.5-5.1); Sodium 142 mmol/L (137-145); Total Bilirubin 0.9 mg/dL (0.2-1.3); Total Protein 6.4 g/dL (6.3-8.2)
[2018-03-18 08:41] LABS: Alcohol 257 mg/dL
[2018-03-18] MEDS ORDERED: MAGNESIUM SULFATE-D5W PMX 1 GM in DEXTROSE/WATER 1 100ML.BAG IVPB ONE ×2 (08:52→15:26)
[2018-03-18] MEDS ORDERED: SODIUM CHLORIDE 0.9% 1,000 ML with MVI, ADULT NO.4 WITH VIT K 10 ML, THIAMINE 100 MG, F... IV ONE ×4 (08:53)
[2018-03-18] MEDS ORDERED: NITROGLYCERIN SL TABS 0.4 MG TAB SUBLINGUAL PRN (08:54)
[2018-03-18 09:02] LABS: Creatine Kinase 83 U/L (55-170)
[2018-03-18 09:16] LABS: Creatine Kinase MB 0.9 ng/mL (0.0-2.4); Troponin I <0.012 ng/mL (0.000-0.034)
[2018-03-18] MEDS: NITROGLYCERIN OINT 1 INCH/GM PACKET TOPICAL SCH ×2 (12:09→19:06)
[2018-03-18 13:04] VITALS: BMI 25.2
[2018-03-18 14:29] LABS: Creatine Kinase 57 U/L (55-170)
[2018-03-18 14:41] LABS: Creatine Kinase MB 0.8 ng/mL (0.0-2.4); Troponin I <0.012 ng/mL (0.000-0.034)
[2018-03-18] MEDS ORDERED: LORazepam 2 MG/ML INJ IV PRN ×3 (15:29)
[2018-03-18] MEDS ORDERED: THIAMINE 100 MG/ML 2 ML VIAL IM STA (15:29)
--- NOTE | 2018-03-18 15:46 | P.HPIM ---
History of Present Illness 58-year-old male came in with complaints of epigastric abdominal burning sensation pain patient had one troponin that is negative second troponin is pending EKG did not show any acute ST-T wave changes patient does drink alcohol every day is quite a bit depressed and drinks about one fifth alcoholic day denied any suicidal ideations patient is willing to quit alcohol patient used to drink under last 5 days ago on and off and patient is pretty sure he will have withdrawals and patient is willing to quit alcohol. Because of this reason I'm going to keep a watch him tonight if he has withdrawals patient many to stay longer are as patient can be discharged tomorrow. Extensive counseling regarding alcohol cessation was provided patient is on sertraline for depression but none of the antidepressants will help him unless he quit alcohol. She does have a history of progressive disease with the right below knee amputation does have history of coronary artery disease microinfarction in the past patient is hypomagnesemic and hypokalemic both of which will be supplemented patient does have elevated liver enzymes secondary to alcoholic hepatitis Review of Systems REVIEW OF SYSTEMS: CONSTITUTIONAL: No fever, no malaise, no fatigue. HEENT: No recent visual problems or hearing problems. Denied any sore throat. CARDIOVASCULAR: No chest pain, orthopnea, PND, no palpitations, no syncope. PULMONARY: No shortness of breath, no cough, no hemoptysis. GASTROINTESTINAL: No diarrhea, no nausea, no vomiting, no abdominal pain. Normoactive bowel sounds. NEUROLOGICAL: No headaches, no weakness, no numbness. HEMATOLOGICAL: Denies any bleeding or petechiae. GENITOURINARY: Denies any burning micturition, frequency, or urgency. MUSCULOSKELETAL/RHEUMATOLOGICAL: Denies any joint pain, swelling, or any muscle pain. ENDOCRINE: Denies any polyuria or polydipsia. The rest of the 14-point review of systems is negative. Past Medical History Past Medical History: Coronary Artery Disease (CAD), Chest Pain / Angina, COPD, CVA/TIA, Hyperlipidemia, Hypertension, Myocardial Infarction ([place]), Pneumonia, Seizure Disorder, Vascular Disorder Additional Past Medical History / Comment(s): 09/25/14 STEMI with stent placement , Seizures- last one 2013, ETOH Abuse/withdrawl. lt rib fx, Depression, Hx of L ankle fx. PVD -rt bka has prosthesis Last Myocardial Infarction Date:: 09/25/14 History of Any Multi-Drug Resistant Organisms: None Reported Past Surgical History: Appendectomy, Heart Catheterization With Stent Additional Past Surgical History / Comment(s): 09/25/14 PTCA with stenting, BYPASS ON BOTH LEGS, RIGHT BELOW KNEE AMPUTATION, 2 EGD's, colonoscopy x 2, hemorrhoidectomy, . Past Anesthesia/Blood Transfusion Reactions: No Reported Reaction Additional Past Anesthesia/Blood Transfusion Reaction / Comment(s): Pt had blood transfusions with no reaction Date of Last Stent Placement:: 09/25/14 Past Psychological History: Anxiety, Depression Additional Psychological History / Comment(s): Pt's December 2013. R leg prosthesis. doesn't drive-takes the bus Smoking Status: Current every day smoker Past Alcohol Use History: Daily Past Drug Use History: None Reported Additional Drug Use History / Comment(s): denies any current marijuana - Past Family History Father Family Medical History: Cancer Additional Family Medical History / Comment(s): Father of lung cancer. Mother Family Medical History: Cancer, Hypertension, Liver Disease Additional Family Medical History / Comment(s): Psychological history, Medications and Allergies Home Medications Medication Instructions Recorded Confirmed Type Sertraline [Zoloft] 100 mg PO DAILY 01/11/17 03/18/18 History Atorvastatin [Lipitor] 80 mg PO HS 02/20/17 03/18/18 History Clopidogrel [Plavix] 75 mg PO DAILY 02/20/17 03/18/18 History Gabapentin [Neurontin] 300 mg PO BID 02/20/17 03/18/18 History HYDROcodone/APAP 10-325MG [[place] 1 tab PO QID 02/20/17 03/18/18 History 10-325] Folic Acid 1 mg PO DAILY@1200 #30 tab 11/02/17 03/18/18 Rx Cyanocobalamin (Vitamin B-12) 1,000 mcg PO DAILY 01/06/18 03/18/18 History [Vitamin B-12] Multivitamins, Thera [Multivitamin 1 tab PO DAILY 01/06/18 03/18/18 History (formulary)] Thiamine [Vitamin B-1] 100 mg PO DAILY 01/06/18 03/18/18 History Metoprolol Tartrate [Lopressor] 12.5 mg PO BID #60 dose 01/09/18 03/18/18 Rx Allergies Allergy/AdvReac Type Severity Reaction Status Date / Time No Known Allergies Allergy Verified 03/18/18 12:56 Physical Exam Vitals: Vital Signs Temp Pulse Pulse Resp BP BP Pulse Ox 03/18/18 10:14 97.8 F 104 H 16 95/59 96 03/18/18 10:06 97.6 F 108 H 18 128/76 100 03/18/18 09:20 108 H 18 128/76 100 03/18/18 08:01 97.6 F 89 18 145/77 99 Intake and Output 03/18/18 03/18/18 03/18/18 06:59 14:59 22:59 Other: Voiding Method Toilet Weight 62.7 kg PHYSICAL EXAMINATION: GENERAL: The patient is alert and oriented x3, not in any acute distress. Well developed, well nourished. HEENT: Pupils are round and equally reacting to light. EOMI. No scleral icterus. No conjunctival pallor. Normocephalic, atraumatic. No pharyngeal erythema. No thyromegaly. CARDIOVASCULAR: S1 and S2 present. No murmurs, rubs, or gallops. PULMONARY: Chest is clear to auscultation, no wheezing or crackles. ABDOMEN: Soft, nontender, nondistended, normoactive bowel sounds. No palpable organomegaly. MUSCULOSKELETAL: No joint swelling or deformity. EXTREMITIES: No cyanosis, clubbing, or pedal edema. Right below-knee amputation NEUROLOGICAL: Gross neurological examination did not reveal any focal deficits. SKIN: No rashes. Results CBC & Chem 7: 03/18/18 07:51 03/18/18 07:51 Labs: Abnormal Lab Results - Last 24 Hours (Table) 03/18/18 03/18/18 03/18/18 Range/Units 07:51 07:51 07:51 WBC 10.9 H (3.8-10.6) k/uL RBC 4.21 L (4.30-5.90) m/uL MCV 103.5 H (80.0-100.0) fL Neutrophils # 8.8 H (1.3-7.7) k/uL APTT 21.1 L (22.0-30.0) sec Potassium 3.4 L (3.5-5.1) mmol/L Glucose 135 H (74-99) mg/dL Calcium 8.3 L (8.4-10.2) mg/dL Magnesium 1.5 L (1.6-2.3) mg/dL AST 358 H (17-59) U/L ALT 185 H (21-72) U/L Alkaline Phosphatase 286 H (38-126) U/L Thrombosis Risk Factor Assmnt - Choose All That Apply Each Factor Represents 1 point: Age 41-60 years Thrombosis Risk Factor Assessment Total Risk Factor Score: 1 Thrombosis Risk Factor Assessment Level: Low Risk Assessment and Plan Plan: -Chest pain and epigastric abdominal burning sensation: Secondary to alcoholic gastritis ruled out acute coronary syndromes. Patient will be started on Protonix. -Alcohol withdrawal and abuse: Patient was started on Ativan CIWA protocol thiamine multivitamin supplementation IV fluids -Acute alcoholic hepatitis: Expected to improve with the quitting alcohol and repeat to compress metabolic profile tomorrow -Coronary artery disease patient will be resumed on his home medications -COPD without any acute exacerbation -Severe TIA in the past -Hyperlipoidemia -Hypertension -Peripheral vascular disease with the right below-knee amputation. -Depression
[2018-03-18] MEDS: THIAMINE 100 MG TAB PO SCH (17:34)
[2018-03-18 20:34] LABS: Creatine Kinase 62 U/L (55-170)
[2018-03-18 20:46] LABS: Creatine Kinase MB 0.7 ng/mL (0.0-2.4); Troponin I <0.012 ng/mL (0.000-0.034)
[2018-03-18] MEDS ORDERED: ATORVASTATIN 80 MG TAB PO SCH (21:00)
[2018-03-18] MEDS: PANTOPRAZOLE 40 MG/10 ML VIAL IVP SCH (21:03)
[2018-03-18] MEDS: METOPROLOL TARTRATE 25 MG TAB PO SCH (21:04)
[2018-03-18] MEDS: GABAPENTIN 300 MG CAP PO SCH (21:04)
[2018-03-19] MEDS: NITROGLYCERIN OINT 1 INCH/GM PACKET TOPICAL SCH ×3 (06:36→17:18)
[2018-03-19 07:37] LABS: Basophils % (A) 0 %; Eosinophils # (A) 0.1 k/uL (0-0.7); Eosinophils % (A) 1 %; HCT 36.5 % (39.0-53.0); Lymphocytes # (A) 0.6 k/uL (1.0-4.8); Lymphocytes % (A) 7 %; MCH 33.3 pg (25.0-35.0); Mean Platelet Volume 8.6; Monocytes # (A) 0.2 k/uL (0-1.0); Monocytes % (A) 3 %; Neutrophils % (A) 88 %; Platelet Count 138 k/uL (150-450); RBC 3.61 m/uL (4.30-5.90); RDW 13.3 % (11.5-15.5)
[2018-03-19 07:56] LABS: ALT 508 U/L (21-72); AST 422 U/L (17-59); Alkaline Phosphatase 333 U/L (38-126); Anion Gap 5 mmol/L; Blood Urea Nitrogen 16 mg/dL (9-20); Calcium 8.1 mg/dL (8.4-10.2); Carbon Dioxide 27 mmol/L (22-30); Chloride 104 mmol/L (98-107); Cholesterol 99 mg/dL (<200); Glucose 97 mg/dL (74-99); HDL Cholesterol 71 mg/dL (40-60); LDL Cholesterol,Calculated 21 mg/dL (0-99); Magnesium 1.9 mg/dL (1.6-2.3); Potassium 3.8 mmol/L (3.5-5.1); Sodium 136 mmol/L (137-145); Total Bilirubin 2.7 mg/dL (0.2-1.3); Total Protein 5.5 g/dL (6.3-8.2); Triglycerides 36 mg/dL (<150)
[2018-03-19] MEDS ORDERED: THIAMINE 100 MG TAB PO SCH (09:00)
[2018-03-19] MEDS ORDERED: ASPIRIN 325 MG TAB PO SCH (09:00)
[2018-03-19] MEDS: GABAPENTIN 300 MG CAP PO SCH ×2 (09:48→20:45)
[2018-03-19] MEDS: CLOPIDOGREL 75 MG TAB PO SCH (09:48)
[2018-03-19] MEDS: METOPROLOL TARTRATE 25 MG TAB PO SCH ×2 (09:48→20:45)
[2018-03-19] MEDS: PANTOPRAZOLE 40 MG/10 ML VIAL IVP SCH ×2 (09:48→20:45)
[2018-03-19] MEDS: SERTRALINE 100 MG TAB PO SCH (10:45)
[2018-03-19] MEDS ORDERED: HYDROcodone/APAP 10-325MG 1 EACH TAB PO PRN (11:52)
[2018-03-19] MEDS ORDERED: DOBUTamine DRIP for NUC MED 500 MG in DEXTROSE/WATER 1 250ML.BAG IV ONE (12:57)
[2018-03-19] MEDS ORDERED: HYDROcodone/APAP 10-325MG 1 EACH TAB PO SCH (13:00)
[2018-03-19] MEDS: CYANOCOBALAMIN 500 MCG TAB PO SCH (13:01)
[2018-03-19] MEDS: THIAMINE 100 MG TAB PO SCH ×2 (13:02→17:19)
[2018-03-19] MEDS: MULTIVITAMINS, THERA 1 EACH TAB PO SCH (13:02)
[2018-03-19] MEDS: FOLIC ACID 1 MG TAB PO SCH (13:02)
[2018-03-19] MEDS ORDERED: traMADol 50 MG TAB PO PRN (13:18)
--- NOTE | 2018-03-19 13:43 | P.PN ---
Subjective Patient is admitted for epigastric abdominal pain and retrosternal chest pain secondary to gastritis. Patient was started on Protonix patient is an alcoholic be monitored for all call withdrawals. Patient's COPD is score is only 2 but his liver enzymes have gone up. Patient the AST and ALT ratio was 2 is 21 yesterday which is consistent with alcoholic hepatitis but today ALT is more than AST which makes me concerned about other etiologies for his hepatitis statin will be discontinued no cold will be discontinued. Repeat compresses metabolic profile will be obtained tomorrow. I'll obtain ultrasound of the liver and the hepatitis panel. Patient will be started on tramadol for pain at this will put him at a higher this procedure will just monitor for seizures with seizure precautions. Constitutional: Denied any fatigue denied any fever. Cardio vascular: denied any chest pain, palpitations Gastrointestinal denied any nausea vomiting Pulmonary: Denied any shortness of breath cough Neurologic denied any new focal deficits Objective - Vital Signs Vital signs: Vital Signs Temp 99.7 F H 03/19/18 12:00 Pulse 87 03/19/18 12:00 Resp 16 03/19/18 12:00 BP 108/55 03/19/18 12:00 Pulse Ox 97 03/19/18 12:00 Intake & Output 03/18/18 03/19/18 03/19/18 18:59 06:59 18:59 Weight 62.7 kg Other: Voiding Method Toilet Urinal Urinal Urinal - Exam PHYSICAL EXAMINATION: GENERAL: The patient is alert and oriented x3, not in any acute distress. Well developed, well nourished. HEENT: Pupils are round and equally reacting to light. EOMI. No scleral icterus. No conjunctival pallor. Normocephalic, atraumatic. No pharyngeal erythema. No thyromegaly. CARDIOVASCULAR: S1 and S2 present. No murmurs, rubs, or gallops. PULMONARY: Chest is clear to auscultation, no wheezing or crackles. ABDOMEN: Soft, nontender, nondistended, normoactive bowel sounds. No palpable organomegaly. MUSCULOSKELETAL: No joint swelling or deformity. EXTREMITIES: No cyanosis, clubbing, or pedal edema. NEUROLOGICAL: Gross neurological examination did not reveal any focal deficits. SKIN: No rashes. - Labs CBC & Chem 7: 03/19/18 06:17 03/19/18 06:17 Labs: Abnormal Lab Results - Last 24 Hours (Table) 03/19/18 03/19/18 Range/Units 06:17 06:17 RBC 3.61 L (4.30-5.90) m/uL Hgb 12.0 L (13.0-17.5) gm/dL Hct 36.5 L (39.0-53.0) % MCV 101.0 H (80.0-100.0) fL Plt Count 138 L (150-450) k/uL Lymphocytes # 0.6 L (1.0-4.8) k/uL Sodium 136 L (137-145) mmol/L Calcium 8.1 L (8.4-10.2) mg/dL Total Bilirubin 2.7 H (0.2-1.3) mg/dL AST 422 H (17-59) U/L ALT 508 H (21-72) U/L Alkaline Phosphatase 333 H (38-126) U/L Total Protein 5.5 L (6.3-8.2) g/dL Albumin 3.0 L (3.5-5.0) g/dL HDL Cholesterol 71 H (40-60) mg/dL Assessment and Plan Plan: -Chest pain and epigastric abdominal burning sensation: Secondary to alcoholic gastritis ruled out acute coronary syndromes. Patient will be started on Protonix. -Alcohol withdrawal and abuse: Patient was started on Ativan CIWA protocol thiamine multivitamin supplementation IV fluids, patient see Magda score is only 2 -Acute alcoholic hepatitis: Expected to improve with the quitting alcohol -Elevated liver enzymes further workup as mentioned above. -Coronary artery disease patient will be resumed on his home medications -COPD without any acute exacerbation -CVA/ TIA in the past -Hyperlipoidemia -Hypertension -Peripheral vascular disease with the right below-knee amputation. -Depression
--- NOTE | 2018-03-19 19:52 | CONS ---
CONSULTATION Mr. Rojas is a 58-year-old gentleman who is seen for cardiac evaluation. This patient's previous medical records were reviewed. The patient came to the hospital with a complaint of epigastric and abdominal pain and some discomfort in the lower part of the chest. The patient does have a history of alcohol abuse. He drinks every day. The patient denied any nausea or vomiting. The patient has a known history of coronary artery disease, peripheral vascular disease and he had a myocardial infarction with stent to the RCA in 2014. The patient has a below-knee amputation as well as carotid artery stenting. The patient's physical activities are limited and he cannot walk any long distance. However, patient denies any orthopnea or PND. PAST MEDICAL HISTORY: History includes previous cardiac catheterization and a stent placement. The patient has had a bypass in the both the legs, below-knee amputation on the right side, hemorrhoid surgery. According to him, patient also had a carotid artery stenting done. The patient has a history of seizure disorder. HOME MEDICATIONS: Include Zoloft once a day, Lipitor 80 mg daily, gabapentin, Plavix, folic acid, thiamine, Lopressor 12.5 mg b.i.d. PHYSICAL EXAMINATION: At present reveals a 58-year-old gentleman who does not appear to be in any acute distress at present. Patient's blood pressure is 108/55 mmHg. Patient has a low-grade temperature of 99.7. HEENT examination is negative. NECK: Supple. There is no increase in jugular venous pressure. Both the carotid pulses are felt. There is no bruit. Chest is symmetrical. Heart: The PMI is not felt. First and second heart sounds are normal. Lungs are clinically clear to auscultation and percussion. Abdomen: There is a mild generalized tenderness noted. Extremities: Peripheral pulses are not felt. Patient has a below-knee amputation on the right side. The patient's troponins are normal. EKG shows normal sinus rhythm without any acute ischemic changes. The patient's initial liver enzymes were mildly elevated, but the SGOT, SGPT as well as alkaline phosphatase are increasing and bilirubin has increased from 0.9-2.7. FINAL IMPRESSION: This patient is mostly admitted with epigastric and abdominal and lower chest discomfort which is not suggestive of acute coronary syndrome. The patient has a significantly elevated liver enzymes. A possibility of alcoholic hepatitis or acute cholangitis may be considered. The patient had a recent echocardiogram done which revealed normal left ventricular systolic function. We will continue the current cardiac medications and patient can be evaluated with a stress test after the patient's liver condition is improved. ROGER / BEENA: [id number] /
[2018-03-20] MEDS: NITROGLYCERIN OINT 1 INCH/GM PACKET TOPICAL SCH ×2 (03:01→12:31)
[2018-03-20 07:25] LABS: HCT 36.1 % (39.0-53.0); HGB 11.9 gm/dL (13.0-17.5); MCH 33.6 pg (25.0-35.0); MCHC 33.1 g/dL (31.0-37.0); MCV 101.5 fL (80.0-100.0); Mean Platelet Volume 9.8; Platelet Count 115 k/uL (150-450); RBC 3.55 m/uL (4.30-5.90); RDW 13.2 % (11.5-15.5); WBC 5.5 k/uL (3.8-10.6)
[2018-03-20 07:53] LABS: ALT 326 U/L (21-72); AST 127 U/L (17-59); Albumin 2.8 g/dL (3.5-5.0); Alkaline Phosphatase 298 U/L (38-126); Anion Gap 5 mmol/L; Blood Urea Nitrogen 20 mg/dL (9-20); Calcium 8.5 mg/dL (8.4-10.2); Carbon Dioxide 24 mmol/L (22-30); Chloride 108 mmol/L (98-107); Glucose 102 mg/dL (74-99); Potassium 3.8 mmol/L (3.5-5.1); Sodium 137 mmol/L (137-145); Total Bilirubin 0.9 mg/dL (0.2-1.3); Total Protein 5.3 g/dL (6.3-8.2)
--- NOTE | 2018-03-20 08:32 | US ---
EXAMINATION TYPE: US gallbladder DATE OF EXAM: 03/20/2018 COMPARISON: NONE CLINICAL HISTORY: 58-year-old male elevated liver enzymes. Elevated LFT's, ABD pain, h/o ETOH TECHNIQUE: Multiple sonographic images of the right upper quadrant are obtained. FINDINGS: EXAM MEASUREMENTS: Liver Length: 17.0 cm Gallbladder Wall: 0.4 cm CBD: 1.2 cm Right Kidney: 11.2 x 4.5 x 5.1 cm Pancreas: Obscured by bowel gas Liver: Echogenic measuring at the upper limits of normal in size. No focal lesion seen. Gallbladder: Gallstones with thickened wall. No abnormal distention or pericholecystic fluid. Evidence for sonographic Canas's sign: No CBD: Dilated Right Kidney: No hydronephrosis. IMPRESSION: 1. Nonspecific mild gallbladder wall thickening and cholelithiasis. There is no abnormal gallbladder distention or sonographic Canas sign. 2. The bile duct is dilated at 1.2 cm. Correlate with alkaline phosphatase and bilirubin levels to ex clude biliary obstruction. 3. HIDA scan may be helpful to further assess both findings. 4. Echogenic liver suggesting hepatic steatosis.
[2018-03-20 08:59] VITALS: RESP 18
[2018-03-20] MEDS: METOPROLOL TARTRATE 25 MG TAB PO SCH (09:18)
[2018-03-20] MEDS: GABAPENTIN 300 MG CAP PO SCH (09:18)
[2018-03-20] MEDS: SERTRALINE 100 MG TAB PO SCH (09:18)
[2018-03-20] MEDS: CLOPIDOGREL 75 MG TAB PO SCH (09:18)
[2018-03-20] MEDS: PANTOPRAZOLE 40 MG/10 ML VIAL IVP SCH (09:18)
[2018-03-20 11:58] VITALS: BP 134/78; PULSE 82; TEMP 98.9
[2018-03-20] MEDS: THIAMINE 100 MG TAB PO SCH (12:33)
[2018-03-20] MEDS: FOLIC ACID 1 MG TAB PO SCH (12:33)
[2018-03-20] MEDS: MULTIVITAMINS, THERA 1 EACH TAB PO SCH (12:33)
[2018-03-20] MEDS: CYANOCOBALAMIN 500 MCG TAB PO SCH (12:33)
--- NOTE | 2018-03-20 15:19 | P.DS ---
Providers Date of admission: 03/18/18 08:54 Attending physician: Ozzy Pereira Consults: 03/18/18 08:54 Consult Physician Urgent Consulting Provider: [facility] Consult Reason/Comments: Chest pain Do you want consulting provider notified?: Yes Primary care physician: Ozzy Pereira Hospital Course: Patient is admitted for epigastric abdominal pain and retrosternal chest pain secondary to gastritis. Patient was started on Protonix patient is an alcoholic be monitored for all call withdrawals. Patient's COPD is score is only 2 but his liver enzymes have gone up. Patient the AST and ALT ratio was 2 is 21 yesterday which is consistent with alcoholic hepatitis but today ALT is more than AST which makes me concerned about other etiologies for his hepatitis statin will be discontinued no cold will be discontinued. Repeat compresses metabolic profile will be obtained tomorrow. I'll obtain ultrasound of the liver and the hepatitis panel. Patient will be started on tramadol for pain at this will put him at a higher this procedure will just monitor for seizures with seizure precautions. 03/20/2018 Patient's liver enzymes are coming down patient had ultrasound of the abdomen which showed cholelithiasis patient may have passed a stone. Clinically patient does not appear to have cholecystitis although there is a thickening of gallbladder on the the ultrasound. Patient will need surgical evaluation doesn' t need to be 10 I'm done emergently. I gave the option of him staying here and get surgical evaluation or follow up with surgery as an outpatient patient wanted to follow up with surgery as an outpatient because of which are good and discharge the patient for surgical evaluation. Extensive counseling regarding all call abuse was provided. Patient has very minimal all call withdrawal symptoms today. Patient will follow-up with the congregational care pastor and outpatient for outpatient stress test PHYSICAL EXAMINATION: GENERAL: The patient is alert and oriented x3, not in any acute distress. Well developed, well nourished. HEENT: Pupils are round and equally reacting to light. EOMI. No scleral icterus. No conjunctival pallor. Normocephalic, atraumatic. No pharyngeal erythema. No thyromegaly. CARDIOVASCULAR: S1 and S2 present. No murmurs, rubs, or gallops. PULMONARY: Chest is clear to auscultation, no wheezing or crackles. ABDOMEN: Soft, nontender, nondistended, normoactive bowel sounds. No palpable organomegaly. MUSCULOSKELETAL: No joint swelling or deformity. EXTREMITIES: No cyanosis, clubbing, or pedal edema. NEUROLOGICAL: Gross neurological examination did not reveal any focal deficits. SKIN: No rashes. Assessment and Plan Plan: -Chest pain and epigastric abdominal burning sensation: Secondary to alcoholic gastritis ruled out acute coronary syndromes. Patient will be discharged on Prilosec -Alcohol withdrawal and abuse -Acute alcoholic hepatitis: -Elevated liver enzymes secondary to cholelithiasis and passed a stone liver enzymes are coming down patient will follow-up with general surgery as an outpatient -Coronary artery disease patient will be resumed on his home medications -COPD without any acute exacerbation -CVA/ TIA in the past -Hyperlipoidemia -Hypertension -Peripheral vascular disease with the right below-knee amputation. -Depression Plan - Discharge Summary Discharge Rx Participant: No New Discharge Prescriptions: New Omeprazole [PriLOSEC] 20 mg PO AC-BID #30 cap Thiamine [Vitamin B-1] 100 mg PO DAILY #30 tab Continue Sertraline [Zoloft] 100 mg PO DAILY HYDROcodone/APAP 10-325MG [[place] 10-325] 1 tab PO QID Clopidogrel [Plavix] 75 mg PO DAILY Atorvastatin [Lipitor] 80 mg PO HS Gabapentin [Neurontin] 300 mg PO BID Folic Acid 1 mg PO DAILY@1200 #30 tab Multivitamins, Thera [Multivitamin (formulary)] 1 tab PO DAILY Thiamine [Vitamin B-1] 100 mg PO DAILY Cyanocobalamin (Vitamin B-12) [Vitamin B-12] 1,000 mcg PO DAILY Changed Metoprolol Tartrate [Lopressor] 25 mg PO BID #60 dose Discontinued Lisinopril 40 mg PO DAILY Discharge Medication List Sertraline [Zoloft] 100 mg PO DAILY 01/11/17 [History] Atorvastatin [Lipitor] 80 mg PO HS 02/20/17 [History] Clopidogrel [Plavix] 75 mg PO DAILY 02/20/17 [History] Gabapentin [Neurontin] 300 mg PO BID 02/20/17 [History] HYDROcodone/APAP 10-325MG [[place] 10-325] 1 tab PO QID 02/20/17 [History] Folic Acid 1 mg PO DAILY@1200 #30 tab 11/02/17 [Rx] Cyanocobalamin (Vitamin B-12) [Vitamin B-12] 1,000 mcg PO DAILY 01/06/18 [ History] Multivitamins, Thera [Multivitamin (formulary)] 1 tab PO DAILY 01/06/18 [History ] Thiamine [Vitamin B-1] 100 mg PO DAILY 01/06/18 [History] Metoprolol Tartrate [Lopressor] 25 mg PO BID #60 dose 03/20/18 [Rx] Omeprazole [PriLOSEC] 20 mg PO AC-BID #30 cap 03/20/18 [Rx] Thiamine [Vitamin B-1] 100 mg PO DAILY #30 tab 03/20/18 [Rx] Follow up Appointment(s)/Referral(s): Flaco Hdz MD [Medical Doctor] - 1 Week Ozzy Pereira MD [Primary Care Provider] - 3 Days Zane Gaytan MD [STAFF PHYSICIAN] - 1 Week Patient Instructions/Handouts: Gastritis (ED), Gallstones (DC), Alcohol Dependence (ED) Discharge Disposition: HOME SELF-CARE
[2018-03-21 12:13] LABS: Hepatitis B Core IgM Non-Reactive (Non-Reactive)
[2018-03-22 16:30] LABS: Hepatitis A Antibody IgM Non-Reactive (Non-Reactive)
== END 2018-03-20 14:48 | disposition home or self-care (01) ==
LOC: EC 07:38 → 3OBS 08:54
PROVIDERS: ADMIT Family Medicine; ATTEND Family Medicine
DX: K29.20 Alcoholic gastritis without bleeding (principal); K70.10 Alcoholic hepatitis without ascites; I25.10 Atherosclerotic heart disease of native coronary artery without angina pectoris; J44.9 Chronic obstructive pulmonary disease, unspecified; E78.5 Hyperlipidemia, unspecified; I10 Essential (primary) hypertension; E83.42 Hypomagnesemia; F41.9 Anxiety disorder, unspecified; I73.9 Peripheral vascular disease, unspecified; E87.6 Hypokalemia; F32.9 Major depressive disorder, single episode, unspecified; F10.239 Alcohol dependence with withdrawal, unspecified; F10.229 Alcohol dependence with intoxication, unspecified; Y90.8 Blood alcohol level of 240 mg/100 ml or more; G40.909 Epilepsy, unspecified, not intractable, without status epilepticus; Z89.511 Acquired absence of right leg below knee; Z95.5 Presence of coronary angioplasty implant and graft; F17.200 Nicotine dependence, unspecified, uncomplicated; I25.2 Old myocardial infarction; Z79.02 Long term (current) use of antithrombotics/antiplatelets; Z79.899 Other long term (current) drug therapy; Z71.41 Alcohol abuse counseling and surveillance of alcoholic; Z82.49 Family history of ischemic heart disease and other diseases of the circulatory system; Z86.73 Personal history of transient ischemic attack (TIA), and cerebral infarction without residual deficits; Z80.1 Family history of malignant neoplasm of trachea, bronchus and lung
CPT/HCPCS: 93005 ×2; 96366 ×2; 96367; 96368; 96375; 96376 ×2; 96365; 99285; 36415; 80061; 80053 ×3; 80074; 82550; 82553; 83735 ×2; 84484; 85025 ×2; 85027; 85610; 85730; 71046; 76705; G0378 ×3; G0480; J2060; J3411; J3475; C9113 ×3; 80320

== ENCOUNTER 2018-04-07 05:53 | Day surgery (SDC) | payer MEDICARE ==
[2018-04-06 11:22] VITALS: BMI 20.7
[~2018-04-07 05:53] MED LIST: DEXAMETHASONE SOD PHOSPHATE 10 MG/ML 1 ML VIAL IV ONE; HEPARIN SODIUM,PORCINE 5,000 UNIT/ML 1 ML VIAL SQ ONE; MIDAZOLAM 2 MG/2 ML VIAL IV PRN; ONDANSETRON 4 MG/2 ML VIAL IVP ONE; SCOPOLAMINE 1.5MG/72HR PATCH TRANSDERM ONE; ceFAZolin IN SWFI 2 GM/20 ML SYRINGE IVP ONE; fentaNYL (PF) 50 MCG/ML 2 ML AMP IV PRN
[2018-04-07] MEDS: LACTATED RINGERS 1,000 ML IV SCH (06:53)
[2018-04-07] MEDS ORDERED: LIDOCAINE 1% 20 ML VIAL (10MG/ML) FOR IV START INTRADERMA ONE (06:54)
[2018-04-07] MEDS ORDERED: PHENYLEPHRINE-0.9% NACL SYG 1 MG/10 ML SYRINGE ONE (07:49)
[2018-04-07] MEDS ORDERED: GLYCOPYRROLATE 0.2 MG/ML 2 ML VIAL ONE (07:49)
[2018-04-07] MEDS ORDERED: NEOSTIGMINE 1 MG/ML 10 ML VIAL ONE (07:49)
[2018-04-07] MEDS ORDERED: SUCCINYLCHOLINE CHLORIDE 100 MG/5 ML SYR IV ONE (07:49)
[2018-04-07] MEDS ORDERED: LIDOCAINE 1% INJ 10MG/ML (20 ML MDV) ONE (07:49)
[2018-04-07] MEDS ORDERED: ROCURONIUM BROMIDE 10 MG/ML 10 ML VIAL IV ONE (07:49)
[2018-04-07] MEDS ORDERED: HYDROmorphone (PF) 1 MG/ML ONE (07:49)
[2018-04-07] MEDS ORDERED: PROPOFOL 10 MG/ML 20 ML VIAL IV ONE (07:49)
[2018-04-07] MEDS ORDERED: MIDAZOLAM 2 MG/2 ML VIAL ONE (07:49)
[2018-04-07] MEDS ORDERED: fentaNYL (PF) 50 MCG/ML 2 ML AMP ONE (07:49)
--- NOTE | 2018-04-07 07:51 | P.GSHP ---
History of Present Illness H&P Date: 04/07/18 Chief Complaint: Right upper quadrant pain This is a 58-year-old male referred from Dr. Pereira. Patient's had complaints of right quadrant pain. Patient's found have cholelithiasis. He presents today for laparoscopic cholecystectomy Past Medical History Past Medical History: Coronary Artery Disease (CAD), Chest Pain / Angina, CVA/ TIA, Hyperlipidemia, Hypertension, Myocardial Infarction (SD), Pneumonia, Seizure Disorder, Vascular Disorder Additional Past Medical History / Comment(s): 09/25/14 STEMI with stent placement , Seizures- last one 2013, ETOH Abuse/withdrawl. lt rib fx, Hx of L ankle fx. PVD -rt bka has prosthesis Last Myocardial Infarction Date:: 09/25/14 History of Any Multi-Drug Resistant Organisms: None Reported Past Surgical History: Appendectomy, Heart Catheterization With Stent Additional Past Surgical History / Comment(s): 09/25/14 PTCA with stenting, BYPASS ON BOTH LEGS, RIGHT BELOW KNEE AMPUTATION, 2 EGD's, colonoscopy x 2, hemorrhoidectomy, . Past Anesthesia/Blood Transfusion Reactions: No Reported Reaction Additional Past Anesthesia/Blood Transfusion Reaction / Comment(s): Pt had blood transfusions with no reaction Date of Last Stent Placement:: 09/25/14 Smoking Status: Current every day smoker - Past Family History Father Family Medical History: Cancer Additional Family Medical History / Comment(s): Father of lung cancer. Mother Family Medical History: Cancer, Hypertension, Liver Disease Additional Family Medical History / Comment(s): Psychological history, Medications and Allergies Home Medications Medication Instructions Recorded Confirmed Type Sertraline [Zoloft] 100 mg PO DAILY 01/11/17 04/07/18 History Atorvastatin [Lipitor] 80 mg PO HS 02/20/17 04/07/18 History Clopidogrel [Plavix] 75 mg PO DAILY 02/20/17 04/06/18 History Gabapentin [Neurontin] 300 mg PO BID 02/20/17 04/07/18 History HYDROcodone/APAP 10-325MG [[place] 1 tab PO QID 02/20/17 04/07/18 History 10-325] Folic Acid 1 mg PO DAILY@1200 #30 tab 11/02/17 04/07/18 Rx Cyanocobalamin (Vitamin B-12) 1,000 mcg PO DAILY 01/06/18 04/07/18 History [Vitamin B-12] Multivitamins, Thera [Multivitamin 1 tab PO DAILY 01/06/18 04/07/18 History (formulary)] Thiamine [Vitamin B-1] 100 mg PO DAILY 01/06/18 04/07/18 History Metoprolol Tartrate [Lopressor] 25 mg PO BID #60 dose 03/20/18 04/07/18 Rx Omeprazole [PriLOSEC] 20 mg PO AC-BID #30 cap 03/20/18 04/07/18 Rx Allergies Allergy/AdvReac Type Severity Reaction Status Date / Time No Known Allergies Allergy Verified 04/07/18 06:12 Surgical - Exam Vital Signs Temp Pulse Resp BP Pulse Ox 98.5 F 97 16 130/95 97 04/07/18 06:57 04/07/18 06:57 04/07/18 06:57 04/07/18 06:57 04/07/18 06:57 - General well developed, no distress - Eyes PERRL - ENT normal pinna - Neck no masses - Respiratory normal expansion - Cardiovascular Rhythm: regular - Abdomen Abdomen: soft, non tender Results - Imaging US - abdomen: report reviewed (Cholelithiasis) Assessment and Plan Assessment: Cholelithiasis Right upper quadrant pain We'll perform laparoscopic cholecystectomy.
[2018-04-07] MEDS ORDERED: BUPIVACAIN-EPI 0.25%-1:200,000 30 ML VIAL SQ ONE (08:09)
[2018-04-07] MEDS ORDERED: LACTATED RINGERS 1,000 ML IV ONE ×2 (08:41→09:22)
[2018-04-07] MEDS ORDERED: HYDROmorphone 1 MG/ML 1 ML SYRINGE IVP PRN (09:22)
[2018-04-07] MEDS ORDERED: NALOXONE 0.4 MG/ML 1 ML VIAL IV PRN (09:22)
[2018-04-07] MEDS ORDERED: ONDANSETRON 4 MG/2 ML VIAL IVP PRN (09:22)
--- NOTE | 2018-04-07 09:32 | P.OP ---
Date of Procedure: 04/07/18 Preoperative Diagnosis: Cholecystitis Cholelithiasis Postoperative Diagnosis: Cholecystitis Cholelithiasis Procedure(s) Performed: Laparoscopic cholecystectomy Anesthesia: JANUARY Surgeon: Roland Luo Estimated Blood Loss (ml): 10 Pathology: other (Gallbladder) Condition: stable Disposition: PACU Description of Procedure: The patient was placed on the operating table. The patient received a general endotracheal tube anesthesia. The patients abdomen was prepped and draped in the usual sterile fashion. Through an infraumbilical stab incision, the fascia of the anterior abdominal wall was grasped with a pair of Kochers and then the Veress needle was placed in the peritoneal cavity. Position of the Veress needle was confirmed with positive drop test. The abdomen was then insufflated. After adequate insufflation, the 10 mm trocar was placed in the peritoneal cavity. Following this the laparoscope was placed in the peritoneal cavity. There were adhesions noted in the pleural cavity. At this point a 5 mm trochars placed in the left lateral position and the left epigastric position and approximately 15 minutes used operative time used to lyse adhesions. The patient was placed in the head-up, right side up position and then a 5 mm trocar was placed in the right lateral and right subcostal position under direct visualization. A 8 mm trocar was placed in the epigastric position. The gallbladder was adhesive small bowel. Using Metzenbaum scissors the small bowel adhesions were lysed. The gallbladder was grasped in the fundus and infundibulum. Traction on the gallbladder was placed in the lateral and the cephalad positions. The triangle of Calot was visualized.. The cystic duct was bluntly dissected until the union of the cystic duct and common bile duct was seen. The cystic duct was then divided and sealed with the Harmonic scissors. The cystic duct was ligated with 2-0 Ethibond suture. A PDS Endoloop was then placed throughout the cystic duct stump. The cystic artery divided and sealed with the Harmonic scissors. The gallbladder was then removed from the liver bed using Harmonic scissors. The gallbladder was then extracted through the epigastric port site. Operative field was checked for any bleeding spots and Harmonic scissors was used to coagulate the liver bed. The abdomen was irrigated. The trocars were removed. The skin was closed using interrupted 3-0 Vicryl suture. Dermabond dressing were applied. The patient tolerated the procedure well.
[2018-04-07] MEDS: HYDROmorphone 1 MG/ML 1 ML SYRINGE IVP ONE ×2 (09:36→09:41)
--- NOTE | 2018-04-07 12:32 | P.CONS ---
History of Present Illness - Reason for Consult Consult date: 04/07/18 Medical management of COPD and coronary artery disease - Chief Complaint Admitted for laparoscopic cholecystectomy - History of Present Illness Patient is a 58-year-old male with a known history of alcohol abuse, alcohol Hepatitis, coronary artery disease with history of stent placement and severe peripheral vascular disease with bilateral lateral lower extremities bypass surgery and right biliary amputation was admitted to the hospital for laparoscopic cholecystectomy. Patient was recently admitted to hospital with epigastric and right upper quadrant abdominal pain and was found to have elevated liver enzymes and alk phos. Patient was found to have cholelithiasis and was seen by surgery. Recommended cholecystectomy. Patient was scheduled for elective laparoscopic cholecystectomy. Patient tolerated the procedure very well. Currently denied any complaints of chest pain or shortness of breath. Abdominal soreness is present. No nausea no vomiting. No fever no chills. No headache or dizziness or lightheadedness. Plavix has been held due to schedule surgery. Patient continues to smoke otherwise. Review of Systems Constitutional: Patient denies any fever or chills . No generalized weakness or weight loss. Abdomen: Patient denied nausea vomiting and diarrhea and abdominal pain. Abdominal soreness Cardiovascular: Patient denies any chest pain or short of breath no palpitations. Respiratory: patient denied any cough is from production. No shortness of breath Neurologic: Patient denied any numbness or tingling headache. Musculoskeletal: Patient denies any complaints of joint swelling or deformity. Skin: Negative Psychiatric: Negative Endocrine: No heat or cold intolerance. No recent weight gain. Genitourinary: No dysuria or hematuria. All other 14 point ROS negative except the above Past Medical History Past Medical History: Coronary Artery Disease (CAD), Chest Pain / Angina, CVA/ TIA, Hyperlipidemia, Hypertension, Myocardial Infarction ([place]), Pneumonia, Seizure Disorder, Vascular Disorder Additional Past Medical History / Comment(s): 09/25/14 STEMI with stent placement , Seizures- last one 2013, ETOH Abuse/withdrawl. lt rib fx, Hx of L ankle fx. PVD -rt bka has prosthesis Last Myocardial Infarction Date:: 09/25/14 History of Any Multi-Drug Resistant Organisms: None Reported Past Surgical History: Appendectomy, Heart Catheterization With Stent Additional Past Surgical History / Comment(s): 09/25/14 PTCA with stenting, BYPASS ON BOTH LEGS, RIGHT BELOW KNEE AMPUTATION, 2 EGD's, colonoscopy x 2, lap ahmet, lysis of adhesions, hemorrhoidectomy, . Past Anesthesia/Blood Transfusion Reactions: No Reported Reaction Additional Past Anesthesia/Blood Transfusion Reaction / Comm: Pt had blood transfusions with no reaction Date of Last Stent Placement:: 09/25/14 Past Psychological History: Anxiety, Depression Additional Psychological History / Comment(s): Pt's December 2013. R leg prosthesis. doesn't drive-takes the bus Smoking Status: Current some day smoker Past Alcohol Use History: Daily Additional Past Alcohol Use History / Comment(s): pt recently reduced his alcohol intake to 2-3 drinks per week. states none in past week, smoking cut down from 1 ppd to 3/4 ppd. Past Drug Use History: None Reported Additional Drug Use History / Comment(s): denies any current marijuana - Past Family History Father Family Medical History: Cancer Additional Family Medical History / Comment(s): Father of lung cancer. Mother Family Medical History: Cancer, Hypertension, Liver Disease Additional Family Medical History / Comment(s): Psychological history, Medications and Allergies Home Medications Medication Instructions Recorded Confirmed Type Sertraline [Zoloft] 100 mg PO DAILY 01/11/17 04/07/18 History Atorvastatin [Lipitor] 80 mg PO HS 02/20/17 04/07/18 History Clopidogrel [Plavix] 75 mg PO DAILY 02/20/17 04/06/18 History Gabapentin [Neurontin] 300 mg PO BID 02/20/17 04/07/18 History HYDROcodone/APAP 10-325MG [[place] 1 tab PO QID 02/20/17 04/07/18 History 10-325] Folic Acid 1 mg PO DAILY@1200 #30 tab 11/02/17 04/07/18 Rx Cyanocobalamin (Vitamin B-12) 1,000 mcg PO DAILY 01/06/18 04/07/18 History [Vitamin B-12] Multivitamins, Thera [Multivitamin 1 tab PO DAILY 01/06/18 04/07/18 History (formulary)] Thiamine [Vitamin B-1] 100 mg PO DAILY 01/06/18 04/07/18 History Metoprolol Tartrate [Lopressor] 25 mg PO BID #60 dose 03/20/18 04/07/18 Rx Omeprazole [PriLOSEC] 20 mg PO AC-BID #30 cap 03/20/18 04/07/18 Rx Allergies Allergy/AdvReac Type Severity Reaction Status Date / Time No Known Allergies Allergy Verified 04/07/18 06:12 Physical Exam Vitals: Vital Signs Temp Pulse Pulse Resp BP Pulse Ox 04/07/18 10:23 84 16 127/62 98 04/07/18 10:08 81 16 129/65 98 04/07/18 09:53 86 16 133/73 96 04/07/18 09:38 91 16 141/78 98 04/07/18 09:23 86 16 159/80 100 04/07/18 09:08 96.8 F L 100 18 149/91 93 L 04/07/18 06:57 98.5 F 97 16 130/95 97 Intake and Output 04/06/18 04/07/18 04/07/18 22:59 06:59 14:59 Intake Total 100 1600 Output Total 220 Balance 100 1380 Intake: IV 100 1600 Output: Urine 200 Estimated Blood Loss 20 Other: Weight 63.503 kg PHYSICAL EXAMINATION: Patient is lying in the bed comfortably, no acute distress, awake alert and oriented.. HEENT: Normocephalic. Neck is supple. Pupils reactive. Nostrils clear. Oral cavity is moist. Ears reveal no drainage. Neck reveals no JVD, carotid bruits, or thyromegaly. CHEST EXAMINATION: Trachea is central. Symmetrical expansion. Lung butler clear to auscultation and percussion. CARDIAC: Normal S1, S2 with no gallops. No murmurs ABDOMEN: Soft. Bowel sounds normal. No organomegaly. No abdominal bruits. Extremities: reveal no edema. No clubbing or cyanosis Neurologically awake, alert, oriented x3 with well-coordinated movements. No focal deficits noted Skin: No rash or skin lesions. Psychiatric: Coperative. Nonsuicidal Musculoskeletal: No joint swelling or deformity. Normal range of motion. Assessment and Plan Assessment: Cholelithiasis. Status post laparoscopic cholecystectomy. On 04/07/2018 Recent admission with alcohol intoxication and abdominal pain and alcohol Hepatitis. Coronary artery disease with history of stent placement severe peripheral vascular disease with bilateral lower extremities bypass surgery and right BKA COPD not in exacerbation History of [place] History of seizure disorder Previous history of alcohol withdrawal symptoms History of CVA/TIA Hypertension Hyperlipidemia Anxiety is as depression Ongoing nicotine addiction Alcohol abuse DVT prophylaxis Plan: Patient will be continued on IV fluids and pain management and bowel regimen. Encourage incentive spirometry and ambulation. DVT prophylaxis. We'll start back on Plavix tomorrow morning. Continue with metoprolol and status. We will check CBC and CMP tomorrow. Monitor for alcohol withdrawal symptoms. Further recommendations based on the clinical course. We will continue to follow closely. Thank you for your consult. Time with Patient: Greater than 30
[2018-04-07] MEDS ORDERED: LORazepam 2 MG/ML INJ IV PRN ×2 (13:31)
[2018-04-07] MEDS: PANTOPRAZOLE 40 MG TABLET PO SCH ×2 (13:44→17:32)
[2018-04-07] MEDS: HYDROcodone/APAP 5-325MG 1 EACH TAB PO PRN ×2 (15:15→22:27)
[2018-04-07 17:29] VITALS: RESP 16
[2018-04-07] MEDS: LORazepam 2 MG/ML INJ IV PRN ×2 (18:10→20:38)
[2018-04-07] MEDS: METOPROLOL TARTRATE 25 MG TAB PO SCH (20:38)
[2018-04-07] MEDS: GABAPENTIN 300 MG CAP PO SCH (20:38)
[2018-04-07] MEDS ORDERED: ATORVASTATIN 80 MG TAB PO SCH (21:00)
[2018-04-08] MEDS: LORazepam 2 MG/ML INJ IV PRN (02:22)
[2018-04-08] MEDS: LACTATED RINGERS 1,000 ML IV SCH (04:11)
[2018-04-08] MEDS: HYDROcodone/APAP 5-325MG 1 EACH TAB PO PRN ×2 (04:16→10:33)
[2018-04-08 07:38] LABS: Basophils % (A) 0 %; Eosinophils # (A) 0.1 k/uL (0-0.7); Eosinophils % (A) 1 %; HCT 35.7 % (39.0-53.0); HGB 11.6 gm/dL (13.0-17.5); Lymphocytes # (A) 1.9 k/uL (1.0-4.8); Lymphocytes % (A) 23 %; MCH 33.9 pg (25.0-35.0); MCHC 32.6 g/dL (31.0-37.0); MCV 103.8 fL (80.0-100.0); Macrocytosis Slight; Mean Platelet Volume 8.4; Monocytes # (A) 0.4 k/uL (0-1.0); Monocytes % (A) 5 %; Neutrophils # (A) 5.6 k/uL (1.3-7.7); Neutrophils % (A) 69 %; Platelet Count 169 k/uL (150-450); RBC 3.44 m/uL (4.30-5.90); WBC 8.1 k/uL (3.8-10.6)
[2018-04-08 08:11] LABS: ALT 38 U/L (21-72); AST 21 U/L (17-59); Albumin 2.9 g/dL (3.5-5.0); Alkaline Phosphatase 73 U/L (38-126); Anion Gap 6 mmol/L; Blood Urea Nitrogen 15 mg/dL (9-20); Calcium 8.1 mg/dL (8.4-10.2); Carbon Dioxide 28 mmol/L (22-30); Chloride 103 mmol/L (98-107); Glucose 92 mg/dL (74-99); Potassium 3.7 mmol/L (3.5-5.1); Sodium 137 mmol/L (137-145); Total Protein 5.3 g/dL (6.3-8.2)
[2018-04-08] MEDS ORDERED: CLOPIDOGREL 75 MG TAB PO SCH (09:00)
[2018-04-08] MEDS ORDERED: ENOXAPARIN 30 MG/0.3 ML SYRINGE SQ SCH (09:00)
[2018-04-08] MEDS ORDERED: SERTRALINE 100 MG TAB PO SCH (09:00)
--- NOTE | 2018-04-08 10:14 | P.DS ---
Providers Date of admission: 04/07/2018 Expected date of discharge: 04/08/18 Attending physician: Roland Luo Consults: 04/07/18 09:22 Consult Physician Routine Consulting Provider: Ozzy Pereira Consult Reason/Comments: Medical management Do you want consulting provider notified?: Yes Primary care physician: Ozzy Pereira Hospital Course: This a 58-year-old male who underwent laparoscopic ostectomy for chronic cholecystitis. Patient did well postoperatively. Please see hospital chart for details. Procedures: Laparoscopic cholecystectomy Patient Condition at Discharge: Good Plan - Discharge Summary New Discharge Prescriptions: No Action Sertraline [Zoloft] 100 mg PO DAILY HYDROcodone/APAP 10-325MG [[place] 10-325] 1 tab PO QID Clopidogrel [Plavix] 75 mg PO DAILY Atorvastatin [Lipitor] 80 mg PO HS Gabapentin [Neurontin] 300 mg PO BID Folic Acid 1 mg PO DAILY@1200 #30 tab Multivitamins, Thera [Multivitamin (formulary)] 1 tab PO DAILY Thiamine [Vitamin B-1] 100 mg PO DAILY Cyanocobalamin (Vitamin B-12) [Vitamin B-12] 1,000 mcg PO DAILY Omeprazole [PriLOSEC] 20 mg PO AC-BID #30 cap Metoprolol Tartrate [Lopressor] 25 mg PO BID #60 dose Discharge Medication List Sertraline [Zoloft] 100 mg PO DAILY 01/11/17 [History] Atorvastatin [Lipitor] 80 mg PO HS 02/20/17 [History] Clopidogrel [Plavix] 75 mg PO DAILY 02/20/17 [History] Gabapentin [Neurontin] 300 mg PO BID 02/20/17 [History] HYDROcodone/APAP 10-325MG [[place] 10-325] 1 tab PO QID 02/20/17 [History] Folic Acid 1 mg PO DAILY@1200 #30 tab 11/02/17 [Rx] Cyanocobalamin (Vitamin B-12) [Vitamin B-12] 1,000 mcg PO DAILY 01/06/18 [ History] Multivitamins, Thera [Multivitamin (formulary)] 1 tab PO DAILY 01/06/18 [History ] Thiamine [Vitamin B-1] 100 mg PO DAILY 01/06/18 [History] Metoprolol Tartrate [Lopressor] 25 mg PO BID #60 dose 03/20/18 [Rx] Omeprazole [PriLOSEC] 20 mg PO AC-BID #30 cap 03/20/18 [Rx] Follow up Appointment(s)/Referral(s): Roland Luo MD [STAFF PHYSICIAN] - 1 Week
[2018-04-08] MEDS: METOPROLOL TARTRATE 25 MG TAB PO SCH (10:16)
[2018-04-08] MEDS: PANTOPRAZOLE 40 MG TABLET PO SCH (10:16)
[2018-04-08] MEDS: GABAPENTIN 300 MG CAP PO SCH (10:17)
[2018-04-08 11:27] VITALS: BP 109/66; PULSE 80; TEMP 98.3
[2018-04-08] MEDS ORDERED: CYANOCOBALAMIN 500 MCG TAB PO SCH (12:00)
[2018-04-08] MEDS ORDERED: FOLIC ACID 1 MG TAB PO SCH (12:00)
[2018-04-08] MEDS ORDERED: THIAMINE 100 MG TAB PO SCH (12:00)
[2018-04-08] MEDS ORDERED: MULTIVITAMINS, THERA 1 EACH TAB PO SCH (12:00)
--- NOTE | 2018-04-08 14:56 | P.PN ---
Subjective Progress Note Date: 04/08/18 Principal diagnosis: Status post cholecystectomy Patient is a 58-year-old male with a known history of alcohol abuse, alcohol Hepatitis, coronary artery disease with history of stent placement and severe peripheral vascular disease with bilateral lateral lower extremities bypass surgery and right biliary amputation was admitted to the hospital for laparoscopic cholecystectomy. Patient was recently admitted to hospital with epigastric and right upper quadrant abdominal pain and was found to have elevated liver enzymes and alk phos. Patient was found to have cholelithiasis and was seen by surgery. Recommended cholecystectomy. Patient was scheduled for elective laparoscopic cholecystectomy. Patient tolerated the procedure very well. Currently denied any complaints of chest pain or shortness of breath. Abdominal soreness is present. No nausea no vomiting. No fever no chills. No headache or dizziness or lightheadedness. Plavix has been held due to schedule surgery. Patient continues to smoke otherwise. 04/08/2018 Patient denied any complaints of chest pain or shortness of breath. Patient is not an alcohol withdrawal and is not requiring Ativan. Pain is fairly controlled. No fever no chills. No nausea vomiting or abdominal pain. Patient is being discharged home today. Discharge medication reconciliation was done. Current medications reviewed. Objective - Vital Signs Vital signs: Vital Signs Temp 98.3 F 04/08/18 09:45 Pulse 80 04/08/18 09:45 Resp 16 04/08/18 09:45 BP 109/66 04/08/18 09:45 Pulse Ox 93 L 04/08/18 09:45 Intake & Output 04/07/18 04/08/18 04/08/18 18:59 06:59 18:59 Intake Total 1840 1685 460 Output Total 420 Balance 1420 1685 460 Weight 63.503 kg Intake: IV 1600 Intake, IV Titration 1685 Amount Lactated Ringers 1,000 ml 1625 @ 125 mls/hr IV .Q8H ONE Rx#:[id number] Lactated Ringers 1,000 ml 60 @ 20 mls/hr IV .Q24H SHONDA Rx#:[id number] Oral 240 460 Output: Urine 400 Estimated Blood Loss 20 Other: # Voids 1 # Bowel Movements 0 - Exam PHYSICAL EXAMINATION: Patient is lying in the bed comfortably, no acute distress, awake alert and oriented.. HEENT: Normocephalic. Neck is supple. Pupils reactive. Nostrils clear. Oral cavity is moist. Ears reveal no drainage. Neck reveals no JVD, carotid bruits, or thyromegaly. CHEST EXAMINATION: Trachea is central. Symmetrical expansion. Lung butler clear to auscultation and percussion. CARDIAC: Normal S1, S2 with no gallops. No murmurs ABDOMEN: Soft. Bowel sounds normal. No organomegaly. No abdominal bruits. Extremities: reveal no edema. No clubbing or cyanosis Neurologically awake, alert, oriented x3 with well-coordinated movements. No focal deficits noted Skin: No rash or skin lesions. Psychiatric: Coperative. Nonsuicidal Musculoskeletal: No joint swelling or deformity. Normal range of motion. - Labs CBC & Chem 7: 04/08/18 06:47 04/08/18 06:47 Labs: Abnormal Lab Results - Last 24 Hours (Table) 04/08/18 04/08/18 Range/Units 06:47 06:47 RBC 3.44 L (4.30-5.90) m/uL Hgb 11.6 L (13.0-17.5) gm/dL Hct 35.7 L (39.0-53.0) % MCV 103.8 H (80.0-100.0) fL Calcium 8.1 L (8.4-10.2) mg/dL Total Protein 5.3 L (6.3-8.2) g/dL Albumin 2.9 L (3.5-5.0) g/dL Assessment and Plan Assessment: Cholelithiasis. Status post laparoscopic cholecystectomy. On 04/07/2018 Recent admission with alcohol intoxication and abdominal pain and alcohol Hepatitis. Coronary artery disease with history of stent placement severe peripheral vascular disease with bilateral lower extremities bypass surgery and right BKA COPD not in exacerbation History of [place] History of seizure disorder Previous history of alcohol withdrawal symptoms History of CVA/TIA Hypertension Hyperlipidemia Anxiety is as depression Ongoing nicotine addiction Alcohol abuse DVT prophylaxis Plan: Patient will be continued on pain management and bowel regimen. Encourage incentive spirometry and ambulation. DVT prophylaxis. started back on Plavix today morning. Continue with metoprolol. Monitored for alcohol withdrawal symptoms. Patient is tolerating oral diet. Patient is being discharged home today. Time with Patient: Greater than 30
== END 2018-04-08 14:50 | disposition home or self-care (01) ==
LOC: OR 05:53 → 3SUR 09:08 → OR 04-08 14:50
PROVIDERS: ATTEND Surgery
DX: K80.10 Calculus of gallbladder with chronic cholecystitis without obstruction (principal); K66.0 Peritoneal adhesions (postprocedural) (postinfection); I25.10 Atherosclerotic heart disease of native coronary artery without angina pectoris; I10 Essential (primary) hypertension; Z86.73 Personal history of transient ischemic attack (TIA), and cerebral infarction without residual deficits; E78.5 Hyperlipidemia, unspecified; I25.2 Old myocardial infarction; F32.9 Major depressive disorder, single episode, unspecified; I73.9 Peripheral vascular disease, unspecified; J44.9 Chronic obstructive pulmonary disease, unspecified; Z95.5 Presence of coronary angioplasty implant and graft; F17.210 Nicotine dependence, cigarettes, uncomplicated; Z79.02 Long term (current) use of antithrombotics/antiplatelets; Z79.891 Long term (current) use of opiate analgesic; Z79.899 Other long term (current) drug therapy
CPT/HCPCS: 88304; 80053; 85025; 47562; J2250; J2060 ×2; J1644; J1100; J2710; J2405; J2001; J3010; J1650; J1170; J2370; J0330; J2704; J0690

== ENCOUNTER 2018-05-22 16:11 | Inpatient (IN) | payer MEDICARE ==
[2018-05-22] MEDS ORDERED: SODIUM CHLORIDE 0.9% 1,000 ML IV STA ×2 (16:42→18:30)
[2018-05-22] MEDS ORDERED: VANCOMYCIN IV PER PHARMACY 1 EACH MISC MISCELLANE PRN (16:43)
[2018-05-22] MEDS ORDERED: PIPERACILLIN-TAZOBACTAM 3.375 GM in SODIUM CHLORIDE 0.9% 100 ML IVPB STA (16:43)
--- NOTE | 2018-05-22 16:47 | ED ---
General Adult HPI - General Source: patient, RN notes reviewed Mode of arrival: wheelchair Limitations: no limitations <Flaco Brooks - Last Filed: 05/22/18 18:24> <Bishop Berman - Last Filed: 05/22/18 18:32> - General Chief complaint: Skin/Abscess/Foreign Body Stated complaint: Sore on bottom of leg Time Seen by Provider: 05/22/18 16:31 - History of Present Illness Initial comments: Patient 58-year-old male presenting to the emergency room today with a chief complaint of infection to right lower leg. Patient has history of BKA. Patient states that he does have some redness and a ulcerated area to the right stump. Patient does admit that there is pain locally. States worse when he tried to ambulate. Patient states that started 2 weeks ago. He states that he was very itchy scratching at it has turned into an ulcerated area. States that there is a second area to the tibial tuberosity area that is starting to bother him. The patient states is currently not on any antibiotics. He denies any other complaints or symptoms at this time. Patient denies any recent fever, chills, shortness of breath, chest pain, back pain, abdominal pain, nausea or vomiting, numbness or tingling, dysuria or hematuria, or any other complaints. ( Flaco Brooks) - Related Data Home Medications Medication Instructions Recorded Confirmed Sertraline [Zoloft] 100 mg PO DAILY 01/11/17 05/22/18 Atorvastatin [Lipitor] 80 mg PO HS 02/20/17 05/22/18 Clopidogrel [Plavix] 75 mg PO DAILY 02/20/17 05/22/18 Gabapentin [Neurontin] 300 mg PO BID 02/20/17 05/22/18 HYDROcodone/APAP 10-325MG [[place] 1 tab PO QID 02/20/17 05/22/18 10-325] Cyanocobalamin (Vitamin B-12) 1,000 mcg PO DAILY 01/06/18 05/22/18 [Vitamin B-12] Multivitamins, Thera [Multivitamin 1 tab PO DAILY 01/06/18 05/22/18 (formulary)] Thiamine [Vitamin B-1] 100 mg PO DAILY 01/06/18 05/22/18 Previous Rx's Medication Instructions Recorded Folic Acid 1 mg PO DAILY@1200 #30 tab 04/18/18 Metoprolol Tartrate [Lopressor] 25 mg PO BID #60 dose 03/20/18 Omeprazole [PriLOSEC] 20 mg PO AC-BID #30 cap 03/20/18 Allergies Allergy/AdvReac Type Severity Reaction Status Date / Time No Known Allergies Allergy Verified 05/22/18 16:21 Review of Systems ROS Other: All systems not noted in ROS Statement are negative. <Flaco Brooks - Last Filed: 05/22/18 18:24> ROS Other: All systems not noted in ROS Statement are negative. <Bishop Berman - Last Filed: 05/22/18 18:32> ROS Statement: Those systems with pertinent positive or pertinent negative responses have been documented in the HPI. Past Medical History Past Medical History: Coronary Artery Disease (CAD), Chest Pain / Angina, CVA/ TIA, Hyperlipidemia, Hypertension, Myocardial Infarction ([place]), Pneumonia, Seizure Disorder, Vascular Disorder Additional Past Medical History / Comment(s): 09/25/14 STEMI with stent placement , Seizures- last one 2013, ETOH Abuse/withdrawl. lt rib fx, Hx of L ankle fx. PVD -rt bka has prosthesis Last Myocardial Infarction Date:: 09/25/14 History of Any Multi-Drug Resistant Organisms: None Reported Past Surgical History: Appendectomy, Heart Catheterization With Stent Additional Past Surgical History / Comment(s): 09/25/14 PTCA with stenting, BYPASS ON BOTH LEGS, RIGHT BELOW KNEE AMPUTATION, 2 EGD's, colonoscopy x 2, lap ahmet, lysis of adhesions, hemorrhoidectomy, . Past Anesthesia/Blood Transfusion Reactions: No Reported Reaction Additional Past Anesthesia/Blood Transfusion Reaction / Comment(s): Pt had blood transfusions with no reaction Date of Last Stent Placement:: 09/25/14 Past Psychological History: Anxiety, Depression Smoking Status: Current some day smoker Past Alcohol Use History: Daily Past Drug Use History: None Reported - Past Family History Father Family Medical History: Cancer Additional Family Medical History / Comment(s): Father of lung cancer. Mother Family Medical History: Cancer, Hypertension, Liver Disease Additional Family Medical History / Comment(s): Psychological history, <Flaco Brooks - Last Filed: 05/22/18 18:24> General Exam Limitations: no limitations <Flaco Brooks - Last Filed: 05/22/18 18:24> <Bishop Berman - Last Filed: 05/22/18 18:32> - General Exam Comments Initial Comments: General: The patient is awake and alert, in no distress, and does not appear acutely ill. Ears, nose, mouth and throat: There are moist mucous membranes and no oral lesions. Neck: The neck is supple Cardiovascular: There is a regular rate and rhythm. No murmur, rub or gallop is appreciated. Respiratory: Lungs are clear to auscultation, respirations are non-labored, breath sounds are equal. No wheezes, stridor, rales, or rhonchi. Musculoskeletal/skin: BKA on the right. Patient does have redness to the distal stump. There is no ulcerated area centrally measuring approximately centimeter across with purulent drainage. Mild tenderness on palpation. Sensation intact. Strength 5/5. . Neurological: A&O x 3. CN II-XII intact, There are no obvious motor or sensory deficits. Coordination appears grossly intact. Speech is normal. Psychiatric: Cooperative, appropriate mood & affect, normal judgment. (Flaco Brooks) Course <Flaco Brooks - Last Filed: 05/22/18 18:24> <Bishop Berman - Last Filed: 05/22/18 18:32> Vital Signs 05/22/18 16:24 Temperature 97.8 F Pulse Rate 101 H Respiratory 20 Rate Blood Pressure 137/94 O2 Sat by Pulse 97 Oximetry - Reevaluation(s) Reevaluation #1: 05/22/18 18:31 PA supervision: I personally do a [id number] evaluation the patient patient is been having pain some redness and evidence of infection for about a week and a half to the right stump of his right BKA. He states he initially had a small area that was like a pimple on an impacted he now has some ascending erythema. I do agree with the assessment and plan the patient be admitted for IV antibiotics. The case will be discussed with the hospitalist who is covering for Dr. Pereira today. (Bishop Berman) Medical Decision Making - Lab Data Result diagrams: 05/22/18 17:08 05/22/18 17:08 <Flaco Brooks - Last Filed: 05/22/18 18:24> - Lab Data Result diagrams: 05/22/18 17:08 05/22/18 17:08 <Bishop Berman - Last Filed: 05/22/18 18:32> - Medical Decision Making Patient reexamined at this time shows no signs of distress. His x-rays reviewed show no evidence for an ostial myelitis. Patient's lactic acid was 2.4. His blood pressure is stable. He is not hypertensive. Patient given a liter bolus here in the emergency room started on Zosyn, vancomycin for infection. Patient potassium is 3.0. His EKG reviewed does show no acute abnormalities. His QTc is 497. Patient given IV 20 mEq potassium along with by mouth 40 mEq of potassium. Patient was seen by attending physician Dr. Berman. He'll be admitted to the hospital continue on antibiotics (Flaco Brooks ) - Lab Data Lab Results 05/22/18 05/22/18 05/22/18 Range/Units 17:08 17:08 17:08 WBC 6.3 (3.8-10.6) k/uL RBC 4.27 L (4.30-5.90) m/uL Hgb 14.7 D (13.0-17.5) gm/dL Hct 42.9 (39.0-53.0) % MCV 100.4 H (80.0-100.0) fL MCH 34.4 (25.0-35.0) pg MCHC 34.3 (31.0-37.0) g/dL RDW 13.1 (11.5-15.5) % Plt Count 211 (150-450) k/uL Neutrophils % 60 % Lymphocytes % 27 % Monocytes % 8 % Eosinophils % 1 % Basophils % 0 % Neutrophils # 3.8 (1.3-7.7) k/uL Lymphocytes # 1.7 (1.0-4.8) k/uL Monocytes # 0.5 (0-1.0) k/uL Eosinophils # 0.1 (0-0.7) k/uL Basophils # 0.0 (0-0.2) k/uL Sodium 141 (137-145) mmol/L Potassium 3.0 L (3.5-5.1) mmol/L Chloride 105 (98-107) mmol/L Carbon Dioxide 26 (22-30) mmol/L Anion Gap 10 mmol/L BUN 11 (9-20) mg/dL Creatinine 0.70 (0.66-1.25) mg/dL Est GFR (CKD-EPI)AfAm >90 (>60 ml/min/1.73 sqM) Est GFR (CKD-EPI)NonAf >90 (>60 ml/min/1.73 sqM) Glucose 86 (74-99) mg/dL Plasma Lactic Acid Rui 2.4 H* (0.7-2.0) mmol/L Calcium 9.0 (8.4-10.2) mg/dL Magnesium (1.6-2.3) mg/dL Total Bilirubin 0.8 (0.2-1.3) mg/dL AST 17 (17-59) U/L ALT 31 (21-72) U/L Alkaline Phosphatase 97 (38-126) U/L Total Protein 6.8 (6.3-8.2) g/dL Albumin 3.8 (3.5-5.0) g/dL Urine Color Urine Appearance (Clear) Urine pH (5.0-8.0) Ur Specific Rice (1.001-1.035) Urine Protein (Negative) Urine Glucose (UA) (Negative) Urine Ketones (Negative) Urine Blood (Negative) Urine Nitrite (Negative) Urine Bilirubin (Negative) Urine Urobilinogen (<2.0) mg/dL Ur Leukocyte Esterase (Negative) 05/22/18 05/22/18 Range/Units 17:08 17:31 WBC (3.8-10.6) k/uL RBC (4.30-5.90) m/uL Hgb (13.0-17.5) gm/dL Hct (39.0-53.0) % MCV (80.0-100.0) fL MCH (25.0-35.0) pg MCHC (31.0-37.0) g/dL RDW (11.5-15.5) % Plt Count (150-450) k/uL Neutrophils % % Lymphocytes % % Monocytes % % Eosinophils % % Basophils % % Neutrophils # (1.3-7.7) k/uL Lymphocytes # (1.0-4.8) k/uL Monocytes # (0-1.0) k/uL Eosinophils # (0-0.7) k/uL Basophils # (0-0.2) k/uL Sodium (137-145) mmol/L Potassium (3.5-5.1) mmol/L Chloride (98-107) mmol/L Carbon Dioxide (22-30) mmol/L Anion Gap mmol/L BUN (9-20) mg/dL Creatinine (0.66-1.25) mg/dL Est GFR (CKD-EPI)AfAm (>60 ml/min/1.73 sqM) Est GFR (CKD-EPI)NonAf (>60 ml/min/1.73 sqM) Glucose (74-99) mg/dL Plasma Lactic Acid Rui (0.7-2.0) mmol/L Calcium (8.4-10.2) mg/dL Magnesium 1.3 L (1.6-2.3) mg/dL Total Bilirubin (0.2-1.3) mg/dL AST (17-59) U/L ALT (21-72) U/L Alkaline Phosphatase (38-126) U/L Total Protein (6.3-8.2) g/dL Albumin (3.5-5.0) g/dL Urine Color Light Yellow Urine Appearance Clear (Clear) Urine pH 7.0 (5.0-8.0) Ur Specific Rice 1.004 (1.001-1.035) Urine Protein Negative (Negative) Urine Glucose (UA) Negative (Negative) Urine Ketones Negative (Negative) Urine Blood Negative (Negative) Urine Nitrite Negative (Negative) Urine Bilirubin Negative (Negative) Urine Urobilinogen <2.0 (<2.0) mg/dL Ur Leukocyte Esterase Negative (Negative) Disposition Is patient prescribed a controlled substance at d/c from ED?: No Time of Disposition: 18:18 <Flaco Brooks - Last Filed: 05/22/18 18:24> <Bishop Berman - Last Filed: 05/22/18 18:32> Clinical Impression: Cellulitis and abscess of left leg, Hypokalemia Disposition: ADMITTED IP TO THIS HOSP Condition: Good Referrals: Ozzy Pereira MD [Primary Care Provider] - 1-2 days
[2018-05-22] MEDS ORDERED: VANCOMYCIN 1,500 MG in SODIUM CHLORIDE 0.9% 250 ML IVPB ONE (17:00)
[2018-05-22 17:31] LABS: Basophils % (A) 0 %; Eosinophils # (A) 0.1 k/uL (0-0.7); Eosinophils % (A) 1 %; HCT 42.9 % (39.0-53.0); Lymphocytes # (A) 1.7 k/uL (1.0-4.8); Lymphocytes % (A) 27 %; MCH 34.4 pg (25.0-35.0); MCHC 34.3 g/dL (31.0-37.0); MCV 100.4 fL (80.0-100.0); Mean Platelet Volume 7.9; Monocytes # (A) 0.5 k/uL (0-1.0); Monocytes % (A) 8 %; Neutrophils # (A) 3.8 k/uL (1.3-7.7); Neutrophils % (A) 60 %; Platelet Count 211 k/uL (150-450); RBC 4.27 m/uL (4.30-5.90); RDW 13.1 % (11.5-15.5); WBC 6.3 k/uL (3.8-10.6)
[2018-05-22 17:38] LABS: HGB 14.7 gm/dL (13.0-17.5)
[2018-05-22 17:43] LABS: ALT 31 U/L (21-72); AST 17 U/L (17-59); Albumin 3.8 g/dL (3.5-5.0); Alkaline Phosphatase 97 U/L (38-126); Anion Gap 10 mmol/L; Blood Urea Nitrogen 11 mg/dL (9-20); Carbon Dioxide 26 mmol/L (22-30); Chloride 105 mmol/L (98-107); Glucose 86 mg/dL (74-99); Sodium 141 mmol/L (137-145); Total Bilirubin 0.8 mg/dL (0.2-1.3); Total Protein 6.8 g/dL (6.3-8.2)
[2018-05-22 17:46] LABS: Appearance,Urine Clear (Clear); Bilirubin,Urine Negative (Negative); Blood,Urine Negative (Negative); Color,Urine Light Yellow; Glucose,Urine (UA) Negative (Negative); Ketones,Urine Negative (Negative); Leukocyte Esterase,Urine Negative (Negative); Nitrite,Urine Negative (Negative); Protein,Urine Negative (Negative); Specific Gravity,Urine 1.004 (1.001-1.035); Urobilinogen,Urine <2.0 mg/dL (<2.0)
--- NOTE | 2018-05-22 17:52 | XR ---
EXAMINATION TYPE: XR knee limited RT DATE OF EXAM: 05/22/2018 COMPARISON: NONE HISTORY: Knee pain. Wound. TECHNIQUE: 2 views FINDINGS: There is below-knee amputation. I see no focal bone destruction. There is no evidence of a mass. Knee joint spaces are fairly normal. There are surgical clips. IMPRESSION: Amputation deformity. No evidence of osteomyelitis.
[2018-05-22] MEDS ORDERED: POTASSIUM CHLORIDE ER 20 MEQ TAB.ER PO STA (18:02)
[2018-05-22] MEDS ORDERED: POTASSIUM CHLORIDE 20 MEQ in WATER FOR INJECTION 1 100ML.BAG IVPB STA (18:16)
[2018-05-22] MEDS ORDERED: ACETAMINOPHEN TAB 325 MG TAB PO PRN (18:29)
[2018-05-22] MEDS ORDERED: ONDANSETRON 4 MG/2 ML VIAL IVP PRN (18:29)
[2018-05-22] MEDS ORDERED: NALOXONE 0.4 MG/ML 1 ML VIAL IV PRN (18:29)
[2018-05-22] MEDS: MORPHINE SULFATE 4 MG/ML SYRINGE IV PRN (20:31)
[2018-05-22] MEDS: GABAPENTIN 300 MG CAP PO SCH (20:36)
[2018-05-22] MEDS ORDERED: ATORVASTATIN 80 MG TAB PO SCH (21:00)
[2018-05-22] MEDS: HYDROcodone/APAP 10-325MG 1 EACH TAB PO SCH (22:41)
[2018-05-23] MEDS: PIPERACILLIN-TAZOBACTAM 3.375 GM in SODIUM CHLORIDE 0.9% 100 ML IVPB SCH ×2 (00:30→08:56)
[2018-05-23] MEDS: MORPHINE SULFATE 4 MG/ML SYRINGE IV PRN ×3 (02:23→14:20)
[2018-05-23] MEDS: VANCOMYCIN 1,250 MG in SODIUM CHLORIDE 0.9% 250 ML IVPB SCH ×2 (02:29→11:28)
[2018-05-23] MEDS ORDERED: PANTOPRAZOLE 40 MG TABLET PO SCH (07:30)
[2018-05-23] MEDS: GABAPENTIN 300 MG CAP PO SCH (08:58)
[2018-05-23] MEDS ORDERED: METOPROLOL TARTRATE 25 MG TAB PO SCH ×2 (09:00→12:30)
[2018-05-23] MEDS ORDERED: CLOPIDOGREL 75 MG TAB PO SCH (09:00)
[2018-05-23] MEDS ORDERED: SERTRALINE 100 MG TAB PO SCH (09:00)
[2018-05-23] MEDS: HYDROcodone/APAP 10-325MG 1 EACH TAB PO SCH ×2 (09:02→14:19)
[2018-05-23 09:25] LABS: ALT 34 U/L (21-72); AST 37 U/L (17-59); Albumin 2.9 g/dL (3.5-5.0); Alkaline Phosphatase 92 U/L (38-126); Anion Gap 5 mmol/L; Basophils % (A) 0 %; Blood Urea Nitrogen 15 mg/dL (9-20); Calcium 8.1 mg/dL (8.4-10.2); Carbon Dioxide 26 mmol/L (22-30); Chloride 110 mmol/L (98-107); Eosinophils # (A) 0.2 k/uL (0-0.7); Eosinophils % (A) 3 %; Glucose 108 mg/dL (74-99); HCT 38.7 % (39.0-53.0); HGB 12.3 gm/dL (13.0-17.5); Lymphocytes % (A) 32 %; MCH 33.1 pg (25.0-35.0); MCHC 31.8 g/dL (31.0-37.0); Macrocytosis Slight; Monocytes # (A) 0.3 k/uL (0-1.0); Monocytes % (A) 5 %; Neutrophils # (A) 3.5 k/uL (1.3-7.7); Neutrophils % (A) 57 %; Platelet Count 183 k/uL (150-450); Potassium 3.7 mmol/L (3.5-5.1); RBC 3.72 m/uL (4.30-5.90); RDW 13.3 % (11.5-15.5); Sodium 141 mmol/L (137-145); Total Bilirubin 0.8 mg/dL (0.2-1.3); Total Protein 5.5 g/dL (6.3-8.2); WBC 6.1 k/uL (3.8-10.6)
[2018-05-23 11:23] VITALS: RESP 18
[2018-05-23 11:42] VITALS: BP 130/77; PULSE 77; TEMP 98.2
--- NOTE | 2018-05-23 12:24 | P.HPIM ---
History of Present Illness 58-year-old the male was admitted for possible infection of the right leg patient has a right below-knee amputation secondary to peripheral vascular disease patient boots are not fitting well because of which there is an ulcerated region with some redness but there is no local is of temperature does not appear to be infected patient was started on vancomycin and Zosyn was admitted. I examine the patient patient will need local wound care to my suspicion is extremely low for infection patient will be started on doxycycline and he will be evaluated for appropriate fitting of his boots and will be discharged today. Patient doesn't have any fevers chills nausea vomiting. Patient used to be an alcoholic had by admissions in the past for chronic alcoholism patient denied any gastritis like symptoms. Patient can use to drink 3 times every week a pint of alcohol counseling regarding this was provided patient can use to smoke a pack per day, extensive counseling regarding this was provided as well patient lungs are clear to auscultation. Patient does have lactic acidosis which I believe is secondary to intravascular lower limb depletion I believe and magnesium is low repeat magnesium will be obtained if it's lower it will be replaced before discharge and I'll discharge him and magnesium oxide supplementation at home magnesium is low because of chronic alcoholism. Review of Systems REVIEW OF SYSTEMS: CONSTITUTIONAL: No fever, no malaise, no fatigue. HEENT: No recent visual problems or hearing problems. Denied any sore throat. CARDIOVASCULAR: No chest pain, orthopnea, PND, no palpitations, no syncope. PULMONARY: No shortness of breath, no cough, no hemoptysis. GASTROINTESTINAL: No diarrhea, no nausea, no vomiting, no abdominal pain. Normoactive bowel sounds. NEUROLOGICAL: No headaches, no weakness, no numbness. HEMATOLOGICAL: Denies any bleeding or petechiae. GENITOURINARY: Denies any burning micturition, frequency, or urgency. MUSCULOSKELETAL/RHEUMATOLOGICAL: Denies any joint pain, swelling, or any muscle pain. As mentioned above ENDOCRINE: Denies any polyuria or polydipsia. The rest of the 14-point review of systems is negative. Past Medical History Past Medical History: Coronary Artery Disease (CAD), Chest Pain / Angina, CVA/ TIA, Hyperlipidemia, Hypertension, Myocardial Infarction ([place]), Pneumonia, Seizure Disorder, Vascular Disorder Additional Past Medical History / Comment(s): 09/25/14 STEMI with stent placement , Seizures- last one 2013, ETOH Abuse/withdrawl. lt rib fx, Hx of L ankle fx. PVD -rt bka has prosthesis, tia-2007 lt eye sligtly droopy since and lt arm still has slight numbness to it Last Myocardial Infarction Date:: 09/25/14 History of Any Multi-Drug Resistant Organisms: None Reported Past Surgical History: Appendectomy, Cholecystectomy, Heart Catheterization With Stent Additional Past Surgical History / Comment(s): 09/25/14 PTCA with stenting, BYPASS ON BOTH LEGS, RIGHT BELOW KNEE AMPUTATION, 2 EGD's, colonoscopy x 2, lap ahmet, lysis of adhesions, hemorrhoidectomy, . Past Anesthesia/Blood Transfusion Reactions: No Reported Reaction Additional Past Anesthesia/Blood Transfusion Reaction / Comment(s): Pt had blood transfusions with no reaction Date of Last Stent Placement:: 09/25/14 Smoking Status: Current every day smoker - Past Family History Father Family Medical History: Cancer Additional Family Medical History / Comment(s): Father of lung cancer. Mother Family Medical History: Cancer, Hypertension, Liver Disease Additional Family Medical History / Comment(s): Psychological history, Medications and Allergies Home Medications Medication Instructions Recorded Confirmed Type Sertraline [Zoloft] 100 mg PO DAILY 01/11/17 05/22/18 History Atorvastatin [Lipitor] 80 mg PO HS 02/20/17 05/22/18 History Clopidogrel [Plavix] 75 mg PO DAILY 02/20/17 05/22/18 History Gabapentin [Neurontin] 300 mg PO BID 02/20/17 05/22/18 History HYDROcodone/APAP 10-325MG [[place] 1 tab PO QID 02/20/17 05/22/18 History 10-325] Folic Acid 1 mg PO DAILY@1200 #30 tab 11/02/17 05/22/18 Rx Cyanocobalamin (Vitamin B-12) 1,000 mcg PO DAILY 01/06/18 05/22/18 History [Vitamin B-12] Multivitamins, Thera [Multivitamin 1 tab PO DAILY 01/06/18 05/22/18 History (formulary)] Thiamine [Vitamin B-1] 100 mg PO DAILY 01/06/18 05/22/18 History Omeprazole [PriLOSEC] 20 mg PO AC-BID #30 cap 09/03/18 11/05/18 Rx Metoprolol Tartrate [Lopressor] 25 mg PO DAILY 05/22/18 05/22/18 History Doxycycline Monohydrate [Monodox] 100 mg PO BID 7 Days #6 cap 05/23/18 Rx Magnesium Oxide [Mag-Ox] 400 mg PO BID #60 tablet 05/23/18 Rx Allergies Allergy/AdvReac Type Severity Reaction Status Date / Time No Known Allergies Allergy Verified 05/22/18 16:21 Physical Exam Vitals: Vital Signs Temp Pulse Pulse Resp BP BP Pulse Ox 05/23/18 11:39 98.2 F 77 18 130/77 05/23/18 08:30 80 18 05/23/18 05:05 98.1 F 75 16 138/74 97 05/22/18 23:08 80 16 05/22/18 20:00 98.0 F 80 16 148/79 97 05/22/18 18:50 123/87 05/22/18 18:45 98.9 F 05/22/18 18:41 96 05/22/18 16:24 97.8 F 101 H 20 137/94 97 Intake and Output 05/22/18 05/23/18 05/23/18 22:59 06:59 14:59 Intake Total 420 3020 Balance 420 3020 Intake: Intake, IV Titration 2600 Amount Piperacillin-Tazobactam 3 100 .375 gm In Sodium Chloride 0.9% 100 ml @ 25 mls/hr IVPB ONCE STA Rx# :[id number] Piperacillin-Tazobactam 3 100 .375 gm In Sodium Chloride 0.9% 100 ml @ 25 mls/hr IVPB Q8HR [facility] Rx# :[id number] Potassium Chloride 20 meq 50 In Water For Injection 1 100ml.bag @ 50 mls/hr IVPB ONCE STA Rx#: [id number] Sodium Chloride 0.9% 1, 850 000 ml @ 100 mls/hr IV . Q10H [facility] Rx#:[id number] Sodium Chloride 0.9% 1, 1000 000 ml @ 999 mls/hr IV . Q1H1M [facility] Rx#:[id number] Vancomycin 1,250 mg In 250 Sodium Chloride 0.9% 250 ml @ 125 mls/hr IVPB Q8H [facility] Rx#:[id number] Vancomycin 1,500 mg In 250 Sodium Chloride 0.9% 250 ml @ 125 mls/hr IVPB ONCE ONE Rx#:[id number] Oral 420 420 Other: Voiding Method Toilet Toilet Urinal Urinal # Voids 1 Weight 59.5 kg 59.5 kg GENERAL: The patient is alert and oriented x3, not in any acute distress. Well developed, well nourished. HEENT: Pupils are round and equally reacting to light. EOMI. No scleral icterus. No conjunctival pallor. Normocephalic, atraumatic. No pharyngeal erythema. No thyromegaly. CARDIOVASCULAR: S1 and S2 present. No murmurs, rubs, or gallops. PULMONARY: Chest is clear to auscultation, no wheezing or crackles. ABDOMEN: Soft, nontender, nondistended, normoactive bowel sounds. No palpable organomegaly. MUSCULOSKELETAL: No joint swelling or deformity. EXTREMITIES: No cyanosis, clubbing, or pedal edema. NEUROLOGICAL: Gross neurological examination did not reveal any focal deficits. SKIN: Patient has below-knee amputation in the stump area has a small ulcer which is about 1.5 and to 1.5 cm circumferential with healthy ways no drainage. Patient does have some redness does not have any local is of temperature no tenderness. Results CBC & Chem 7: 05/23/18 08:21 05/23/18 08:21 Labs: Abnormal Lab Results - Last 24 Hours (Table) 05/22/18 05/22/18 05/22/18 Range/Units 17:08 17:08 17:08 RBC 4.27 L (4.30-5.90) m/uL Hgb (13.0-17.5) gm/dL Hct (39.0-53.0) % MCV 100.4 H (80.0-100.0) fL Potassium 3.0 L (3.5-5.1) mmol/L Chloride (98-107) mmol/L Glucose (74-99) mg/dL Plasma Lactic Acid Rui 2.4 H* (0.7-2.0) mmol/L Calcium (8.4-10.2) mg/dL Magnesium (1.6-2.3) mg/dL Total Protein (6.3-8.2) g/dL Albumin (3.5-5.0) g/dL 05/22/18 05/22/18 05/23/18 Range/Units 17:08 21:05 08:21 RBC 3.72 L (4.30-5.90) m/uL Hgb 12.3 L (13.0-17.5) gm/dL Hct 38.7 L (39.0-53.0) % MCV 104.0 H (80.0-100.0) fL Potassium (3.5-5.1) mmol/L Chloride (98-107) mmol/L Glucose (74-99) mg/dL Plasma Lactic Acid Rui 2.1 H* (0.7-2.0) mmol/L Calcium (8.4-10.2) mg/dL Magnesium 1.3 L (1.6-2.3) mg/dL Total Protein (6.3-8.2) g/dL Albumin (3.5-5.0) g/dL 05/23/18 Range/Units 08:21 RBC (4.30-5.90) m/uL Hgb (13.0-17.5) gm/dL Hct (39.0-53.0) % MCV (80.0-100.0) fL Potassium (3.5-5.1) mmol/L Chloride 110 H (98-107) mmol/L Glucose 108 H (74-99) mg/dL Plasma Lactic Acid Rui (0.7-2.0) mmol/L Calcium 8.1 L (8.4-10.2) mg/dL Magnesium (1.6-2.3) mg/dL Total Protein 5.5 L (6.3-8.2) g/dL Albumin 2.9 L (3.5-5.0) g/dL Microbiology - Last 24 Hours (Table) 05/22/18 16:40 Gram Stain - Preliminary Leg - Right Wound Culture - Preliminary Thrombosis Risk Factor Assmnt - Choose All That Apply Any of the Below Risk Factors Present?: Yes Each Factor Represents 1 point: Age 41-60 years Other Risk Factors: No Other congenital or acquired thrombophilia - If yes, enter type in comment: No Thrombosis Risk Factor Assessment Total Risk Factor Score: 1 Thrombosis Risk Factor Assessment Level: Low Risk Assessment and Plan Plan: Wound in the stump area right below knee amputation.: Secondary to non-fitting prosthesis. My suspicion is very low for infection to prevent infection patient will be discharged on doxycycline. -Chronic alcoholism: Counseling was provided -Nicotine use counseling was provided -Hypomagnesemia and hypokalemia secondary to alcoholism both of which will be corrected before his discharge. -Lactic acidosis and tachycardia secondary to intravascular well and depletion rather than infection for which she received IV fluids tachycardia improved repeating lactic acid today patient is metoprolol at home which was resumed as well. -Peripheral vascular disease for which patient is on antiplatelet therapy which will be continued. -Coronary artery disease -Seizure disorder -Continue nicotine use extensive counseling was provided -Hyperlipidemia -History of CVA TIA in the past
--- NOTE | 2018-05-23 12:24 | P.DS ---
Providers Date of admission: 05/22/18 18:25 Attending physician: Ozzy Pereira Consults: 05/23/18 12:19 Consult Physician Routine Consulting Provider: Hemal Hurtado Consult Reason/Comments: wound to right leg stump Do you want consulting provider notified?: Yes Primary care physician: Ozzy Pereira Hospital Course: Please refer to my HPI Patient Condition at Discharge: Good Plan - Discharge Summary Discharge Rx Participant: No New Discharge Prescriptions: New Doxycycline Monohydrate [Monodox] 100 mg PO BID 7 Days #6 cap Magnesium Oxide [Mag-Ox] 400 mg PO BID #60 tablet No Action Sertraline [Zoloft] 100 mg PO DAILY HYDROcodone/APAP 10-325MG [[place] 10-325] 1 tab PO QID Clopidogrel [Plavix] 75 mg PO DAILY Atorvastatin [Lipitor] 80 mg PO HS Gabapentin [Neurontin] 300 mg PO BID Folic Acid 1 mg PO DAILY@1200 #30 tab Multivitamins, Thera [Multivitamin (formulary)] 1 tab PO DAILY Thiamine [Vitamin B-1] 100 mg PO DAILY Cyanocobalamin (Vitamin B-12) [Vitamin B-12] 1,000 mcg PO DAILY Omeprazole [PriLOSEC] 20 mg PO AC-BID #30 cap Metoprolol Tartrate [Lopressor] 25 mg PO DAILY Discharge Medication List Sertraline [Zoloft] 100 mg PO DAILY 01/11/17 [History] Atorvastatin [Lipitor] 80 mg PO HS 02/20/17 [History] Clopidogrel [Plavix] 75 mg PO DAILY 02/20/17 [History] Gabapentin [Neurontin] 300 mg PO BID 02/20/17 [History] HYDROcodone/APAP 10-325MG [[place] 10-325] 1 tab PO QID 02/20/17 [History] Folic Acid 1 mg PO DAILY@1200 #30 tab 11/02/17 [Rx] Cyanocobalamin (Vitamin B-12) [Vitamin B-12] 1,000 mcg PO DAILY 01/06/18 [ History] Multivitamins, Thera [Multivitamin (formulary)] 1 tab PO DAILY 01/06/18 [History ] Thiamine [Vitamin B-1] 100 mg PO DAILY 01/06/18 [History] Omeprazole [PriLOSEC] 20 mg PO AC-BID #30 cap 03/20/18 [Rx] Metoprolol Tartrate [Lopressor] 25 mg PO DAILY 05/22/18 [History] Doxycycline Monohydrate [Monodox] 100 mg PO BID 7 Days #6 cap 05/23/18 [Rx] Magnesium Oxide [Mag-Ox] 400 mg PO BID #60 tablet 05/23/18 [Rx] Follow up Appointment(s)/Referral(s): Ozzy Pereira MD [Primary Care Provider] - 06/02/18 10:00 am Discharge Disposition: HOME SELF-CARE
--- NOTE | 2018-05-23 20:54 | CONS ---
CONSULTATION DATE OF SERVICE: 05/23/2018. REASON FOR CONSULTATION: Right BK stump wound with question of cellulitis. HISTORY OF PRESENT ILLNESS: The patient is a 58-year-old male with past medical history significant for peripheral arterial disease. The patient is status post total the right [id number] amputation done by Dr. Kwong about 4 years ago. The patient presenting to the ER at [facility] yesterday with the chief complaint of right BKA stump, pain, swelling and redness. Apparently the patient did develop an ulceration on the right BK stump about 2 weeks ago. The patient has been complaining of pain to that area, more of a dull aching pain 3 to 4/10, and no radiation surrounding swelling, redness, but no significant drainage. Denies any high-grade fever, rigors and chills. With these symptoms, the patient presented to the ER. The patient was evaluated by the ER physician. He did have x-rays of that stump, which did not show any bony changes. The patient did not have any high-grade fever or elevated white count. However, his lactic acid was elevated at 2.1. UA was negative. The patient did have cultures obtained from the wound area and has been started on vancomycin and Zosyn. I was asked to see the patient for further recommendation regarding antibiotic therapy. Subsequently, patient has been evaluated by the admitting physician and already being discharged with recommendation to follow up in the [facility]. The patient did mention to me that he has not followed advice of Wound Care Center. REVIEW OF SYSTEMS: CONSTITUTIONAL: Positive for weakness, but no high-grade fever. Eyes: No complaint. ENT no complaint. Respiratory no complaint. Cardiovascular no complaint. Genitourinary no complaint. Gastrointestinal: No complaint. Musculoskeletal as per HPI. Integumentary as per HPI. Psychological no complaint. Endocrine no complaint. Neurologic no complaint. PAST MEDICAL HISTORY: Coronary artery disease, CVA, TIA, hyperlipidemia, hypertension, [place], pneumonia, seizure disorder, PAD. PAST SURGICAL HISTORY: Right vaqvt-qym-[id number] amputation, PTCA, stenting, bypass on both legs, EGD, colonoscopy, lap cholecystectomy, hemorrhoidectomy. SOCIAL HISTORY: Positive for smoking current everyday smoker. Denies drinking or drug use. FAMILY HISTORY: Father history of lung cancer. Mother history of liver disease and hypertension. ALLERGIES: No known drug allergies. MEDICATION: Medications include the patient is currently on Tylenol, [place], Lipitor, Plavix, Neurontin, Lopressor, vancomycin, pharmacy to dose, morphine sulfate, Narcan, Zofran, Protonix, Zosyn. PHYSICAL EXAMINATION: Blood pressure is 130/77 with a pulse of 77, temperature 98.2. He is 97% on room air. General description is a middle-aged male lying in bed in no distress. No tachypnea or accessory muscles of respiration use. HEENT: Shows no pallor or scleral icterus. Oral mucosa membranes are dry. No pharyngeal erythema or thrush. Neck trachea central. No thyromegaly. LUNGS: Unlabored breathing. Clear to auscultation anteriorly. No wheeze or crackles. Heart S1, S2. Regular rate and rhythm. ABDOMEN: Soft, no tenderness. No guarding or rigidity. EXTREMITIES: Right BKA stump did have a wound, but no significant slough tissue. Minimal surrounding redness. No significant warmth, tenderness, or any drainage. Neurological: Patient is awake, alert, oriented times three. Mood and affect normal. LABS: Hemoglobin is 12.2, white count 6.1 with a BUN of 15, creatinine 0.92. Lactic acid was 2.1, down to 1.1. UA has been negative. Culture currently pending. DIAGNOSTIC IMPRESSION AND PLAN: Patient with acute right BKA stump wound, more likely a pressure ulcer stage III. Did have minimal fluctuation at the base and minimal surrounding cellulitis likely from a gram-positive skin efra. Clinically doubt any deep infection or osteomyelitis. PLAN: 1. Local wound care with Aquacel Silver dressing. 2. May give a short course of oral doxycycline 100 b.i.d. 3. Patient advised not to use his prosthesis until the wound heals up. The patient has been seen by orthotics and they are redoing his prosthetic leg on the right side. 4. The patient has been advised to follow up in the [facility] next week for continued local wound care. All questions and concerns were answered. Thank you for this consultation. MMSAMANTHA / MARYN: [id number] /
[2018-05-24] MEDS ORDERED: VANCOMYCIN TROUGH DUE 1 EACH MISC MISCELLANE ONE (02:00)
--- NOTE | 2018-05-25 13:02 | CDI ---
Last Revision, June 2017 Documentation Clarification Form Date: 05/25/18 From: Daisha Rosales Phone: If you have a question regarding this query, please contact Saima Carver at [phone] between 8am and 5pm. Admit Date: 05/22/2018 6:25:00 PM Patient Name: Taiwo Rojas Visit Number: [id number] Discharge Date: 05/23/18 ATTENTION: The Clinical Documentation Specialists (CDI) and [facility] Coding Staff appreciate your assistance in clarifying documentation. Please respond to the clarification below the line at the bottom and electronically sign. The CDI & [facility] Coding staff will review the response and follow-up if needed. Please note: Queries are made part of the Legal Health Record. If you have any questions, please contact the author of this message via ITS. Nisa Bailey MD Peripheral vascular disease is documented in the H&P, ED note and consult note. History/Risk Factors: Patient has a history of CAD and right below the knee amputation. Clinical Indicators: Patient has right bka due to PVD. Treatment: care home Plavix therapy. In your professional opinion, can the type and location of PVD be further specified? Atherosclerosis of extremities Occlusive Peripheral angiopathy Due to emoblism/thrombosis Unable to Determine Other, please specify Unable to determine In your professional opinion, in order to capture the severity of condition, can you please clarify if the above clinical indicators and treatment signify if there were any associated conditions? Gangrene Intermittent Claudication Rest Pain Ulceration No related conditions Other, please specify Unable to determine This is not an appropriate question for his condition here Atherosclerosis of extremities MTDD
== END 2018-05-23 17:37 | disposition home or self-care (01) | DRG 564 ==
LOC: EC 16:11 → 3NMEDONC 18:25
PROVIDERS: ADMIT Family Medicine; ATTEND Family Medicine
DX: T87.89 Other complications of amputation stump (principal); L89.893 Pressure ulcer of other site, stage 3; E87.2 Acidosis; L03.116 Cellulitis of left lower limb; E83.42 Hypomagnesemia; I70.201 Unspecified atherosclerosis of native arteries of extremities, right leg; E78.5 Hyperlipidemia, unspecified; E87.6 Hypokalemia; F10.20 Alcohol dependence, uncomplicated; B96.89 Other specified bacterial agents as the cause of diseases classified elsewhere; F17.210 Nicotine dependence, cigarettes, uncomplicated; G40.909 Epilepsy, unspecified, not intractable, without status epilepticus; I10 Essential (primary) hypertension; I25.10 Atherosclerotic heart disease of native coronary artery without angina pectoris; I25.2 Old myocardial infarction; F32.9 Major depressive disorder, single episode, unspecified; F41.9 Anxiety disorder, unspecified; Z89.511 Acquired absence of right leg below knee; Z86.73 Personal history of transient ischemic attack (TIA), and cerebral infarction without residual deficits; Z79.02 Long term (current) use of antithrombotics/antiplatelets; Z79.899 Other long term (current) drug therapy; Z71.6 Tobacco abuse counseling; Z71.41 Alcohol abuse counseling and surveillance of alcoholic; Z87.01 Personal history of pneumonia (recurrent); Z95.5 Presence of coronary angioplasty implant and graft; Z90.49 Acquired absence of other specified parts of digestive tract; Z80.1 Family history of malignant neoplasm of trachea, bronchus and lung; Z82.49 Family history of ischemic heart disease and other diseases of the circulatory system; Z83.79 Family history of other diseases of the digestive system
CPT/HCPCS: 36415; 80053; 81003; 83605; 83735; 85025; 87040; 87070; 87077; 87186; 87205; 93005; 96365; 96366; 99284

== ENCOUNTER → 2018-07-26 | Outpatient (CLI) | payer MEDICARE | END | disposition home or self-care (01) | LOC: LABWHC1 11:36 | PROVIDERS: ATTEND Thoracic Surgery (Cardiothoracic Vascular Surgery) | DX: E63.8 Other specified nutritional deficiencies (principal) | CPT/HCPCS: 87070; 87075; 87205 ==

== ENCOUNTER 2018-09-28 19:09 | Inpatient (IN) | payer MEDICARE, OTHER ==
[2018-09-28] MEDS ORDERED: LORazepam 2 MG/ML INJ IV STA (19:21)
[2018-09-28] MEDS ORDERED: SODIUM CHLORIDE 0.9% 1,000 ML IV STA ×2 (19:21)
[2018-09-28] MEDS ORDERED: SODIUM CHLORIDE 0.9% 500 ML 500 ML IV STA (19:21)
[2018-09-28] MEDS ORDERED: THIAMINE 200 MG in SODIUM CHLORIDE 0.9% 100 ML IVPB STA (19:22)
--- NOTE | 2018-09-28 19:24 | ED ---
Alcohol HPI - General Chief Complaint: Chest Pain Stated Complaint: chest pain/blood in urine/alcohol withdrawal Time Seen by Provider: 09/28/18 19:20 Source: patient Mode of arrival: ambulatory Limitations: no limitations - Related Data Home Medications Medication Instructions Recorded Confirmed Sertraline [Zoloft] 100 mg PO DAILY 01/11/17 09/13/18 Atorvastatin [Lipitor] 80 mg PO HS 02/20/17 09/13/18 Clopidogrel [Plavix] 75 mg PO DAILY 02/20/17 09/13/18 Gabapentin [Neurontin] 300 mg PO BID 02/20/17 09/13/18 HYDROcodone/APAP 10-325MG [[place] 1 tab PO QID 02/20/17 09/13/18 10-325] Cyanocobalamin (Vitamin B-12) 1,000 mcg PO DAILY 01/06/18 09/13/18 [Vitamin B-12] Multivitamins, Thera [Multivitamin 1 tab PO DAILY 01/06/18 09/13/18 (formulary)] Thiamine [Vitamin B-1] 100 mg PO DAILY 01/06/18 09/13/18 Metoprolol Tartrate [Lopressor] 25 mg PO DAILY 05/22/18 09/13/18 Previous Rx's Medication Instructions Recorded Folic Acid 1 mg PO DAILY@1200 #30 tab 11/02/17 Omeprazole [PriLOSEC] 20 mg PO AC-BID #30 cap 03/20/18 Magnesium Oxide [Mag-Ox] 400 mg PO BID #60 tablet 05/23/18 Allergies Allergy/AdvReac Type Severity Reaction Status Date / Time No Known Allergies Allergy Verified 09/28/18 19:17 Review of Systems ROS Statement: Those systems with pertinent positive or pertinent negative responses have been documented in the HPI. ROS Other: All systems not noted in ROS Statement are negative. Past Medical History Past Medical History: Coronary Artery Disease (CAD), Chest Pain / Angina, CVA/TIA, Hyperlipidemia, Hypertension, Myocardial Infarction (NH), Pneumonia, Seizure Disorder, Vascular Disorder Additional Past Medical History / Comment(s): 09/25/14 STEMI with stent placement, Seizures- last one 2013, ETOH Abuse/withdrawl. lt rib fx, Hx of L ankle fx. 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 Past Anesthesia/Blood Transfusion Reactions: No Reported Reaction Additional Past Anesthesia/Blood Transfusion Reaction / Comment(s): Pt had blood transfusions with no reaction Date of Last Stent Placement:: 09/25/14 Past Psychological History: Anxiety, Depression Smoking Status: Current every day smoker Past Alcohol Use History: Heavy Past Drug Use History: None Reported - Past Family History Father Family Medical History: Cancer Additional Family Medical History / Comment(s): Father of lung cancer. Mother Family Medical History: Cancer, Hypertension, Liver Disease Additional Family Medical History / Comment(s): Psychological history, General Exam Limitations: no limitations Course Vital Signs 09/28/18 19:14 Temperature 97.6 F Pulse Rate 142 H Respiratory 16 Rate Blood Pressure 122/84 O2 Sat by Pulse 98 Oximetry Medical Decision Making - Lab Data Result diagrams: 09/28/18 19:38 09/28/18 19:38 Lab Results 09/28/18 09/28/18 09/28/18 Range/Units 19:38 19:38 19:38 WBC 5.7 (3.8-10.6) k/uL RBC 4.62 (4.30-5.90) m/uL Hgb 16.1 (13.0-17.5) gm/dL Hct 48.8 (39.0-53.0) % MCV 105.7 H (80.0-100.0) fL MCH 35.0 (25.0-35.0) pg MCHC 33.1 (31.0-37.0) g/dL RDW 13.0 (11.5-15.5) % PT 9.9 (9.0-12.0) sec INR 0.9 (<1.2) APTT 23.3 (22.0-30.0) sec Sodium 140 (137-145) mmol/L Potassium 3.0 L (3.5-5.1) mmol/L Chloride 101 (98-107) mmol/L Carbon Dioxide 20 L (22-30) mmol/L Anion Gap 19 mmol/L BUN 16 (9-20) mg/dL Creatinine 0.78 (0.66-1.25) mg/dL Est GFR (CKD-EPI)AfAm >90 (>60 ml/min/1.73 sqM) Est GFR (CKD-EPI)NonAf >90 (>60 ml/min/1.73 sqM) Glucose 193 H (74-99) mg/dL Calcium 8.6 (8.4-10.2) mg/dL Phosphorus 3.7 (2.5-4.5) mg/dL Magnesium 1.4 L (1.6-2.3) mg/dL Total Bilirubin 1.2 (0.2-1.3) mg/dL AST 227 H (17-59) U/L ALT 155 H (21-72) U/L Alkaline Phosphatase 161 H (38-126) U/L Ammonia (<30) umol/L Total Protein 6.8 (6.3-8.2) g/dL Albumin 3.8 (3.5-5.0) g/dL Lipase 195 (23-300) U/L Serum Alcohol 340 H* mg/dL 09/28/18 Range/Units 19:38 WBC (3.8-10.6) k/uL RBC (4.30-5.90) m/uL Hgb (13.0-17.5) gm/dL Hct (39.0-53.0) % MCV (80.0-100.0) fL MCH (25.0-35.0) pg MCHC (31.0-37.0) g/dL RDW (11.5-15.5) % PT (9.0-12.0) sec INR (<1.2) APTT (22.0-30.0) sec Sodium (137-145) mmol/L Potassium (3.5-5.1) mmol/L Chloride (98-107) mmol/L Carbon Dioxide (22-30) mmol/L Anion Gap mmol/L BUN (9-20) mg/dL Creatinine (0.66-1.25) mg/dL Est GFR (CKD-EPI)AfAm (>60 ml/min/1.73 sqM) Est GFR (CKD-EPI)NonAf (>60 ml/min/1.73 sqM) Glucose (74-99) mg/dL Calcium (8.4-10.2) mg/dL Phosphorus (2.5-4.5) mg/dL Magnesium (1.6-2.3) mg/dL Total Bilirubin (0.2-1.3) mg/dL AST (17-59) U/L ALT (21-72) U/L Alkaline Phosphatase (38-126) U/L Ammonia 20 (<30) umol/L Total Protein (6.3-8.2) g/dL Albumin (3.5-5.0) g/dL Lipase (23-300) U/L Serum Alcohol mg/dL - EKG Data -: EKG Interpreted by Me (EKG shows sinus tachycardia rate of 123, NH 140, QRS 94, QTc 472) Critical Care Time Critical Care Time: Yes Total Critical Care Time: 31 Disposition Clinical Impression: Alcohol intoxication, Alcohol withdrawal syndrome, Acute chest wall pain, Alcoholism with alcohol dependence, Continuous dependence on cigarette smoking Disposition: ADMITTED IP TO THIS HOSP Condition: Serious Referrals: Ozzy Pereira MD [Primary Care Provider] - 1-2 days
[2018-09-28 19:55] LABS: Basophils % (A) 0 %; Eosinophils # (A) 0.1 k/uL (0-0.7); Eosinophils % (A) 2 %; HCT 48.8 % (39.0-53.0); HGB 16.1 gm/dL (13.0-17.5); Lymphocytes # (A) 0.9 k/uL (1.0-4.8); Lymphocytes % (A) 16 %; MCHC 33.1 g/dL (31.0-37.0); MCV 105.7 fL (80.0-100.0); Macrocytosis Slight; Mean Platelet Volume 8.8; Monocytes # (A) 0.3 k/uL (0-1.0); Monocytes % (A) 5 %; Neutrophils # (A) 4.3 k/uL (1.3-7.7); Neutrophils % (A) 75 %; RBC 4.62 m/uL (4.30-5.90); WBC 5.7 k/uL (3.8-10.6)
[2018-09-28 20:05] LABS: ALT 155 U/L (21-72); AST 227 U/L (17-59); Albumin 3.8 g/dL (3.5-5.0); Alkaline Phosphatase 161 U/L (38-126); Anion Gap 19 mmol/L; Blood Urea Nitrogen 16 mg/dL (9-20); Calcium 8.6 mg/dL (8.4-10.2); Carbon Dioxide 20 mmol/L (22-30); Chloride 101 mmol/L (98-107); Glucose 193 mg/dL (74-99); Lipase 195 U/L (23-300); Magnesium 1.4 mg/dL (1.6-2.3); Phosphorus 3.7 mg/dL (2.5-4.5); Sodium 140 mmol/L (137-145); Total Bilirubin 1.2 mg/dL (0.2-1.3); Total Protein 6.8 g/dL (6.3-8.2)
[2018-09-28 20:07] LABS: INR 0.9 (<1.2); Partial Thromboplastin Time 23.3 sec (22.0-30.0); Prothrombin Time 9.9 sec (9.0-12.0)
[2018-09-28] MEDS ORDERED: LORazepam 2 MG/ML INJ IV PRN ×2 (20:17)
[2018-09-28] MEDS ORDERED: THIAMINE 100 MG/ML 2 ML VIAL IM STA (20:17)
[2018-09-28] MEDS ORDERED: VANCOMYCIN IV PER PHARMACY 1 EACH MISC MISCELLANE PRN (20:21)
[2018-09-28] MEDS ORDERED: ONDANSETRON 4 MG/2 ML VIAL IVP PRN (20:21)
[2018-09-28 20:22] LABS: Alcohol 340 mg/dL
[2018-09-28 20:27] LABS: Platelet Count 65 k/uL (150-450)
[2018-09-28 20:31] LABS: Appearance,Urine Cloudy (Clear); Bilirubin,Urine 1+ (Negative); Blood,Urine Moderate (Negative); Color,Urine Dark Brown; Glucose,Urine (UA) Negative (Negative); Hyaline Casts,Urine 42 /lpf (0-2); Ketones,Urine 2+ (Negative); Leukocyte Esterase,Urine Negative (Negative); Mucus,Urine Few /hpf; Nitrite,Urine Negative (Negative); PH, Urine 6.5 (5.0-8.0); Protein,Urine 2+ (Negative); RBC,Urine 15 /hpf (0-5); Specific Gravity,Urine 1.021 (1.001-1.035); Squamous Epithelial Cell,Urine 5 /hpf (0-4); Urobilinogen,Urine >12.0 mg/dL (<2.0)
[2018-09-28] MEDS ORDERED: VANCOMYCIN 1,250 MG in SODIUM CHLORIDE 0.9% 250 ML IVPB STA (20:35)
[2018-09-28] MEDS: POTASSIUM CHLORIDE 20 MEQ in WATER FOR INJECTION 1 100ML.BAG IVPB SCH (21:42)
[2018-09-29] MEDS: POTASSIUM CHLORIDE 20 MEQ in WATER FOR INJECTION 1 100ML.BAG IVPB SCH ×3 (00:12→04:41)
[2018-09-29] MEDS: LORazepam 2 MG/ML INJ IV PRN ×6 (04:16→23:45)
[2018-09-29] MEDS: VANCOMYCIN 1,250 MG in SODIUM CHLORIDE 0.9% 250 ML IVPB SCH ×3 (04:42→20:26)
[2018-09-29] MEDS: MAGNESIUM SULFATE-D5W PMX 1 GM in DEXTROSE/WATER 1 100ML.BAG IVPB SCH ×2 (07:23→08:29)
[2018-09-29] MEDS: ENOXAPARIN 40 MG/0.4 ML SYRINGE SQ SCH (07:26)
[2018-09-29] MEDS: MULTIVITAMINS, THERA 1 EACH TAB PO SCH (07:27)
[2018-09-29] MEDS: PANTOPRAZOLE 40 MG/10 ML VIAL IVP SCH (07:27)
[2018-09-29 10:14] LABS: Basophils % (A) 0 %; Eosinophils # (A) 0.1 k/uL (0-0.7); Eosinophils % (A) 2 %; HCT 38.4 % (39.0-53.0); Lymphocytes # (A) 1.3 k/uL (1.0-4.8); Lymphocytes % (A) 25 %; MCH 35.1 pg (25.0-35.0); MCHC 32.8 g/dL (31.0-37.0); Macrocytosis Moderate; Mean Platelet Volume 9.3; Monocytes # (A) 0.3 k/uL (0-1.0); Monocytes % (A) 6 %; Neutrophils # (A) 3.3 k/uL (1.3-7.7); Neutrophils % (A) 64 %; RBC 3.59 m/uL (4.30-5.90); RDW 12.9 % (11.5-15.5); WBC 5.1 k/uL (3.8-10.6)
[2018-09-29 10:27] LABS: Anion Gap 3 mmol/L; Blood Urea Nitrogen 14 mg/dL (9-20); Calcium 8.1 mg/dL (8.4-10.2); Carbon Dioxide 25 mmol/L (22-30); Chloride 109 mmol/L (98-107); Glucose 85 mg/dL (74-99); Potassium 3.9 mmol/L (3.5-5.1); Sodium 137 mmol/L (137-145)
[2018-09-29 10:44] LABS: HGB 12.6 gm/dL (13.0-17.5); Platelet Count 44 k/uL (150-450)
--- NOTE | 2018-09-29 13:19 | CONS ---
CONSULTATION Mr. Rojas is a 58-year-old male with known history of coronary artery disease who is followed by Dr. Diaz, status post stenting of the right coronary artery performed by Dr. Martell Davis in 2015, history of peripheral vascular disease, status post right BKA, history of chronic tobacco use, chronic alcohol intake, hyperlipidemia who presented to the hospital with symptoms of anxiety related to alcoholism. The patient's alcohol level was quite high. He has been complaining of chest discomfort when he is anxious. He has dyspnea on exertion and occasional cough. He has some palpitation. No syncope. No dizziness. No PND, orthopnea. No peripheral edema. He has underwent an echocardiogram on recent admission that showed a preserved systolic function. He has no clear PND or orthopnea. His coronary risk factors are positive for the chronic tobacco use, the hyperlipidemia. He is nondiabetic. MEDICATION: His medications include Zoloft, Neurontin, Plavix 75 mg daily and Lipitor 80 mg daily. REVIEW OF SYSTEMS: RESPIRATORY SYSTEM: He has dyspnea on exertion, history of cough, chronic tobacco use. GI SYSTEM: No recent GI bleeding. No peptic ulcer disease. SYSTEM: No dysuria or hematuria. NERVOUS SYSTEM: He has a prior history of stroke or seizure. PHYSICAL EXAMINATION: This is a 58-year-old male, anxious. Blood pressure 141/60 with the heart rate in the 90s. HEAD: Normocephalic. EYES: Sclerae anicteric. NECK: Good upstroke. No bruit. No jugular venous distention. LUNGS: Decreased air exchange, no wheezes. HEART: Regular rate and rhythm. S1, S2. No S3. No rub or gallop. ABDOMEN: Soft, nontender. Positive bowel sounds. No organomegaly. EXTREMITIES: Status post right BKA and no edema on the left side with decreased distal pulses. LAB DATA: Lab data revealed troponin less than 0.012. BUN and creatinine 14 and 0.64. Hemoglobin of 12.6. The AST of 227, ALT 155. Serum alcohol of 340. EKG revealed a sinus mechanism, rate of [address]-T wave changes. IMPRESSION: 1. Acute alcohol intoxication with alcoholic hepatitis. 2. History of coronary artery disease with no evidence to suggest recurrent angina pectoris. 3. History of severe peripheral vascular disease. 4. History of chronic tobacco use. 5. Hyperlipidemia. RECOMMENDATION: From the cardiac standpoint, I will resume his Plavix. Hold the Lipitor for now pending the re-evaluation of his liver function tests. Unfortunately, in view of his multiple issues, at this time, no cardiac workup is needed, but down the road the patient would require further cardiac workup and after he follows up with Dr. Diaz. Thank you for this consult. ROGER / MARYN: [id number] /
[2018-09-29] MEDS: THIAMINE 100 MG TAB PO SCH ×2 (13:33→17:44)
--- NOTE | 2018-09-29 14:32 | P.CN ---
Psychiatric Consult - . Consult date: 09/29/18 Consult:: 09/29/18 09:53 Psych Assessment and Plan Assessment: patient states he is having alcohol withdrawals, chest pain, tremors. Chief Complaint: Chest Pain Stated Complaint: chest pain/blood in urine/alcohol withdrawal Alcohol intoxication, Alcohol withdrawal syndrome, Acute chest wall pain, Alcoholism with alcohol dependence, Continuous dependence on cigarette smoking - Related Data Home Medications Medication Instructions Recorded Confirmed Sertraline [Zoloft] 100 mg PO DAILY 01/11/17 09/13/18 Atorvastatin [Lipitor] 80 mg PO HS 02/20/17 09/13/18 Clopidogrel [Plavix] 75 mg PO DAILY 02/20/17 09/13/18 Gabapentin [Neurontin] 300 mg PO BID 02/20/17 09/13/18 HYDROcodone/APAP 10-325MG [[place] 1 tab PO QID 02/20/17 09/13/18 10-325] Cyanocobalamin (Vitamin B-12) 1,000 mcg PO DAILY 01/06/18 09/13/18 [Vitamin B-12] Multivitamins, Thera [Multivitamin 1 tab PO DAILY 01/06/18 09/13/18 (formulary)] Thiamine [Vitamin B-1] 100 mg PO DAILY 01/06/18 09/13/18 Metoprolol Tartrate [Lopressor] 25 mg PO DAILY 05/22/18 09/13/18 Previous Rx's Medication Instructions Recorded Folic Acid 1 mg PO DAILY@1200 #30 tab 11/02/17 Omeprazole [PriLOSEC] 20 mg PO AC-BID #30 cap 03/20/18 Magnesium Oxide [Mag-Ox] 400 mg PO BID #60 tablet 05/23/18 Allergies Allergy/AdvReac Type Severity Reaction Status Date / Time No Known Allergies Allergy Verified 09/28/18 19:17 Past Medical History Past Medical History: Coronary Artery Disease (CAD), Chest Pain / Angina, CVA/TIA, Hyperlipidemia, Hypertension, Myocardial Infarction (CT), Pneumonia, Seizure Disorder, Vascular Disorder Additional Past Medical History / Comment(s): 09/25/14 STEMI with stent placement, Seizures- last one 2013, ETOH Abuse/withdrawl. lt rib fx, Hx of L ankle fx. 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 Past Anesthesia/Blood Transfusion Reactions: No Reported Reaction Additional Past Anesthesia/Blood Transfusion Reaction / Comment(s): Pt had blood transfusions with no reaction Date of Last Stent Placement:: 09/25/14 Past Psychological History: Anxiety, Depression Smoking Status: Current every day smoker Past Alcohol Use History: Heavy Past Drug Use History: None Reported - Past Family History Father Family Medical History: Cancer Additional Family Medical History / Comment(s): Father of lung cancer. Mother Family Medical History: Cancer, Hypertension, Liver Disease Additional Family Medical History / Comment(s): Psychological history Mental Status Examination - General Appearance: [ disheveled, appears older than stated age Speech/Language: [slow, monotone, soft] Attitude/Behavior: [cooperative withdrawn, indifferent Mood: [ anxious, Affect: [ flat, blunted constricted] Orientation: [time, person, place situation] Thought Content: [wnl Risk Factors: [denies suicidal (ideations, plan), and/or Homicidal (ideations, plan), other] Perception: [wnl Thought Processes: [goal-oriented Concentration/Attention Span: [impaired] [Per observation and interview with the patient] Recent Memory: [wnl Remote Memory: [wnl] [past events, as related history] Intelligence: [below average] [based on history, based on vocabulary, syntax, grammar, and content] Judgement: [ fair] [per patient's behavior/history of present illness] Insight: [fair] [understanding severity of illness/history of present illness Psychiatric impression:alcohol withdrawal; hx of depression Psychiatric recommendations:CIWA protocol and continue his psychiatric medications Sertraline [Zoloft] 100 mg PO DAILY; not a candidate for inpatient psychiatric treatment Thank you for the consult Lemuel Ramirez D.O. PhD] (1) Alcohol intoxication Current Visit: Yes Status: Acute Priority: Medium Code(s): F10.929 - ALCOH OL USE, UNSPECIFIED WITH INTOXICATION, UNSPECIFIED SNOMED Code(s): 71289952 (2) Alcohol withdrawal syndrome Current Visit: Yes Status: Acute Priority: Medium Code(s): F10.239 - ALCOHOL DEPENDENCE WITH WITHDRAWAL, UNSPECIFIED SNOMED Code(s): 469529243 (3) Continuous dependence on cigarette smoking Current Visit: Yes Status: Acute Priority: Medium Code(s): F17.210 - NICOTINE DEPENDENCE, CIGARETTES, UNCOMPLICATED SNOMED Code(s): 37968941319889060
[2018-09-29] MEDS: SODIUM CHLORIDE 0.9% 1,000 ML IV SCH ×2 (16:49→20:26)
[2018-09-29] MEDS: GABAPENTIN 300 MG CAP PO SCH (20:26)
[2018-09-29] MEDS: ATORVASTATIN 80 MG TAB PO SCH (20:26)
--- NOTE | 2018-09-29 22:19 | P.HPIM ---
History of Present Illness H&P Date: 09/29/18 Chief Complaint: Acute alcohol intoxication Patient is a 58-year-old male with a known history of coronary artery disease and stent placement, peripheral vascular disease status post right BKA, alcohol abuse, history of CVA/TIA, hypertension, hyperlipidemia and seizure disorder came to ER with alcohol intoxication and anxiety. Alcohol level was 340. Denied any complaints of chest pain or shortness of breath. No nausea vomiting or abdominal pain. Patient was also found to have redness and swelling noted at the right BKA stump site. Patient denied any worsening pain at this time. No fever no chills. No cough is from production. Denied any recent illnesses. EKG showed sinus tachycardia Jose Miguel a was 340 Elevated liver enzymes and alk phos potassium level II.0 Review of Systems Constitutional: Patient denies any fever or chills . No generalized weakness or weight loss. Abdomen: Patient denied nausea vomiting and diarrhea and abdominal pain. Cardiovascular: Patient denies any chest pain or short of breath no palpitations. Respiratory: patient denied any cough is from production. No shortness of breath Neurologic: Patient denied any numbness or tingling headache. Musculoskeletal: Patient denies any complaints of joint swelling or deformity. Skin: Negative Psychiatric: Negative Endocrine: No heat or cold intolerance. No recent weight gain. Genitourinary: No dysuria or hematuria. All other 14 point ROS negative except the above Past Medical History Past Medical History: Coronary Artery Disease (CAD), Chest Pain / Angina, CVA/TIA, Hyperlipidemia, Hypertension, Myocardial Infarction (NM), Pneumonia, Seizure Disorder, Vascular Disorder Additional Past Medical History / Comment(s): 09/25/14 STEMI with stent placement, Seizures- last one 2013, ETOH Abuse/withdrawl. lt rib fx, Hx of L ankle fx. 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 Past Anesthesia/Blood Transfusion Reactions: No Reported Reaction Additional Past Anesthesia/Blood Transfusion Reaction / Comment(s): Pt had blood transfusions with no reaction Date of Last Stent Placement:: 09/25/14 Past Psychological History: Anxiety, Depression Additional Psychological History / Comment(s): Pt's December 2013. R leg prosthesis. doesn't drive-takes the bus Smoking Status: Current every day smoker Past Alcohol Use History: Heavy Additional Past Alcohol Use History / Comment(s): pt in 2017 reduced his alcohol intake to 5-6 drinks per week. smoking 1 ppd Past Drug Use History: None Reported Additional Drug Use History / Comment(s): denies any current marijuana - Past Family History Father Family Medical History: Cancer Additional Family Medical History / Comment(s): Father of lung cancer. Mother Family Medical History: Cancer, Hypertension, Liver Disease Additional Family Medical History / Comment(s): Psychological history, Medications and Allergies Home Medications Medication Instructions Recorded Confirmed Type Sertraline [Zoloft] 100 mg PO DAILY 01/11/17 09/29/18 History Atorvastatin [Lipitor] 80 mg PO HS 02/20/17 09/29/18 History Clopidogrel [Plavix] 75 mg PO DAILY 02/20/17 09/29/18 History HYDROcodone/APAP 10-325MG [[place] 1 tab PO QID 02/20/17 09/29/18 History 10-325] Gabapentin [Neurontin] 300 mg PO TID 09/29/18 09/29/18 History Mupirocin [Mupirocin 2%] 1 applic TOPICAL TID 09/29/18 09/29/18 History Allergies Allergy/AdvReac Type Severity Reaction Status Date / Time No Known Allergies Allergy Verified 09/28/18 20:34 Physical Exam Vitals: Vital Signs Temp Pulse Pulse Resp BP BP Pulse Ox 09/29/18 08:00 97.7 F 107 H 17 134/65 95 09/29/18 05:33 99.3 F 108 H 18 99/63 93 L 09/28/18 21:29 97.6 F 99 18 127/66 97 09/28/18 20:40 97 18 132/77 95 09/28/18 19:14 97.6 F 142 H 16 122/84 98 Intake and Output 09/28/18 09/29/18 09/29/18 22:59 06:59 14:59 Other: Voiding Method Urinal Urinal Urinal # Voids 1 3 # Bowel Movements 1 Weight 63.503 kg PHYSICAL EXAMINATION: Patient is lying in the bed comfortably, no acute distress, awake alert and oriented.. HEENT: Normocephalic. Neck is supple. Pupils reactive. Nostrils clear. Oral cavity is moist. Ears reveal no drainage. Neck reveals no JVD, carotid bruits, or thyromegaly. CHEST EXAMINATION: Trachea is central. Symmetrical expansion. Lung butler clear to auscultation and percussion. CARDIAC: Normal S1, S2 with no gallops. No murmurs ABDOMEN: Soft. Bowel sounds normal. No organomegaly. No abdominal bruits. Extremities: reveal no edema. No clubbing or cyanosis. Right BKA stump site has redness and scab. No pulling drainage. Slight tenderness.. Neurologically awake, alert, oriented x3 with well-coordinated movements. No focal deficits noted Skin: No rash or skin lesions. Psychiatric: Coperative. Nonsuicidal anxious. Musculoskeletal: No joint swelling or deformity. Normal range of motion. Results CBC & Chem 7: 09/29/18 09:48 09/29/18 09:48 Labs: Abnormal Lab Results - Last 24 Hours (Table) 09/28/18 09/28/18 09/28/18 Range/Units 19:38 19:38 19:38 RBC (4.30-5.90) m/uL Hgb (13.0-17.5) gm/dL Hct (39.0-53.0) % MCV 105.7 H (80.0-100.0) fL MCH (25.0-35.0) pg Plt Count 65 L D (150-450) k/uL Lymphocytes # 0.9 L (1.0-4.8) k/uL Potassium 3.0 L (3.5-5.1) mmol/L Chloride (98-107) mmol/L Carbon Dioxide 20 L (22-30) mmol/L Creatinine (0.66-1.25) mg/dL Glucose 193 H (74-99) mg/dL Calcium (8.4-10.2) mg/dL Magnesium 1.4 L (1.6-2.3) mg/dL AST 227 H (17-59) U/L ALT 155 H (21-72) U/L Alkaline Phosphatase 161 H (38-126) U/L Urine Protein 2+ H (Negative) Urine Ketones 2+ H (Negative) Urine Blood Moderate H (Negative) Urine Bilirubin 1+ H (Negative) Urine RBC 15 H (0-5) /hpf Ur Squamous Epith Cells 5 H (0-4) /hpf Hyaline Casts 42 H (0-2) /lpf Urine Mucus Few H (None) /hpf Serum Alcohol 340 H* mg/dL 09/29/18 09/29/18 Range/Units 09:48 09:48 RBC 3.59 L (4.30-5.90) m/uL Hgb 12.6 L D (13.0-17.5) gm/dL Hct 38.4 L (39.0-53.0) % MCV 107.0 H (80.0-100.0) fL MCH 35.1 H (25.0-35.0) pg Plt Count 44 L (150-450) k/uL Lymphocytes # (1.0-4.8) k/uL Potassium (3.5-5.1) mmol/L Chloride 109 H (98-107) mmol/L Carbon Dioxide (22-30) mmol/L Creatinine 0.64 L (0.66-1.25) mg/dL Glucose (74-99) mg/dL Calcium 8.1 L (8.4-10.2) mg/dL Magnesium (1.6-2.3) mg/dL AST (17-59) U/L ALT (21-72) U/L Alkaline Phosphatase (38-126) U/L Urine Protein (Negative) Urine Ketones (Negative) Urine Blood (Negative) Urine Bilirubin (Negative) Urine RBC (0-5) /hpf Ur Squamous Epith Cells (0-4) /hpf Hyaline Casts (0-2) /lpf Urine Mucus (None) /hpf Serum Alcohol mg/dL Thrombosis Risk Factor Assmnt - DVT/VTE Prophylaxis DVT/VTE Prophylaxis: Pharmacologic Prophylaxis ordered - Choose All That Apply Any of the Below Risk Factors Present?: Yes Each Factor Represents 1 point: Age 41-60 years, Swollen legs (current) Thrombosis Risk Factor Assessment Total Risk Factor Score: 2 Thrombosis Risk Factor Assessment Level: Low Risk Assessment and Plan Assessment: Acute alcohol Intoxication With a level 340 Elevated liver enzymes secondary to alcohol hepatitis neck and sinus tachycardia improved Hypokalemia replaced Coronary artery disease with history of stent placement History of CVA/TIA. Hypertension Hyperlipidemia History of [place] Peripheral vascular disease status post right BKA History of bypass on both legs Anxiety/depression Currently every day smoker DVT prophylaxis with heparin subcu Plan: Patient be continued on IV hydration. Continue with the aspirin Plavix and hold statins due to elevated liver enzymes. Continue with beta blockers. Monitor for alcohol withdrawal symptoms and DTs. Continue with antibiotics in the form of vancomycin and follow blood cultures. Continue with thiamine and multivitamins. Follow up closely. Alcohol abuse and smoking cessation has been counseled extensively. Time with Patient: Greater than 30
[2018-09-30] MEDS: HYDROcodone/APAP 10-325MG 1 EACH TAB PO SCH ×5 (00:31→23:49)
[2018-09-30] MEDS: LORazepam 2 MG/ML INJ IV PRN ×5 (02:37→20:02)
[2018-09-30] MEDS ORDERED: VANCOMYCIN TROUGH DUE 1 EACH MISC MISCELLANE ONE (03:00)
[2018-09-30] MEDS: VANCOMYCIN 1,250 MG in SODIUM CHLORIDE 0.9% 250 ML IVPB SCH (05:39)
[2018-09-30] MEDS: VANCOMYCIN 1,000 MG in SODIUM CHLORIDE 0.9% 250 ML IVPB SCH ×3 (06:12→21:43)
[2018-09-30] MEDS: SODIUM CHLORIDE 0.9% 1,000 ML IV SCH ×2 (06:13→17:21)
[2018-09-30] MEDS: GABAPENTIN 300 MG CAP PO SCH ×3 (07:42→21:43)
[2018-09-30] MEDS: CLOPIDOGREL 75 MG TAB PO SCH (07:42)
[2018-09-30] MEDS: MULTIVITAMINS, THERA 1 EACH TAB PO SCH (07:42)
[2018-09-30] MEDS: SERTRALINE 100 MG TAB PO SCH (07:43)
[2018-09-30] MEDS: PANTOPRAZOLE 40 MG/10 ML VIAL IVP SCH (07:43)
[2018-09-30] MEDS: ENOXAPARIN 40 MG/0.4 ML SYRINGE SQ SCH (07:44)
[2018-09-30 10:39] LABS: ALT 83 U/L (21-72); AST 51 U/L (17-59); Albumin 2.7 g/dL (3.5-5.0); Alkaline Phosphatase 132 U/L (38-126); Anion Gap 5 mmol/L; Blood Urea Nitrogen 12 mg/dL (9-20); Calcium 7.9 mg/dL (8.4-10.2); Carbon Dioxide 25 mmol/L (22-30); Chloride 107 mmol/L (98-107); Glucose 86 mg/dL (74-99); Potassium 3.4 mmol/L (3.5-5.1); Sodium 137 mmol/L (137-145); Total Bilirubin 1.1 mg/dL (0.2-1.3); Total Protein 5.2 g/dL (6.3-8.2)
[2018-09-30] MEDS ORDERED: Potassium Replacement Protocol 1 EACH MISC MISCELLANE PRN (11:19)
[2018-09-30] MEDS: POTASSIUM CHLORIDE ER 20 MEQ TAB.ER PO SCH ×2 (12:44→13:51)
[2018-09-30] MEDS: THIAMINE 100 MG TAB PO SCH ×2 (12:46→17:18)
[2018-09-30] MEDS: ATORVASTATIN 80 MG TAB PO SCH (20:02)
--- NOTE | 2018-10-01 00:08 | P.PN ---
Subjective Progress Note Date: 09/30/18 Principal diagnosis: Acute alcohol intoxication BKA stump cellulitis Patient is a 58-year-old male with a known history of coronary artery disease and stent placement, peripheral vascular disease status post right BKA, alcohol abuse, history of CVA/TIA, hypertension, hyperlipidemia and seizure disorder came to ER with alcohol intoxication and anxiety. Alcohol level was 340. Denied any complaints of chest pain or shortness of breath. No nausea vomiting or abdominal pain. Patient was also found to have redness and swelling noted at the right BKA stump site. Patient denied any worsening pain at this time. No fever no chills. No cough is from production. Denied any recent illnesses. EKG showed sinus tachycardia Jose Miguel a was 340 Elevated liver enzymes and alk phos potassium level 3.0 09/30/2018 Patient denied any complaints of chest pain or shortness of breath. Feels generally weak. Stump cellulitis and redness is much improved. Patient is being continued on vancomycin. Cultures have been negative. Potassium was replaced. Liver enzymes are trending down. Advance oral diet. No fever no chills. No diarrhea. And spit discharge in next 24 hours. Current medications reviewed. Objective - Vital Signs Vital signs: Vital Signs Temp 98.0 F 09/30/18 21:21 Pulse 76 09/30/18 21:21 Resp 18 09/30/18 21:21 BP 143/77 09/30/18 21:21 Pulse Ox 98 09/30/18 21:21 Intake & Output 09/30/18 09/30/18 10/01/18 06:59 18:59 06:59 Intake Total 590 Output Total 1 Balance 589 Intake: Oral 590 Output: Urine/Stool Mix 1 Other: Voiding Method Urinal Urinal Urinal Incontinent # Voids 3 4 # Bowel Movements 1 - Exam PHYSICAL EXAMINATION: Patient is lying in the bed comfortably, no acute distress, awake alert and oriented.. HEENT: Normocephalic. Neck is supple. Pupils reactive. Nostrils clear. Oral cavity is moist. Ears reveal no drainage. Neck reveals no JVD, carotid bruits, or thyromegaly. CHEST EXAMINATION: Trachea is central. Symmetrical expansion. Lung butler clear to auscultation and percussion. CARDIAC: Normal S1, S2 with no gallops. No murmurs ABDOMEN: Soft. Bowel sounds normal. No organomegaly. No abdominal bruits. Extremities: reveal no edema. No clubbing or cyanosis. Right BKA stump site has redness much improved and scab. No pulling drainage. No tenderness.. Neurologically awake, alert, oriented x3 with well-coordinated movements. No focal deficits noted Skin: No rash or skin lesions. Psychiatric: Coperative. Nonsuicidal anxious. Musculoskeletal: No joint swelling or deformity. Normal range of motion. - Labs CBC & Chem 7: 09/29/18 09:48 09/30/18 03:08 Labs: Abnormal Lab Results - Last 24 Hours (Table) 09/30/18 Range/Units 03:08 Potassium 3.4 L (3.5-5.1) mmol/L Calcium 7.9 L (8.4-10.2) mg/dL ALT 83 H (21-72) U/L Alkaline Phosphatase 132 H (38-126) U/L Total Protein 5.2 L (6.3-8.2) g/dL Albumin 2.7 L (3.5-5.0) g/dL Assessment and Plan Assessment: Acute alcohol Intoxication With a level 340 Elevated liver enzymes secondary to alcohol hepatitis . Trending down. sinus tachycardia improved Hypokalemia replaced Coronary artery disease with history of stent placement History of CVA/TIA. Hypertension Hyperlipidemia History of [place] Peripheral vascular disease status post right BKA History of bypass on both legs Anxiety/depression Currently every day smoker DVT prophylaxis with heparin subcu Plan: Patient be continued on IV hydration. Continue with the aspirin Plavix and hold statins due to elevated liver enzymes. Continue with beta blockers. Monitor for alcohol withdrawal symptoms and DTs. Continue with antibiotics in the form of vancomycin and follow blood cultures. Continue with thiamine and multivitamins. Follow up closely. Alcohol abuse and smoking cessation has been counseled extensively. Time with Patient: Greater than 30
[2018-10-01] MEDS: VANCOMYCIN 1,000 MG in SODIUM CHLORIDE 0.9% 250 ML IVPB SCH ×2 (06:52→14:40)
[2018-10-01] MEDS: ENOXAPARIN 40 MG/0.4 ML SYRINGE SQ SCH (08:17)
[2018-10-01] MEDS: MULTIVITAMINS, THERA 1 EACH TAB PO SCH (08:17)
[2018-10-01] MEDS: GABAPENTIN 300 MG CAP PO SCH ×3 (08:17→19:44)
[2018-10-01] MEDS: CLOPIDOGREL 75 MG TAB PO SCH (08:17)
[2018-10-01] MEDS: HYDROcodone/APAP 10-325MG 1 EACH TAB PO SCH ×4 (08:18→20:56)
[2018-10-01] MEDS: PANTOPRAZOLE 40 MG/10 ML VIAL IVP SCH (08:18)
[2018-10-01] MEDS: THIAMINE 100 MG TAB PO SCH ×2 (08:19→16:27)
[2018-10-01] MEDS: SERTRALINE 100 MG TAB PO SCH (08:19)
[2018-10-01] MEDS: SODIUM CHLORIDE 0.9% 1,000 ML IV SCH ×2 (08:19→14:05)
[2018-10-01] MEDS: LORazepam 2 MG/ML INJ IV PRN (12:45)
[2018-10-01] MEDS ORDERED: VANCOMYCIN TROUGH DUE 1 EACH MISC MISCELLANE ONE (13:00)
[2018-10-01 13:45] LABS: Anion Gap 7 mmol/L; Blood Urea Nitrogen 10 mg/dL (9-20); Calcium 8.6 mg/dL (8.4-10.2); Carbon Dioxide 23 mmol/L (22-30); Chloride 104 mmol/L (98-107); Glucose 104 mg/dL (74-99); Potassium 4.1 mmol/L (3.5-5.1); Sodium 134 mmol/L (137-145)
[2018-10-01 15:25] VITALS: RESP 18
[2018-10-01] MEDS: ATORVASTATIN 80 MG TAB PO SCH (19:44)
[2018-10-01] MEDS: SULFAMETHOX-TMP 800-160MG 1 EACH TAB PO SCH (20:56)
[2018-10-02] MEDS: SODIUM CHLORIDE 0.9% 1,000 ML IV SCH (00:01)
[2018-10-02 05:11] VITALS: BP 155/92; PULSE 92; TEMP 98.1
[2018-10-02] MEDS ORDERED: PANTOPRAZOLE 40 MG TABLET PO SCH (07:30)
[2018-10-02] MEDS: GABAPENTIN 300 MG CAP PO SCH (07:42)
[2018-10-02] MEDS: ENOXAPARIN 40 MG/0.4 ML SYRINGE SQ SCH (07:42)
[2018-10-02] MEDS: CLOPIDOGREL 75 MG TAB PO SCH (07:42)
[2018-10-02] MEDS: SERTRALINE 100 MG TAB PO SCH (07:42)
[2018-10-02] MEDS: SULFAMETHOX-TMP 800-160MG 1 EACH TAB PO SCH (07:42)
[2018-10-02] MEDS: HYDROcodone/APAP 10-325MG 1 EACH TAB PO SCH ×2 (08:40→12:35)
--- NOTE | 2018-10-02 10:43 | P.PN ---
Subjective Progress Note Date: 10/01/18 Principal diagnosis: Acute alcohol intoxication BKA stump cellulitis Patient is a 58-year-old male with a known history of coronary artery disease and stent placement, peripheral vascular disease status post right BKA, alcohol abuse, history of CVA/TIA, hypertension, hyperlipidemia and seizure disorder came to ER with alcohol intoxication and anxiety. Alcohol level was 340. Denied any complaints of chest pain or shortness of breath. No nausea vomiting or abdominal pain. Patient was also found to have redness and swelling noted at the right BKA stump site. Patient denied any worsening pain at this time. No fever no chills. No cough is from production. Denied any recent illnesses. EKG showed sinus tachycardia Jose Miguel a was 340 Elevated liver enzymes and alk phos potassium level 3.0 09/30/2018 Patient denied any complaints of chest pain or shortness of breath. Feels generally weak. Stump cellulitis and redness is much improved. Patient is being continued on vancomycin. Cultures have been negative. Potassium was replaced. Liver enzymes are trending down. Advance oral diet. No fever no chills. No diarrhea. Anticipate discharge in next 24 hours. 10/01/2018 Patient denied any complaints of chest pain or shortness breath. Patient is not requiring IV Ativan on regular basis. Will be changed to Librium 10 mg 4 times a day as needed for alcohol withdrawal symptoms. Right BKA stump cellulitis resolved and no drainage noted today. Otherwise appetite to patient's daughter he lives by himself and is not able to take care of himself. Possible discharge to rehab tomorrow. Current medications reviewed. Objective - Vital Signs Vital signs: Vital Signs Temp 97.9 F 10/01/18 12:30 Pulse 84 10/01/18 12:30 Resp 18 10/01/18 15:21 BP 157/90 10/01/18 12:30 Pulse Ox 97 10/01/18 12:30 Intake & Output 09/30/18 10/01/18 10/01/18 18:59 06:59 18:59 Intake Total 940 Balance 940 Intake: Intake, IV Titration 250 Amount Vancomycin 1,000 mg In 250 Sodium Chloride 0.9% 250 ml @ 125 mls/hr IVPB Q8H SHONDA Rx#:[id number] Oral 690 Other: Voiding Method Urinal Urinal Urinal Incontinent Incontinent # Voids 4 2 2 - Exam PHYSICAL EXAMINATION: Patient is lying in the bed comfortably, no acute distress, awake alert and oriented.. HEENT: Normocephalic. Neck is supple. Pupils reactive. Nostrils clear. Oral cavity is moist. Ears reveal no drainage. Neck reveals no JVD, carotid bruits, or thyromegaly. CHEST EXAMINATION: Trachea is central. Symmetrical expansion. Lung butler clear to auscultation and percussion. CARDIAC: Normal S1, S2 with no gallops. No murmurs ABDOMEN: Soft. Bowel sounds normal. No organomegaly. No abdominal bruits. Extremities: reveal no edema. No clubbing or cyanosis. Right BKA stump site has redness much improved and scab. No pulling drainage. No tenderness.. Neurologically awake, alert, oriented x3 with well-coordinated movements. No focal deficits noted Skin: No rash or skin lesions. Psychiatric: Coperative. Nonsuicidal anxious. Musculoskeletal: No joint swelling or deformity. Normal range of motion. - Labs CBC & Chem 7: 09/29/18 09:48 10/01/18 13:15 Labs: Abnormal Lab Results - Last 24 Hours (Table) 10/01/18 Range/Units 13:15 Sodium 134 L (137-145) mmol/L Creatinine 0.61 L (0.66-1.25) mg/dL Glucose 104 H (74-99) mg/dL Assessment and Plan Assessment: Acute alcohol Intoxication With a level 340 Acute alcohol withdrawal symptoms. Elevated liver enzymes secondary to alcohol hepatitis . Trending down. sinus tachycardia improved Hypokalemia replaced Coronary artery disease with history of stent placement History of CVA/TIA. Hypertension Hyperlipidemia History of [place] Peripheral vascular disease status post right BKA History of bypass on both legs Anxiety/depression Currently every day smoker DVT prophylaxis with heparin subcu Plan: Patient be continued on IV hydration. Continue with the aspirin Plavix and hold statins due to elevated liver enzymes. Will restart statins upon discharge. Continue with beta blockers. Monitor for alcohol withdrawal symptoms and DTs. Continue with antibiotics in the form of vancomycin and follow blood cultures. Continue with thiamine and multivitamins. Follow up closely. Alcohol abuse and smoking cessation has been counseled extensively.
[2018-10-02] MEDS: MULTIVITAMINS, THERA 1 EACH TAB PO SCH (11:34)
[2018-10-02] MEDS: THIAMINE 100 MG TAB PO SCH (11:35)
--- NOTE | 2018-10-02 11:37 | P.DS ---
Providers Date of admission: 09/28/18 20:25 Expected date of discharge: 10/02/18 Attending physician: Ozzy Pereira Consults: 09/28/18 20:58 Consult Physician Routine Consulting Provider: Lemuel Ramirez Consult Reason/Comments: psych Do you want consulting provider notified?: Yes 09/29/18 05:54 Consult Physician Routine Consulting Provider: Germain Gonzalez Consult Reason/Comments: Elevated HR Do you want consulting provider notified?: Yes, Notify in am Primary care physician: Ozzy Pereira Hospital Course: 58-year-old male was brought to the emergency room with cellulitis to his right stone is a right below the knee amputation. Patient was alcohol toxic at level CCCXL with alcohol withdrawal. Had elevated liver enzymes patient has been stabilized. His family at home to assist. Patient was evaluated by cardiology and cleared. Patient was evaluated by psychiatry Assessment Acute alcohol intoxication with alcohol withdrawal Elevated liver enzymes secondary to alcohol hepatitis improving Sinus tachycardia improved Hypokalemia replaced History of coronary disease with stent placement with ND History of CVA/TIA Hypertension Hyperlipidemia Peripheral vascular disease post below the knee amputation right side history of bypass Anxiety/depression Daily nicotine use Plan Continue Bactrim Follow-up with family physician Dr. Ozzy Pereira Up with cardiology Patient Condition at Discharge: Serious Plan - Discharge Summary New Discharge Prescriptions: New Sulfamethox-Tmp 800-160Mg [Bactrim DS 800-160 mg] 1 each PO BID 10 Days #20 tab Multivitamins, Thera [Multivitamin (formulary)] 1 each PO DAILY@1200 tab Thiamine [Vitamin B-1] 100 mg PO BID@1200,1700 tab Continue Sertraline [Zoloft] 100 mg PO DAILY HYDROcodone/APAP 10-325MG [[place] 10-325] 1 tab PO QID Clopidogrel [Plavix] 75 mg PO DAILY Mupirocin [Mupirocin 2%] 1 applic TOPICAL TID Gabapentin [Neurontin] 300 mg PO TID Discontinued Atorvastatin [Lipitor] 80 mg PO HS Discharge Medication List Sertraline [Zoloft] 100 mg PO DAILY 01/11/17 [History] Clopidogrel [Plavix] 75 mg PO DAILY 02/20/17 [History] HYDROcodone/APAP 10-325MG [[place] 10-325] 1 tab PO QID 02/20/17 [History] Gabapentin [Neurontin] 300 mg PO TID 09/29/18 [History] Mupirocin [Mupirocin 2%] 1 applic TOPICAL TID 09/29/18 [History] Multivitamins, Thera [Multivitamin (formulary)] 1 each PO DAILY@1200 tab 10/02/18 [Rx] Sulfamethox-Tmp 800-160Mg [Bactrim DS 800-160 mg] 1 each PO BID 10 Days #20 tab 10/02/18 [Rx] Thiamine [Vitamin B-1] 100 mg PO BID@1200,1700 tab 10/02/18 [Rx] Follow up Appointment(s)/Referral(s): Ozzy Pereira MD [Primary Care Provider] - 1-2 days [facility] Vis[facility] Nurse, [NON-STAFF] - 1 Week
== END 2018-10-02 13:06 | disposition home health service (06) | DRG 897 ==
LOC: EC 19:09 → 3NMEDONC 20:25
PROVIDERS: ADMIT Family Medicine; ATTEND Family Medicine
DX: F10.229 Alcohol dependence with intoxication, unspecified (principal); L03.115 Cellulitis of right lower limb; T87.43 Infection of amputation stump, right lower extremity; F10.239 Alcohol dependence with withdrawal, unspecified; E78.5 Hyperlipidemia, unspecified; E87.6 Hypokalemia; F17.210 Nicotine dependence, cigarettes, uncomplicated; F32.9 Major depressive disorder, single episode, unspecified; F41.9 Anxiety disorder, unspecified; G40.909 Epilepsy, unspecified, not intractable, without status epilepticus; I10 Essential (primary) hypertension; I25.10 Atherosclerotic heart disease of native coronary artery without angina pectoris; I25.2 Old myocardial infarction; I73.9 Peripheral vascular disease, unspecified; K70.10 Alcoholic hepatitis without ascites; R31.9 Hematuria, unspecified; R07.89 Other chest pain; R32 Unspecified urinary incontinence; I69.992 Facial weakness following unspecified cerebrovascular disease; I69.998 Other sequelae following unspecified cerebrovascular disease; Z79.02 Long term (current) use of antithrombotics/antiplatelets; Z79.899 Other long term (current) drug therapy; Z97.13 Presence of artificial right leg (complete) (partial); Z95.5 Presence of coronary angioplasty implant and graft; Z87.01 Personal history of pneumonia (recurrent); Z90.49 Acquired absence of other specified parts of digestive tract; Z80.1 Family history of malignant neoplasm of trachea, bronchus and lung; Z82.49 Family history of ischemic heart disease and other diseases of the circulatory system; Y90.8 Blood alcohol level of 240 mg/100 ml or more; Y83.5 Amputation of limb(s) as the cause of abnormal reaction of the patient, or of later complication, without mention of misadventure at the time of the procedure
CPT/HCPCS: 36415; 80048; 80053; 80202; 80320; 81001; 82140; 83690; 83735; 84100; 84484; 85025; 85610; 85730; 93005; 96361; 96365; 96375; 99291

== ENCOUNTER 2018-11-20 19:28 | Emergency (ER) | payer MEDICARE, OTHER ==
--- NOTE | 2018-11-20 19:43 | ED ---
Fall HPI - General Source: EMS Mode of arrival: EMS Limitations: altered mental status, physical limitation - History of Present Illness MD Complaint: fall -: hour(s) Fall From: standing When Fall Occurred: unsure Fall Witnessed: yes, by family, yes, by bystander Place Fall Occurred: home Loss of Consciousness: unsure Prolonged Down Time?: yes Symptoms Prior to Fall: none Location: head Severity: moderate Severity scale (1-10): 2 Context: tripped/slipped, alcohol use Associated Symptoms: denies <Dell Lomax - Last Filed: 11/20/18 20:30> <Mehrdad Vega - Last Filed: 11/21/18 06:53> - General Chief Complaint: Fall Stated Complaint: Fall Time Seen by Provider: 11/20/18 19:42 - History of Present Illness Initial Comments: This is a 58-year-old male the ER for evaluation. This patient resents today for evaluation regards to altered mental status. Patient was drinking alliance party with friends tonight they did notice the patient fell unsure if he is had any other injuries noted. Patient is significantly intoxicated currently. No injur ies noted, history obtained from EMS, patient's poor strain secondary to significant alcohol (Dell Lomax) - Related Data Allergies Allergy/AdvReac Type Severity Reaction Status Date / Time No Known Allergies Allergy Verified 11/20/18 19:55 Review of Systems ROS Other: All systems not noted in ROS Statement are negative. <Dell Lomax - Last Filed: 11/20/18 20:30> ROS Other: All systems not noted in ROS Statement are negative. <Mehrdad Vega - Last Filed: 11/21/18 06:53> ROS Statement: Those systems with pertinent positive or pertinent negative responses have been documented in the HPI. Past Medical History Past Medical History: Coronary Artery Disease (CAD), Chest Pain / Angina, CVA/TIA, Hyperlipidemia, Hypertension, Myocardial Infarction ([place]), Pneumonia, Seizure Disorder, Vascular Disorder Additional Past Medical History / Comment(s): 09/25/14 STEMI with stent placement, Seizures- last one 2013, ETOH Abuse/withdrawl. lt rib fx, Hx of L ankle fx. 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 Past Anesthesia/Blood Transfusion Reactions: No Reported Reaction Additional Past Anesthesia/Blood Transfusion Reaction / Comment(s): Pt had blood transfusions with no reaction Date of Last Stent Placement:: 09/25/14 Past Psychological History: Anxiety, Depression Smoking Status: Current every day smoker Past Alcohol Use History: Heavy Past Drug Use History: None Reported - Past Family History Father Family Medical History: Cancer Additional Family Medical History / Comment(s): Father of lung cancer. Mother Family Medical History: Cancer, Hypertension, Liver Disease Additional Family Medical History / Comment(s): Psychological history, <Dell Lomax - Last Filed: 11/20/18 20:30> General Exam Limitations: physical limitation General appearance: alert, in no apparent distress, appears intoxicated Head exam: Present: atraumatic, normocephalic, normal inspection Eye exam: Present: normal appearance, PERRL, EOMI. Absent: scleral icterus, conjunctival injection, periorbital swelling ENT exam: Present: normal exam, mucous membranes moist Neck exam: Present: normal inspection. Absent: tenderness, meningismus, lymphadenopathy Respiratory exam: Present: normal lung sounds bilaterally. Absent: respiratory distress, wheezes, rales, rhonchi, stridor Cardiovascular Exam: Present: regular rate, normal rhythm, normal heart sounds. Absent: systolic murmur, diastolic murmur, rubs, gallop, clicks GI/Abdominal exam: Present: soft, normal bowel sounds. Absent: distended, tenderness, guarding, rebound, rigid Extremities exam: Present: normal inspection, full ROM, normal capillary refill. Absent: tenderness, pedal edema, joint swelling, calf tenderness Back exam: Present: normal inspection Neurological exam: Present: alert, oriented X3, CN II-XII intact Psychiatric exam: Present: normal affect, normal mood Skin exam: Present: warm, dry, intact, normal color. Absent: rash <Dell Lomax - Last Filed: 11/20/18 20:30> Course <Dell Lomax - Last Filed: 11/20/18 20:30> Vital Signs 11/20/18 11/20/18 11/20/18 19:32 20:46 22:28 Temperature 97.7 F Pulse Rate 84 82 Respiratory 16 16 Rate Blood Pressure 135/91 121/66 O2 Sat by Pulse 96 94 L Oximetry 11/20/18 23:49 Temperature Pulse Rate 99 Respiratory 16 Rate Blood Pressure 99/49 O2 Sat by Pulse 100 Oximetry - Reevaluation(s) Reevaluation #1: 11/20/18 20:31 Medical records reviewed (Dell Lomax) Reevaluation #2: 11/20/18 20:31 Patient is awake alert and arousable (Dell Lomax) Medical Decision Making - Lab Data Result diagrams: 11/20/18 20:45 11/20/18 20:45 <Mehrdad Vega - Last Filed: 11/21/18 06:53> - Lab Data Lab Results 11/20/18 11/20/18 11/20/18 Range/Units 20:45 20:45 20:45 WBC 5.0 (3.8-10.6) k/uL RBC 3.79 L (4.30-5.90) m/uL Hgb 12.8 L (13.0-17.5) gm/dL Hct 39.8 (39.0-53.0) % MCV 105.0 H (80.0-100.0) fL MCH 33.7 (25.0-35.0) pg MCHC 32.1 (31.0-37.0) g/dL RDW 14.3 (11.5-15.5) % Plt Count 470 H D (150-450) k/uL Neutrophils % (Manual) 48 % Band Neutrophils % 2 % Lymphocytes % (Manual) 43 % Monocytes % (Manual) 4 % Eosinophils % (Manual) 3 % Neutrophils # (Manual) 2.50 (1.3-7.7) k/uL Lymphocytes # (Manual) 2.15 (1.0-4.8) k/uL Monocytes # (Manual) 0.20 (0-1.0) k/uL Eosinophils # (Manual) 0.15 (0-0.7) k/uL Nucleated RBCs 0 (0-0) /100 WBC Manual Slide Review Performed Poikilocytosis (manual Present Macrocytosis Moderate PT 9.9 (9.0-12.0) sec INR 0.9 (<1.2) APTT 24.2 (22.0-30.0) sec Sodium 145 (137-145) mmol/L Potassium 3.6 (3.5-5.1) mmol/L Chloride 111 H (98-107) mmol/L Carbon Dioxide 26 (22-30) mmol/L Anion Gap 8 mmol/L BUN 10 (9-20) mg/dL Creatinine 0.50 L (0.66-1.25) mg/dL Est GFR (CKD-EPI)AfAm >90 (>60 ml/min/1.73 sqM) Est GFR (CKD-EPI)NonAf >90 (>60 ml/min/1.73 sqM) Glucose 100 H (74-99) mg/dL Calcium 8.1 L (8.4-10.2) mg/dL Phosphorus 3.5 (2.5-4.5) mg/dL Magnesium 1.7 (1.6-2.3) mg/dL Total Bilirubin 0.3 (0.2-1.3) mg/dL AST 20 (17-59) U/L ALT 23 (21-72) U/L Alkaline Phosphatase 117 (38-126) U/L Troponin I (0.000-0.034) ng/mL Total Protein 6.0 L (6.3-8.2) g/dL Albumin 3.2 L (3.5-5.0) g/dL 11/20/18 Range/Units 20:45 WBC (3.8-10.6) k/uL RBC (4.30-5.90) m/uL Hgb (13.0-17.5) gm/dL Hct (39.0-53.0) % MCV (80.0-100.0) fL MCH (25.0-35.0) pg MCHC (31.0-37.0) g/dL RDW (11.5-15.5) % Plt Count (150-450) k/uL Neutrophils % (Manual) % Band Neutrophils % % Lymphocytes % (Manual) % Monocytes % (Manual) % Eosinophils % (Manual) % Neutrophils # (Manual) (1.3-7.7) k/uL Lymphocytes # (Manual) (1.0-4.8) k/uL Monocytes # (Manual) (0-1.0) k/uL Eosinophils # (Manual) (0-0.7) k/uL Nucleated RBCs (0-0) /100 WBC Manual Slide Review Poikilocytosis (manual Macrocytosis PT (9.0-12.0) sec INR (<1.2) APTT (22.0-30.0) sec Sodium (137-145) mmol/L Potassium (3.5-5.1) mmol/L Chloride (98-107) mmol/L Carbon Dioxide (22-30) mmol/L Anion Gap mmol/L BUN (9-20) mg/dL Creatinine (0.66-1.25) mg/dL Est GFR (CKD-EPI)AfAm (>60 ml/min/1.73 sqM) Est GFR (CKD-EPI)NonAf (>60 ml/min/1.73 sqM) Glucose (74-99) mg/dL Calcium (8.4-10.2) mg/dL Phosphorus (2.5-4.5) mg/dL Magnesium (1.6-2.3) mg/dL Total Bilirubin (0.2-1.3) mg/dL AST (17-59) U/L ALT (21-72) U/L Alkaline Phosphatase (38-126) U/L Troponin I <0.012 (0.000-0.034) ng/mL Total Protein (6.3-8.2) g/dL Albumin (3.5-5.0) g/dL Disposition <Dell Lomax - Last Filed: 11/20/18 20:30> Is patient prescribed a controlled substance at d/c from ED?: No <Mehrdad Vega - Last Filed: 11/21/18 06:53> Clinical Impression: Alcohol intoxication Disposition: HOME SELF-CARE Condition: Good Instructions (If sedation given, give patient instructions): Alcohol Intoxication (ED) Referrals: Ozzy Pereira MD [Primary Care Provider] - 1-2 days
[2018-11-20] MEDS ORDERED: SODIUM CHLORIDE 0.9% 1,000 ML IV STA ×2 (19:59)
--- NOTE | 2018-11-20 20:49 | CT ---
EXAMINATION TYPE: CT brain ela rodriges DATE OF EXAM: 11/20/2018 COMPARISON: HISTORY: CT DLP: mGycm Automated exposure control for dose reduction was used. TECHNIQUE: CT scan of the head and cervical spine are performed without contrast. FINDINGS: There is cerebral cortical atrophy. There is no mass effect nor midline shift. There is n o sign of intracranial hemorrhage. There is old right posterior frontal lobe cortical 3 x 4 cm infarc t. Calvarium is intact. The cervical vertebra have normal spacing and alignment. Posterior elements are intact. Facet joints are intact. Skull base is intact. There is no evidence of a fracture. IMPRESSION: Cerebral atrophy. Old right frontal lobe cortical infarct. No change. Negative CT scan cervical spine.
--- NOTE | 2018-11-20 20:51 | XR ---
EXAMINATION TYPE: XR chest 2V DATE OF EXAM: 11/20/2018 COMPARISON: 918 HISTORY: Pain TECHNIQUE: Frontal and lateral views of the chest are obtained. FINDINGS: Heart and mediastinum are normal. Lungs are clear. Diaphragm is normal. There is old heale d right posterior rib fracture. IMPRESSION: No active cardiopulmonary disease. Normal heart. No change.
--- NOTE | 2018-11-20 20:52 | XR ---
EXAMINATION TYPE: XR pelvis AP view DATE OF EXAM: 11/20/2018 COMPARISON: NONE HISTORY: Pain TECHNIQUE: Single view FINDINGS: Pelvic ring is intact. Proximal femurs and hip joints are normal. There are surgical clips over both femoral arteries. Sacroiliac joints appear normal. IMPRESSION: Normal pelvis exam.
[2018-11-20 21:01] LABS: ALT 23 U/L (21-72); AST 20 U/L (17-59); Albumin 3.2 g/dL (3.5-5.0); Alkaline Phosphatase 117 U/L (38-126); Anion Gap 8 mmol/L; Blood Urea Nitrogen 10 mg/dL (9-20); Calcium 8.1 mg/dL (8.4-10.2); Carbon Dioxide 26 mmol/L (22-30); Chloride 111 mmol/L (98-107); Glucose 100 mg/dL (74-99); Magnesium 1.7 mg/dL (1.6-2.3); Phosphorus 3.5 mg/dL (2.5-4.5); Potassium 3.6 mmol/L (3.5-5.1); Sodium 145 mmol/L (137-145); Total Bilirubin 0.3 mg/dL (0.2-1.3)
[2018-11-20 21:17] LABS: HCT 39.8 % (39.0-53.0); HGB 12.8 gm/dL (13.0-17.5); MCH 33.7 pg (25.0-35.0); MCHC 32.1 g/dL (31.0-37.0); Macrocytosis Moderate; Mean Platelet Volume 7.4; RBC 3.79 m/uL (4.30-5.90); RDW 14.3 % (11.5-15.5)
[2018-11-20 21:21] LABS: INR 0.9 (<1.2); Partial Thromboplastin Time 24.2 sec (22.0-30.0); Prothrombin Time 9.9 sec (9.0-12.0)
[2018-11-20 21:22] LABS: Platelet Count 470 k/uL (150-450)
[2018-11-20 21:48] LABS: Band Neutrophils % 2 %; Eosinophils # (M) 0.15 k/uL (0-0.7); Lymphocytes # (M) 2.15 k/uL (1.0-4.8); Neutrophils % (M) 48 %; Nucleated Red Blood Cells 0 /100 WBC (0-0); Poikilocytosis (M) Present; Total Cells Counted 100
[2018-11-21 07:01] VITALS: BP 147/87; PULSE 87; RESP 18; TEMP 97.4
== END 2018-11-21 07:01 | disposition home or self-care (01) ==
LOC: EC 19:28
DX: F10.129 Alcohol abuse with intoxication, unspecified (principal); I25.119 Atherosclerotic heart disease of native coronary artery with unspecified angina pectoris; I25.2 Old myocardial infarction; F17.200 Nicotine dependence, unspecified, uncomplicated; Z86.73 Personal history of transient ischemic attack (TIA), and cerebral infarction without residual deficits; Z95.5 Presence of coronary angioplasty implant and graft; W01.190A Fall on same level from slipping, tripping and stumbling with subsequent striking against furniture, initial encounter; Y92.009 Unspecified place in unspecified non-institutional (private) residence as the place of occurrence of the external cause
CPT/HCPCS: 36415; 70450; 71046; 72125; 72170; 80053; 82075; 83735; 84100; 84484; 85025; 85610; 85730; 96360; 96361; 99284

== ENCOUNTER 2018-12-22 22:01 | Inpatient (IN) | payer MEDICARE ==
[2018-12-22 22:42] LABS: Glucose,Whole Blood 88 mg/dL (75-99)
[2018-12-22 22:50] LABS: Basophils # (A) 0.1 k/uL (0-0.2); Basophils % (A) 1 %; Eosinophils % (A) 1 %; HCT 45.9 % (39.0-53.0); HGB 14.5 gm/dL (13.0-17.5); Lymphocytes # (A) 3.2 k/uL (1.0-4.8); Lymphocytes % (A) 55 %; MCH 33.8 pg (25.0-35.0); MCHC 31.7 g/dL (31.0-37.0); MCV 106.7 fL (80.0-100.0); Macrocytosis Moderate; Mean Platelet Volume 7.1; Monocytes # (A) 0.3 k/uL (0-1.0); Monocytes % (A) 5 %; Neutrophils # (A) 2.1 k/uL (1.3-7.7); Neutrophils % (A) 36 %; Platelet Count 359 k/uL (150-450); RDW 13.9 % (11.5-15.5); WBC 5.9 k/uL (3.8-10.6)
[2018-12-22 22:55] LABS: African American GFR (CKD) >90 (>60 ml/min/1.73 sqM); Anion Gap 10 mmol/L; Blood Urea Nitrogen 10 mg/dL (9-20); Calcium 8.4 mg/dL (8.4-10.2); Carbon Dioxide 27 mmol/L (22-30); Chloride 108 mmol/L (98-107); Glucose 86 mg/dL (74-99); Sodium 145 mmol/L (137-145); Total Bilirubin 0.8 mg/dL (0.2-1.3)
--- NOTE | 2018-12-22 23:02 | CT ---
EXAM: CT Head Without Intravenous Contrast CLINICAL HISTORY: ITS.REASON CT Reason: altered mental status TECHNIQUE: Axial computed tomography images of the head/brain without intravenous contrast. This CT exam was performed using one or more of the following dose reduction techniques: automated exposure control, adjustment of the mA and/or kV according to patient size, and/or use of iterative reconstruction technique. COMPARISON: No relevant prior studies available. FINDINGS: Brain: Chronic right frontal lobe infarction Ventricles: Unremarkable. No ventriculomegaly. Bones/joints: No acute fracture. Soft tissues: Unremarkable. Sinuses: No fluid levels. Mastoid air cells: Unremarkable as visualized. No mastoid effusion. IMPRESSION: No acute findings.
[2018-12-22 23:05] LABS: VBG PH 7.33 (7.31-7.41)
--- NOTE | 2018-12-22 23:06 | XR ---
EXAM: XR Chest, 2 Views CLINICAL HISTORY: ITS.REASON XR Reason: altered mental status TECHNIQUE: Frontal and lateral views of the chest. COMPARISON: No relevant prior studies available. FINDINGS: Lungs: Unremarkable. No consolidation. Pleural space: Unremarkable. No pneumothorax. Heart: No suspicious enlargement. Mediastinum: Unremarkable. Bones/joints: No acute fracture. Other findings: = IMPRESSION: No acute findings.
[2018-12-22 23:25] LABS: Potassium 4.7 mmol/L (3.5-5.1)
[2018-12-22 23:26] LABS: ALT 26 U/L (21-72); AST 34 U/L (17-59); Albumin 3.8 g/dL (3.5-5.0); Alkaline Phosphatase 93 U/L (38-126); Total Protein 6.8 g/dL (6.3-8.2)
[2018-12-22 23:29] LABS: Alcohol 413 mg/dL
[2018-12-23 00:07] LABS: Appearance,Urine Clear (Clear); Bilirubin,Urine Negative (Negative); Blood,Urine Negative (Negative); Color,Urine Yellow; Glucose,Urine (UA) Negative (Negative); Ketones,Urine Negative (Negative); Leukocyte Esterase,Urine Negative (Negative); Nitrite,Urine Negative (Negative); PH, Urine 6.5 (5.0-8.0); Protein,Urine Trace (Negative)
[2018-12-23] MEDS ORDERED: THIAMINE 100 MG/ML 2 ML VIAL IM STA (00:14)
[2018-12-23] MEDS ORDERED: LORazepam 2 MG/ML INJ IV PRN (00:14)
[2018-12-23] MEDS ORDERED: NALOXONE 0.4 MG/ML 1 ML VIAL IV PRN (00:15)
[2018-12-23] MEDS ORDERED: ACETAMINOPHEN TAB 325 MG TAB PO PRN (00:15)
--- NOTE | 2018-12-23 00:20 | ED ---
General Adult HPI - General Chief complaint: Altered Mental Status Stated complaint: Confused, Chest pain Time Seen by Provider: 12/22/18 22:34 Source: patient, family, RN notes reviewed, old records reviewed Mode of arrival: wheelchair Limitations: no limitations - History of Present Illness Initial comments: 58-year-old male presenting for evaluation of confusion, altered mental status, and chest pain. Patient has previous history of alcohol abuse, clinically appears intoxicated at the time my evaluation. He has a complaint of central chest pain which she states is been present for the past 6 months. Pain is nonradiating. He has some associated nausea with no vomiting. He does report mild cough and dyspnea. - Related Data Home Medications Medication Instructions Recorded Confirmed Clopidogrel [Plavix] 75 mg PO DAILY 12/22/18 12/22/18 HYDROcodone/APAP 10-325MG [[place] 1 tab PO QID 12/22/18 12/22/18 10-325] Lisinopril 40 mg PO DAILY 12/22/18 12/22/18 Metoprolol Tartrate [Lopressor] 25 mg PO BID 12/22/18 12/22/18 Sertraline [Zoloft] 100 mg PO DAILY 12/22/18 12/22/18 Allergies Allergy/AdvReac Type Severity Reaction Status Date / Time No Known Allergies Allergy Verified 12/22/18 22:50 Review of Systems ROS Statement: Those systems with pertinent positive or pertinent negative responses have been documented in the HPI. ROS Other: All systems not noted in ROS Statement are negative. Past Medical History Past Medical History: Coronary Artery Disease (CAD), Chest Pain / Angina, CVA/TIA, Hyperlipidemia, Hypertension, Myocardial Infarction ([place]), Pneumonia, Seizure Disorder, Vascular Disorder Additional Past Medical History / Comment(s): 09/25/14 STEMI with stent placement, Seizures- last one 2013, ETOH Abuse/withdrawl. lt rib fx, Hx of L ankle fx. 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 Past Anesthesia/Blood Transfusion Reactions: No Reported Reaction Additional Past Anesthesia/Blood Transfusion Reaction / Comment(s): Pt had blood transfusions with no reaction Date of Last Stent Placement:: 09/25/14 Past Psychological History: Anxiety, Depression Smoking Status: Current every day smoker Past Alcohol Use History: Abuse, Daily, Heavy Past Drug Use History: None Reported - Past Family History Father Family Medical History: Cancer Additional Family Medical History / Comment(s): Father of lung cancer. Mother Family Medical History: Cancer, Hypertension, Liver Disease Additional Family Medical History / Comment(s): Psychological history, General Exam Limitations: no limitations General appearance: alert, appears intoxicated Head exam: Present: atraumatic, normocephalic Eye exam: Present: normal appearance, PERRL ENT exam: Present: normal exam Neck exam: Present: normal inspection. Absent: tenderness, meningismus Respiratory exam: Present: normal lung sounds bilaterally. Absent: respiratory distress, wheezes Cardiovascular Exam: Present: regular rate, normal rhythm GI/Abdominal exam: Present: soft. Absent: distended, tenderness, guarding Extremities exam: Present: other (Right BKA) Neurological exam: Present: alert Skin exam: Present: warm, dry, intact. Absent: cyanosis, diaphoretic Course Vital Signs 12/22/18 12/22/18 22:05 23:10 Temperature 97.7 F Pulse Rate 82 65 Respiratory 18 19 Rate Blood Pressure 106/69 119/69 O2 Sat by Pulse 95 98 Oximetry EKG Findings - EKG Comments: EKG Findings:: EKG: Normal sinus rhythm, low voltage QRS rate of 72, LA interval 146, QRS duration 88, QTC [address] segment elevation. No significant change compared to prior from September 2018. Medical Decision Making - Medical Decision Making 58-year-old male presenting with confusion and chest pain. Patient is clinically intoxicated, serum alcohol level is 413. His EKG is nonischemic and unchanged from prior. He has a chest x-ray which is negative for acute cardiopulmonary disease. Head CT negative for intracranial hemorrhage or mass effect. He has a normal CBC, normal CMP, normal urinalysis. Alcohol level and complaint chest pain he will be admitted. He is admitted for acute alcohol poisoning and intoxication. Serial cardiac enzymes will be obtained. Patient is placed on Ativan by [facility]. - Lab Data Result diagrams: 12/22/18 22:40 12/22/18 22:40 Lab Results 12/22/18 12/22/18 12/22/18 Range/Units 22:40 22:40 22:40 WBC 5.9 (3.8-10.6) k/uL RBC 4.30 (4.30-5.90) m/uL Hgb 14.5 (13.0-17.5) gm/dL Hct 45.9 (39.0-53.0) % MCV 106.7 H (80.0-100.0) fL MCH 33.8 (25.0-35.0) pg MCHC 31.7 (31.0-37.0) g/dL RDW 13.9 (11.5-15.5) % Plt Count 359 (150-450) k/uL Neutrophils % 36 % Lymphocytes % 55 % Monocytes % 5 % Eosinophils % 1 % Basophils % 1 % Neutrophils # 2.1 (1.3-7.7) k/uL Lymphocytes # 3.2 (1.0-4.8) k/uL Monocytes # 0.3 (0-1.0) k/uL Eosinophils # 0.0 (0-0.7) k/uL Basophils # 0.1 (0-0.2) k/uL Macrocytosis Moderate VBG pH (7.31-7.41) VBG pCO2 (37-51) mmHg VBG HCO3 (24-28) mmol/L Sodium 145 (137-145) mmol/L Potassium 4.7 (3.5-5.1) mmol/L Chloride 108 H (98-107) mmol/L Carbon Dioxide 27 (22-30) mmol/L Anion Gap 10 mmol/L BUN 10 (9-20) mg/dL Creatinine 0.72 (0.66-1.25) mg/dL Est GFR (CKD-EPI)AfAm >90 (>60 ml/min/1.73 sqM) Est GFR (CKD-EPI)NonAf >90 (>60 ml/min/1.73 sqM) Glucose 86 (74-99) mg/dL POC Glucose (mg/dL) (75-99) mg/dL POC Glu Wool Buyer ID Calcium 8.4 (8.4-10.2) mg/dL Total Bilirubin 0.8 (0.2-1.3) mg/dL AST 34 (17-59) U/L ALT 26 (21-72) U/L Alkaline Phosphatase 93 (38-126) U/L Ammonia <9 (<30) umol/L Troponin I (0.000-0.034) ng/mL Total Protein 6.8 (6.3-8.2) g/dL Albumin 3.8 (3.5-5.0) g/dL Urine Color Urine Appearance (Clear) Urine pH (5.0-8.0) Ur Specific [place] (1.001-1.035) Urine Protein (Negative) Urine Glucose (UA) (Negative) Urine Ketones (Negative) Urine Blood (Negative) Urine Nitrite (Negative) Urine Bilirubin (Negative) Urine Urobilinogen (<2.0) mg/dL Ur Leukocyte Esterase (Negative) Serum Alcohol 413 H* mg/dL 12/22/18 12/22/18 12/22/18 Range/Units 22:40 22:41 22:42 WBC (3.8-10.6) k/uL RBC (4.30-5.90) m/uL Hgb (13.0-17.5) gm/dL Hct (39.0-53.0) % MCV (80.0-100.0) fL MCH (25.0-35.0) pg MCHC (31.0-37.0) g/dL RDW (11.5-15.5) % Plt Count (150-450) k/uL Neutrophils % % Lymphocytes % % Monocytes % % Eosinophils % % Basophils % % Neutrophils # (1.3-7.7) k/uL Lymphocytes # (1.0-4.8) k/uL Monocytes # (0-1.0) k/uL Eosinophils # (0-0.7) k/uL Basophils # (0-0.2) k/uL Macrocytosis VBG pH 7.33 (7.31-7.41) VBG pCO2 54 H (37-51) mmHg VBG HCO3 27 (24-28) mmol/L Sodium (137-145) mmol/L Potassium (3.5-5.1) mmol/L Chloride (98-107) mmol/L Carbon Dioxide (22-30) mmol/L Anion Gap mmol/L BUN (9-20) mg/dL Creatinine (0.66-1.25) mg/dL Est GFR (CKD-EPI)AfAm (>60 ml/min/1.73 sqM) Est GFR (CKD-EPI)NonAf (>60 ml/min/1.73 sqM) Glucose (74-99) mg/dL POC Glucose (mg/dL) 88 (75-99) mg/dL POC Glu Wool [employer]er Valentín Keane Calcium (8.4-10.2) mg/dL Total Bilirubin (0.2-1.3) mg/dL AST (17-59) U/L ALT (21-72) U/L Alkaline Phosphatase (38-126) U/L Ammonia (<30) umol/L Troponin I <0.012 (0.000-0.034) ng/mL Total Protein (6.3-8.2) g/dL Albumin (3.5-5.0) g/dL Urine Color Urine Appearance (Clear) Urine pH (5.0-8.0) Ur Specific [place] (1.001-1.035) Urine Protein (Negative) Urine Glucose (UA) (Negative) Urine Ketones (Negative) Urine Blood (Negative) Urine Nitrite (Negative) Urine Bilirubin (Negative) Urine Urobilinogen (<2.0) mg/dL Ur Leukocyte Esterase (Negative) Serum Alcohol mg/dL 12/22/18 Range/Units 23:50 WBC (3.8-10.6) k/uL RBC (4.30-5.90) m/uL Hgb (13.0-17.5) gm/dL Hct (39.0-53.0) % MCV (80.0-100.0) fL MCH (25.0-35.0) pg MCHC (31.0-37.0) g/dL RDW (11.5-15.5) % Plt Count (150-450) k/uL Neutrophils % % Lymphocytes % % Monocytes % % Eosinophils % % Basophils % % Neutrophils # (1.3-7.7) k/uL Lymphocytes # (1.0-4.8) k/uL Monocytes # (0-1.0) k/uL Eosinophils # (0-0.7) k/uL Basophils # (0-0.2) k/uL Macrocytosis VBG pH (7.31-7.41) VBG pCO2 (37-51) mmHg VBG HCO3 (24-28) mmol/L Sodium (137-145) mmol/L Potassium (3.5-5.1) mmol/L Chloride (98-107) mmol/L Carbon Dioxide (22-30) mmol/L Anion Gap mmol/L BUN (9-20) mg/dL Creatinine (0.66-1.25) mg/dL Est GFR (CKD-EPI)AfAm (>60 ml/min/1.73 sqM) Est GFR (CKD-EPI)NonAf (>60 ml/min/1.73 sqM) Glucose (74-99) mg/dL POC Glucose (mg/dL) (75-99) mg/dL POC Glu Wool Buyer ID Calcium (8.4-10.2) mg/dL Total Bilirubin (0.2-1.3) mg/dL AST (17-59) U/L ALT (21-72) U/L Alkaline Phosphatase (38-126) U/L Ammonia (<30) umol/L Troponin I (0.000-0.034) ng/mL Total Protein (6.3-8.2) g/dL Albumin (3.5-5.0) g/dL Urine Color Yellow Urine Appearance Clear (Clear) Urine pH 6.5 (5.0-8.0) Ur Specific [place] 1.010 (1.001-1.035) Urine Protein Trace H (Negative) Urine Glucose (UA) Negative (Negative) Urine Ketones Negative (Negative) Urine Blood Negative (Negative) Urine Nitrite Negative (Negative) Urine Bilirubin Negative (Negative) Urine Urobilinogen 2.0 (<2.0) mg/dL Ur Leukocyte Esterase Negative (Negative) Serum Alcohol mg/dL Disposition Clinical Impression: Chest pain, Alcoholism with alcohol dependence, Alcohol intoxication Disposition: ADMITTED IP TO [facility] Condition: Stable Is patient prescribed a controlled substance at d/c from ED?: No Referrals: Ozzy Pereira MD [Primary Care Provider] - 1-2 days Decision to Admit Reason: Admit from EC Decision Date: 12/23/18 Decision Time: 00:20
[2018-12-23 00:23] LABS: Amphetamine Screen,Urine Not Detected (NotDetected); Barbiturate Screen,Urine Not Detected (NotDetected); Benzodiazepines Screen,Urine Not Detected (NotDetected); Cocaine Screen,Urine Not Detected (NotDetected); Methadone Screen, Urine Not Detected (NotDetected); Opiate Screen,Urine Not Detected (NotDetected); Oxycodone Screen, Urine Not Detected (NotDetected); Phencyclidine Screen,Urine Not Detected (NotDetected); Tricyclic Antidepressant,Urine Not Detected (NotDetected); Urn Cannabinoid Scrn Not Detected (NotDetected)
[2018-12-23] MEDS: LORazepam 2 MG/ML INJ IV PRN ×2 (12:35→18:28)
[2018-12-23] MEDS ORDERED: IPRATROPIUM-ALBUTEROL 3 ML NEB INHALATION PRN (13:52)
--- NOTE | 2018-12-23 15:56 | P.HPIM ---
History of Present Illness Pleasant 58-year-old the male was admitted for alcohol intoxication patient apparently drinks a pint of alcohol every day patient is undergoing alcohol withdrawals and patient is on Ativan CW protocol. Patient denied any fever chills, patient had some nausea and no vomiting. Patient denied any dysuria. Patient had cough unable to bring up anything does have a smoking history. Review of Systems REVIEW OF SYSTEMS: CONSTITUTIONAL: No fever, no malaise, no fatigue. HEENT: No recent visual problems or hearing problems. Denied any sore throat. CARDIOVASCULAR: No chest pain, orthopnea, PND, no palpitations, no syncope. PULMONARY: No shortness of breath, no cough, no hemoptysis. GASTROINTESTINAL: No diarrhea, no vomiting, no abdominal pain. NEUROLOGICAL: No headaches, no weakness, no numbness. HEMATOLOGICAL: Denies any bleeding or petechiae. GENITOURINARY: Denies any burning micturition, frequency, or urgency. MUSCULOSKELETAL/RHEUMATOLOGICAL: Denies any joint pain, swelling, or any muscle pain. ENDOCRINE: Denies any polyuria or polydipsia. The rest of the 14-point review of systems is negative. Past Medical History Past Medical History: Coronary Artery Disease (CAD), Chest Pain / Angina, CVA/TIA, Hyperlipidemia, Hypertension, Myocardial Infarction ([place]), Pneumonia, Seizure Disorder, Vascular Disorder Additional Past Medical History / Comment(s): 09/25/14 STEMI with stent placement, Seizures- last one 2014, ETOH Abuse/withdrawl. lt rib fx, Hx of L ankle fx. 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 Past Anesthesia/Blood Transfusion Reactions: No Reported Reaction Additional Past Anesthesia/Blood Transfusion Reaction / Comment(s): Pt had blood transfusions with no reaction Date of Last Stent Placement:: 09/25/14 Past Psychological History: Anxiety, Depression Additional Psychological History / Comment(s): Pt's December 2013. R leg prosthesis. doesn't drive-takes the bus Smoking Status: Current every day smoker Past Alcohol Use History: Abuse, Daily, Heavy Additional Past Alcohol Use History / Comment(s): pt in 2017 reduced his alcohol intake to 5-6 drinks per week. smoking 1 ppd Past Drug Use History: None Reported Additional Drug Use History / Comment(s): denies any current marijuana - Past Family History Father Family Medical History: Cancer Additional Family Medical History / Comment(s): Father of lung cancer. Mother Family Medical History: Cancer, Hypertension, Liver Disease Additional Family Medical History / Comment(s): Psychological history, Medications and Allergies Home Medications Medication Instructions Recorded Confirmed Type Clopidogrel [Plavix] 75 mg PO DAILY 12/22/18 12/22/18 History HYDROcodone/APAP 10-325MG [[place] 1 tab PO QID 12/22/18 12/22/18 History 10-325] Lisinopril 40 mg PO DAILY 12/22/18 12/22/18 History Metoprolol Tartrate [Lopressor] 25 mg PO BID 12/22/18 12/22/18 History Sertraline [Zoloft] 100 mg PO DAILY 12/22/18 12/22/18 History Allergies Allergy/AdvReac Type Severity Reaction Status Date / Time No Known Allergies Allergy Verified 12/22/18 22:50 Physical Exam Vitals: Vital Signs Temp Pulse Pulse Resp BP BP Pulse Ox 12/23/18 14:44 99.0 F 116 H 20 99 12/23/18 07:00 98.4 F 79 16 120/66 99 12/23/18 01:25 97.6 F 68 20 128/74 98 12/23/18 00:40 98.7 F 88 18 121/68 98 12/22/18 23:10 65 19 119/69 98 12/22/18 22:05 97.7 F 82 18 106/69 95 Intake and Output 12/23/18 12/23/18 12/23/18 06:59 14:59 22:59 Intake Total 1330 240 Output Total 550 Balance 1330 -310 Intake: Oral 1330 240 Output: Urine 550 Other: Voiding Method Urinal # Voids 1 # Bowel Movements 1 Weight 55 kg PHYSICAL EXAMINATION: GENERAL: The patient is alert and oriented x3, not in any acute distress. Well developed, well nourished. HEENT: Pupils are round and equally reacting to light. EOMI. No scleral icterus. No conjunctival pallor. Normocephalic, atraumatic. No pharyngeal erythema. No thyromegaly. CARDIOVASCULAR: S1 and S2 present. No murmurs, rubs, or gallops. PULMONARY: Chest is clear to auscultation, no wheezing or crackles. ABDOMEN: Soft, nontender, nondistended, normoactive bowel sounds. No palpable organomegaly. MUSCULOSKELETAL: No joint swelling or deformity. EXTREMITIES: No cyanosis, clubbing, or pedal edema. NEUROLOGICAL: Gross neurological examination did not reveal any focal deficits. SKIN: No rashes. Results CBC & Chem 7: 12/22/18 22:40 12/22/18 22:40 Labs: Abnormal Lab Results - Last 24 Hours (Table) 12/22/18 12/22/18 12/22/18 Range/Units 22:40 22:40 22:42 MCV 106.7 H (80.0-100.0) fL VBG pCO2 54 H (37-51) mmHg Chloride 108 H (98-107) mmol/L Urine Protein (Negative) Serum Alcohol 413 H* mg/dL 12/22/18 Range/Units 23:50 MCV (80.0-100.0) fL VBG pCO2 (37-51) mmHg Chloride (98-107) mmol/L Urine Protein Trace H (Negative) Serum Alcohol mg/dL Thrombosis Risk Factor Assmnt - Choose All That Apply Any of the Below Risk Factors Present?: Yes Each Factor Represents 1 point: Abnormal pulmonary function (COPD), Age 41-60 years Thrombosis Risk Factor Assessment Total Risk Factor Score: 2 Thrombosis Risk Factor Assessment Level: Low Risk Assessment and Plan Plan: -Alcohol withdrawal: Patient will be on Ativan [facility] protocol thiamine multivitamin supplementation patient is willing to quit alcohol patient will go to alcohol rehabilitation program -Alcohol abuse and alcohol overdose patient will be continued on IV fluids -Mild nonbacterial bronchitis nicotine cessation counseling was provided -Hypertension -Depression -Hyperlipidemia -Coronary artery disease Patient will need pharmacologic GI and DVT prophylaxis
[2018-12-23] MEDS: THIAMINE 100 MG TAB PO SCH ×2 (16:04→16:09)
[2018-12-23] MEDS: HEPARIN SODIUM,PORCINE 5,000 UNIT/ML 1 ML VIAL SQ SCH ×2 (16:04→23:28)
[2018-12-23] MEDS: FAMOTIDINE 20 MG TAB PO SCH (20:36)
[2018-12-23] MEDS: METOPROLOL TARTRATE 25 MG TAB PO SCH (20:36)
[2018-12-24] MEDS: CLOPIDOGREL 75 MG TAB PO SCH (09:07)
[2018-12-24] MEDS: FAMOTIDINE 20 MG TAB PO SCH ×2 (09:07→20:38)
[2018-12-24] MEDS: HEPARIN SODIUM,PORCINE 5,000 UNIT/ML 1 ML VIAL SQ SCH ×3 (09:07→23:24)
[2018-12-24] MEDS: METOPROLOL TARTRATE 25 MG TAB PO SCH ×2 (09:07→20:38)
[2018-12-24] MEDS: THIAMINE 100 MG TAB PO SCH ×2 (09:07→16:19)
[2018-12-24] MEDS: SERTRALINE 100 MG TAB PO SCH (09:07)
--- NOTE | 2018-12-24 12:27 | P.PN ---
Subjective Patient's alcohol withdrawals are better. Did not require much of Ativan if patient is doing well patient can be discharged tomorrow. Constitutional: Denied any fatigue denied any fever. Cardio vascular: denied any chest pain, palpitations Gastrointestinal denied any nausea vomiting Pulmonary: Denied any shortness of breath cough Neurologic denied any new focal deficits All inpatient medications were reviewed and appropriate changes in these medications as dictated in the interval history and assessment and plan. Objective - Vital Signs Vital signs: Vital Signs Temp 98.6 F 12/24/18 07:00 Pulse 69 12/24/18 07:00 Resp 18 12/24/18 07:58 BP 156/78 12/24/18 07:00 Pulse Ox 97 12/24/18 07:00 Intake & Output 12/23/18 12/24/18 12/24/18 18:59 06:59 18:59 Intake Total 360 236 Output Total 550 150 Balance -190 -150 236 Intake: Oral 360 236 Output: Urine 550 150 Other: Voiding Method Urinal # Voids 4 # Bowel Movements 1 1 - Exam PHYSICAL EXAMINATION: GENERAL: The patient is alert and oriented x3, not in any acute distress. Well developed, well nourished. HEENT: Pupils are round and equally reacting to light. EOMI. No scleral icterus. No conjunctival pallor. Normocephalic, atraumatic. No pharyngeal erythema. No thyromegaly. CARDIOVASCULAR: S1 and S2 present. No murmurs, rubs, or gallops. PULMONARY: Chest is clear to auscultation, no wheezing or crackles. ABDOMEN: Soft, nontender, nondistended, normoactive bowel sounds. No palpable organomegaly. MUSCULOSKELETAL: No joint swelling or deformity. EXTREMITIES: No cyanosis, clubbing, or pedal edema. NEUROLOGICAL: Gross neurological examination did not reveal any focal deficits. SKIN: No rashes. - Labs CBC & Chem 7: 12/22/18 22:40 12/22/18 22:40 Assessment and Plan Plan: -Alcohol withdrawal: Patient will be on Ativan [facility] protocol thiamine multivitamin supplementation patient is willing to quit alcohol patient will go to alcohol rehabilitation program after discharge -Alcohol abuse and alcohol overdose patient will be continued on IV fluids -Mild nonbacterial bronchitis nicotine cessation counseling was provided -Hypertension -Depression -Hyperlipidemia -Coronary artery disease Patient will need pharmacologic GI and DVT prophylaxis
[2018-12-24] MEDS: LORazepam 2 MG/ML INJ IV PRN (19:12)
[2018-12-25] MEDS: LORazepam 2 MG/ML INJ IV PRN ×7 (06:04→22:38)
[2018-12-25] MEDS: SERTRALINE 100 MG TAB PO SCH (08:20)
[2018-12-25] MEDS: METOPROLOL TARTRATE 25 MG TAB PO SCH (08:20)
[2018-12-25] MEDS: FAMOTIDINE 20 MG TAB PO SCH ×2 (08:20→20:25)
[2018-12-25] MEDS: CLOPIDOGREL 75 MG TAB PO SCH (08:20)
[2018-12-25] MEDS: HEPARIN SODIUM,PORCINE 5,000 UNIT/ML 1 ML VIAL SQ SCH ×2 (08:20→15:31)
[2018-12-25] MEDS: THIAMINE 100 MG TAB PO SCH ×2 (08:20→17:45)
[2018-12-25] MEDS: HYDROcodone/APAP 10-325MG 1 EACH TAB PO PRN (08:24)
[2018-12-25] MEDS ORDERED: METOPROLOL TARTRATE 25 MG TAB PO STA (11:36)
--- NOTE | 2018-12-25 11:39 | P.PN ---
Subjective Patient's alcohol withdrawals are better. Did not require much of Ativan if patient is doing well patient can be discharged tomorrow. 12/25/2018 Patient the withdrawals improved significantly but the patient was trying to walk about to fall has some significant tremors once tremors improves his functionality probably will improve will obtain PT and OT consultation will continue to treat him for alcohol withdrawals possibility of discharge tomorrow if he is doing well Constitutional: Denied any fatigue denied any fever. Cardio vascular: denied any chest pain, palpitations Gastrointestinal denied any nausea vomiting Pulmonary: Denied any shortness of breath cough Neurologic denied any new focal deficits All inpatient medications were reviewed and appropriate changes in these medications as dictated in the interval history and assessment and plan. Objective - Vital Signs Vital signs: Vital Signs Temp 98.7 F 12/25/18 07:04 Pulse 84 12/25/18 07:04 Resp 16 12/25/18 07:04 BP 156/93 12/25/18 07:04 Pulse Ox 97 12/25/18 07:04 Intake & Output 12/24/18 12/25/18 12/25/18 18:59 06:59 18:59 Intake Total 1352 Output Total 100 Balance 1252 Intake: Oral 1352 Output: Urine 100 Other: Voiding Method Urinal # Voids 2 3 # Bowel Movements 1 - Exam PHYSICAL EXAMINATION: GENERAL: The patient is alert and oriented x3, not in any acute distress. Well developed, well nourished. HEENT: Pupils are round and equally reacting to light. EOMI. No scleral icterus. No conjunctival pallor. Normocephalic, atraumatic. No pharyngeal erythema. No thyromegaly. CARDIOVASCULAR: S1 and S2 present. No murmurs, rubs, or gallops. PULMONARY: Chest is clear to auscultation, no wheezing or crackles. ABDOMEN: Soft, nontender, nondistended, normoactive bowel sounds. No palpable organomegaly. MUSCULOSKELETAL: No joint swelling or deformity. EXTREMITIES: No cyanosis, clubbing, or pedal edema. NEUROLOGICAL: Gross neurological examination did not reveal any focal deficits. SKIN: No rashes. - Labs CBC & Chem 7: 12/22/18 22:40 12/22/18 22:40 Assessment and Plan Plan: -Alcohol withdrawal: Patient will be on Ativan [facility] protocol thiamine multivitamin supplementation patient is willing to quit alcohol patient will go to alcohol rehabilitation program after discharge -Alcohol abuse and alcohol overdose patient will be continued on IV fluids -Mild nonbacterial bronchitis nicotine cessation counseling was provided -Hypertension -Depression -Hyperlipidemia -Coronary artery disease Patient will need pharmacologic GI and DVT prophylaxis
[2018-12-25 15:02] VITALS: BMI 17.4
[2018-12-25] MEDS: HALOPERIDOL LACTATE 5 MG/ML 1 ML VIAL IVP PRN ×2 (15:47→19:05)
[2018-12-25 17:03] LABS: Glucose,Whole Blood 99 mg/dL (75-99)
--- NOTE | 2018-12-25 18:54 | P.CNPUL ---
History of Present Illness Consult date: 12/25/18 Chief complaint: Altered mental status History of present illness: 58-year-old male patient, alcoholic, drinks around 1 pint of liquor a day in addition to being a chronic smoker, came into the hospital because of confusion and altered mental status and chest pain. The patient apparently has been having pain in his chest for the past 6 months. He was admitted to the hospital. Note that at time of admission he was acutely intoxicated with alcohol. His alcohol level was 413. Urine drug screen was negative. UA was negative. Cardiac enzymes are negative. CAT scan of the brain was negative. The chest x-ray was unremarkable. The patient was admitted to the medical floor. Within the past 48 hours the patient started going into delirium tremens. This afternoon, the patient became quite combative and he was swinging. He was also quite agitated. He required a total of 3 mg of Haldol 5 mg of Ativan and following that he got transferred to the intensive care unit. He has a sitter at the bedside. No hemodynamic instability at this point in time. Review of Systems Constitutional: Reports weight loss Eyes: denies blurred vision, denies bulging eye, denies decreased vision Ears: deny: decreased hearing, ear discharge, earache, tinnitus Ears, nose, mouth and throat: Denies headache, Denies sore throat Cardiovascular: Reports as per HPI, Reports chest pain Respiratory: Reports as per HPI Gastrointestinal: Reports as per HPI Musculoskeletal: Reports as per HPI Musculoskeletal: absent: ankle pain, ankle stiffness, ankle swelling Integumentary: Reports as per HPI Neurological: Reports confusion, Reports weakness Psychiatric: Reports as per HPI Endocrine: Reports as per HPI, Reports fatigue Hematologic/Lymphatic: Reports as per HPI Allergic/Immunologic: Reports as per HPI Past Medical History Past Medical History: Coronary Artery Disease (CAD), Chest Pain / Angina, CVA/TIA, Hyperlipidemia, Hypertension, Myocardial Infarction ([place]), Pneumonia, Seizure Disorder, Vascular Disorder Additional Past Medical History / Comment(s): 09/25/14 STEMI with stent placement, Seizures- last one 2014, ETOH Abuse/withdrawl. lt rib fx, Hx of L ankle fx. 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 Past Anesthesia/Blood Transfusion Reactions: No Reported Reaction Additional Past Anesthesia/Blood Transfusion Reaction / Comment(s): Pt had blood transfusions with no reaction Date of Last Stent Placement:: 09/25/14 Past Psychological History: Anxiety, Depression Additional Psychological History / Comment(s): Pt's December 2013. R leg prosthesis. doesn't drive-takes the bus Smoking Status: Current every day smoker Past Alcohol Use History: Abuse, Daily, Heavy Additional Past Alcohol Use History / Comment(s): pt in 2016 reduced his alcohol intake to 5-6 drinks per week. smoking 1 ppd Past Drug Use History: None Reported Additional Drug Use History / Comment(s): denies any current marijuana - Past Family History Father Family Medical History: Cancer Additional Family Medical History / Comment(s): Father of lung cancer. Mother Family Medical History: Cancer, Hypertension, Liver Disease Additional Family Medical History / Comment(s): Psychological history, Medications and Allergies Home Medications Medication Instructions Recorded Confirmed Type Clopidogrel [Plavix] 75 mg PO DAILY 12/22/18 12/22/18 History HYDROcodone/APAP 10-325MG [[place] 1 tab PO QID 12/22/18 12/22/18 History 10-325] Lisinopril 40 mg PO DAILY 12/22/18 12/22/18 History Metoprolol Tartrate [Lopressor] 25 mg PO BID 12/22/18 12/22/18 History Sertraline [Zoloft] 100 mg PO DAILY 12/22/18 12/22/18 History Allergies Allergy/AdvReac Type Severity Reaction Status Date / Time No Known Allergies Allergy Verified 12/22/18 22:50 Physical Exam Vitals: Vital Signs Temp Pulse Resp BP Pulse Ox 12/25/18 13:37 97.1 F L 75 16 165/92 97 12/25/18 07:04 98.7 F 84 16 156/93 97 12/25/18 01:12 98.1 F 84 18 133/79 96 12/24/18 19:02 98.6 F 85 18 168/97 96 Intake and Output 12/25/18 12/25/18 12/25/18 06:59 14:59 22:59 Other: # Voids 3 2 Weight 55 kg Gen. appearance, comfortable at this point in time, the patient underwent effect of Haldol and Ativan. He is in intensive care unit for delirium tremens. The patient looks quite malnourished and older than his stated age. Head exam was generally normal. There was no scleral icterus or corneal arcus. Mucous membranes were moist. Neck was supple and without jugular venous distension, thyromegaly, or carotid bruits. Carotids were easily palpable bilaterally. There was no adenopathy. Lungs were clear to auscultation and percussion, and with normal diaphragmatic excursion. No wheezes or rales were noted. Cardiac exam revealed the PMI to be normally situated and sized. The rhythm was regular and no extrasystoles were noted during several minutes of auscultation. The first and second heart sounds were normal and physiologic splitting of the second heart sound was noted. There were no murmurs, rubs, clicks, or gallops. Abdominal exam revealed normal bowel sounds. The abdomen was soft, non-tender, and without masses, organomegaly, or appreciable enlargement of the abdominal aorta. Examination of the extremities revealed easily palpable radial, femoral and pedal pulses. There was no cyanosis, clubbing or edema. The patient has a BKA on the right lower extremity Examination of the skin revealed no evidence of significant rashes, suspicious appearing nevi or other concerning lesions. Neurologic the patient is confused. His exam is nonfocal. Results - Laboratory Findings CBC and BMP: 12/22/18 22:40 12/22/18 22:40 Abnormal lab findings: Abnormal Labs 12/22/18 12/22/18 12/22/18 22:40 22:40 22:42 MCV 106.7 H VBG pCO2 54 H Chloride 108 H Urine Protein Serum Alcohol 413 H* 12/22/18 23:50 MCV VBG pCO2 Chloride Urine Protein Trace H Serum Alcohol - Diagnostic Findings Chest x-ray: image reviewed Assessment and Plan Plan: 1 altered mentation secondary to delirium tremens the patient with known history of alcoholism. 2 history of alcoholism 3 acute alcohol intoxication in time of admission 4 chronic smoker 5 coronary artery disease, previous history of STEMI with a stent insertion 6 peripheral vascular disease and the patient has undergone a below-knee amputation on the right 7 hypertension 8 hyperlipidemia 9 depression 10 previous history of alcoholic seizures 11 previous history of CVA/TIA Plan IV hydration. Thiamine. Folate. Haldol at a dose of 2 mg per 2 hours on a when necessary basis and and Ativan per the [facility] protocol regarding his altered mentation and agitation and delirium. Aspiration precautions. DVT prophylaxis. We'll continue to follow. Keep the patient ICU overnight.
[2018-12-25] MEDS ORDERED: HALOPERIDOL LACTATE 5 MG/ML 1 ML VIAL IVP PRN (18:56)
[2018-12-25] MEDS: NICOTINE 21MG/24HR PATCH TRANSDERM SCH (20:24)
[2018-12-25] MEDS: METOPROLOL TARTRATE 50 MG TAB PO SCH (20:25)
[2018-12-26] MEDS: HEPARIN SODIUM,PORCINE 5,000 UNIT/ML 1 ML VIAL SQ SCH ×3 (00:37→17:08)
[2018-12-26 05:11] LABS: Basophils % (A) 0 %; Eosinophils # (A) 0.1 k/uL (0-0.7); Eosinophils % (A) 2 %; HCT 41.3 % (39.0-53.0); HGB 13.7 gm/dL (13.0-17.5); Lymphocytes # (A) 2.1 k/uL (1.0-4.8); Lymphocytes % (A) 32 %; MCH 35.5 pg (25.0-35.0); MCV 107.4 fL (80.0-100.0); Macrocytosis Moderate; Mean Platelet Volume 8.3; Monocytes # (A) 0.3 k/uL (0-1.0); Monocytes % (A) 4 %; Neutrophils # (A) 3.9 k/uL (1.3-7.7); Neutrophils % (A) 59 %; RBC 3.85 m/uL (4.30-5.90); RDW 13.6 % (11.5-15.5); WBC 6.6 k/uL (3.8-10.6)
[2018-12-26 05:12] LABS: Platelet Count 135 k/uL (150-450)
[2018-12-26 05:14] LABS: ALT 13 U/L (21-72); AST 13 U/L (17-59); African American GFR (CKD) >90 (>60 ml/min/1.73 sqM); Albumin 3.5 g/dL (3.5-5.0); Alkaline Phosphatase 78 U/L (38-126); Anion Gap 10 mmol/L; Blood Urea Nitrogen 13 mg/dL (9-20); Calcium 8.7 mg/dL (8.4-10.2); Carbon Dioxide 23 mmol/L (22-30); Chloride 104 mmol/L (98-107); Glucose 77 mg/dL (74-99); Potassium 3.4 mmol/L (3.5-5.1); Sodium 137 mmol/L (137-145); Total Bilirubin 0.9 mg/dL (0.2-1.3); Total Protein 6.2 g/dL (6.3-8.2)
[2018-12-26] MEDS: THIAMINE 100 MG TAB PO SCH ×2 (09:10→17:08)
[2018-12-26] MEDS: CLOPIDOGREL 75 MG TAB PO SCH (09:10)
[2018-12-26] MEDS: METOPROLOL TARTRATE 50 MG TAB PO SCH ×2 (09:11→21:25)
[2018-12-26] MEDS: FAMOTIDINE 20 MG TAB PO SCH ×2 (09:11→21:25)
[2018-12-26] MEDS: SERTRALINE 100 MG TAB PO SCH (09:22)
--- NOTE | 2018-12-26 12:19 | P.PN ---
Subjective Progress Note Date: 12/26/18 On today's evaluation of 12/26/2018 the patient's, comfortable. He woke up nicely without any significant agitation or restlessness. No tremors. No nausea or vomiting. No abdominal pain. No confusion. No hallucinations. He was aware of the place and people around him. No fever or chills. No aspi ration. Overnight he did not require any further Ativan or Haldol. He remains hemodynamically stable. No nausea. No vomiting. No chest pain. No cough. No sputum production. Objective - Vital Signs Vital signs: Vital Signs Temp 97.6 F 12/26/18 08:00 Pulse 74 12/26/18 08:00 Resp 14 12/26/18 08:00 BP 121/87 12/26/18 10:00 Pulse Ox 97 12/26/18 08:00 Intake & Output 12/25/18 12/26/18 12/26/18 18:59 06:59 18:59 Intake Total 10 Balance 10 Weight 55 kg 57 kg Intake: Oral 10 Other: Voiding Method Diaper Diaper # Voids 2 1 1 - Exam Gen. appearance, comfortable at this point in time. The patient looks quite malnourished and older than his stated age. Head exam was generally normal. There was no scleral icterus or corneal arcus. Mucous membranes were moist. Neck was supple and without jugular venous distension, thyromegaly, or carotid bruits. Carotids were easily palpable bilaterally. There was no adenopathy. Lungs were clear to auscultation and percussion, and with normal diaphragmatic excursion. No wheezes or rales were noted. Cardiac exam revealed the PMI to be normally situated and sized. The rhythm was regular and no extrasystoles were noted during several minutes of auscultation. The first and second heart sounds were normal and physiologic splitting of the second heart sound was noted. There were no murmurs, rubs, clicks, or gallops. Abdominal exam revealed normal bowel sounds. The abdomen was soft, non-tender, and without masses, organomegaly, or appreciable enlargement of the abdominal aorta. Examination of the extremities revealed easily palpable radial, femoral and pedal pulses. There was no cyanosis, clubbing or edema. The patient has a BKA on the right lower extremity Examination of the skin revealed no evidence of significant rashes, suspicious appearing nevi or other concerning lesions. Neurologic the patient is awake and alert and there is no focal neurological deficit. - Labs CBC & Chem 7: 12/26/18 04:15 12/26/18 04:15 Labs: Abnormal Lab Results - Last 24 Hours (Table) 12/26/18 12/26/18 Range/Units 04:15 04:15 RBC 3.85 L (4.30-5.90) m/uL MCV 107.4 H (80.0-100.0) fL MCH 35.5 H (25.0-35.0) pg Plt Count 135 L D (150-450) k/uL Potassium 3.4 L (3.5-5.1) mmol/L Creatinine 0.60 L (0.66-1.25) mg/dL AST 13 L (17-59) U/L ALT 13 L (21-72) U/L Total Protein 6.2 L (6.3-8.2) g/dL Assessment and Plan Plan: 1 altered mentation secondary to delirium tremens the patient with known history of alcoholism. The patient is recovered in mental status is completely normalized 2 history of alcoholism 3 acute alcohol intoxication in time of admission 4 chronic smoker 5 coronary artery disease, previous history of STEMI with a stent insertion 6 peripheral vascular disease and the patient has undergone a below-knee amputation on the right 7 hypertension 8 hyperlipidemia 9 depression 10 previous history of alcoholic seizures 11 previous history of CVA/TIA Plan Continue supportive care. Advance diet. Transfer this patient to medical floor.
--- NOTE | 2018-12-26 13:58 | P.PN ---
Subjective Patient's alcohol withdrawals are better. Did not require much of Ativan if patient is doing well patient can be discharged tomorrow. 12/25/2018 Patient the withdrawals improved significantly but the patient was trying to walk about to fall has some significant tremors once tremors improves his functionality probably will improve will obtain PT and OT consultation will continue to treat him for alcohol withdrawals possibility of discharge tomorrow if he is doing well 12/26/2018 Patient the head at the significant alcohol withdrawals requiring high dose of Ativan was subsequently transferred to ICU yesterday patient was quite a bit agitated requiring huge doses of Ativan. Patient is doing much better today still has significant tremor still requiring Ativan but will not need to stay in ICU at this time Constitutional: Denied any fatigue denied any fever. Cardio vascular: denied any chest pain, palpitations Gastrointestinal denied any nausea vomiting Pulmonary: Denied any shortness of breath cough Neurologic denied any new focal deficits All inpatient medications were reviewed and appropriate changes in these medications as dictated in the interval history and assessment and plan. Objective - Vital Signs Vital signs: Vital Signs Temp 97.6 F 12/26/18 08:00 Pulse 74 12/26/18 08:00 Resp 14 12/26/18 08:00 BP 121/87 12/26/18 10:00 Pulse Ox 97 12/26/18 08:00 Intake & Output 12/25/18 12/26/18 12/26/18 18:59 06:59 18:59 Intake Total 10 560 Balance 10 560 Weight 55 kg 57 kg Intake: Oral 10 560 Other: Voiding Method Diaper Diaper # Voids 2 1 1 - Exam PHYSICAL EXAMINATION: GENERAL: The patient is alert and oriented x3, not in any acute distress. Well developed, well nourished. Does have significant tremor HEENT: Pupils are round and equally reacting to light. EOMI. No scleral icterus. No conjunctival pallor. Normocephalic, atraumatic. No pharyngeal erythema. No thyromegaly. CARDIOVASCULAR: S1 and S2 present. No murmurs, rubs, or gallops. PULMONARY: Chest is clear to auscultation, no wheezing or crackles. ABDOMEN: Soft, nontender, nondistended, normoactive bowel sounds. No palpable organomegaly. MUSCULOSKELETAL: No joint swelling or deformity. Patient has a right below-knee amputation EXTREMITIES: No cyanosis, clubbing, or pedal edema. NEUROLOGICAL: Gross neurological examination did not reveal any focal deficits. SKIN: No rashes. - Labs CBC & Chem 7: 12/26/18 04:15 12/26/18 04:15 Labs: Abnormal Lab Results - Last 24 Hours (Table) 12/26/18 12/26/18 Range/Units 04:15 04:15 RBC 3.85 L (4.30-5.90) m/uL MCV 107.4 H (80.0-100.0) fL MCH 35.5 H (25.0-35.0) pg Plt Count 135 L D (150-450) k/uL Potassium 3.4 L (3.5-5.1) mmol/L Creatinine 0.60 L (0.66-1.25) mg/dL AST 13 L (17-59) U/L ALT 13 L (21-72) U/L Total Protein 6.2 L (6.3-8.2) g/dL Assessment and Plan Plan: -Alcohol withdrawal: Patient will be on Ativan CIWA protocol thiamine multivitamin supplementation patient is willing to quit alcohol patient will go to alcohol rehabilitation program after discharge. Patient withdraws her significant elevated compared to yesterday patient was in ICU and had metabolic encephalopathy secondary to all call withdrawal, confused quite a bit yesterday -Alcohol abuse and alcohol overdose patient will be continued on IV fluids -Hypertension -Depression -Hyperlipidemia -Coronary artery disease Patient will need pharmacologic GI and DVT prophylaxis
[2018-12-26] MEDS: NICOTINE 21MG/24HR PATCH TRANSDERM SCH (21:25)
[2018-12-27] MEDS: HEPARIN SODIUM,PORCINE 5,000 UNIT/ML 1 ML VIAL SQ SCH ×3 (01:19→10:51)
[2018-12-27 08:20] VITALS: BP 131/85; PULSE 79; RESP 12; TEMP 98.1
[2018-12-27] MEDS: SERTRALINE 100 MG TAB PO SCH (09:04)
[2018-12-27] MEDS: FAMOTIDINE 20 MG TAB PO SCH (09:04)
[2018-12-27] MEDS: METOPROLOL TARTRATE 50 MG TAB PO SCH (09:04)
[2018-12-27] MEDS: THIAMINE 100 MG TAB PO SCH (09:04)
[2018-12-27] MEDS: CLOPIDOGREL 75 MG TAB PO SCH ×2 (09:04→10:51)
[2018-12-27] MEDS: HYDROcodone/APAP 10-325MG 1 EACH TAB PO PRN (09:25)
[2018-12-27] MEDS ORDERED: Potassium Replacement Protocol 1 EACH MISC MISCELLANE PRN (10:20)
[2018-12-27] MEDS: POTASSIUM CHLORIDE ER 20 MEQ TAB.ER PO SCH ×2 (10:51→12:06)
--- NOTE | 2018-12-27 13:36 | P.PN ---
Subjective Progress Note Date: 12/27/18 The patient is seen today 12/27/2018 in follow-up on the regular medical floor. He is awake and alert in no acute distress. He is sitting up at the bedside. He denies any worsening shortness of breath, cough or congestion. Continue O2 saturations up to 100% on room air. He's afebrile. Hemodynamically stable. White count 6.6. Hemoglobin 13.7. Creatinine 0.60. Objective - Vital Signs Vital signs: Vital Signs Temp 98.1 F 12/27/18 07:00 Pulse 79 12/27/18 07:00 Resp 12 12/27/18 07:00 BP 131/85 12/27/18 07:00 Pulse Ox 99 12/27/18 07:00 Intake & Output 12/26/18 12/27/18 12/27/18 18:59 06:59 18:59 Intake Total 900 Balance 900 Intake: Oral 900 Other: Voiding Method Diaper Urinal Urinal # Voids 0 1 # Bowel Movements 1 - Exam Gen. appearance, comfortable at this point in time. The patient looks quite malnourished and older than his stated age. On room air. Head exam was generally normal. There was no scleral icterus or corneal arcus. Mucous membranes were moist. Neck was supple and without jugular venous distension, thyromegaly, or carotid bruits. Carotids were easily palpable bilaterally. There was no adenopathy. Lungs were clear to auscultation and percussion, and with normal diaphragmatic excursion. No wheezes or rales were noted. Cardiac exam revealed the PMI to be normally situated and sized. The rhythm was regular and no extrasystoles were noted during several minutes of auscultation. The first and second heart sounds were normal and physiologic splitting of the second heart sound was noted. There were no murmurs, rubs, clicks, or gallops. Abdominal exam revealed normal bowel sounds. The abdomen was soft, non-tender, and without masses, organomegaly, or appreciable enlargement of the abdominal aorta. Examination of the extremities revealed easily palpable radial, femoral and pedal pulses. There was no cyanosis, clubbing or edema. The patient has a BKA on the right lower extremity Examination of the skin revealed no evidence of significant rashes, suspicious appearing nevi or other concerning lesions. Neurologic the patient is awake and alert and there is no focal neurological deficit. - Labs CBC & Chem 7: 12/26/18 04:15 12/26/18 04:15 Assessment and Plan Assessment: Impression: 1 altered mentation secondary to delirium tremens the patient with known history of alcoholism. The patient is recovered in mental status is completely normalized 2 history of alcoholism 3 acute alcohol intoxication in time of admission 4 chronic smoker 5 coronary artery disease, previous history of STEMI with a stent insertion 6 peripheral vascular disease and the patient has undergone a below-knee amputation on the right 7 hypertension 8 hyperlipidemia 9 depression 10 previous history of alcoholic seizures 11 previous history of CVA/TIA Plan The patient was seen and evaluated by Dr. Vivar. He is cleared for discharge from the pulmonary and critical care standpoint. I, the cosigning physician, performed a history & physical examination of the patient. Lungs sounds are clear but diminished. Maintaining good O2 saturations in the 90s on room air. I discussed the assessment and plan of care with my nurse practitioner, Sienna Weiner. I attest to the above note as dictated by her.
--- NOTE | 2018-12-27 15:43 | P.DS ---
Providers Date of admission: 12/25/18 13:43 Attending physician: Ozzy Pereira Consults: 12/25/18 16:23 Consult Physician Routine Consulting Provider: Melida Vivar Consult Reason/Comments: icu management Do you want consulting provider notified?: Yes Primary care physician: Ozzy Pereira Hospital Course: Patient's alcohol withdrawals are better. Did not require much of Ativan if patient is doing well patient can be discharged tomorrow. 12/25/2018 Patient the withdrawals improved significantly but the patient was trying to walk about to fall has some significant tremors once tremors improves his functionality probably will improve will obtain PT and OT consultation will continue to treat him for alcohol withdrawals possibility of discharge tomorrow if he is doing well 12/26/2018 Patient the head at the significant alcohol withdrawals requiring high dose of Ativan was subsequently transferred to ICU yesterday patient was quite a bit agitated requiring huge doses of Ativan. Patient is doing much better today still has significant tremor still requiring Ativan but will not need to stay in ICU at this time 12/27/2018 Patient is clinically doing well at this time. No more alcohol withdrawals patient will be discharged today. PHYSICAL EXAMINATION: GENERAL: The patient is alert and oriented x3, not in any acute distress. Well developed, well nourished. Does have significant tremor HEENT: Pupils are round and equally reacting to light. EOMI. No scleral icterus. No conjunctival pallor. Normocephalic, atraumatic. No pharyngeal erythema. No thyromegaly. CARDIOVASCULAR: S1 and S2 present. No murmurs, rubs, or gallops. PULMONARY: Chest is clear to auscultation, no wheezing or crackles. ABDOMEN: Soft, nontender, nondistended, normoactive bowel sounds. No palpable organomegaly. MUSCULOSKELETAL: No joint swelling or deformity. Patient has a right below-knee amputation EXTREMITIES: No cyanosis, clubbing, or pedal edema. NEUROLOGICAL: Gross neurological examination did not reveal any focal deficits. SKIN: No rashes. Assessment and Plan Plan: -Alcohol withdrawal: Patient will be on Ativan CIWA protocol thiamine multivita min supplementation withdrawals today healthcare social worker will work with the patient regarding EAA helps -Alcohol abuse and alcohol overdose -Hypertension -Depression -Hyperlipidemia -Coronary artery disease Patient Condition at Discharge: Stable Plan - Discharge Summary Discharge Rx Participant: Yes New Discharge Prescriptions: New Nicotine 21Mg/24Hr Patch [Habitrol] 1 patch TRANSDERM Q24H #14 patch Metoprolol Tartrate [Lopressor] 50 mg PO BID #60 tab Famotidine [Pepcid] 20 mg PO BID #30 tab Thiamine [Vitamin B-1] 100 mg PO BID-W/MEALS #60 tab Continue Sertraline [Zoloft] 100 mg PO DAILY Clopidogrel [Plavix] 75 mg PO DAILY HYDROcodone/APAP 10-325MG [[place] 10-325] 1 tab PO QID Discontinued Metoprolol Tartrate [Lopressor] 25 mg PO BID Lisinopril 40 mg PO DAILY Discharge Medication List Clopidogrel [Plavix] 75 mg PO DAILY 12/22/18 [History] HYDROcodone/APAP 10-325MG [[place] 10-325] 1 tab PO QID 12/22/18 [History] Sertraline [Zoloft] 100 mg PO DAILY 12/22/18 [History] Famotidine [Pepcid] 20 mg PO BID #30 tab 12/27/18 [Rx] Metoprolol Tartrate [Lopressor] 50 mg PO BID #60 tab 12/27/18 [Rx] Nicotine 21Mg/24Hr Patch [Habitrol] 1 patch TRANSDERM Q24H #14 patch 12/27/18 [Rx] Thiamine [Vitamin B-1] 100 mg PO BID-W/MEALS #60 tab 12/27/18 [Rx] Follow up Appointment(s)/Referral(s): Ozzy Pereira MD [Primary Care Provider] - 01/03/19 1:10 pm [facility] Visiting Nurse, [NON-STAFF] - 1-2 Days Patient Instructions/Handouts: Alcohol Intoxication (DC) Discharge Disposition: HOME WITH HOME HEALTH SERVICES
== END 2018-12-27 14:31 | disposition home health service (06) | DRG 918 ==
LOC: EC 22:01 → 4SSUR 12-23 00:15 → OBSVTOIN 12-25 13:43 → 2SICU 12-25 16:58 → 4SSUR 12-26 19:55
PROVIDERS: ADMIT Family Medicine; ATTEND Family Medicine
DX: T51.0X1A Toxic effect of ethanol, accidental (unintentional), initial encounter (principal); F10.221 Alcohol dependence with intoxication delirium; F10.231 Alcohol dependence with withdrawal delirium; R07.89 Other chest pain; Y90.8 Blood alcohol level of 240 mg/100 ml or more; E78.5 Hyperlipidemia, unspecified; I25.10 Atherosclerotic heart disease of native coronary artery without angina pectoris; F17.210 Nicotine dependence, cigarettes, uncomplicated; F41.9 Anxiety disorder, unspecified; G40.909 Epilepsy, unspecified, not intractable, without status epilepticus; I10 Essential (primary) hypertension; I73.9 Peripheral vascular disease, unspecified; J40 Bronchitis, not specified as acute or chronic; F32.9 Major depressive disorder, single episode, unspecified; Z79.02 Long term (current) use of antithrombotics/antiplatelets; Z79.891 Long term (current) use of opiate analgesic; Z79.899 Other long term (current) drug therapy; I25.2 Old myocardial infarction; Z87.01 Personal history of pneumonia (recurrent); Z90.49 Acquired absence of other specified parts of digestive tract; Z95.5 Presence of coronary angioplasty implant and graft; Z89.511 Acquired absence of right leg below knee; Z95.820 Peripheral vascular angioplasty status with implants and grafts; Z71.6 Tobacco abuse counseling; I69.398 Other sequelae of cerebral infarction; I69.392 Facial weakness following cerebral infarction; Z80.1 Family history of malignant neoplasm of trachea, bronchus and lung; Z71.41 Alcohol abuse counseling and surveillance of alcoholic; Z82.49 Family history of ischemic heart disease and other diseases of the circulatory system; Z97.13 Presence of artificial right leg (complete) (partial)
CPT/HCPCS: 36415; 70450; 71046; 80053; 80306; 80320; 81003; 82140; 82803; 84484; 85025; 93005; 96372; 99285

== ENCOUNTER 2019-03-31 13:27 | Emergency (ER) | payer MEDICARE, OTHER ==
[2019-03-31 14:07] VITALS: TEMP 97.9
[2019-03-31] MEDS ORDERED: SODIUM CHLORIDE 0.9% 1,000 ML IV STA (14:21)
--- NOTE | 2019-03-31 14:53 | ED ---
General Adult HPI - General Chief complaint: Fall Stated complaint: ETOH Time Seen by Provider: 03/31/19 13:47 Source: patient, EMS, RN notes reviewed Mode of arrival: EMS Limitations: no limitations - History of Present Illness Initial comments: 59-year-old male with a past medical history of CAD, hyperlipidemia, hypertension, AL, chronic alcohol disorder presents to the emergency department for a chief complaint of alcohol intoxication. Patient states he was drinking heavily over the past few days. States he slid down out of his wheelchair and h is neighbor called EMS who brought him here. Patient has a history of below the knee amputation of the right lower extremity. Patient states he would like to detox from alcohol.Patient has no other complaints at this time including shortness of breath, chest pain, abdominal pain, nausea or vomiting, headache, or visual changes. - Related Data Home Medications Medication Instructions Recorded Confirmed Clopidogrel [Plavix] 75 mg PO DAILY 12/22/18 12/22/18 HYDROcodone/APAP 10-325MG [[place] 1 tab PO QID 12/22/18 12/22/18 10-325] Sertraline [Zoloft] 100 mg PO DAILY 12/22/18 12/22/18 Previous Rx's Medication Instructions Recorded Famotidine [Pepcid] 20 mg PO BID #30 tab 12/27/18 Metoprolol Tartrate [Lopressor] 50 mg PO BID #60 tab 12/27/18 Nicotine 21Mg/24Hr Patch [Habitrol] 1 patch TRANSDERM Q24H #14 patch 12/27/18 Thiamine [Vitamin B-1] 100 mg PO BID-W/MEALS #60 tab 12/27/18 Allergies Allergy/AdvReac Type Severity Reaction Status Date / Time No Known Allergies Allergy Verified 12/22/18 22:50 Review of Systems ROS Statement: Those systems with pertinent positive or pertinent negative responses have been documented in the HPI. ROS Other: All systems not noted in ROS Statement are negative. Past Medical History Past Medical History: Coronary Artery Disease (CAD), Chest Pain / Angina, CVA/TIA, Hyperlipidemia, Hypertension, Myocardial Infarction (AL), Pneumonia, Seizure Disorder, Vascular Disorder Additional Past Medical History / Comment(s): 09/25/14 STEMI with stent placement, Seizures- last one 2014, ETOH Abuse/withdrawl. lt rib fx, Hx of L ankle fx. PVD -rt bka-current wound- has prosthesis, tia-2007 lt eye sligtly stevie opy since and lt arm still has slight numbness to it w/ nerve pain Last Myocardial Infarction Date:: 09/25/14 History of Any Multi-Drug Resistant Organisms: None Reported Past Surgical History: Appendectomy, Cholecystectomy, Heart Catheterization With Stent Additional Past Surgical History / Comment(s): 09/25/14 PTCA with stenting, BYPASS ON BOTH LEGS, RIGHT BELOW KNEE AMPUTATION, 2 EGD's, colonoscopy x 2, lysis of adhesions, hemorrhoidectomy, . Past Anesthesia/Blood Transfusion Reactions: No Reported Reaction Additional Past Anesthesia/Blood Transfusion Reaction / Comment(s): Pt had blood transfusions with no reaction Date of Last Stent Placement:: 09/25/14 Past Psychological History: Anxiety, Depression Smoking Status: Current every day smoker Past Alcohol Use History: Abuse, Daily, Heavy Past Drug Use History: None Reported - Past Family History Father Family Medical History: Cancer Additional Family Medical History / Comment(s): Father of lung cancer. Mother Family Medical History: Cancer, Hypertension, Liver Disease Additional Family Medical History / Comment(s): Psychological history, General Exam Limitations: no limitations General appearance: alert, in no apparent distress Head exam: Present: atraumatic, normocephalic, normal inspection Eye exam: Present: normal appearance, PERRL, EOMI. Absent: scleral icterus, conjunctival injection, periorbital swelling ENT exam: Present: normal exam, mucous membranes moist Neck exam: Present: normal inspection, full ROM. Absent: tenderness, meningism us, lymphadenopathy Respiratory exam: Present: normal lung sounds bilaterally. Absent: respiratory distress, wheezes, rales, rhonchi, stridor Cardiovascular Exam: Present: regular rate, normal rhythm, normal heart sounds. Absent: systolic murmur, diastolic murmur, rubs, gallop, clicks GI/Abdominal exam: Present: soft, normal bowel sounds. Absent: distended, tenderness, guarding, rebound, rigid Neurological exam: Present: alert, oriented X3, CN II-XII intact Psychiatric exam: Present: normal affect, normal mood Course Vital Signs 03/31/19 14:03 Temperature 97.9 F Pulse Rate 96 Respiratory 20 Rate Blood Pressure 178/89 O2 Sat by Pulse 99 Oximetry Medical Decision Making - Medical Decision Making 51-year-old male presents to the emergency department for a chief complaint of a contact patient. He slid out of his wheelchair today and his neighbor called EMS to help him get up as in history of below-knee amputation. However patient states he was coming to the hospital for help with his chronic alcoholism. On exam no focal neuro deficits. Vitals are stable. The patient is well- appearing. CBC and CMP are unremarkable. Macrocytosis is likely secondary to patient's chronic alcoholism as well as his albuminemia. Urine is unremarkable. Patient was monitored for several hours in the emergency department. No tremors noted. At this time patient is clinically sober. Patient does have a ride home. He will be discharged home to follow up with primary care. He was given resources for alcoholism. He will return if he has any worsening symptoms. - Lab Data Result diagrams: 03/31/19 15:00 03/31/19 15:00 Lab Results 03/31/19 03/31/19 03/31/19 Range/Units 15:00 15:00 15:04 WBC 4.5 (3.8-10.6) k/uL RBC 3.83 L (4.30-5.90) m/uL Hgb 13.8 (13.0-17.5) gm/dL Hct 41.8 (39.0-53.0) % MCV 109.1 H (80.0-100.0) fL MCH 36.2 H (25.0-35.0) pg MCHC 33.2 (31.0-37.0) g/dL RDW 14.1 (11.5-15.5) % Plt Count 117 L (150-450) k/uL Neutrophils % 51 % Lymphocytes % 39 % Monocytes % 5 % Eosinophils % 2 % Basophils % 1 % Neutrophils # 2.3 (1.3-7.7) k/uL Lymphocytes # 1.7 (1.0-4.8) k/uL Monocytes # 0.2 (0-1.0) k/uL Eosinophils # 0.1 (0-0.7) k/uL Basophils # 0.1 (0-0.2) k/uL Macrocytosis Marked A Sodium 144 (137-145) mmol/L Potassium 3.7 (3.5-5.1) mmol/L Chloride 109 H (98-107) mmol/L Carbon Dioxide 27 (22-30) mmol/L Anion Gap 8 mmol/L BUN 14 (9-20) mg/dL Creatinine 0.57 L (0.66-1.25) mg/dL Est GFR (CKD-EPI)AfAm >90 (>60 ml/min/1.73 sqM) Est GFR (CKD-EPI)NonAf >90 (>60 ml/min/1.73 sqM) Glucose 98 (74-99) mg/dL Calcium 8.0 L (8.4-10.2) mg/dL Magnesium 1.6 (1.6-2.3) mg/dL Total Bilirubin 0.5 (0.2-1.3) mg/dL AST 39 (17-59) U/L ALT 38 (21-72) U/L Alkaline Phosphatase 91 (38-126) U/L Total Protein 6.0 L (6.3-8.2) g/dL Albumin 3.3 L (3.5-5.0) g/dL Urine Color Yellow Urine Appearance Clear (Clear) Urine pH 6.5 (5.0-8.0) Ur Specific [place] 1.015 (1.001-1.035) Urine Protein Trace H (Negative) Urine Glucose (UA) Negative (Negative) Urine Ketones Trace H (Negative) Urine Blood Negative (Negative) Urine Nitrite Negative (Negative) Urine Bilirubin Negative (Negative) Urine Urobilinogen 2.0 (<2.0) mg/dL Ur Leukocyte Esterase Negative (Negative) Disposition Clinical Impression: Chronic alcohol abuse Disposition: HOME SELF-CARE Condition: Good Instructions (If sedation given, give patient instructions): Alcohol Use Disorder (ED) Additional Instructions: Please follow up with primary care and alcoholism resources. Please return to the emergency department if you have any worsening symptoms. Is patient prescribed a controlled substance at d/c from ED?: No Referrals: Riddhi Hammond MD [REFERRING] - 1-2 days Time of Disposition: 16:07
[2019-03-31 15:15] LABS: Basophils # (A) 0.1 k/uL (0-0.2); Basophils % (A) 1 %; Eosinophils # (A) 0.1 k/uL (0-0.7); Eosinophils % (A) 2 %; HCT 41.8 % (39.0-53.0); HGB 13.8 gm/dL (13.0-17.5); Lymphocytes # (A) 1.7 k/uL (1.0-4.8); Lymphocytes % (A) 39 %; MCH 36.2 pg (25.0-35.0); MCHC 33.2 g/dL (31.0-37.0); MCV 109.1 fL (80.0-100.0); Macrocytosis Marked; Mean Platelet Volume 8.5; Monocytes # (A) 0.2 k/uL (0-1.0); Monocytes % (A) 5 %; Neutrophils # (A) 2.3 k/uL (1.3-7.7); Neutrophils % (A) 51 %; Platelet Count 117 k/uL (150-450); RBC 3.83 m/uL (4.30-5.90); RDW 14.1 % (11.5-15.5); WBC 4.5 k/uL (3.8-10.6)
[2019-03-31 15:16] LABS: Appearance,Urine Clear (Clear); Bilirubin,Urine Negative (Negative); Blood,Urine Negative (Negative); Color,Urine Yellow; Glucose,Urine (UA) Negative (Negative); Ketones,Urine Trace (Negative); Leukocyte Esterase,Urine Negative (Negative); Nitrite,Urine Negative (Negative); PH, Urine 6.5 (5.0-8.0); Protein,Urine Trace (Negative); Specific Gravity,Urine 1.015 (1.001-1.035)
[2019-03-31 15:25] LABS: African American GFR (CKD) >90 (>60 ml/min/1.73 sqM); Albumin 3.3 g/dL (3.5-5.0); Anion Gap 8 mmol/L; Blood Urea Nitrogen 14 mg/dL (9-20); Carbon Dioxide 27 mmol/L (22-30); Chloride 109 mmol/L (98-107); Glucose 98 mg/dL (74-99); Sodium 144 mmol/L (137-145); Total Bilirubin 0.5 mg/dL (0.2-1.3)
[2019-03-31 15:30] LABS: ALT 38 U/L (21-72); AST 39 U/L (17-59); Alkaline Phosphatase 91 U/L (38-126); Magnesium 1.6 mg/dL (1.6-2.3); Potassium 3.7 mmol/L (3.5-5.1)
[2019-03-31 17:38] VITALS: BP 160/98; PULSE 107; RESP 16
== END 2019-03-31 17:47 | disposition home or self-care (01) ==
LOC: EC 13:27
DX: F10.229 Alcohol dependence with intoxication, unspecified (principal); I25.119 Atherosclerotic heart disease of native coronary artery with unspecified angina pectoris; E78.5 Hyperlipidemia, unspecified; I10 Essential (primary) hypertension; I25.2 Old myocardial infarction; R77.0 Abnormality of albumin; F17.200 Nicotine dependence, unspecified, uncomplicated; F41.9 Anxiety disorder, unspecified; F32.9 Major depressive disorder, single episode, unspecified; Z79.02 Long term (current) use of antithrombotics/antiplatelets; Z79.891 Long term (current) use of opiate analgesic; Z79.899 Other long term (current) drug therapy; Z95.5 Presence of coronary angioplasty implant and graft; Z86.73 Personal history of transient ischemic attack (TIA), and cerebral infarction without residual deficits; Z89.511 Acquired absence of right leg below knee; W05.0XXA Fall from non-moving wheelchair, initial encounter
CPT/HCPCS: 36415; 80053; 81003; 83735; 85025; 96360; 96361; 99284

== ENCOUNTER 2019-05-29 07:17 | Emergency (ER) | payer MEDICARE ==
[2019-05-29] MEDS ORDERED: SODIUM CHLORIDE 0.9% 500 ML 500 ML IV STA (07:23)
[2019-05-29] MEDS ORDERED: SODIUM CHLORIDE 0.9% 1,000 ML IV STA (07:23)
[2019-05-29 07:28] VITALS: TEMP 98.3
[2019-05-29] MEDS ORDERED: DEXTROSE 50% SYRINGE 50 ML IVP STA ×2 (07:29→07:32)
[2019-05-29] MEDS ORDERED: SODIUM BICARB 8.4% 50 ML SYR (1 MEQ/ML) IV STA (07:32)
--- NOTE | 2019-05-29 07:39 | ED ---
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 Girlfriend found him at 645 completely unresponsive fire department arrived. Minutes later and started CPR at that time there were no pulses EMS arrived and the patient was in asystole we started CPR gave 2 rounds of epi and intubated the patient at which point in time they got pulses back. Patient gave 2 more at ease in route because they were losing pulses and CPR continued to the patient arrived in the emergency department. Patient's initial sugar was low patient was given an amp of D50 and an amp of bicarb. Patient was given a second amp of D50 when his sugar only came up into the 40s I ordered cardiac labs as well as CAT scan of the brain and chest for rule out PE. Patient had pulses on arrival and continues to have pulses and a good pressure at this time patient is completely unresponsive and was intubated in the field. Patient had received total of 4 rounds of epinephrine prior to arrival. - Related Data Home Medications Medication Instructions Recorded Confirmed Clopidogrel [Plavix] 75 mg PO DAILY 12/22/18 05/29/19 Atorvastatin Calcium [Lipitor] 40 mg PO DAILY 05/29/19 05/29/19 Gabapentin 600 mg PO TID 05/29/19 05/29/19 Lisinopril 40 mg PO DAILY 05/29/19 05/29/19 Metoprolol Tartrate 25 mg PO BID 05/29/19 05/29/19 Trospium Chloride 20 mg PO BID 05/29/19 05/29/19 Allergies Allergy/AdvReac Type Severity Reaction Status Date / Time No Known Allergies Allergy Verified 12/22/18 22:50 Review of Systems ROS Statement: Those systems with pertinent positive or pertinent negative responses have been documented in the HPI. ROS Other: All systems not noted in ROS Statement are negative. Past Medical History Past Medical History: Unable to Obtain, Coronary Artery Disease (CAD), Chest Pain / Angina, CVA/TIA, Hyperlipidemia, Hypertension, Myocardial Infarction ([place]), Pneumonia, Seizure Disorder, Vascular Disorder Additional Past Medical History / Comment(s): 09/25/14 STEMI with stent placement, Seizures- last one 2014, ETOH Abuse/withdrawl. lt rib fx, Hx of L ankle fx. PVD -rt bka-current wound- has prosthesis, tia-2007 lt eye sligtly droopy since and lt arm still has slight numbness to it w/ nerve pain Last Myocardial Infarction Date:: 09/25/14 History of Any Multi-Drug Resistant Organisms: None Reported Past Surgical History: Unable to Obtain, Appendectomy, Cholecystectomy, Heart Catheterization With Stent Additional Past Surgical History / Comment(s): 09/25/14 PTCA with stenting, BYPASS ON BOTH LEGS, RIGHT BELOW KNEE AMPUTATION, 2 EGD's, colonoscopy x 2, lysis of adhesions, hemorrhoidectomy, . Past Anesthesia/Blood Transfusion Reactions: No Reported Reaction Additional Past Anesthesia/Blood Transfusion Reaction / Comment(s): Pt had blood transfusions with no reaction Date of Last Stent Placement:: 09/25/14 Past Psychological History: Anxiety, Depression Smoking Status: Current every day smoker Past Alcohol Use History: Abuse, Daily, Heavy Past Drug Use History: None Reported - Past Family History Father Family Medical History: Cancer Additional Family Medical History / Comment(s): Father of lung cancer. Mother Family Medical History: Cancer, Hypertension, Liver Disease Additional Family Medical History / Comment(s): Psychological history, General Exam - General Exam Comments Initial Comments: GENERAL: Patient looks cyanotic from the nipple line up. Patient is unresponsive ENT: Neck is soft and supple. EYES: The sclera were anicteric and conjunctiva were pink and moist. PULMONARY: Patient is intubated and has good breath sounds bilaterally Good breath sounds bilaterally. No audible rales rhonchi or wheezing was noted. CARDIOVASCULAR: There is a regular rate and rhythm ABDOMEN: Soft and nontender with normal bowel sounds. SKIN: Skin is clear with no lesions or rashes and otherwise unremarkable. NEUROLOGIC: Patient is under responsive MUSCULOSKELETAL: She has a BKA on the right. No lower extremity swelling or edema. No calf tenderness. LYMPHATICS: No significant lymphadenopathy is noted PSYCHIATRIC: Unable to assess Limitations: language barrier Course Vital Signs 05/29/19 05/29/19 05/29/19 07:23 08:08 08:15 Temperature 98.3 F Pulse Rate 104 H 65 62 Respiratory 0 L 18 18 Rate Blood Pressure 141/70 129/41 88/38 O2 Sat by Pulse 42 L 57 L Oximetry 05/29/19 05/29/19 05/29/19 08:25 09:09 10:00 Temperature Pulse Rate 61 74 0 L Respiratory 18 18 0 L Rate Blood Pressure 83/37 75/24 O2 Sat by Pulse 59 L 74 L 0 L Oximetry 05/29/19 10:44 Temperature Pulse Rate 0 L Respiratory 0 L Rate Blood Pressure 0/0 O2 Sat by Pulse 0 L Oximetry Medical Decision Making - Medical Decision Making Patient received 4 epinephrine in route to the hospital. Patient's pulse ox on the vent remained in the 50s at best patient was put on Levophed to keep his blood pressure elevated. Patient's pH came back at 6.[address] Rosas he agreed that this was a nonsurvivable. At this point he did not want the patient transferred to the ICU. He wanted us to speak to the family first to see if they want any more intervention EKG shows atrial fibrillation with rapid ventricular response at 150 beats a minute QRS is 152 QT interval 376 QTC is 5:15. I spoke with the family they stated that the patient did not want any intervention if the outcome would leave him significantly debilitated. So at this point time the patient's heart rate bradycardia down and we did not intervene and he was pronounced at 10 AM. - Lab Data Result diagrams: 05/29/19 07:23 05/29/19 07:23 Lab Results 05/29/19 05/29/19 05/29/19 Range/Units 07:20 07:23 07:23 WBC 3.9 (3.8-10.6) k/uL RBC 3.26 L (4.30-5.90) m/uL Hgb 11.6 L (13.0-17.5) gm/dL Hct 39.7 (39.0-53.0) % MCV 121.7 H D (80.0-100.0) fL MCH 35.5 H (25.0-35.0) pg MCHC 29.2 L (31.0-37.0) g/dL RDW 13.1 (11.5-15.5) % Plt Count 37 L D (150-450) k/uL Neutrophils % (Manual) 52 % Band Neutrophils % 17 % Lymphocytes % (Manual) 21 % Monocytes % (Manual) 5 % Metamyelocytes % 3 % Myelocytes % 3 % Neutrophils # (Manual) 2.60 (1.3-7.7) k/uL Lymphocytes # (Manual) 0.82 L (1.0-4.8) k/uL Monocytes # (Manual) 0.20 (0-1.0) k/uL Metamyelocytes # (Man) 0.12 H (0) k/uL Myelocytes # (Manual) 0.12 H (0) k/uL Nucleated RBCs 0 (0-0) /100 WBC Manual Slide Review Performed Toxic Granulation Present Toxic Vacuolation Present Hypochromasia Marked Macrocytosis Marked A PT (9.0-12.0) sec INR (<1.2) APTT (22.0-30.0) sec Sample Site ABG pH (7.35-7.45) ABG pCO2 (35-45) mmHg ABG pO2 (83-108) mmHg ABG HCO3 (21-25) mmol/L ABG Total CO2 (19-24) mmol/L ABG O2 Saturation (94-97) % ABG Base Excess mmol/L Shawn Test FiO2 % Sodium 126 L (137-145) mmol/L Potassium 5.4 H (3.5-5.1) mmol/L Chloride 91 L (98-107) mmol/L Carbon Dioxide 11 L (22-30) mmol/L Anion Gap 24 mmol/L BUN 22 H (9-20) mg/dL Creatinine 1.73 H (0.66-1.25) mg/dL Est GFR (CKD-EPI)AfAm 49 (>60 ml/min/1.73 sqM) Est GFR (CKD-EPI)NonAf 43 (>60 ml/min/1.73 sqM) Glucose 392 H (74-99) mg/dL POC Glucose (mg/dL) <20 L (75-99) mg/dL POC Glu Anesthesiology Crna Keiry Corley Plasma Lactic Acid Rui (0.7-2.0) mmol/L Lactic Ac Sepsis Rflx Calcium 6.8 L (8.4-10.2) mg/dL Magnesium 2.6 H (1.6-2.3) mg/dL Total Bilirubin 1.4 H (0.2-1.3) mg/dL AST 601 H (17-59) U/L ALT 228 H (21-72) U/L Alkaline Phosphatase 29 L (38-126) U/L Troponin I (0.000-0.034) ng/mL Total Protein 4.1 L (6.3-8.2) g/dL Albumin 1.9 L (3.5-5.0) g/dL Serum Alcohol <10 mg/dL 05/29/19 05/29/19 05/29/19 Range/Units 07:23 07:23 07:23 WBC (3.8-10.6) k/uL RBC (4.30-5.90) m/uL Hgb (13.0-17.5) gm/dL Hct (39.0-53.0) % MCV (80.0-100.0) fL MCH (25.0-35.0) pg MCHC (31.0-37.0) g/dL RDW (11.5-15.5) % Plt Count (150-450) k/uL Neutrophils % (Manual) % Band Neutrophils % % Lymphocytes % (Manual) % Monocytes % (Manual) % Metamyelocytes % % Myelocytes % % Neutrophils # (Manual) (1.3-7.7) k/uL Lymphocytes # (Manual) (1.0-4.8) k/uL Monocytes # (Manual) (0-1.0) k/uL Metamyelocytes # (Man) (0) k/uL Myelocytes # (Manual) (0) k/uL Nucleated RBCs (0-0) /100 WBC Manual Slide Review Toxic Granulation Toxic Vacuolation Hypochromasia Macrocytosis PT 14.1 H (9.0-12.0) sec INR 1.4 H (<1.2) APTT 92.1 H (22.0-30.0) sec Sample Site ABG pH (7.35-7.45) ABG pCO2 (35-45) mmHg ABG pO2 (83-108) mmHg ABG HCO3 (21-25) mmol/L ABG Total CO2 (19-24) mmol/L ABG O2 Saturation (94-97) % ABG Base Excess mmol/L Shawn Test FiO2 % Sodium (137-145) mmol/L Potassium (3.5-5.1) mmol/L Chloride (98-107) mmol/L Carbon Dioxide (22-30) mmol/L Anion Gap mmol/L BUN (9-20) mg/dL Creatinine (0.66-1.25) mg/dL Est GFR (CKD-EPI)AfAm (>60 ml/min/1.73 sqM) Est GFR (CKD-EPI)NonAf (>60 ml/min/1.73 sqM) Glucose (74-99) mg/dL POC Glucose (mg/dL) (75-99) mg/dL POC Glu Anesthesiology Crna ID Plasma Lactic Acid Rui 18.4 H* (0.7-2.0) mmol/L Lactic Ac Sepsis Rflx Calcium (8.4-10.2) mg/dL Magnesium (1.6-2.3) mg/dL Total Bilirubin (0.2-1.3) mg/dL AST (17-59) U/L ALT (21-72) U/L Alkaline Phosphatase (38-126) U/L Troponin I 0.031 (0.000-0.034) ng/mL Total Protein (6.3-8.2) g/dL Albumin (3.5-5.0) g/dL Serum Alcohol mg/dL 05/29/19 05/29/19 05/29/19 Range/Units 07:25 07:30 07:40 WBC (3.8-10.6) k/uL RBC (4.30-5.90) m/uL Hgb (13.0-17.5) gm/dL Hct (39.0-53.0) % MCV (80.0-100.0) fL MCH (25.0-35.0) pg MCHC (31.0-37.0) g/dL RDW (11.5-15.5) % Plt Count (150-450) k/uL Neutrophils % (Manual) % Band Neutrophils % % Lymphocytes % (Manual) % Monocytes % (Manual) % Metamyelocytes % % Myelocytes % % Neutrophils # (Manual) (1.3-7.7) k/uL Lymphocytes # (Manual) (1.0-4.8) k/uL Monocytes # (Manual) (0-1.0) k/uL Metamyelocytes # (Man) (0) k/uL Myelocytes # (Manual) (0) k/uL Nucleated RBCs (0-0) /100 WBC Manual Slide Review Toxic Granulation Toxic Vacuolation Hypochromasia Macrocytosis PT (9.0-12.0) sec INR (<1.2) APTT (22.0-30.0) sec Sample Site ABG pH (7.35-7.45) ABG pCO2 (35-45) mmHg ABG pO2 (83-108) mmHg ABG HCO3 (21-25) mmol/L ABG Total CO2 (19-24) mmol/L ABG O2 Saturation (94-97) % ABG Base Excess mmol/L Shawn Test FiO2 % Sodium (137-145) mmol/L Potassium (3.5-5.1) mmol/L Chloride (98-107) mmol/L Carbon Dioxide (22-30) mmol/L Anion Gap mmol/L BUN (9-20) mg/dL Creatinine (0.66-1.25) mg/dL Est GFR (CKD-EPI)AfAm (>60 ml/min/1.73 sqM) Est GFR (CKD-EPI)NonAf (>60 ml/min/1.73 sqM) Glucose (74-99) mg/dL POC Glucose (mg/dL) 49 L 323 H 226 H (75-99) mg/dL POC Glu Anesthesiology Crna Racquel Stratton Nicole Pauly, Nicole Plasma Lactic Acid Rui (0.7-2.0) mmol/L Lactic Ac Sepsis Rflx Calcium (8.4-10.2) mg/dL Magnesium (1.6-2.3) mg/dL Total Bilirubin (0.2-1.3) mg/dL AST (17-59) U/L ALT (21-72) U/L Alkaline Phosphatase (38-126) U/L Troponin I (0.000-0.034) ng/mL Total Protein (6.3-8.2) g/dL Albumin (3.5-5.0) g/dL Serum Alcohol mg/dL 05/29/19 05/29/19 05/29/19 Range/Units 08:00 08:13 08:56 WBC (3.8-10.6) k/uL RBC (4.30-5.90) m/uL Hgb (13.0-17.5) gm/dL Hct (39.0-53.0) % MCV (80.0-100.0) fL MCH (25.0-35.0) pg MCHC (31.0-37.0) g/dL RDW (11.5-15.5) % Plt Count (150-450) k/uL Neutrophils % (Manual) % Band Neutrophils % % Lymphocytes % (Manual) % Monocytes % (Manual) % Metamyelocytes % % Myelocytes % % Neutrophils # (Manual) (1.3-7.7) k/uL Lymphocytes # (Manual) (1.0-4.8) k/uL Monocytes # (Manual) (0-1.0) k/uL Metamyelocytes # (Man) (0) k/uL Myelocytes # (Manual) (0) k/uL Nucleated RBCs (0-0) /100 WBC Manual Slide Review Toxic Granulation Toxic Vacuolation Hypochromasia Macrocytosis PT (9.0-12.0) sec INR (<1.2) APTT (22.0-30.0) sec Sample Site rbrach ABG pH <6.80 L* (7.35-7.45) ABG pCO2 69 H (35-45) mmHg ABG pO2 59 L* (83-108) mmHg ABG HCO3 8 L* (21-25) mmol/L ABG Total CO2 10 L (19-24) mmol/L ABG O2 Saturation 53.2 L (94-97) % ABG Base Excess -28.8 mmol/L Shawn Test Yes FiO2 100 % Sodium (137-145) mmol/L Potassium (3.5-5.1) mmol/L Chloride (98-107) mmol/L Carbon Dioxide (22-30) mmol/L Anion Gap mmol/L BUN (9-20) mg/dL Creatinine (0.66-1.25) mg/dL Est GFR (CKD-EPI)AfAm (>60 ml/min/1.73 sqM) Est GFR (CKD-EPI)NonAf (>60 ml/min/1.73 sqM) Glucose (74-99) mg/dL POC Glucose (mg/dL) 320 H (75-99) mg/dL POC Glu Anesthesiology Crna ID Smitha Fuller Plasma Lactic Acid Rui (0.7-2.0) mmol/L Lactic Ac Sepsis Rflx Y Calcium (8.4-10.2) mg/dL Magnesium (1.6-2.3) mg/dL Total Bilirubin (0.2-1.3) mg/dL AST (17-59) U/L ALT (21-72) U/L Alkaline Phosphatase (38-126) U/L Troponin I (0.000-0.034) ng/mL Total Protein (6.3-8.2) g/dL Albumin (3.5-5.0) g/dL Serum Alcohol mg/dL Disposition Clinical Impression: Cardiac arrest, Hypoglycemia, Pulmonary edema Disposition: Referrals: None,Stated [Primary Care Provider] - 1-2 days Preliminary Cause of : 10 AM
[2019-05-29 07:41] LABS: Glucose,Whole Blood 323 mg/dL (75-99)
[2019-05-29 07:41] LABS: Glucose,Whole Blood 226 mg/dL (75-99)
[2019-05-29 07:41] LABS: Glucose,Whole Blood 49 mg/dL (75-99)
[2019-05-29 07:41] LABS: Glucose,Whole Blood <20 mg/dL (75-99)
[2019-05-29 07:42] LABS: HCT 39.7 % (39.0-53.0); HGB 11.6 gm/dL (13.0-17.5); Hypochromasia Marked; MCH 35.5 pg (25.0-35.0); MCHC 29.2 g/dL (31.0-37.0); MCV 121.7 fL (80.0-100.0); Macrocytosis Marked; Mean Platelet Volume 11.3; RBC 3.26 m/uL (4.30-5.90); RDW 13.1 % (11.5-15.5); WBC 3.9 k/uL (3.8-10.6)
[2019-05-29 07:49] LABS: Albumin 1.9 g/dL (3.5-5.0); Alcohol <10 mg/dL; Anion Gap 24 mmol/L; Blood Urea Nitrogen 22 mg/dL (9-20); Calcium 6.8 mg/dL (8.4-10.2); Carbon Dioxide 11 mmol/L (22-30); Chloride 91 mmol/L (98-107); Glucose 392 mg/dL (74-99); Sodium 126 mmol/L (137-145); Total Bilirubin 1.4 mg/dL (0.2-1.3); Total Protein 4.1 g/dL (6.3-8.2)
[2019-05-29 07:54] LABS: African American GFR (CKD) 49 (>60 ml/min/1.73 sqM)
[2019-05-29 07:58] LABS: ALT 228 U/L (21-72); AST 601 U/L (17-59); Magnesium 2.6 mg/dL (1.6-2.3); Potassium 5.4 mmol/L (3.5-5.1)
[2019-05-29 07:59] LABS: Alkaline Phosphatase 29 U/L (38-126)
[2019-05-29] MEDS ORDERED: EPINEPHrine 1 MG/ML 1 ML AMP IV STA (08:03)
[2019-05-29 08:06] LABS: INR 1.4 (<1.2); Prothrombin Time 14.1 sec (9.0-12.0)
[2019-05-29 08:09] LABS: Band Neutrophils % 17 %; Lymphocytes # (M) 0.82 k/uL (1.0-4.8); Metamyelocytes # (M) 0.12 k/uL (0); Metamyelocytes % 3 %; Myelocytes # (M) 0.12 k/uL (0); Myelocytes % 3 %; Neutrophils % (M) 52 %; Nucleated Red Blood Cells 0 /100 WBC (0-0); Total Cells Counted 200
--- NOTE | 2019-05-29 08:09 | CT ---
EXAMINATION TYPE: CT brain wo con DATE OF EXAM: 05/29/2019 COMPARISON: 12/22/2018 HISTORY: Unresponsive, cardiac arrest CT DLP: 1098.4 mGycm. Automated Exposure Control for Dose Reduction was Utilized. TECHNIQUE: CT scan of the head is performed without contrast. FINDINGS: Patient is noted to be intubated. There is no acute intracranial hemorrhage, mass effect, or midline shift identified. Old lacunar injury is seen of the right lentiform nucleus and smaller w ithin the left lentiform nucleus. Encephalomalacia from prior infarct is seen in the right frontal lo be beginning in the deep white matter and extending to the jeffers matter near the high vertex. The vent ricles and sulci are within normal limits in size. The globes are intact. Mild mucosal thickening of the frontal, ethmoid, sphenoid, and maxillary sinuses with secretions in the posterior nasopharynx. Visualized mastoid air vessels are well aerated. No effacement of the sulci to suggest cerebral edema at this time. IMPRESSION: 1. No acute intracranial hemorrhage or midline shift. 2. Encephalomalacia from prior infarct of the right frontal lobe. Old lacunar injuries of the bilater al lentiform nuclei. 3. No current evidence of cerebral edema in this patient with cardiac arrest.
[2019-05-29 08:10] LABS: Partial Thromboplastin Time 92.1 sec (22.0-30.0); Toxic Granulation Present
[2019-05-29 08:11] LABS: Toxic Vacuolation Present
[2019-05-29 08:12] LABS: Platelet Count 37 k/uL (150-450)
[2019-05-29] MEDS ORDERED: NOREPINEPHRINE 4 MG in SODIUM CHLORIDE 0.9% 250 ML IV SCH (08:15)
--- NOTE | 2019-05-29 08:15 | XR ---
EXAMINATION TYPE: XR chest 1V portable DATE OF EXAM: 05/29/2019 COMPARISON: Prior chest x-ray 12/22/2018 HISTORY: Chest pain TECHNIQUE: Single frontal view of the chest is obtained. FINDINGS: Endotracheal tube is overlying the tracheal air column. There are overlying leads and defi brillator pad. Bilateral airspace disease is present. No evident pneumothorax. Heart size is prominen t. Difficult to exclude right pleural effusion. IMPRESSION: Correlate for congestive heart failure, pulmonary edema, pneumonia
[2019-05-29 08:16] LABS: ABG Base Excess -28.8 mmol/L; ABG Oxygen Saturation 53.2 % (94-97); ABG PCO2 69 mmHg (35-45); ABG TCO2 10 mmol/L (19-24); Allen Test Performed? Yes
--- NOTE | 2019-05-29 08:16 | CT ---
EXAMINATION TYPE: CT chest angio for PE DATE OF EXAM: 05/29/2019 COMPARISON: 03/09/2017 HISTORY: Unresponsive, cardiac arrest CT DLP: 422.4 mGycm. Automated Exposure Control for Dose Reduction was Utilized. CONTRAST: CTA scan of the thorax is performed with IV Contrast, patient injected with 100 mL of Isovue 370, pul monary embolism protocol. MIP Images are created on CT scanner and reviewed. FINDINGS: LUNGS: There are diffuse bilateral alveolar and interstitial opacities most confluent in the dependen t lungs with areas of groundglass opacity throughout. Underlying emphysematous changes redemonstrated . The patient is intubated with the distal tip of the endotracheal tube terminating at the sternal no tch. Pulmonary findings most likely relate to severe pulmonary edema in this clinical setting. MEDIASTINUM: There is satisfactory enhancement of the pulmonary artery and its branches, there is no CT evidence for pulmonary embolism. There are no greater than 1 cm hilar or mediastinal lymph nodes. No cardiomegaly or pericardial effusion is seen. Moderate coronary artery calcifications are seen. 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 Splenosis likely from prior splenic injury is identified. Thickening of the left adre nal gland likely relates to adrenal gland hyperplasia. Reflux of contrast into the IVC and hepatic ve ins suggests a degree of right heart failure. Diffuse hypoattenuation of the hepatic parenchyma most commonly relates to hepatic steatosis. Mild multilevel degenerative changes of the spine. IMPRESSION: 1. No evidence of pulmonary embolus. 2. Diffuse bilateral consolidations with groundglass component appearing as severe pulmonary edema. F andreina communicated with Dr. Short by Dr. Woods at 8:05 AM on 05/29/2019. 3. Reflux of contrast into the hepatic veins suggests a degree of right heart failure.
[2019-05-29 08:19] LABS: ABG PH <6.80 (7.35-7.45)
[2019-05-29 08:20] LABS: ABG HCO3 8 mmol/L (21-25); ABG PO2 59 mmHg (83-108)
[2019-05-29 09:03] LABS: Glucose,Whole Blood 320 mg/dL (75-99)
[2019-05-29] MEDS ORDERED: FUROSEMIDE 10 MG/ML 4 ML VIAL IV STA (09:37)
[2019-05-29 10:32] VITALS: PULSE 0; RESP 0
[2019-05-29 10:46] VITALS: BP 0/0
[2019-05-29] MEDS ORDERED: EPINEPHrine 10 ML SYRINGE (0.1 MG/ML) ONE (11:12)
--- NOTE | 2019-05-29 11:18 | P.CRDCN ---
History of Present Illness History of present illness: This is Dr. Enrique dictating a consult on this patient The patient was interviewed and examined by me I was called by the emergency room physician Dr. Short for evaluation of this gentleman who presented with a cardiac arrest IMPRESSION / ASSESSMENT: Asystolic cardiac arrest unwitnessed at home Revived with a normal blood pressure and heart rate when I examined him Known coronary artery disease PLAN: Computed tomography scan of his chest was recommended Further management to follow Family had not yet arrived Prognosis poor HPI Patient intubated. Heart rate and blood pressure were normal without any pressors I spoke to the nurses and I spoke to the EMS personnel Apparently he was found at home him a unwitnessed cardiac arrest. His pupils are dilated. He had no pulse he was asystolic He did not have ventricular fibrillation The EGD did not shock him He underwent CPR according to ACLS protocol and he was revived Upon my examination he was still quite blue in appearance Intubated Pinpoint pupils Breath sounds reduced bilaterally with crackles Abdomen was scaphoid Amputation right lower extremity I reviewed his chest x-ray His chest x-ray showed bilateral airspace disease He was waiting CT chest to rule out pulmonary embolism ROS: No fever chills or rigors, no cough, phlegm or expectoration, no nausea, vomiting or diarrhea, no hematuria, dysuria, no musculoskeletal complaints, no strokes or seizures, no skin lesions. EXAMINATION: When I examined him his blood pressure was 120 x 50 mm mercury pulse rate in the 80s and 90s Breath sounds but reduced bilaterally with crackles Skin color was blue Abdomen soft scaphoid Right lower extremity amputation Patient intubated REVIEW OF LABS, ECG & MEDICAL DATA CT of the chest report was reviewed and it showed bilateral consolidation with groundglass component No pulmonary members and Past Medical History Past Medical History: Unable to Obtain, Coronary Artery Disease (CAD), Chest Pain / Angina, CVA/TIA, Hyperlipidemia, Hypertension, Myocardial Infarction ([place]), Pneumonia, Seizure Disorder, Vascular Disorder Additional Past Medical History / Comment(s): 09/25/14 STEMI with stent placement, Seizures- last one 2014, ETOH Abuse/withdrawl. lt rib fx, Hx of L ankle fx. PVD -rt bka-current wound- has prosthesis, tia-2007 lt eye sligtly droopy since and lt arm still has slight numbness to it w/ nerve pain Last Myocardial Infarction Date:: 09/25/14 History of Any Multi-Drug Resistant Organisms: None Reported Past Surgical History: Unable to Obtain, Appendectomy, Cholecystectomy, Heart Catheterization With Stent Additional Past Surgical History / Comment(s): 09/25/14 PTCA with stenting, BYPASS ON BOTH LEGS, RIGHT BELOW KNEE AMPUTATION, 2 EGD's, colonoscopy x 2, lysis of adhesions, hemorrhoidectomy, . Past Anesthesia/Blood Transfusion Reactions: No Reported Reaction Additional Past Anesthesia/Blood Transfusion Reaction / Comment(s): Pt had blood transfusions with no reaction Date of Last Stent Placement:: 09/25/14 Past Psychological History: Anxiety, Depression Smoking Status: Current every day smoker Past Alcohol Use History: Abuse, Daily, Heavy Past Drug Use History: None Reported - Past Family History Father Family Medical History: Cancer Additional Family Medical History / Comment(s): Father of lung cancer. Mother Family Medical History: Cancer, Hypertension, Liver Disease Additional Family Medical History / Comment(s): Psychological history, Medications and Allergies Home Medications Medication Instructions Recorded Confirmed Type Clopidogrel [Plavix] 75 mg PO DAILY 12/22/18 05/29/19 History Atorvastatin Calcium [Lipitor] 40 mg PO DAILY 05/29/19 05/29/19 History Gabapentin 600 mg PO TID 05/29/19 05/29/19 History Lisinopril 40 mg PO DAILY 05/29/19 05/29/19 History Metoprolol Tartrate 25 mg PO BID 05/29/19 05/29/19 History Trospium Chloride 20 mg PO BID 05/29/19 05/29/19 History Allergies Allergy/AdvReac Type Severity Reaction Status Date / Time No Known Allergies Allergy Verified 12/22/18 22:50 Physical Exam Vitals: Vital Signs Temp Pulse Resp BP Pulse Ox 05/29/19 10:44 0 L 0 L 0/0 0 L 05/29/19 10:00 0 L 0 L 0 L 05/29/19 09:09 74 18 75/24 74 L 05/29/19 08:25 61 18 83/37 59 L 05/29/19 08:15 62 18 88/38 57 L 05/29/19 08:08 65 18 129/41 42 L 05/29/19 07:23 98.3 F 104 H 0 L 141/70 Intake and Output 05/28/19 05/29/1919 22:59 06:59 14:59 Intake Total 10.503 Output Total 50 Balance -39.497 Intake: Intake, IV Titration 10.503 Amount Norepinephrine 4 mg In 10.503 Sodium Chloride 0.9% 250 ml @ 0.05 MCG/KG/MIN 12. 357 mls/hr IV .[id number] [facility] Rx#:[id number] Output: Urine 50 Uretheral (Tejeda) 50 Other: Weight 64.864 kg Results 05/29/19 07:23 05/29/19 07:23 Cardiac Enzymes 05/29/19 05/29/19 Range/Units 07:23 07:23 AST 601 H (17-59) U/L Troponin I 0.031 (0.000-0.034) ng/mL Coagulation 05/29/19 Range/Units 07:23 PT 14.1 H (9.0-12.0) sec APTT 92.1 H (22.0-30.0) sec CBC 05/29/19 Range/Units 07:23 WBC 3.9 (3.8-10.6) k/uL RBC 3.26 L (4.30-5.90) m/uL Hgb 11.6 L (13.0-17.5) gm/dL Hct 39.7 (39.0-53.0) % Plt Count 37 L D (150-450) k/uL Comprehensive Metabolic Panel 05/29/19 Range/Units 07:23 Sodium 126 L (137-145) mmol/L Potassium 5.4 H (3.5-5.1) mmol/L Chloride 91 L (98-107) mmol/L Carbon Dioxide 11 L (22-30) mmol/L BUN 22 H (9-20) mg/dL Creatinine 1.73 H (0.66-1.25) mg/dL Glucose 392 H (74-99) mg/dL Calcium 6.8 L (8.4-10.2) mg/dL AST 601 H (17-59) U/L ALT 228 H (21-72) U/L Alkaline Phosphatase 29 L (38-126) U/L Total Protein 4.1 L (6.3-8.2) g/dL Albumin 1.9 L (3.5-5.0) g/dL Current Medications Generic Name Dose Route Start Last Admin Trade Name Freq PRN Reason Stop Dose Admin Norepinephrine Bitartrate 4 mg 254 mls @ 12.357 mls/hr 05/29/19 08:15 05/29/19 08:17 / Sodium Chloride IV 0.3 mcg/kg/min .[id number] 74.14 mls/hr Titration Protocol 0.05 MCG/KG/MIN Intake and Output 05/28/19 05/29/19 05/29/19 22:59 06:59 14:59 Intake Total 10.503 Output Total 50 Balance -39.497 Intake: Intake, IV Titration 10.503 Amount Norepinephrine 4 mg In 10.503 Sodium Chloride 0.9% 250 ml @ 0.05 MCG/KG/MIN 12. 357 mls/hr IV .[id number] [facility] Rx#:[id number] Output: Urine 50 Uretheral (Tejeda) 50 Other: Weight 64.864 kg Patient Weight 05/30/19 06:59 Weight 64.864 kg 05/29/19 07:23 05/29/19 07:23
== END 2019-05-29 11:30 | disposition expired ==
LOC: EC 07:17
DX: I46.9 Cardiac arrest, cause unspecified (principal); E16.2 Hypoglycemia, unspecified; J81.1 Chronic pulmonary edema; I48.91 Unspecified atrial fibrillation; R00.1 Bradycardia, unspecified; I25.119 Atherosclerotic heart disease of native coronary artery with unspecified angina pectoris; E78.5 Hyperlipidemia, unspecified; I10 Essential (primary) hypertension; I25.2 Old myocardial infarction; G40.909 Epilepsy, unspecified, not intractable, without status epilepticus; I73.9 Peripheral vascular disease, unspecified; F41.9 Anxiety disorder, unspecified; F17.200 Nicotine dependence, unspecified, uncomplicated; Z79.02 Long term (current) use of antithrombotics/antiplatelets; Z79.899 Other long term (current) drug therapy; Z86.73 Personal history of transient ischemic attack (TIA), and cerebral infarction without residual deficits; Z95.5 Presence of coronary angioplasty implant and graft; Z89.511 Acquired absence of right leg below knee; Z82.49 Family history of ischemic heart disease and other diseases of the circulatory system; Z80.1 Family history of malignant neoplasm of trachea, bronchus and lung
CPT/HCPCS: 99285; 96365; 96375 ×4; 96361; 36415; 36600; 93005; 80053; 82805; 83605; 83735; 84484; 85025; 85610; 85730; 71045; 70450; 71275; G0480; J0171 ×2; J1940; Q9967; 80320